=== PATIENT | female | born 1990 | race Caucasian/White ===

== ENCOUNTER 2019-06-02 14:08 | Emergency (ER) | payer SELFPAY ==
[2019-06-02 14:16] VITALS: BP 136/84
[2019-06-02] MEDS ORDERED: DEXAMETHASONE SOD PHOS INJ 10 MG/1 ML VIAL IM ONE (14:38)
[2019-06-02] MEDS ORDERED: KETOROLAC TROMETHAMINE 60 MG/2 ML SDV IM ONE (14:38)
--- NOTE | 2019-06-02 14:43 | ER Document Report ---
HPI - HPI Time Seen by Provider: 06/02/19 14:14 Pain Level: 5 Notes: Patient is a 28-year-old female with a history of morbid obesity hypothyroidism who presents complaining of bilateral anterior thigh numbness with occasional sharp pain rating from her knee to her mid thigh bilaterally that began today. Patient states that she has never experienced this before. Patient states that she does have some decreased sensation to that area on her thighs. 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 Patient states that she has been able to ambulate since then without any difficulties. She is able to eat and drink without difficulty. She is urinating normally and having normal bowel movements. Denies drug allergies. She has not had any back pain. Denies any history of spinal abscess, diabetes, IV drug abuse. Denies any headache, fever, changes in vision/speech/mentation/hearing, URI, sore throat, chest pain, palpitations, syncope, cough, shortness of breath, wheeze, dyspnea, abdominal pain, nausea/vomiting/diarrhea, urinary retention, dysuria, hematuria, loss of control of bowel or bladder, saddle anesthesia, muscle paralysis/weakness, or rash. - ROS Systems Reviewed and Negative: Yes All other systems reviewed and negative - REPRODUCTIVE Reproductive: DENIES: : - MUSCULOSKELETAL Musculoskeletal: REPORTS: Extremity pain - beatriz thighs Past Medical History - Social History Smoking Status: Current Every Day Smoker Frequency of alcohol use: None Drug Abuse: None Family History: Reviewed & Not Pertinent Patient has suicidal ideation: No Patient has homicidal ideation: No Renal/ Medical History: Denies: Hx Peritoneal Dialysis Past Surgical History: Reports: Hx Abdominal Surgery - umbilical hernia repair, 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 Vertical Provider Document - CONSTITUTIONAL Agree With Documented VS: Yes Notes: PHYSICAL EXAMINATION: with female nurseemre. GENERAL: Well-appearing, well-nourished and in no acute distress. LUNGS: Breath sounds clear to auscultation bilaterally and equal. No wheezes rales or rhonchi. HEART: Regular rate and rhythm without murmurs, rubs, gallops. ABDOMEN: Soft, nontender, nondistended abdomen. No guarding, no rebound. Normal bowel sounds present. No CVA tenderness bilaterally. No pulsatile mass. Rectal tone intact. Musculoskeletal: LE's b/l: FROM to passive/active. Strength 5+/5. No bony tenderness of extremities. Back: FROM to passive/active. Strength 5+/5. No vertebral point tenderness, stepoffs, or deformities. No other bony tenderness, erythema, swelling, or ecchymosis. SLR negative b/l. No SI jt tenderness. No foot drop Extremities: No cyanosis, clubbing, or edema b/l. Peripheral pulses 2+. Capillary refill less than 2 seconds. NEUROLOGICAL: Normal speech, normal gait. Reflexes 2+ b/l. + dec sensation to anterior mid thighs b/l to sharp. Neuro intact distal, however. Clonus neg. PSYCH: Normal mood, normal affect. SKIN: Warm, Dry, normal turgor, no rashes or lesions noted. - INFECTION CONTROL TRAVEL OUTSIDE OF THE [place] IN LAST 30 DAYS: No Course - Re-evaluation Re-evalutation: 06/02/19 14:41 Patient is an afebrile, well-hydrated, 28-year-old female who presents to the ED with bilateral thigh pain, unspecified. I reviewed with Dr. morris who does not recommend any work up at this time. Vitals are acceptable. PE is otherwise unremarkable for any focal neurological deficits aside from mild dec sensation to anterior thighs b/l. Patient was given Decadron, Toradol. She has no significant tachycardia, tachypnea, or hypoxia. She is nontoxic-appearing and is tolerating p.o. without difficulties. There are no signs of infection. No other red flag symptoms noted. No other labs or imaging warranted at this time based on H&P. Low suspicion for any meningitis, fracture, expanding/ruptured AAA, cauda equina syndrome, epidural mass lesion/abscess, herniated disc causing severe spinal stenosis, or other systemic infection at this time. Patient is aware that this condition can change from initial presentation and that she needs monitor symptoms closely for any acute changes. Conservative measures otherwise for symptoms. Recheck with your PCM in 3-5 days. Consider consult with neurosurg. Return to the ED with any worsening/concerning symptoms otherwise as reviewed discharge. Patient is in agreement. - Vital Signs Vital signs: Temp Pulse Resp BP Pulse Ox 98.3 F 97 18 136/84 H 96 06/02/19 14:13 06/02/19 14:13 06/02/19 14:13 06/02/19 14:13 06/02/19 14:13 Discharge - Discharge Clinical Impression: Bilateral thigh pain Condition: Stable Disposition: HOME, SELF-CARE Additional Instructions: Rest, Ice Tylenol/ibuprofen as needed Light stretches daily Strength exercises as able Moist heat and massage may help F/u with your PCP in 3-5 days for a recheck Consider consult(s) with Orthopedics/physical therapy for ongoing/worsening symptoms Return to the ED with any worsening symptoms and/or development of fever, headache, chest pain, palpitations, syncope, shortness of breath, trouble breathing, abdominal pain, n/v/d, blood in stool/urine, loss of control of bowel/bladder, urinary retention, muscle weakness/paralysis, saddle anesthesia, numbness/tingling, or other worsening symptoms that are concerning to you. Forms: Elevated Blood Pressure, Smoking Cessation Education, Return to Work Referrals: [facility] [Provider Group] - Follow up as needed
== END 2019-06-02 15:00 | disposition home or self-care (01) ==
LOC: ER 14:08
DX: M79.652 Pain in left thigh (principal); M79.651 Pain in right thigh; R20.0 Anesthesia of skin; F17.200 Nicotine dependence, unspecified, uncomplicated
CPT/HCPCS: 99283; 96372; J1885; J1100

== ENCOUNTER 2020-02-27 11:39 | Inpatient (IN) | payer OTHER ==
[2020-02-27] MEDS ORDERED: IPRATROPIUM/ALBUTEROL 0.5-2.5 MG/3 ML AMPUL NEB ONE (12:19)
--- NOTE | 2020-02-27 12:35 | ER Document Report ---
Entered by MARIA DEL CARMEN SQUIRES SCRIBE 02/27/20 1208 Acting as scribe for:SHASHI BARRERA DO ED General - General Chief Complaint: Shortness Of Breath Stated Complaint: SHORTNESS OF BREATH Time Seen by Provider: 02/27/20 12:04 Information source: Patient Notes: This 29-year-old female presents to the emergency department complaining of cough, wheezing and shortness of breath for the past 2 weeks. Patient used mother's albuterol with mild temporary relief. Patient reports intermittent pro ductive cough. Patient denies fever, recent travel or sick contact. Patient is an every day smoker. TRAVEL OUTSIDE OF THE [place] IN LAST 30 DAYS: No - Related Data Allergies/Adverse Reactions: No Known Allergies Allergy (Verified 06/02/19 14:09) Past Medical History - General Information source: Patient - Social History Smoking Status: Current Every Day Smoker Cigarette use (# per day): Yes Chew tobacco use (# tins/day): No Family History: Reviewed & Not Pertinent Past Surgical History: Reports: Hx Abdominal Surgery - umbilical hernia repair, 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 Review of Systems - Review of Systems Constitutional: See HPI. denies: Fever EENT: No symptoms reported Cardiovascular: No symptoms reported Respiratory: See HPI, Cough, Short of breath, Wheezing Gastrointestinal: No symptoms reported Genitourinary: No symptoms reported Female Genitourinary: No symptoms reported Musculoskeletal: No symptoms reported Skin: No symptoms reported Hematologic/Lymphatic: No symptoms reported Neurological/Psychological: No symptoms reported -: Yes All other systems reviewed and negative Physical Exam - Vital signs Vitals: Resp Pulse Ox 23 H 95 02/27/20 12:04 02/27/20 12:04 - Notes Notes: Physical Exam: General: Alert, appears older than stated age. Chronically ill. HEENT: Normocephalic. Atraumatic. PERRL. Extraocular movements intact. Oropharynx clear. Neck: Supple. Non-tender. Respiratory: No respiratory distress. Diminished in the basis with expiratory wheezes. Cardiovascular: Regular and tachycardic. Abdominal: Morbidly obese. Non-tender. No distension. Normal Bowel Sounds. Back: No gross abnormalities. Extremities: Moves all four extremities. Upper extremities: Normal inspection. Normal ROM. Lower extremities: Trace peripheral edema. Normal ROM. Neurological: Normal cognition. AAOx4. Normal speech. Psychological: Normal affect. Normal Mood. Skin: Warm. Dry. Normal color. Course - Re-evaluation Re-evalutation: 02/27/20 13:26 MDM 29 year old right handed female with biparietal headache. Nausea and vomiting and shakey earlier. No fever and feels better. ? seizure activity. No h/o seizures. - Vital Signs Vital signs: Temp Pulse Resp BP Pulse Ox 98.6 F 136 H 28 H 130/92 H 94 02/27/20 12:25 02/27/20 12:07 02/27/20 14:00 02/27/20 13:01 02/27/20 14:00 - Laboratory Result Diagrams: 02/27/20 12:30 02/27/20 12:30 Laboratory results interpreted by me: 02/27/20 02/27/20 02/27/20 12:30 12:30 12:30 WBC 21.3 H Hgb 11.5 L Hct 34.9 L MCV 76 L MCH 25.2 L RDW 16.5 H Lymphocytes % (Manual) 12 L Abs Neuts (Manual) 16.2 H Abs Monocytes (Manual) 1.9 H Sodium 134.7 L Carbon Dioxide 21 L Est GFR (MDRD) Non-Af 53 L NT-Pro-B Natriuret Pep TSH 11.80 H Urine Protein Urine Blood 02/27/20 02/27/20 12:30 13:50 WBC Hgb Hct MCV MCH RDW Lymphocytes % (Manual) Abs Neuts (Manual) Abs Monocytes (Manual) Sodium Carbon Dioxide Est GFR (MDRD) Non-Af NT-Pro-B Natriuret Pep 993 H TSH Urine Protein 30 H Urine Blood MODERATE H - Diagnostic Test Radiology reviewed: Image reviewed, Reports reviewed - EKG Interpretation by Me EKG shows normal: Sinus rhythm Rate: Tachycardia Rhythm: NSR - Sinus Tachy [address] elevaiton or depression my interpretation. Critical Care Note - Critical Care Note Total time excluding time spent on procedures (mins): 30 Comments: Reviewing labs, speaking with pt and hospitalists. Checking response to treatment and informing pt of results. Discharge - Discharge Clinical Impression: Respiratory failure Qualifiers: Chronicity: acute Respiratory failure complication: hypoxia Qualified Code(s): J96.01 - Acute respiratory failure with hypoxia CAP (community acquired pneumonia) Qualifiers: Laterality: unspecified laterality Qualified Code(s): J18.9 - Pneumonia, unspecified organism Condition: Good Disposition: ADMITTED INPATIENT Admitting Provider: Mai (Hospitalist) Unit Admitted: Telemetry I personally performed the services described in the documentation, reviewed and edited the documentation which was dictated to the scribe in my presence, and it accurately records my words and actions.
[2020-02-27] MEDS ORDERED: METHYLPREDNISOLONE INJ 125 MG/2 ML SDV IV ONE (13:00)
[2020-02-27 13:01] LABS: HEMATOCRIT 34.9 % (36.0-47.0); HEMOGLOBIN 11.5 g/dL (12.0-15.5); MEAN CORPUSCULAR HEMOGLOBIN 25.2 pg (27.0-33.4); MEAN CORPUSCULAR HGB CONC 33.1 g/dL (32.0-36.0); MEAN CORPUSCULAR VOLUME 76 fl (80-97); PLATELET COUNT 194 10^3/uL (150-450); RED BLOOD COUNT 4.59 10^6/uL (3.72-5.28); RED CELL DISTRIBUTION WIDTH 16.5 % (11.5-14.0); WHITE BLOOD COUNT 21.3 10^3/uL (4.0-10.5)
[2020-02-27 13:22] LABS: ABSOLUTE LYMPHOCYTES# (MANUAL) 2.8 10^3/uL (0.5-4.7); ABSOLUTE MONOCYTES # (MANUAL) 1.9 10^3/uL (0.1-1.4); BASOPHILS % (MANUAL) 0 % (0-2); EOSINOPHILS % (MANUAL) 2 % (0-6); LYMPHOCYTES % (MANUAL) 12 % (13-45); MONOCYTES % (MANUAL) 9 % (3-13); SEGMENTED NEUTROPHILS % (MAN) 76 % (42-78); TOTAL CELLS COUNTED 100
[2020-02-27 13:23] LABS: ALBUMIN 3.7 g/dL (3.5-5.0); ALKALINE PHOSPHATASE 93 U/L (38-126); ANION GAP 8 (5-19); ASPARTATE AMINO TRANSFERASE 18 U/L (14-36); BILIRUBIN,TOTAL 0.7 mg/dL (0.2-1.3); BLOOD UREA NITROGEN 17 mg/dL (7-20); CALCIUM 8.9 mg/dL (8.4-10.2); CARBON DIOXIDE 21 mmol/L (22-30); CHLORIDE 106 mmol/L (98-107); GLUCOSE 102 mg/dL (75-110); POTASSIUM 4.7 mmol/L (3.6-5.0); TOTAL PROTEIN 7.9 g/dL (6.3-8.2)
[2020-02-27 13:26] LABS: ANISOCYTOSIS 1+; OVALOCYTES SLIGHT; PLATELET COMMENT ADEQUATE; POIKILOCYTOSIS SLIGHT; POLYCHROMASIA SLIGHT; TOXIC VACUOLATION PRESENT
--- NOTE | 2020-02-27 13:41 | RADIOLOGY REPORT (SQ) ---
EXAM DESCRIPTION: CHEST SINGLE VIEW IMAGES COMPLETED DATE/TIME: 02/27/2020 1:17 pm REASON FOR STUDY: cough COMPARISON: None. NUMBER OF VIEWS: One view. TECHNIQUE: Single frontal radiographic view of the chest acquired. LIMITATIONS: None. FINDINGS: LUNGS AND PLEURA: No opacities, masses or pneumothorax. No pleural effusion. MEDIASTINUM AND HILAR STRUCTURES: No masses or contour abnormality. HEART AND VASCULATURE: Cardiac enlargement. Vascular congestion. BONES: No acute findings. HARDWARE: None in the chest. OTHER: No other significant finding. IMPRESSION: CARDIAC ENLARGEMENT. VASCULAR CONGESTION. TECHNICAL DOCUMENTATION: JOB ID: [id number] 2010 [employer]- All Rights Reserved Reading location - IP/workstation name: [email or web address]
[2020-02-27] MEDS ORDERED: AMPICILLIN SOD/SULBACTAM 3 GM VIAL IV ONE (14:13)
[2020-02-27] MEDS ORDERED: ALBUTEROL SULFATE 0.083% NEB 2.5 MG/3 ML AMPUL NEB ONE (14:13)
[2020-02-27] MEDS ORDERED: AZITHROMYCIN INJ 500 MG VIAL IV ONE (14:14)
[2020-02-27 14:31] LABS: APPEARANCE,URINE CLEAR; BILIRUBIN,URINE NEGATIVE (NEGATIVE); COLOR,URINE YELLOW; GLUCOSE, URINE NEGATIVE (NEGATIVE); KETONES,URINE NEGATIVE (NEGATIVE); LEUKOCYTE ESTERASE,URINE NEGATIVE (NEGATIVE); NITRITE,URINE NEGATIVE (NEGATIVE); PROTEIN,URINE 30 mg/dL (NEGATIVE); URINE SPECIFIC GRAVITY 1.009; UROBILINOGEN,URINE NEGATIVE mg/dL (<2.0)
[2020-02-27] MEDS ORDERED: ONDANSETRON HCL INJ/PF 4 MG/2 ML SDV IV ONE (15:24)
[2020-02-27] MEDS ORDERED: MORPHINE SULFATE 10 MG/ML INJ IV ONE (15:24)
--- NOTE | 2020-02-27 15:42 | RADIOLOGY REPORT (SQ) ---
EXAM DESCRIPTION: CTA CHEST IMAGES COMPLETED DATE/TIME: 02/27/2020 3:14 pm REASON FOR STUDY: dyspnea COMPARISON: None. TECHNIQUE: CT scan of the chest performed using helical scanning technique with dynamic intravenous contrast injection. Images reviewed with lung, soft tissue and bone windows. Reconstructed coronal and sagittal MPR images reviewed. Additional 3 dimensional post-processing performed to develop Maximal Intensity Projection images (ND P). All images stored on PACS. All CT scanners at this facility use dose modulation, iterative reconstruction, and/or weight based d osing when appropriate to reduce radiation dose to as low as reasonably achievable (ALARA). [facility]: Dose Right [facility]: CareDose [facility]: Dose Right [facility]: Teradose 4D [facility]: [employer] CONTRAST TYPE AND DOSE: contrast/concentration: Isovue 350.00 mg/ml; Total Contrast Delivered: 75.0 ml; Total Saline Delivered: 70.0 ml Contrast bolus adequate for pulmonary arteries and aorta. RENAL FUNCTION: GFR > 60. RADIATION DOSE: CT Rad equipment meets quality standard of care and radiation dose reduction techniq ues were employed. CTDIvol: 29.8 - 49.6 mGy. DLP: 1055 mGy-cm. . LIMITATIONS: Motion artifact. FINDINGS: LUNGS AND PLEURA: Diffuse interlobular septal thickening. Patchy alveolar pattern primari ly upper lobes. No evidence of cavitation. No effusions. AORTA AND GREAT VESSELS: No aneurysm. No dissection. HEART: No pericardial effusion. PULMONARY ARTERIES: No emboli visualized in the main pulmonary arteries or the segmental branches. HILAR AND MEDIASTINAL STRUCTURES: Enlarged mediastinal nodes, the largest subcarinal station 2.9 x 3. 5 cm. HARDWARE: None in the chest. UPPER ABDOMEN: No significant findings. Limited exam. THYROID AND OTHER SOFT TISSUES: No masses. No adenopathy. BONES: No acute or significant finding. 3D MIPS: Confirm above findings. OTHER: No other significant finding. IMPRESSION: 1. No evidence of pulmonary embolus. 2. Bilateral upper lobe infiltrates and mediastinal adenopathy. Main differentials are infection or sarcoid. COMMENT: Imaging features are atypical or uncommonly reported for COVID-19 pneumonia. Alternative d iagnoses should be considered. PneAty Quality ID # [id number]: Final reports with documentation of one or more dose reduction techniques (e.g., Au tomated exposure control, adjustment of the mA and/or kV according to patient size, use of iterative reconstruction technique) TECHNICAL DOCUMENTATION: JOB ID: [id number] 2010 [employer]- All Rights Reserved Reading location - IP/workstation name: [email or web address]
[2020-02-27] MEDS ORDERED: IPRATROPIUM/ALBUTEROL 0.5-2.5 MG/3 ML AMPUL NEB PRN (17:47)
[2020-02-27] MEDS ORDERED: ALBUTEROL SULFATE HFA (90 MCG/PUFF) 8 GM MDI IH PRN (17:57)
[2020-02-27] MEDS ORDERED: ALBUTEROL SULFATE HFA (90 MCG/PUFF) 200 PUFF/8.5 GM MDI IH PRN (18:00)
--- NOTE | 2020-02-27 18:15 | PDOC H&P ---
History of Present Illness Admission Date/PCP: 02/27/20 17:11 History of Present Illness: CHEMO CRUZ is a 29 year old female who has smoked since she was 14 or 15 years old and apparently has not worked in the past several months who presents today after having worsening shortness of breath. She states she has had a cough for the past 2 weeks. It is been nonproductive. She has not had any fevers. She is not had any known sick contacts. She says she has not left her house in several weeks. She lives at home with her disabled mother who is also not left her house in several weeks. The other person who lives in the house is the patient's father, who apparently only leaves the house to go get groceries and also does not work. She says they have not had any visitors. They have one neighbor who they have not seen in weeks. Her exposure for communicable diseases is therefore extremely low. She said that today her shortness of breath got worse. She did not want to come to the hospital but her father convinced her to do so. She said that yesterday she used 1 of her mother's nebulizer treatments and said it made her feel little bit better. She was a little hypoxic in the ER, about 85% on room air but was not working too hard to breathe at that time. She responded to nebulizer therapy in the ER. After starting some oxygen her SPO2 came up to the upper 90s on 2 L and she says she was feeling a lot better. CT of the chest was negative for PE, but she did have apical pulmonary edema bilaterally. Past Medical History Medical History: Other - Morbid obesity, current every day smoker Past Surgical History Past Surgical History: Reports: Orthopedic Surgery - right 5th toe amputation Social History Information Source: Patient Lives with: Parents Smoking Status: Current Every Day Smoker Electronic Cigarette use?: No Frequency of Alcohol Use: Rare Hx Recreational Drug Use: No Hx Prescription Drug Abuse: No Family History Family History: Reviewed & Not Pertinent, Arthritis, CAD, COPD, DM, Hypertension, Thyroid Disfunction Parental Family History Reviewed: Yes Children Family History Reviewed: NA Sibling(s) Family History Reviewed.: NA Medication/Allergy Home Medications: No Home Medications 02/27/20 Allergies/Adverse Reactions: No Known Allergies Allergy (Verified 06/02/19 14:09) Review of Systems All systems: reviewed and no additional remarkable complaints except as stated - All systems were reviewed and were negative except as noted in the HPI Physical Exam Vital Signs: Temp Pulse Resp BP Pulse Ox 98.6 F 136 H 28 H 130/92 H 94 02/27/20 12:25 02/27/20 12:07 02/27/20 14:00 02/27/20 13:01 02/27/20 14:00 Intake & Output 02/26/20 02/27/20 02/28/20 06:59 06:59 06:59 Weight 188.241 kg General appearance: PRESENT: no acute distress, cooperative, disheveled, morbidly obese Head exam: PRESENT: atraumatic, normocephalic Eye exam: PRESENT: EOMI, PERRLA. ABSENT: conjunctival injection, nystagmus, scleral icterus Ear exam: PRESENT: normal external ear exam Mouth exam: PRESENT: moist, neck supple Throat exam: ABSENT: post pharyngeal erythema Neck exam: PRESENT: full ROM. ABSENT: carotid bruit, JVD, lymphadenopathy, meningismus, tenderness, thyromegaly Respiratory exam: PRESENT: prolonged expiratory phas, symmetrical, unlabored, wh eezes. ABSENT: accessory muscle use, chest wall tenderness, crackles, retraction, rhonchi, tachypnea Cardiovascular exam: PRESENT: RRR, +S1, +S2 Pulses: PRESENT: normal carotid pulses Vascular exam: PRESENT: normal capillary refill GI/Abdominal exam: PRESENT: normal bowel sounds, soft. ABSENT: distended, guarding, rebound, tenderness Extremities exam: ABSENT: clubbing, pedal edema Musculoskeletal exam: PRESENT: normal inspection. ABSENT: deformity Neurological exam: PRESENT: alert, awake, oriented to person, oriented to place, oriented to situation, CN II-XII grossly intact. ABSENT: motor sensory deficit Psychiatric exam: PRESENT: flat affect Skin exam: PRESENT: dry, warm Results Laboratory Results: 02/27/20 12:30 02/27/20 12:30 02/27/20 02/27/20 02/27/20 12:30 12:30 12:30 WBC 21.3 H RBC 4.59 Hgb 11.5 L Hct 34.9 L MCV 76 L MCH 25.2 L MCHC 33.1 RDW 16.5 H Plt Count 194 Seg Neutrophils % Not Reportable Sodium 134.7 L Potassium 4.7 Chloride 106 Carbon Dioxide 21 L Anion Gap 8 BUN 17 Creatinine 1.20 Est GFR ( Amer) > 60 Glucose 102 Lactic Acid 2.0 Calcium 8.9 Total Bilirubin 0.7 AST 18 Alkaline Phosphatase 93 Total Protein 7.9 Albumin 3.7 TSH Serum HCG, Qual Urine Color Urine Appearance Urine pH Ur Specific [place] Urine Protein Urine Glucose (UA) Urine Ketones Urine Blood Urine Nitrite Ur Leukocyte Esterase Urine WBC (Auto) Urine RBC (Auto) 02/27/20 02/27/20 02/27/20 12:30 12:30 13:50 WBC RBC Hgb Hct MCV MCH MCHC RDW Plt Count Seg Neutrophils % Sodium Potassium Chloride Carbon Dioxide Anion Gap BUN Creatinine Est GFR ( Amer) Glucose Lactic Acid Calcium Total Bilirubin AST Alkaline Phosphatase Total Protein Albumin TSH 11.80 H Serum HCG, Qual NEGATIVE Urine Color YELLOW Urine Appearance CLEAR Urine pH 6.0 Ur Specific [place] 1.009 Urine Protein 30 H Urine Glucose (UA) NEGATIVE Urine Ketones NEGATIVE Urine Blood MODERATE H Urine Nitrite NEGATIVE Ur Leukocyte Esterase NEGATIVE Urine WBC (Auto) 1 Urine RBC (Auto) 3 02/27/20 02/27/20 12:30 12:30 Troponin I < 0.012 NT-Pro-B Natriuret Pep 993 H Impressions: Chest X-Ray 02/27/20 12:18 IMPRESSION: CARDIAC ENLARGEMENT. VASCULAR CONGESTION. Chest/Abdomen CTA 02/27/20 13:46 IMPRESSION: 1. No evidence of pulmonary embolus. 2. Bilateral upper lobe infiltrates and mediastinal adenopathy. Main differentials are infection or sarcoid. Assessment and Plan - Diagnosis (1) Acute respiratory failure with hypoxia Is this a current diagnosis for this admission?: Yes Plan: She responded well to nebulizer treatment and oxygen therapy. Since they have decided to test her for COVID-19, we will try to avoid nebulizer therapy. I will give her albuterol from metered-dose inhaler. She did have some wheezing, and since my index of suspicion is fairly low I am going to give her a couple of doses of prednisone to try to break her bronchospasm, which I anticipate should occur fairly quickly. (2) Atypical pneumonia Is this a current diagnosis for this admission?: Yes Plan: Bilateral apical infiltrates most likely suggestive of an atypical pneumonia. Will start a azithromycin. (3) Suspected COVID-19 virus infection Is this a current diagnosis for this admission?: Yes Plan: She was tested in the ER but her presentation and her history that she provides would give a fairly low index of suspicion. She is not had very much in the way of exposure. If anything, her point of exposure would be her father, who also very rarely ventures out into public. The test was ordered in the ER and so we will rule her out. (4) Hypothyroidism Qualifiers: Hypothyroidism type: other Qualified Code(s): E03.8 - Other specified hypothyroidism Is this a current diagnosis for this admission?: Yes Plan: Suspect primary hypothyroidism. TSH was 11.8. She is not been on any treatment. Based on her estimated lean body weight, I will start her out at 112 mcg of Synthroid a day. We will also check a free T4. - Time Time Spent with patient: 35 or more minutes - Inpatient Certification Based on my medical assessment, after consideration of the patient's comorbidities, presenting symptoms, or acuity I expect that the services needed warrant INPATIENT care.: Yes I certify that my determination is in accordance with my understanding of Medicare's requirements for reasonable and necessary INPATIENT services [42 CFR 412.3e].: Yes Medical Necessity: Significant Comorbidiites Make Outpatient Treatment Too Risky, Need Close Monitoring Due to Risk of Patient Decompensation, Need For Continuous Telemetry Monitoring, Need for Nebulizer Therapy and Monitoring of Response, Risk of Complication if Not Cared For in Hospital
[2020-02-27] MEDS: ACETAMINOPHEN 325 MG TABLET PO PRN (20:48)
[2020-02-27] MEDS: HEPARIN SOD (PORCINE) 5,000 UNIT/ML 1 ML VIAL SUBCUT SCH (22:03)
[2020-02-28] MEDS: HEPARIN SOD (PORCINE) 5,000 UNIT/ML 1 ML VIAL SUBCUT SCH ×2 (05:54→13:33)
[2020-02-28] MEDS ORDERED: LEVOTHYROXINE SODIUM 0.112 MG TABLET PO SCH (06:00)
[2020-02-28] MEDS: ACETAMINOPHEN 325 MG TABLET PO PRN (06:03)
[2020-02-28 06:53] LABS: HEMATOCRIT 33.4 % (36.0-47.0); HEMOGLOBIN 11.1 g/dL (12.0-15.5); MEAN CORPUSCULAR HEMOGLOBIN 24.9 pg (27.0-33.4); MEAN CORPUSCULAR HGB CONC 33.2 g/dL (32.0-36.0); MEAN CORPUSCULAR VOLUME 75 fl (80-97); PLATELET COUNT 183 10^3/uL (150-450); RED BLOOD COUNT 4.46 10^6/uL (3.72-5.28); RED CELL DISTRIBUTION WIDTH 16.5 % (11.5-14.0); WHITE BLOOD COUNT 17.9 10^3/uL (4.0-10.5)
[2020-02-28 07:22] LABS: ANION GAP 7 (5-19); BLOOD UREA NITROGEN 22 mg/dL (7-20); CALCIUM 9.1 mg/dL (8.4-10.2); CARBON DIOXIDE 20 mmol/L (22-30); CHLORIDE 105 mmol/L (98-107); GLUCOSE 151 mg/dL (75-110); POTASSIUM 5.1 mmol/L (3.6-5.0)
[2020-02-28] MEDS ORDERED: PREDNISONE 20 MG TABLET PO SCH (10:00)
[2020-02-28 14:00] VITALS: BP 149/95
--- NOTE | 2020-02-28 17:56 | PDOC DISCHARGE SUMMARY ---
Impression - Admit/DC Date/PCP Admission Date/Primary Care Provider: 02/27/20 17:11 Discharge Date: 02/28/20 - Discharge Diagnosis (1) Acute respiratory failure with hypoxia Is this a current diagnosis for this admission?: Yes (2) Atypical pneumonia Is this a current diagnosis for this admission?: Yes (3) Suspected COVID-19 virus infection Is this a current diagnosis for this admission?: Yes (4) Hypothyroidism Is this a current diagnosis for this admission?: Yes - Additional Information Discharge Diet: Cardiac Discharge Activity: Activity As Tolerated, Balance Activity w/Rest, Other Referrals: [facility] [Provider Group] (NOT SEEING PATIENTS IN THE CLINIC RIGHT NOW. 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 AND THE CLINIC WILL CONTACT HER.) Prescriptions: Azithromycin 500 mg PO DAILY #3 tablet Albuterol Sulfate [Proair HFA Inhalation Aerosol 8.5 gm MDI] 2 puff IH Q4HP PRN #1 hfa.[email or web address] PRN Reason: Levothyroxine Sodium [Synthroid 0.112 mg Tablet] 0.112 mg PO Q6AM #30 tablet Home Medications: Albuterol Sulfate [Proair HFA Inhalation Aerosol 8.5 gm MDI] 2 puff IH Q4HP PRN #1 hfa.aer.ad 02/28/20 Azithromycin 500 mg PO DAILY #3 tablet 02/28/20 Levothyroxine Sodium [Synthroid 0.112 mg Tablet] 0.112 mg PO Q6AM #30 tablet 02/28/20 History of Present Illiness History of Present Illness: CHEMO CRUZ is a 29 year old female who has smoked since she was 14 or 15 years old and apparently has not worked in the past several months who presents today after having worsening shortness of breath. She states she has had a cough for the past 2 weeks. It is been nonproductive. She has not had any fevers. She is not had any known sick contacts. She says she has not left her house in several weeks. She lives at home with her disabled mother who is also not left her house in several weeks. The other person who lives in the house is the patient's father, who apparently only leaves the house to go get groceries and also does not work. She says they have not had any visitors. They have one neighbor who they have not seen in weeks. Her exposure for communicable disea ses is therefore extremely low. She said that today her shortness of breath got worse. She did not want to come to the hospital but her father convinced her to do so. She said that yesterday she used 1 of her mother's nebulizer treatments and said it made her feel little bit better. She was a little hypoxic in the ER, about 85% on room air but was not working too hard to breathe at that time. She responded to nebulizer therapy in the ER. After starting some oxygen her SPO2 came up to the upper 90s on 2 L and she says she was feeling a lot better. CT of the chest was negative for PE, but she did have apical pulmonary edema bilaterally. Hospital Course Hospital Course: Coronavirus testing is still pending, but the index of suspicion is very low. She responded very well to some bronchodilators and a couple doses of prednisone. We also had her on some azithromycin. She likely had an atypical pneumonia. She was not wheezing today. She does not have insurance, but we were able to get the [employer] michi on her phone and this enabled her to get her antibiotic and her albuterol inhaler at a very low chilel. She was also noted to have an elevated TSH with a low normal T4. She said that she has taken Synthroid in the past but it paradoxically made her more tired. She does not have a primary care provider but she said she is going to try to get one within the next month. I have given her a month supply of levothyroxine and have recommended to her that she get a primary care provider within a month so that she can get her TSH repeated to see if the dose is appropriate. She verbalized her understanding. She is going to self quarantine at home but we're going through the appropriate process as delineated by this facility for releasing someone before their coronavirus testing results. Her labs and examination were reassuring and she was discharged in stable condition. Physical Exam Vital Signs: Temp Pulse Resp BP Pulse Ox 97.7 F 85 18 149/95 H 99 02/28/20 13:59 02/28/20 13:59 02/28/20 13:59 02/28/20 13:59 02/28/20 13:59 Intake & Output 02/27/20 02/28/20 02/29/20 06:59 06:59 06:59 Intake Total 1758 200 Balance 1758 200 Weight 188 kg General appearance: PRESENT: no acute distress, cooperative, disheveled, morbidly obese Respiratory exam: PRESENT: clear to auscultation beatriz, symmetrical, unlabored. ABSENT: accessory muscle use, chest wall tenderness, crackles, prolonged expiratory phas, retraction, rhonchi, tachypnea, wheezes Cardiovascular exam: PRESENT: RRR, +S1, +S2 Pulses: PRESENT: normal carotid pulses Vascular exam: PRESENT: normal capillary refill GI/Abdominal exam: PRESENT: normal bowel sounds, soft. ABSENT: distended, guarding, rebound, tenderness Extremities exam: ABSENT: clubbing, pedal edema Musculoskeletal exam: PRESENT: normal inspection. ABSENT: deformity Neurological exam: PRESENT: alert, awake, oriented to person, oriented to place, oriented to situation Psychiatric exam: PRESENT: flat affect Skin exam: PRESENT: dry, warm Results Laboratory Results: WBC 17.9 10^3/uL (4.0-10.5) H 02/28/20 06:18 RBC 4.46 10^6/uL (3.72-5.28) 02/28/20 06:18 Hgb 11.1 g/dL (12.0-15.5) L 02/28/20 06:18 Hct 33.4 % (36.0-47.0) L 02/28/20 06:18 MCV 75 fl (80-97) L 02/28/20 06:18 MCH 24.9 pg (27.0-33.4) L 02/28/20 06:18 MCHC 33.2 g/dL (32.0-36.0) 02/28/20 06:18 RDW 16.5 % (11.5-14.0) H 02/28/20 06:18 Plt Count 183 10^3/uL (150-450) 02/28/20 06:18 Lymph % (Auto) Not Reportable 02/27/20 12:30 Harlan % (Auto) Not Reportable 02/27/20 12:30 Eos % (Auto) Not Reportable 02/27/20 12:30 Baso % (Auto) Not Reportable 02/27/20 12:30 Absolute Neuts (auto) Not Reportable 02/27/20 12:30 Absolute Lymphs (auto) Not Reportable 02/27/20 12:30 Absolute Monos (auto) Not Reportable 02/27/20 12:30 Absolute Eos (auto) Not Reportable 02/27/20 12:30 Absolute Basos (auto) Not Reportable 02/27/20 12:30 Total Counted 100 02/27/20 12:30 Seg Neutrophils % Not Reportable 02/27/20 12:30 Seg Neuts % (Manual) 76 % (42-78) 02/27/20 12:30 Lymphocytes % (Manual) 12 % (13-45) L 02/27/20 12:30 Atypical Lymphs % 1 % (0) 02/27/20 12:30 Monocytes % (Manual) 9 % (3-13) 02/27/20 12:30 Eosinophils % (Manual) 2 % (0-6) 02/27/20 12:30 Basophils % (Manual) 0 % (0-2) 02/27/20 12:30 Abs Neuts (Manual) 16.2 10^3/uL (1.7-8.2) H 02/27/20 12:30 Abs Lymphs (Manual) 2.8 10^3/uL (0.5-4.7) 02/27/20 12:30 Abs Monocytes (Manual) 1.9 10^3/uL (0.1-1.4) H 02/27/20 12:30 Absolute Eos (Manual) 0.4 10^3/uL (0.0-0.6) 02/27/20 12:30 Abs Basophils (Manual) 0.0 10^3/uL (0.0-0.2) 02/27/20 12:30 Toxic Vacuolation PRESENT 02/27/20 12:30 Platelet Comment ADEQUATE 02/27/20 12:30 Polychromasia SLIGHT 02/27/20 12:30 Poikilocytosis SLIGHT 02/27/20 12:30 Anisocytosis 1+ 02/27/20 12:30 Microcytosis SLIGHT 02/27/20 12:30 Ovalocytes SLIGHT 02/27/20 12:30 Sodium 132.4 mmol/L (137-145) L 02/28/20 06:18 Potassium 5.1 mmol/L (3.6-5.0) H 02/28/20 06:18 Chloride 105 mmol/L (98-107) 02/28/20 06:18 Carbon Dioxide 20 mmol/L (22-30) L 02/28/20 06:18 Anion Gap 7 (5-19) 02/28/20 06:18 BUN 22 mg/dL (7-20) H 02/28/20 06:18 Creatinine 1.23 mg/dL (0.52-1.25) 02/28/20 06:18 Est GFR ( Amer) > 60 (>60) 02/28/20 06:18 Est GFR (MDRD) Non-Af 52 (>60) L 02/28/20 06:18 Glucose 151 mg/dL (75-110) H 02/28/20 06:18 Lactic Acid 2.0 mmol/L (0.7-2.1) 02/27/20 12:30 Calcium 9.1 mg/dL (8.4-10.2) 02/28/20 06:18 Total Bilirubin 0.7 mg/dL (0.2-1.3) 02/27/20 12:30 Direct Bilirubin 0.0 mg/dL (0.0-0.4) 02/27/20 12:30 Neonat Total Bilirubin Not Reportable 02/27/20 12:30 Neonat Direct Bilirubin Not Reportable 02/27/20 12:30 Neonat Indirect Bili Not Reportable 02/27/20 12:30 AST 18 U/L (14-36) 02/27/20 12:30 ALT 11 U/L (<35) 02/27/20 12:30 Alkaline Phosphatase 93 U/L (38-126) 02/27/20 12:30 Troponin I < 0.012 ng/mL 02/27/20 12:30 NT-Pro-B Natriuret Pep 993 pg/mL (<125) H 02/27/20 12:30 Total Protein 7.9 g/dL (6.3-8.2) 02/27/20 12:30 Albumin 3.7 g/dL (3.5-5.0) 02/27/20 12:30 TSH 11.80 uIU/mL (0.47-4.68) H 02/27/20 12:30 Free T4 1.07 ng/dL (0.78-2.19) 02/27/20 12:30 Serum HCG, Qual NEGATIVE (NEGATIVE) 02/27/20 12:30 Urine Color YELLOW 02/27/20 13:50 Urine Appearance CLEAR 02/27/20 13:50 Urine pH 6.0 (5.0-9.0) 02/27/20 13:50 Ur Specific [place] 1.009 02/27/20 13:50 Urine Protein 30 mg/dL (NEGATIVE) H 02/27/20 13:50 Urine Glucose (UA) NEGATIVE mg/dL (NEGATIVE) 02/27/20 13:50 Urine Ketones NEGATIVE mg/dL (NEGATIVE) 02/27/20 13:50 Urine Blood MODERATE (NEGATIVE) H 02/27/20 13:50 Urine Nitrite NEGATIVE (NEGATIVE) 02/27/20 13:50 Urine Bilirubin NEGATIVE (NEGATIVE) 02/27/20 13:50 Urine Urobilinogen NEGATIVE mg/dL (<2.0) 02/27/20 13:50 Ur Leukocyte Esterase NEGATIVE (NEGATIVE) 02/27/20 13:50 Urine WBC (Auto) 1 /HPF 02/27/20 13:50 Urine RBC (Auto) 3 /HPF 02/27/20 13:50 Urine Bacteria (Auto) TRACE /HPF 02/27/20 13:50 Squamous Epi Cells Auto 3 /HPF 02/27/20 13:50 Urine Mucus (Auto) RARE /LPF 02/27/20 13:50 Urine Ascorbic Acid NEGATIVE (NEGATIVE) 02/27/20 13:50 02/27/20 02/27/20 12:30 12:30 Troponin I < 0.012 NT-Pro-B Natriuret Pep 993 H Impressions: Chest X-Ray 02/27/20 12:18 IMPRESSION: CARDIAC ENLARGEMENT. VASCULAR CONGESTION. Chest/Abdomen CTA 02/27/20 13:46 IMPRESSION: 1. No evidence of pulmonary embolus. 2. Bilateral upper lobe infiltrates and mediastinal adenopathy. Main differentials are infection or sarcoid. Plan Time Spent: Greater than 30 Minutes Stroke Is this a Stroke Patient?: No Acute Heart Failure - Is this a Heart Failure Patient?: No
[2020-02-28] MEDS ORDERED: AZITHROMYCIN 500 MG in DEXTROSE 5%-WATER 250 ML IV SCH (18:00)
== END 2020-02-28 14:45 | disposition home or self-care (01) | DRG 195 ==
LOC: ER 11:39 → EH 17:11 → 5 18:50
PROVIDERS: ADMIT Family Medicine; ATTEND Family Medicine
DX: J18.9 Pneumonia, unspecified organism (principal); E66.01 Morbid (severe) obesity due to excess calories; E03.8 Other specified hypothyroidism; F17.210 Nicotine dependence, cigarettes, uncomplicated; Z11.59 Encounter for screening for other viral diseases; Z79.899 Other long term (current) drug therapy; Z89.421 Acquired absence of other right toe(s); Z79.890 Hormone replacement therapy
CPT/HCPCS: 36415; 71045; 71275; 80048; 80053; 81001; 83605; 83880; 84439; 84443; 84484; 84703; 85025; 85027; 87040; 87635; 94640; 96365; 96367; 96375; 99285; J0295; J0456; J1644; J2270; J2405; J2930; J3490; J7512; J7620

== ENCOUNTER → 2020-04-01 | Outpatient (CLI) | payer OTHER ==
--- NOTE | 2020-04-01 12:13 | RADIOLOGY REPORT (SQ) ---
EXAM DESCRIPTION: CHEST 2 VIEWS IMAGES COMPLETED DATE/TIME: 04/01/2020 12:05 pm REASON FOR STUDY: J18.9 PNEUMONIA, UNSPECIFIED ORGANISM COMPARISON: 02/27/2020 EXAM PARAMETERS: NUMBER OF VIEWS: two views TECHNIQUE: Digital Frontal and Lateral radiographic views of the chest acquired. RADIATION DOSE: NA LIMITATIONS: none FINDINGS: LUNGS AND PLEURA: Asymmetric right basilar infiltrate either asymmetric edema or pneumonia . Small right pleural effusion. MEDIASTINUM AND HILAR STRUCTURES: No masses or contour abnormalities. HEART AND VASCULAR STRUCTURES: Heart is slightly enlarged but stable in appearance there is central v ascular prominence. BONES: No acute findings. HARDWARE: None in the chest. OTHER: No other significant finding. IMPRESSION: Asymmetric right lower lobe airspace disease either pneumonia or asymmetric edema. TECHNICAL DOCUMENTATION: JOB ID: [id number] 2010 [employer]- All Rights Reserved Reading location - IP/workstation name: [email or web address]
== END ==
LOC: RAD 11:55
PROVIDERS: ATTEND Nurse Practitioner Family
DX: J18.9 Pneumonia, unspecified organism (principal)
CPT/HCPCS: 71046

== ENCOUNTER 2020-06-28 17:59 | Emergency (ER) | payer OTHER ==
--- NOTE | 2020-06-28 19:50 | RADIOLOGY REPORT (SQ) ---
EXAM DESCRIPTION: CHEST SINGLE VIEW IMAGES COMPLETED DATE/TIME: 06/28/2020 7:34 pm REASON FOR STUDY: SOB COMPARISON: 04/01/2020 TECHNIQUE: Single frontal radiographic view of the chest acquired. NUMBER OF VIEWS: One view. LIMITATIONS: None. FINDINGS: LUNGS AND PLEURA: No pneumothorax. No consolidation or pleural effusion. MEDIASTINUM AND HILAR STRUCTURES: Stable. HEART AND VASCULAR STRUCTURES: Stable. BONES: No acute findings. HARDWARE: None in the chest. OTHER: No other significant finding. IMPRESSION: NO ACUTE FINDINGS. TECHNICAL DOCUMENTATION: JOB ID: [id number] 2010 [employer]- All Rights Reserved Reading location - IP/workstation name: [email or web address]
[2020-06-28] MEDS ORDERED: CEFTRIAXONE INJ 1000 MG VIAL IV ONE (19:52)
[2020-06-28] MEDS ORDERED: AZITHROMYCIN INJ 500 MG VIAL IV ONE (19:54)
--- NOTE | 2020-06-28 20:01 | ER Document Report ---
ED General - General Mode of Arrival: Medic Information source: Patient TRAVEL OUTSIDE OF THE [place] IN LAST 30 DAYS: No - HPI Onset: Last week Severity: Moderate Pain Level: 2 Associated symptoms: Shortness of breath Exacerbated by: Movement Relieved by: Denies Similar symptoms previously: No Recently seen / treated by doctor: No <SERGEY ARNETT JR - Last Filed: 06/28/20 19:56> <SARAHI ZAIDI IV - Last Filed: 06/28/20 21:46> - General Chief Complaint: Shortness Of Breath Stated Complaint: SHORTNESS OF BREATH Notes: 29-year-old female arrives by EMS with chief complaint of progressive shortness of breath and dyspnea on exertion x1 week. Patient was just here in the hospital 3 months ago for pneumonia. Patient has morbid obesity. She initially wanted to check out AMA with Bernardo MENDEZ but nursing staffing operations manager Jones advis ed her that she should stay and patient conformed relented. (SERGEY ARNETT JR) - Related Data Allergies/Adverse Reactions: No Known Allergies Allergy (Verified 06/02/19 14:09) Past Medical History - General Information source: Patient, Emergency Med Personnel - Social History Smoking Status: Current Every Day Smoker Cigarette use (# per day): Yes Chew tobacco use (# tins/day): No Smoking Education Provided: Yes Frequency of alcohol use: None Drug Abuse: None Lives with: Family Family History: Reviewed & Not Pertinent, Arthritis, CAD, COPD, DM, Hypertension, Thyroid Disfunction Patient has suicidal ideation: No Patient has homicidal ideation: No Renal/ Medical History: Denies: Hx Peritoneal Dialysis Past Surgical History: Reports: Hx Abdominal Surgery - umbilical hernia repair, 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 <SERGEY ARNETT JR - Last Filed: 06/28/20 19:56> Review of Systems - Review of Systems Constitutional: See HPI, Malaise, Weakness EENT: No symptoms reported Cardiovascular: No symptoms reported Respiratory: See HPI, Short of breath Gastrointestinal: No symptoms reported Genitourinary: No symptoms reported Female Genitourinary: No symptoms reported Musculoskeletal: No symptoms reported Skin: No symptoms reported Hematologic/Lymphatic: No symptoms reported Neurological/Psychological: No symptoms reported <SERGEY ARNETT JR - Last Filed: 06/28/20 19:56> Physical Exam - HEENT Head: Normocephalic Eyes: Normal Pupils: PERRL Pharynx: Normal Neck: Normal - Respiratory Respiratory status: Respiratory distress, Labored Chest status: Nontender Breath sounds: Nonproductive cough Chest palpation: Normal - Cardiovascular Rhythm: Tachycardia - Abdominal Inspection: Morbidly Obese Distension: No distension Bowel sounds: Normal Tenderness: Nontender Organomegaly: No organomegaly - Rectal Hemorrhoids: Other - deferred - Genitourinary [place] exam: Other - erred - Back Back: Normal - Extremities General upper extremity: Normal inspection General lower extremity: Normal inspection - Neurological Neuro grossly intact: Yes Cognition: Normal Orientation: AAOx4 [place] Coma Scale Eye Opening: Spontaneous [place] Coma Scale Verbal: Oriented [place] Coma Scale Motor: Obeys Commands [place] Coma Scale Total: 15 Speech: Normal Motor strength normal: LUE, RUE, LLE, RLE Sensory: Normal - Psychological Associated symptoms: Anxious - Skin Skin Temperature: Warm Skin Moisture: Dry <SERGEY ARNETT JR - Last Filed: 06/28/20 19:56> - Vital signs Vitals: Temp 102.2 F H 06/28/20 17:59 Course - Laboratory Result Diagrams: 06/28/20 18:56 06/28/20 18:56 - EKG Interpretation by [place] EKG shows normal: Sinus rhythm Rate: Tachycardia - Heart rate around [address] elevation no ST depression no T wave elevation no T wave depression <SERGEY ARNETT JR - Last Filed: 06/28/20 19:56> - Laboratory Result Diagrams: 06/28/20 18:56 06/28/20 18:56 <SARAHI ZAIDI IV - Last Filed: 06/28/20 21:46> - Re-evaluation Re-evalutation: 06/28/20 21:42 Patient is standing in doorway, stating she wants to leave. Patient is obviously tachypneic and seems to be having trouble breathing. However patient knows who she is, where she is and is oriented to place and time. This physician discussed with patient that leaving AGAINST MEDICAL ADVICE has inherent risks including but not limited to respiratory failure, respiratory arrest, cardiac arrest, worsening of current condition, delay in treatment, , permanent disability, permanent loss and current quality of life. Patient states she understands risks of leaving AGAINST MEDICAL ADVICE as explained to her and states that she still wants to leave. (SARAHI ZAIDI IV) - Vital Signs Vital signs: Temp Pulse Resp BP Pulse Ox 102.2 F H 27 H 120/91 H 91 L 06/28/20 17:59 06/28/20 20:01 06/28/20 20:00 06/28/20 20:01 - Laboratory Laboratory results interpreted by me: 06/28/20 06/28/20 06/28/20 18:56 18:56 18:56 WBC 25.9 H Hgb 10.7 L Hct 34.4 L MCV 72 L MCH 22.5 L MCHC 31.2 L RDW 19.1 H Plt Count 106 L Seg Neuts % (Manual) 91 H Band Neutrophils % 2 L Lymphocytes % (Manual) 2 L Abs Neuts (Manual) 24.1 H Carbon Dioxide 21 L Creatinine 1.71 H Est GFR ( Amer) 43 L Est GFR (MDRD) Non-Af 36 L Glucose 115 H NT-Pro-B Natriuret Pep 33283 H Critical Care Note <SERGEY ARNETT JR - Last Filed: 06/28/20 19:56> - Critical Care Note Comments: advised case to DR Zaidi (SERGEY ARNETT JR) Discharge <SERGEY ARNETT JR - Last Filed: 06/28/20 19:56> <SARAHI ZAIDI IV - Last Filed: 06/28/20 21:46> - Discharge Clinical Impression: Obesity Qualifiers: Obesity type: unspecified obesity type Obesity classification: unspecified obesity classification Serious obesity comorbidity presence: with serious comorbidity Qualified Code(s): E66.9 - Obesity, unspecified Pneumonia Qualifiers: Pneumonia type: due to unspecified organism Laterality: right Lung location: unspecified part of lung Qualified Code(s): J18.9 - Pneumonia, unspecified organism Disposition: AGAINST MEDICAL ADVICE Additional Instructions: Return to the emergency department at any time by calling 911 if you change your mind and decide to seek further treatment. You stated that you would follow-up with your regular doctor tomorrow. Be certain that she follow-up with your regular care provider as you stated you would do tomorrow 06/29/2020. Return to the Emergency Department without delay if any worse.
[2020-06-28 20:07] LABS: HEMATOCRIT 34.4 % (36.0-47.0); HEMOGLOBIN 10.7 g/dL (12.0-15.5); MEAN CORPUSCULAR HEMOGLOBIN 22.5 pg (27.0-33.4); MEAN CORPUSCULAR HGB CONC 31.2 g/dL (32.0-36.0); MEAN CORPUSCULAR VOLUME 72 fl (80-97); PLATELET COUNT 106 10^3/uL (150-450); RED BLOOD COUNT 4.78 10^6/uL (3.72-5.28); RED CELL DISTRIBUTION WIDTH 19.1 % (11.5-14.0); WHITE BLOOD COUNT 25.9 10^3/uL (4.0-10.5)
--- NOTE | 2020-06-28 20:12 | EKG REPORT ---
SEVERITY:- ABNORMAL ECG - SINUS TACHYCARDIA CONSIDER RIGHT VENTRICULAR HYPERTROPHY : Confirmed by: Mani Posadas MD 28-Jun-2020 20:11:09
[2020-06-28] MEDS ORDERED: CEFTRIAXONE 1 GM/D5W RTU 1 GM/50 ML RTUPB IV ONE (20:14)
[2020-06-28 20:17] LABS: ALBUMIN 3.6 g/dL (3.5-5.0); ALKALINE PHOSPHATASE 83 U/L (38-126); ANION GAP 11 (5-19); ASPARTATE AMINO TRANSFERASE 24 U/L (14-36); BILIRUBIN,DIRECT 0.1 mg/dL (0.0-0.4); BILIRUBIN,TOTAL 0.9 mg/dL (0.2-1.3); BLOOD UREA NITROGEN 18 mg/dL (7-20); CALCIUM 9.3 mg/dL (8.4-10.2); CARBON DIOXIDE 21 mmol/L (22-30); CHLORIDE 107 mmol/L (98-107); GLUCOSE 115 mg/dL (75-110); POTASSIUM 3.9 mmol/L (3.6-5.0); TOTAL PROTEIN 7.9 g/dL (6.3-8.2)
[2020-06-28 20:39] LABS: ABSOLUTE LYMPHOCYTES# (MANUAL) 0.5 10^3/uL (0.5-4.7); BAND NEUTROPHILS % (MANUAL) 2 % (3-5); BASOPHILS % (MANUAL) 0 % (0-2); EOSINOPHILS % (MANUAL) 1 % (0-6); LYMPHOCYTES % (MANUAL) 2 % (13-45); MONOCYTES % (MANUAL) 4 % (3-13); SEGMENTED NEUTROPHILS % (MAN) 91 % (42-78); TOTAL CELLS COUNTED 100
[2020-06-28 20:40] LABS: ANISOCYTOSIS 2+; HYPOCHROMASIA 1+; PLATELET COMMENT DECREASED; POLYCHROMASIA 1+
[2020-06-28 20:48] VITALS: BP 120/91
[2020-06-28] MEDS ORDERED: NORMAL SALINE IV ONE (21:05)
[2020-06-28 21:12] LABS: VENOUS BLOOD BASE EXCESS -4.4 mmol/L; VENOUS BLOOD HCO3 20.2 mmol/L (20-32); VENOUS BLOOD PCO2 35.5 mmHg (35-63); VENOUS BLOOD PH 7.37 (7.30-7.42)
[2020-06-28 21:24] LABS: INTERNATIONAL RATION (INR) 1.15; PROTHROMBIN TIME 14.9 SEC (11.4-15.4)
== END 2020-06-28 21:48 | disposition left against medical advice (07) ==
LOC: ER 17:59
DX: J18.9 Pneumonia, unspecified organism (principal); E66.01 Morbid (severe) obesity due to excess calories; R06.02 Shortness of breath; R05 Cough; R53.1 Weakness; R53.81 Other malaise; R00.0 Tachycardia, unspecified; F17.210 Nicotine dependence, cigarettes, uncomplicated; Z53.29 Procedure and treatment not carried out because of patient's decision for other reasons
CPT/HCPCS: 93005; 99285; 96365; 96366; 36415; 87040; 84703; 85025; 85610; 87077; 80053; 87186; 82803; 87150 ×26; 83880; 71045; 93010; J0696; J0456

== ENCOUNTER 2020-06-28 22:34 | Inpatient (IN) | payer OTHER ==
--- NOTE | 2020-06-28 23:29 | ER Document Report ---
Entered by HARRY TY SCRIBE 06/28/20 [id number] Acting as scribe for:SARAHI GRACIA IV, MD ED Respiratory Problem - General Chief Complaint: Flu Symptoms Stated Complaint: FLU LIKE SYMPTOMS Mode of Arrival: Wheelchair Information source: Patient Notes: This 29 year old female patient with a history of morbid obesity presents to the ED today with complaints of cough, shortness of breath and dyspnea on exertion for the past x2 weeks. Patient was initially brought in by EMS, but left AMA about x30 minutes ago. Patient was still in the lobby waiting for a ride when her shortness of breath got worse, so she was brought back to a room for further evaluation. Patient is a current every day smoker and was admitted here x4 months ago for pneumonia. TRAVEL OUTSIDE OF THE [place] IN LAST 30 DAYS: No - Related Data Allergies/Adverse Reactions: No Known Allergies Allergy (Verified 06/02/19 14:09) Past Medical History - Social History Smoking Status: Current Every Day Smoker Cigarette use (# per day): Yes Frequency of alcohol use: None Drug Abuse: None Lives with: Parents Family History: Reviewed & Not Pertinent, Arthritis, CAD, COPD, DM, Hypertension, Thyroid Disfunction Patient has suicidal ideation: No Patient has homicidal ideation: No Pulmonary Medical History: Reports: Hx Pneumonia Past Surgical History: Reports: 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, Hx Umbilical Hernia Review of Systems - Review of Systems Constitutional: No symptoms reported EENT: No symptoms reported Cardiovascular: See HPI, Dyspnea Respiratory: See HPI, Short of breath Gastrointestinal: No symptoms reported Genitourinary: No symptoms reported Female Genitourinary: No symptoms reported Musculoskeletal: No symptoms reported Skin: No symptoms reported Hematologic/Lymphatic: No symptoms reported Neurological/Psychological: No symptoms reported -: Yes All other systems reviewed and negative Physical Exam - Vital signs Vitals: Temp 102.7 F H 06/29/20 00:01 - General General appearance: Alert - HEENT Head: Normocephalic Eyes: Normal Pupils: PERRL - Respiratory Respiratory status: Respiratory distress - 87% on RA, Tachypnea Chest status: Accessory muscle use Breath sounds: Rhonchi - bilaterally Chest palpation: Normal - Cardiovascular Rhythm: Regular Heart sounds: Normal auscultation Murmur: No Friction rub: No Gallop: None auscultated - Abdominal Inspection: Morbidly Obese Distension: No distension Bowel sounds: Normal Tenderness: Nontender - Abdomen soft Organomegaly: No organomegaly - Back Back: Normal, Nontender - Extremities General upper extremity: Normal inspection General lower extremity: Edema - 2+ pedal edema bilaterally - Neurological Neuro grossly intact: Yes Orientation: AAOx4 [place] Coma Scale Eye Opening: Spontaneous [place] Coma Scale Verbal: Oriented [place] Coma Scale Motor: Obeys Commands [place] Coma Scale Total: 15 - Psychological Associated symptoms: Normal affect, Normal mood - Skin Skin Temperature: Warm Skin Moisture: Dry Skin Color: Normal Course - Vital Signs Vital signs: Temp Pulse Resp BP Pulse Ox 102.7 F H 06/29/20 00:01 - Laboratory Laboratory results interpreted by me: 06/28/20 23:07 Carbonic Acid 0.95 L ABG pCO2 31.4 L ABG pO2 53.7 L ABG HCO3 17.4 L ABG Total CO2 18.4 L ABG O2 Saturation 87.2 L - Diagnostic Test Radiology reviewed: Reports reviewed - EKG Interpretation by Me Additional EKG results interpreted by me: 06/29/20 02:22 EKG obtained on 06/28/2020 at 1838 hrs. was interpreted by this MD. Findings: Sinus tachycardia, rate 124, normal axis, QRS complexes appear narrow, there are no obvious patterns of ST segment elevation or depression present to suggest acute myocardial ischemia or infarction. Impression: Sinus tachycardia with nonspecific ST segments. - Consults Roz Dumont NP, [employer] Out Worker Service Time consulted: 02:00 Reason for consultation: 06/29/20 02:25 Acute hypoxic respiratory failure Procedures - Intubation Orotracheal Time of Intubation: 01:45 - becoming more somnolent, not compliant with bipap Airway evaluation: Large tongue, Obese Mallampati Classification: Class 4 Medications: Etomidate, Succinylcholine Intubation method: Orotracheal Blade type: [place]in[place] Blade size: 4 Equipment used: Glidescope ETT size: 7.5 ETT secured at (cm): 22 Breath Sounds after Intubation: Equal End tidal CO2 confirmed: Yes Post Intubation Xray: Yes Intubation Complications: No complications Critical Care Note - Critical Care Note Total time excluding time spent on procedures (mins): 120 Discharge - Discharge Clinical Impression: Acute respiratory failure with hypoxia Condition: Critical Disposition: ADMITTED INPATIENT Admitting Provider: Denilson (Sail Lay Out Worker) Unit Admitted: ICU I personally performed the services described in the documentation, reviewed and edited the documentation which was dictated to the scribe in my presence, and it accurately records my words and actions.
--- NOTE | 2020-06-28 23:30 | RADIOLOGY REPORT (SQ) ---
CHEST X-RAY 1 VIEW on 06/28/2020 at 11:21 PM CLINICAL INDICATION: Shortness of breath COMPARISON: 06/28/2020 at 7:37 PM FINDINGS: There is slight elevation of the right hemidiaphragm. Mild cardiomegaly is noted. There is mild right basilar opacity consistent with atelectasis and/or pneumonia. The lungs are otherwise clear. Pulmonary vascularity is within normal limits. IMPRESSION: Mild right basilar opacity consistent with atelectasis and/or pneumonia.
[2020-06-29] MEDS ORDERED: ACETAMINOPHEN 325 MG TABLET PO ONE (00:19)
[2020-06-29 00:43] LABS: ARTERIAL BLOOD BASE EXCESS -6.9 mmol/L; ARTERIAL BLOOD FIO2 ROOM AIR; ARTERIAL BLOOD H2CO3 0.95 mmol/L (1.05-1.35); ARTERIAL BLOOD HCO3 17.4 mmol/L (20-24); ARTERIAL BLOOD O2 SATURATION 87.2 % (94-98); ARTERIAL BLOOD PCO2 31.4 mmHg (35-45); ARTERIAL BLOOD PH 7.36 (7.35-7.45); ARTERIAL BLOOD PO2 53.7 mmHg (80-100); ARTERIAL BLOOD TOTAL CO2 18.4 mmol/L (21-25)
[2020-06-29] MEDS ORDERED: NORMAL SALINE IV ONE (01:21)
[2020-06-29] MEDS ORDERED: VANCOMYCIN HCL INJ 1000 MG VIAL IV ONE (01:43)
[2020-06-29] MEDS ORDERED: PIPERACILLIN/TAZOBACTAM 4.5 GM VIAL IV ONE (01:43)
[2020-06-29] MEDS ORDERED: VECURONIUM BROMIDE INJ 10 MG VIAL IV ONE ×2 (01:49→03:38)
[2020-06-29] MEDS ORDERED: LORAZEPAM INJ 2 MG/1 ML VIAL IV ONE ×2 (01:49→03:38)
[2020-06-29] MEDS ORDERED: HYDROMORPHONE HCL INJ/PF 2 MG/ML AMPULE IV ONE (01:50)
--- NOTE | 2020-06-29 02:48 | RADIOLOGY REPORT (SQ) ---
CLINICAL INDICATION: post intubation and og tube placement. TECHNIQUE: A single portable AP view was obtained of the chest at 0218 hours. COMPARISON: June 28, 2020. FINDINGS: The cardiomediastinal silhouette is enlarged but stable. The lungs demonstrate progressive interstitial and airspace disease. No evidence of effusion or pneumothorax. The visualized bones are unremarkable. Endotracheal tube and nasogastric tube are in good position IMPRESSION: Aggressive interstitial and airspace disease bilaterally. Nasogastric/orgastric tube and endotracheal tube are in satisfactory position.
[2020-06-29 03:13] LABS: APPEARANCE,URINE SLIGHTLY-CLOUDY; BILIRUBIN,URINE NEGATIVE (NEGATIVE); COLOR,URINE AMBER; GLUCOSE, URINE NEGATIVE (NEGATIVE); KETONES,URINE NEGATIVE (NEGATIVE); LEUKOCYTE ESTERASE,URINE NEGATIVE (NEGATIVE); NITRITE,URINE NEGATIVE (NEGATIVE); PROTEIN,URINE >=500 mg/dL (NEGATIVE); URINE SPECIFIC GRAVITY 1.028
[2020-06-29 03:50] LABS: HEMOGLOBIN 10.6 g/dL (12.0-15.5)
[2020-06-29] MEDS ORDERED: PROPOFOL 1,000 MG/100 ML INFUS..BTL IV ONE (03:57)
[2020-06-29 04:13] LABS: HEMATOCRIT 34.3 % (36.0-47.0); MEAN CORPUSCULAR HEMOGLOBIN 22.4 pg (27.0-33.4); MEAN CORPUSCULAR HGB CONC 31.1 g/dL (32.0-36.0); MEAN CORPUSCULAR VOLUME 72 fl (80-97); PLATELET COUNT 73 10^3/uL (150-450); RED BLOOD COUNT 4.75 10^6/uL (3.72-5.28); RED CELL DISTRIBUTION WIDTH 19.2 % (11.5-14.0)
[2020-06-29 04:15] LABS: ABSOLUTE LYMPHOCYTES# (MANUAL) 0.8 10^3/uL (0.5-4.7); ABSOLUTE MONOCYTES # (MANUAL) 0.8 10^3/uL (0.1-1.4); BAND NEUTROPHILS % (MANUAL) 5 % (3-5); BASOPHILS % (MANUAL) 0 % (0-2); EOSINOPHILS % (MANUAL) 0 % (0-6); LYMPHOCYTES % (MANUAL) 3 % (13-45); MONOCYTES % (MANUAL) 3 % (3-13); NUCLEATED RED BLOOD CELLS 1 /100 WBC (0); SEGMENTED NEUTROPHILS % (MAN) 89 % (42-78); TOTAL CELLS COUNTED 100
[2020-06-29 04:16] LABS: ANISOCYTOSIS 2+; HYPOCHROMASIA 1+; PLATELET COMMENT DECREASED; POLYCHROMASIA 1+
[2020-06-29] MEDS ORDERED: ALBUTEROL SULFATE 0.083% NEB 2.5 MG/3 ML AMPUL NEB ONE ×2 (04:18→04:22)
[2020-06-29 04:24] LABS: URINE AMPHETAMINES SCREEN NEGATIVE; URINE BARBITURATES SCREEN NEGATIVE; URINE BENZODIAZEPINES SCREEN NEGATIVE; URINE COCAINE SCREEN NEGATIVE; URINE MARIJUANA (THC) SCREEN NEGATIVE; URINE METHADONE SCREEN NEGATIVE; URINE PHENCYCLIDINE SCREEN NEGATIVE
[2020-06-29] MEDS ORDERED: NOREPINEPHRINE BITARTRATE INJ/PF 4 MG/4 ML SDV IV ONE (04:30)
[2020-06-29 04:33] LABS: D-DIMER 5.76 ug/mL (0.00-0.50)
[2020-06-29] MEDS: DEXTROSE 5%-WATER 250 ML with NOREPINEPHRINE BITARTRATE 4 MG IV PRN ×6 (04:38→19:04)
[2020-06-29] MEDS ORDERED: SUCCINYLCHOLINE CHLORIDE INJ 200 MG/10 ML VIAL IV ONE (04:45)
[2020-06-29] MEDS ORDERED: ETOMIDATE INJ/PF 20 MG/10 ML SDV IV ONE ×2 (04:45→10:29)
[2020-06-29] MEDS ORDERED: SODIUM BICARBONATE 8.4% INJ 50 MEQ/50 ML DISP.SYRIN ONE (05:14)
[2020-06-29 05:23] LABS: ALBUMIN 3.3 g/dL (3.5-5.0); ALKALINE PHOSPHATASE 78 U/L (38-126); ANION GAP 11 (5-19); ASPARTATE AMINO TRANSFERASE 30 U/L (14-36); BILIRUBIN,DIRECT 0.3 mg/dL (0.0-0.4); BILIRUBIN,TOTAL 1.2 mg/dL (0.2-1.3); BLOOD UREA NITROGEN 21 mg/dL (7-20); CALCIUM 9.1 mg/dL (8.4-10.2); CARBON DIOXIDE 18 mmol/L (22-30); CHLORIDE 106 mmol/L (98-107); GLUCOSE 97 mg/dL (75-110); POTASSIUM 3.5 mmol/L (3.6-5.0); TOTAL PROTEIN 7.5 g/dL (6.3-8.2)
[2020-06-29 07:19] LABS: ARTERIAL BLOOD BASE EXCESS -11.6 mmol/L; ARTERIAL BLOOD H2CO3 1.87 mmol/L (1.05-1.35); ARTERIAL BLOOD HCO3 18.5 mmol/L (20-24); ARTERIAL BLOOD PCO2 62.1 mmHg (35-45); ARTERIAL BLOOD PO2 149.1 mmHg (80-100); ARTERIAL BLOOD TOTAL CO2 20.4 mmol/L (21-25)
[2020-06-29 07:20] LABS: ARTERIAL BLOOD FIO2 100%; ARTERIAL BLOOD PH 7.09 (7.35-7.45)
[2020-06-29] MEDS ORDERED: PROPOFOL 1,000 MG/100 ML INFUS..BTL IV PRN (07:38)
[2020-06-29] MEDS ORDERED: SODIUM BICARBONATE 8.4% INJ 50 MEQ/50 ML DISP.SYRIN IV ONE ×2 (07:45)
[2020-06-29] MEDS: PROPOFOL 1,000 MG/100 ML INFUS..BTL IV PRN ×3 (10:16→21:58)
--- NOTE | 2020-06-29 15:49 | Progress Note ---
Provider Note Provider Note: Patient seen this AM after Vivi Dumont. She needs intubation, looks more comfortable on vent. She meets ARDS criteria by [place] criteria with PAO2/FiO2 ratio of about 150 indicating moderately severe ARDS. PTT high as well as fibrinogen no bleeding. Not DIC but this is suggestive of COVID and COVID ARDS. Low volume lung protective ventilation begun
[2020-06-29] MEDS: NORMAL SALINE 1000 ML 1,000 ML IV PRN (16:06)
[2020-06-29] MEDS: PIPERACILLIN SODIUM/TAZOBACTAM 4.5 GM in NORMAL SALINE 100 ML IV SCH (16:30)
[2020-06-29] MEDS ORDERED: DEXTROSE 5%-WATER 250 ML with NOREPINEPHRINE BITARTRATE 4 MG IV PRN ×2 (17:35)
[2020-06-29] MEDS ORDERED: GLUCAGON,HUMAN RECOMB 1 MG INJ SUBCUT PRN (17:35)
[2020-06-29] MEDS ORDERED: DEXTROSE 50%-WATER 25 GM/50 ML DISP.SYRIN IV PRN ×2 (17:35)
[2020-06-29] MEDS ORDERED: DEXTROSE 40% GEL 15 GM TUBE PO PRN ×2 (17:35)
[2020-06-29] MEDS ORDERED: ACETAMINOPHEN 325 MG TABLET PO PRN (17:35)
[2020-06-29] MEDS ORDERED: PHARMACY COMMUNICATION ORDER MC NR (17:45)
[2020-06-29] MEDS ORDERED: ACETAMINOPHEN 325 MG TABLET NG PRN (18:00)
[2020-06-29] MEDS ORDERED: ENOXAPARIN SODIUM INJ 40 MG/0.4 ML DISP.SYRIN SUBCUT SCH (18:15)
[2020-06-29] MEDS: FAMOTIDINE INJ/PF 20 MG/2 ML SDV IV SCH ×2 (19:02→21:57)
--- NOTE | 2020-06-29 19:04 | RADIOLOGY REPORT (SQ) ---
EXAM DESCRIPTION: KUB/ABDOMEN (SINGLE VIEW) IMAGES COMPLETED DATE/TIME: 06/29/2020 6:44 pm REASON FOR STUDY: Check Placement of NG Tube COMPARISON: None. NUMBER OF VIEWS: One view. TECHNIQUE: Supine radiographic image of the abdomen acquired. LIMITATIONS: None. FINDINGS: An NG tube is present with the tip of the tube near the pylorus. IMPRESSION: Tube placement as described. TECHNICAL DOCUMENTATION: JOB ID: [id number] [employer]- All Rights Reserved Reading location - IP/workstation name: [email or web address]
[2020-06-29] MEDS: DEXAMETHASONE SOD PHOS INJ 10 MG/1 ML VIAL IV SCH (20:49)
[2020-06-29] MEDS: FENTANYL CITRATE INJ/PF 100 MCG/2 ML AMPUL IV PRN (20:49)
[2020-06-29 20:56] LABS: HEMATOCRIT 37.1 % (36.0-47.0); HEMOGLOBIN 11.3 g/dL (12.0-15.5); MEAN CORPUSCULAR HEMOGLOBIN 22.3 pg (27.0-33.4); MEAN CORPUSCULAR HGB CONC 30.6 g/dL (32.0-36.0); MEAN CORPUSCULAR VOLUME 73 fl (80-97); RED BLOOD COUNT 5.07 10^6/uL (3.72-5.28); RED CELL DISTRIBUTION WIDTH 19.6 % (11.5-14.0); WHITE BLOOD COUNT 22.2 10^3/uL (4.0-10.5)
[2020-06-29 21:27] LABS: PLATELET COUNT 46 10^3/uL (150-450)
[2020-06-29] MEDS ORDERED: NORMAL SALINE 500 ML IV ONE (22:57)
[2020-06-30] MEDS: ALBUMIN HUMAN 12.5 GM/50 ML RTUINJ IV SCH ×2 (00:30→01:35)
[2020-06-30] MEDS: PIPERACILLIN SODIUM/TAZOBACTAM 4.5 GM in NORMAL SALINE 100 ML IV SCH (00:43)
[2020-06-30] MEDS: NORMAL SALINE 1000 ML 1,000 ML IV PRN (02:44)
[2020-06-30] MEDS: PROPOFOL 1,000 MG/100 ML INFUS..BTL IV PRN ×7 (02:44→22:14)
[2020-06-30] MEDS: DEXTROSE 5%-WATER 250 ML with NOREPINEPHRINE BITARTRATE 4 MG IV PRN ×2 (02:44)
[2020-06-30 04:44] LABS: ALBUMIN 3.3 g/dL (3.5-5.0); ALKALINE PHOSPHATASE 78 U/L (38-126); ANION GAP 14 (5-19); ASPARTATE AMINO TRANSFERASE 69 U/L (14-36); BILIRUBIN,DIRECT 0.5 mg/dL (0.0-0.4); BLOOD UREA NITROGEN 33 mg/dL (7-20); CALCIUM 8.1 mg/dL (8.4-10.2); CARBON DIOXIDE 17 mmol/L (22-30); CHLORIDE 108 mmol/L (98-107); GLUCOSE 125 mg/dL (75-110); PHOSPHORUS 7.3 mg/dL (2.5-4.5); POTASSIUM 5.3 mmol/L (3.6-5.0); TOTAL PROTEIN 7.5 g/dL (6.3-8.2)
[2020-06-30 04:58] LABS: FREE T4 (FREE THYROXINE) 0.78 ng/dL (0.78-2.19); HEMATOCRIT 34.2 % (36.0-47.0); HEMOGLOBIN 10.5 g/dL (12.0-15.5); MEAN CORPUSCULAR HEMOGLOBIN 22.2 pg (27.0-33.4); MEAN CORPUSCULAR HGB CONC 30.7 g/dL (32.0-36.0); MEAN CORPUSCULAR VOLUME 72 fl (80-97); RED BLOOD COUNT 4.73 10^6/uL (3.72-5.28); RED CELL DISTRIBUTION WIDTH 19.3 % (11.5-14.0); WHITE BLOOD COUNT 25.1 10^3/uL (4.0-10.5)
[2020-06-30 05:07] LABS: PLATELET COUNT 44 10^3/uL (150-450)
[2020-06-30 05:11] LABS: THYROID STIMULATING HORMONE 26.8 uIU/mL (0.47-4.68)
[2020-06-30] MEDS: LEVOTHYROXINE SODIUM 0.025 MG TABLET NG SCH (05:40)
[2020-06-30] MEDS: LEVOTHYROXINE SODIUM 0.1 MG TABLET NG SCH (05:40)
--- NOTE | 2020-06-30 05:46 | RADIOLOGY REPORT (SQ) ---
EXAM DESCRIPTION: XR CHEST 1 VIEW COMPLETED DATE/TME: 06/30/2020 00:00 CLINICAL HISTORY: congestion COMPARISON: 06/29/2020 FINDINGS: Single frontal view of the chest. Tubes and lines: Endotracheal tube with tip 3 cm above the kinza. NG tube with tip below the diaphragm. Leads overlie the chest. Cardiomediastinal silhouette: Stable Lungs: No pneumothorax. Interval increase in right basilar opacity. Stable left basilar opacity. Right pleural effusion. Bones: Stable. Upper abdomen: Stable. IMPRESSION: 1. Mild interval increase in right basilar opacity and right pleural effusion. Stable left basilar opacity.
[2020-06-30 05:47] LABS: C-REACTIVE PROTEIN 339.1 mg/L (<10.0)
[2020-06-30] MEDS ORDERED: FUROSEMIDE INJ/PF 40 MG/4 ML SDV ONE (05:49)
[2020-06-30] MEDS ORDERED: FUROSEMIDE INJ/PF 100 MG/10 ML SDV IV ONE (05:49)
[2020-06-30] MEDS ORDERED: DEXTROSE 5%-WATER 1000 ML 1,000 ML with SODIUM BICARBONATE 150 MEQ IV PRN ×2 (05:58)
[2020-06-30] MEDS ORDERED: (PENDING PHARMACY ID) (Levothyroxine Sodium [Synthroid] 125 MCG) PO SCH (06:00)
[2020-06-30] MEDS ORDERED: SODIUM BICARBONATE 8.4% INJ 50 MEQ/50 ML DISP.SYRIN ONE (06:02)
[2020-06-30 06:19] LABS: ARTERIAL BLOOD BASE EXCESS -9.5 mmol/L; ARTERIAL BLOOD FIO2 50%; ARTERIAL BLOOD H2CO3 1.26 mmol/L (1.05-1.35); ARTERIAL BLOOD HCO3 17.3 mmol/L (20-24); ARTERIAL BLOOD PCO2 41.7 mmHg (35-45); ARTERIAL BLOOD PH 7.24 (7.35-7.45); ARTERIAL BLOOD PO2 128.8 mmHg (80-100); ARTERIAL BLOOD TOTAL CO2 18.6 mmol/L (21-25)
--- NOTE | 2020-06-30 07:50 | PDOC CRITICAL CARE PROG REPORT ---
General Date:: 06/30/20 ICU Day:: 2 Ventilator Day:: 2 Hospital Day:: 2 Resuscitation Status: Full Code Events in the past 12 to 24 Hours:: Pulmonary function stable, slightly improved. Renal function worse. Review of systems relevant to events:: Pulmonary, renal, CV Reason for ICU Addmission:: Acute Respiratory Failure , ARDS, ARF - Medications: Medications reviewed and adjusted accordingly: Yes Vasopressors:: Levophed Sedation:: Diprivan Physical Exam Vital Signs: Temp Pulse Resp BP Pulse Ox 99.8 F 101 H 14 106/68 98 06/30/20 03:25 06/29/20 20:00 06/30/20 06:33 06/30/20 06:33 06/30/20 06:33 Intake & Output 06/29/20 06/30/20 07/01/20 06:59 06:59 06:59 Intake Total 0 2372 Output Total 244 Balance 0 2128 Weight 179.6 kg 182.1 kg Weight/Height Weight 182.1 kg Height 5 ft 4 in General appearance: PRESENT: no acute distress, morbidly obese Head exam: PRESENT: atraumatic, normocephalic Eye exam: PRESENT: conjunctiva pink, EOMI, PERRLA. ABSENT: scleral icterus Ear exam: PRESENT: normal external ear exam Mouth exam: PRESENT: moist, tongue midline Respiratory exam: PRESENT: clear to auscultation beatriz, decreased breath sounds. ABSENT: rales, rhonchi, wheezes Cardiovascular exam: PRESENT: RRR, tachycardia. ABSENT: diastolic murmur, rubs, systolic murmur GI/Abdominal exam: PRESENT: normal bowel sounds, soft. ABSENT: distended, gua rding, mass, organolmegaly, rebound, tenderness Rectal exam: PRESENT: deferred Gentrourinary exam: PRESENT: indwelling catheter Extremities exam: PRESENT: other - Both feet L>R is dusky in places. Last two toes on L are dusky and this apparently has been since admission, worse with levophed. Neurological exam: PRESENT: other - Sedated. Pupils symmetrical at 3 mm. Skin exam: PRESENT: pallor Tubes/Lines: PRESENT: Endotracheal Tube, Nasogastic Tube Laboratory/Radiographs Laboratory Results: 06/30/20 03:58 06/30/20 03:58 06/29/20 06/29/20 06/30/20 20:29 20:39 03:58 WBC 22.2 H RBC 5.07 Hgb 11.3 L Hct 37.1 MCV 73 L MCH 22.3 L MCHC 30.6 L RDW 19.6 H Plt Count 46 L Carbonic Acid HCO3/H2CO3 Ratio ABG pH ABG pCO2 ABG pO2 ABG HCO3 ABG O2 Saturation ABG Base Excess FiO2 Sodium 139.3 Potassium 5.3 H Chloride 108 H Carbon Dioxide 17 L Anion Gap 14 BUN 33 H Creatinine 3.80 H Est GFR ( Amer) 17 L Glucose 125 H Serum Osmolality Lactic Acid Calcium 8.1 L Phosphorus 7.3 H Magnesium 1.8 Ferritin 153.00 H Total Bilirubin 1.0 AST 69 H Alkaline Phosphatase 78 C-Reactive Protein 339.1 H Total Protein 7.5 Albumin 3.3 L TSH Free T4 06/30/20 06/30/20 06/30/20 03:58 03:58 03:58 WBC 25.1 H RBC 4.73 Hgb 10.5 L Hct 34.2 L MCV 72 L MCH 22.2 L MCHC 30.7 L RDW 19.3 H Plt Count 44 L Carbonic Acid HCO3/H2CO3 Ratio ABG pH ABG pCO2 ABG pO2 ABG HCO3 ABG O2 Saturation ABG Base Excess FiO2 Sodium Potassium Chloride Carbon Dioxide Anion Gap BUN Creatinine Est GFR ( Amer) Glucose Serum Osmolality Lactic Acid 1.5 Calcium Phosphorus Magnesium Ferritin Total Bilirubin AST Alkaline Phosphatase C-Reactive Protein Total Protein Albumin TSH 26.80 H Free T4 0.78 06/30/20 06/30/20 03:58 05:55 WBC RBC Hgb Hct MCV MCH MCHC RDW Plt Count Carbonic Acid 1.26 HCO3/H2CO3 Ratio 13:1 ABG pH 7.24 L ABG pCO2 41.7 ABG pO2 128.8 H ABG HCO3 17.3 L ABG O2 Saturation 98.0 ABG Base Excess -9.5 FiO2 50% Sodium Potassium Chloride Carbon Dioxide Anion Gap BUN Creatinine Est GFR ( Amer) Glucose Serum Osmolality 287 Lactic Acid Calcium Phosphorus Magnesium Ferritin Total Bilirubin AST Alkaline Phosphatase C-Reactive Protein Total Protein Albumin TSH Free T4 06/30/20 06/30/20 03:58 03:58 Creatine Kinase 188 H NT-Pro-B Natriuret Pep 57519 H Impressions: KUB X-Ray 06/29/20 17:42 IMPRESSION: Tube placement as described. Chest X-Ray 06/30/20 00:00 IMPRESSION: 1. Mild interval increase in right basilar opacity and right pleural effusion. Stable left basilar opacity. All labs, radiographs, diagnostic studies and EKGs were personally reviewed: Yes In addition, reports of radiographic and diagnostic studies were read: Yes Assessment and Plan - Diagnosis (1) Suspected COVID-19 virus infection Is this a current diagnosis for this admission?: Yes Plan: Her PLT count is 40. D-Dimer 18. Fibrinogen 540. Her COVID screen is still pending. She has several soft signs of COVID. Decadron started. (2) ARF (acute renal failure) Qualifiers: Acute renal failure type: unspecified Qualified Code(s): N17.9 - Acute kidney failure, unspecified Is this a current diagnosis for this admission?: Yes Plan: This is likely from her sepsis, whether bacterial or COVID. Management may be difficult. She is getting hyperkalemic and will start kayexalate. Her GI tract may not be functioning on levophed. She may need HD and will consult Dr. Soria at this stage. (3) Morbid obesity Is this a current diagnosis for this admission?: Yes Plan: She is about 400 lbs and this is definately making her care difficult. Placing a central line would be ideal but with her habitus and PLT 40, this makes it quite risky. This also will impact her respiratory mechanics. (4) ARDS (adult respiratory distress syndrome) Is this a current diagnosis for this admission?: Yes Plan: PaO2/FiO2 ratio better at 252. Still in ARDS territory and has denser RLL infiltrate today. Plan Summary: Await COVID test. With clinical and CXR findings, this could be pnemococcal sepsis. Keep on antibiotics. Consult renal and start kayexalate. Critical Time Critical Time (minutes): 45 Level of Care: ICU Anticipated discharge: Home Anticipated DC Timeframe: Other -: 1. The care of a critical patient is a dynamic process. This note is a banking representative synopsis but static in nature. The timeframe for treatments given in order is not necessarily the actual time these treatments may have been done. 2. This patient requires critical care secondary to ongoing requirements for therapy not offered or safe outside the critical care environment. Transfer to a lower level of care will result in altered life or limb morbidity and mortality. 3. Multidisciplinary rounds completed. 4. ABCDE bundle addressed.
[2020-06-30] MEDS ORDERED: CEFEPIME 2 GM/D5W RTU 2 GM/50 ML RTUPB IV SCH (10:00)
[2020-06-30] MEDS: DEXAMETHASONE SOD PHOS INJ 10 MG/1 ML VIAL IV SCH (10:09)
[2020-06-30] MEDS: CEFEPIME HCL 2 GM in DEXTROSE 5%-WATER 50 ML IV SCH ×2 (10:09→22:03)
[2020-06-30] MEDS: FAMOTIDINE INJ/PF 20 MG/2 ML SDV IV SCH ×2 (10:09→21:40)
[2020-06-30] MEDS ORDERED: NORMAL SALINE 1000 ML 1,000 ML IV PRN (14:20)
[2020-06-30] MEDS ORDERED: FUROSEMIDE INJ/PF 40 MG/4 ML SDV IV ONE (14:21)
--- NOTE | 2020-06-30 15:03 | XCELERA REPORT ---
[address] [address] Transthoracic Echocardiogram Report Name: CHEMO CRUZ Age: 29 yrs Gender: Female : 1990 Patient Status: Inpatient Patient Location: ICU^602^A Study Date: 06/30/2020 10:26 AM Height: 64 in Weight: 401 lb BSA: 2.6 m2 Procedure: A two-dimensional transthoracic echocardiogram with color flow and Doppler was performed. The study was technically difficult with many images being suboptimal in quality. Reason For Study: Shortness of Breath / Endocarditis History: Shortness of Breath / Endocarditis. Ordering Physician: LUCA KWON Performed By: Linsey Avila Interpretation Summary The left ventricle is normal in size. There is mild concentric left ventricular hypertrophy. LV EF is ? than 60% Left ventricular systolic function is normal. Doppler measurements suggest impaired left ventricular relaxation, which is associated with grade I/IV or mild diastolic dysfunction The left ventricular wall motion is normal. There is no thrombus. No ASD , VSD , o PFO seen. The right atrium is normal. The left atrial size is normal. There is no evidence of mitral valve prolapse. There is a moderate size vegetation or mass on the mitral valve. This is causing kristyn stenosis. There is moderate mitral stenosis There is a trace amount of mitral regurgitation There is no aortic valvular vegetation. There is mild aortic stenosis There is a peak gradient of 16 mm of Hg. There is a trace to mild amount of aortic regurgitation There is no tricuspid stenosis. There is a mild to moderate amount of tricuspid regurgitation There is servere pulmonary hypertension by echo RVSP is at least 85 mm of Hg , with at least a RA mran of 20. There is no pulmonic valvular stenosis. There is a moderate amount of pulmonic regurgitation The aortic root is normal size. The inferior vena cava appeared dilated and did not change with respiration (RAP > 20 mmHg) Small pericardial effusion. There are no echocardiographic or Doppler indications for cardiac tamponade MMode/2D Measurements & Calculations RVDd: 3.2 cm LVIDd: 5.1 cm FS: 35.8 % Ao root diam: 2.4 cm IVSd: 1.2 cm LVIDs: 3.3 cm EDV(Teich): 122.1 ml Ao root area: 4.7 cm2 LVPWd: 1.2 cm ESV(Teich): 42.7 ml LA dimension: 3.8 cm EF(Teich): 65.0 % LVOT diam: 2.0 cm LVOT area: 3.2 cm2 Doppler Measurements & Calculations MV E max enoch: MV V2 max: MV P1/2t max enoch: Ao V2 max: 266.0 cm/sec 301.3 cm/sec 271.5 cm/sec 201.7 cm/sec MV A max enoch: MV max PG: MV P1/2t: 132.2 msec Ao max P.8 cm/sec 36.3 mmHg MVA(P1/2t): 1.7 cm2 16.3 mmHg MV E/A: 0.91 MV V2 mean: MV dec slope: MIGUEL(V,D): 2.9 cm2 217.3 cm/sec MV mean P.4 cm/sec2 20.3 mmHg MV dec time: 0.43 sec MV V2 VTI: 84.9 cm MVA(VTI): 0.99 cm2 LV V1 max PG: SV(LVOT): 84.3 ml PA V2 max: PI end-d enoch: 13.1 mmHg 100.6 cm/sec 255.2 cm/sec LV V1 mean PG: PA max P.0 mmHg 7.5 mmHg LV V1 max: 181.1 cm/sec LV V1 mean: 128.0 cm/sec LV V1 VTI: 26.1 cm TR max enoch: MV P1/2t-pr_phl: 401.8 cm/sec 132.2 msec TR max P.6 mmHg Left Ventricle The left ventricle is normal in size. There is mild concentric left ventricular hypertrophy. LV EF is ? than 60%. Left ventricular systolic function is normal. Doppler measurements suggest impaired left ventricular relaxation, which is associated with grade I/IV or mild diastolic dysfunction. The left ventricular wall motion is normal. There is no thrombus. No ASD , VSD , o PFO seen. Right Ventricle The right ventricle is not well visualized secondary to technical limitations. Atria The right atrium is normal. The left atrial size is normal. Mitral Valve There is no evidence of mitral valve prolapse. There is a moderate size vegetation or mass on the mitral valve. This is causing kristyn stenosis. There is moderate mitral stenosis. There is a trace amount of mitral regurgitation. Aortic Valve There is no aortic valvular vegetation. There is mild aortic stenosis. There is a peak gradient of 16 mm of Hg. There is a trace to mild amount of aortic regurgitation. Tricuspid Valve There is no tricuspid stenosis. There is a mild to moderate amount of tricuspid regurgitation. There is servere pulmonary hypertension by echo. RVSP is at least 85 mm of Hg , with at least a RA mran of 20. Pulmonic Valve There is no pulmonic valvular stenosis. There is a moderate amount of pulmonic regurgitation. Great Vessels The aortic root is normal size. The inferior vena cava appeared dilated and did not change with respiration (RAP > 20 mmHg). Effusions Small pericardial effusion. There are no echocardiographic or Doppler indications for cardiac tamponade. : LUCA KWON, Nidia
[2020-06-30] MEDS: LINEZOLID 600 MG/300 ML RTUPB IV SCH (15:59)
[2020-06-30] MEDS: SODIUM POLYSTYRENE SULFONATE 15 GM/60 ML PO SCH ×2 (16:00→21:38)
[2020-06-30 17:04] LABS: ANION GAP 13 (5-19); BLOOD UREA NITROGEN 42 mg/dL (7-20); CALCIUM 7.9 mg/dL (8.4-10.2); CARBON DIOXIDE 17 mmol/L (22-30); CHLORIDE 107 mmol/L (98-107); GLUCOSE 145 mg/dL (75-110); POTASSIUM 5.4 mmol/L (3.6-5.0)
[2020-06-30] MEDS ORDERED: NORMAL SALINE 250 ML IV PRN ×2 (19:29)
[2020-06-30] MEDS ORDERED: HYDROCORTISONE SOD SUCCINATE INJ/PF 100 MG/2 ML SDV IV ONE (20:00)
--- NOTE | 2020-06-30 20:55 | CDI QUERY ---
CDI Query CDI Review: Documentation in the Medical Record indicates this patient has: Height: 5 ft 4 in Weight: 182.1 kg (400.62 lbs) Calculated BMI: 68.8 kg/m2 The following is also documented in the Medical Record: Per Critical Care Note: Morbid obesity Is this a current diagnosis for this admission?: Yes Plan: She is about 400 lbs and this is definitely making her care difficult. Placing a central line would be ideal but with her habitus and PLT 40, this makes it quite risky. This also will impact her respiratory mechanics. Based on your medical judgement, can you further clarify in the Progress Notes the diagnosis associated with these findings. Including the BMI supports the diagnosis. Morbid Obesity / BMI 68.8 kg/m2 Severe morbid Obesity / BMI 68.8 kg/m2 Other condition (please specify) None of the above / Not applicable Thank you for your consideration. MILI Hernandez RN Clinical Pediatric Audiologist Physician Advisor
--- NOTE | 2020-06-30 21:07 | CDI QUERY ---
CDI Query CDI Review: We are seeking further clarification of documentation to reflect the severity of illness of your patient. Documentation in the medical record indicates that this patient has been admitted with or diagnosed as having ACUTE KIDNEY INJURY. The following is also documented in the medical record: Acute renal failure type: unspecified Qualified Code(s): N17.9 - Acute kidney failure, unspecified Is this a current diagnosis for this admission?: Yes Plan: This is likely from her sepsis, whether bacterial or COVID. Management may be difficult. She is getting hyperkalemic and will start kayexalate. Her GI tract may not be functioning on levophed. She may need HD and will consult Dr. Soria at this stage. Based on your medical judgment, can you further clarify in the progress notes confirmed or suspected underlying cause for this patients condition such as: Acute Tubular Necrosis Acute Cortical Necrosis Acute Glomerulonephritis Pre-Renal Acute Kidney Injury Other condition: (please specify) None of the above /Not applicable Thank you for your consideration. MILI Hernandez RN Clinical Acquisition Associate Physician Advisor
[2020-06-30 23:32] LABS: INTERNATIONAL RATION (INR) 1.21; PROTHROMBIN TIME 15.5 SEC (11.4-15.4)
[2020-06-30 23:33] LABS: PARTIAL THROMBOPLASTIN TIME 40.4 SEC (23.5-35.8)
[2020-07-01 01:00] LABS: ARTERIAL BLOOD BASE EXCESS -12.7 mmol/L; ARTERIAL BLOOD H2CO3 1.51 mmol/L (1.05-1.35); ARTERIAL BLOOD HCO3 16.2 mmol/L (20-24); ARTERIAL BLOOD O2 SATURATION 73.8 % (94-98); ARTERIAL BLOOD PCO2 50.3 mmHg (35-45); ARTERIAL BLOOD PO2 50.9 mmHg (80-100); ARTERIAL BLOOD TOTAL CO2 17.8 mmol/L (21-25)
--- NOTE | 2020-07-01 01:02 | Operative Report ---
Bedside Procedure - History of Present Illness Indication for Procedure: septic shock Provider: LUCA KWON - Central Line Right Internal jugular Time completed: 00:50 Consent obtained: No - medical neccessity Central line pre-insertion: Sterile PPE donned, Chloraprep applied, Sterile drapes applied Central line lumen type: Triple Anesthetic type: 1% Lidocaine Ultrasound guided: Yes Line secured with sutures: Yes Central line post-insertion: Blood return from lumens, Biopatch applied, Sutured, Sterile dressing applied, Position confirmed w/ CXR Number of attempts: 1 Complications: No - 5 ml blood loss
[2020-07-01 01:03] LABS: ARTERIAL BLOOD FIO2 50%; ARTERIAL BLOOD PH 7.13 (7.35-7.45)
[2020-07-01] MEDS ORDERED: SODIUM BICARBONATE 8.4% INJ 50 MEQ/50 ML DISP.SYRIN IV ONE (01:12)
[2020-07-01] MEDS ORDERED: SODIUM BICARBONATE 8.4% INJ 50 MEQ/50 ML DISP.SYRIN ONE (01:35)
[2020-07-01] MEDS: DEXTROSE 5%-WATER 1000 ML 1,000 ML with SODIUM BICARBONATE 150 MEQ IV PRN ×6 (02:19→18:00)
[2020-07-01] MEDS: PROPOFOL 1,000 MG/100 ML INFUS..BTL IV PRN ×5 (02:20→23:10)
--- NOTE | 2020-07-01 02:20 | RADIOLOGY REPORT (SQ) ---
EXAM DESCRIPTION: XR CHEST 1 VIEW COMPLETED DATE/TME: 07/01/2020 00:00 CLINICAL HISTORY: line placement COMPARISON: 06/30/2020 FINDINGS: Single frontal view of the chest. Tubes and lines: Endotracheal tube with tip 2 cm above the kinza. NG tube with tip below the diaphragm. Right IJ central venous catheter with tip in the SVC. Leads overlie the chest. Cardiomediastinal silhouette: Stable Lungs: Bibasilar opacity, greater on the right than the left with bilateral pleural effusions. No pneumothorax. Bones: Stable. Upper abdomen: Stable. IMPRESSION: 1. Right IJ central venous catheter tip in the SVC. Otherwise stable appearance of the chest.
[2020-07-01 03:32] LABS: HEMATOCRIT 29.2 % (36.0-47.0); HEMOGLOBIN 9.1 g/dL (12.0-15.5); MEAN CORPUSCULAR HEMOGLOBIN 22.5 pg (27.0-33.4); MEAN CORPUSCULAR VOLUME 73 fl (80-97); RED BLOOD COUNT 4.02 10^6/uL (3.72-5.28); RED CELL DISTRIBUTION WIDTH 19.3 % (11.5-14.0); WHITE BLOOD COUNT 18.1 10^3/uL (4.0-10.5)
[2020-07-01 03:34] LABS: PLATELET COUNT 71 10^3/uL (150-450)
[2020-07-01 03:49] LABS: ABSOLUTE LYMPHOCYTES# (MANUAL) 1.8 10^3/uL (0.5-4.7); ANISOCYTOSIS 2+; BASOPHILS % (MANUAL) 0 % (0-2); EOSINOPHILS % (MANUAL) 0 % (0-6); HYPOCHROMASIA 1+; LYMPHOCYTES % (MANUAL) 10 % (13-45); MONOCYTES % (MANUAL) 0 % (3-13); SEGMENTED NEUTROPHILS % (MAN) 90 % (42-78); TOTAL CELLS COUNTED 100; TOXIC VACUOLATION PRESENT
[2020-07-01 03:51] LABS: OVALOCYTES SLIGHT; TEAR DROP CELLS 1+
[2020-07-01 03:54] LABS: PLATELET COMMENT DECREASED
[2020-07-01] MEDS: LINEZOLID 600 MG/300 ML RTUPB IV SCH ×2 (05:11→17:00)
[2020-07-01] MEDS: HYDROCORTISONE SOD SUCCINATE INJ/PF 100 MG/2 ML SDV IV SCH ×3 (05:12→21:22)
[2020-07-01] MEDS: LEVOTHYROXINE SODIUM 0.1 MG TABLET NG SCH (05:12)
[2020-07-01] MEDS: LEVOTHYROXINE SODIUM 0.025 MG TABLET NG SCH (05:12)
[2020-07-01 06:38] LABS: ARTERIAL BLOOD BASE EXCESS -6.4 mmol/L; ARTERIAL BLOOD FIO2 50%; ARTERIAL BLOOD H2CO3 1.53 mmol/L (1.05-1.35); ARTERIAL BLOOD O2 SATURATION 98.9 % (94-98); ARTERIAL BLOOD PCO2 50.8 mmHg (35-45); ARTERIAL BLOOD PH 7.23 (7.35-7.45); ARTERIAL BLOOD PO2 176.6 mmHg (80-100); ARTERIAL BLOOD TOTAL CO2 22.5 mmol/L (21-25)
[2020-07-01 06:49] LABS: ANION GAP 10 (5-19); BLOOD UREA NITROGEN 50 mg/dL (7-20); CALCIUM 7.6 mg/dL (8.4-10.2); CARBON DIOXIDE 24 mmol/L (22-30); CHLORIDE 104 mmol/L (98-107); GLUCOSE 204 mg/dL (75-110); POTASSIUM 4.6 mmol/L (3.6-5.0)
--- NOTE | 2020-07-01 08:34 | RADIOLOGY REPORT (SQ) ---
EXAM DESCRIPTION: ARTERIAL LOWER EXTREM BILAT IMAGES COMPLETED DATE/TIME: 06/30/2020 1:19 pm REASON FOR STUDY: evaluate arterial flow COMPARISON: None. TECHNIQUE: Dynamic and static hamlin scale and color images acquired of the lower extremity arteries. Additional selected spectral images recorded. LIMITATIONS: None. FINDINGS: RIGHT LEG: INFLOW ARTERIES: Normal, no obstruction evident. FEMORAL ARTERIES:Multiphasic waveforms. Normal, no velocity elevation to suggest focal stenosis. Norm al color Doppler evaluation. No aneurysm. POPLITEAL ARTERY:Multiphasic waveforms. Normal, no velocity elevation to suggest focal stenosis. Norm al color Doppler evaluation. No aneurysm. PATENT TIBIOPERONEAL TRUNK AND 3 VESSEL RUNOFF: Yes, normal vessels. OTHER: The right dorsalis pedis artery is not visualized, and may be occluded. LEFT LEG: INFLOW ARTERIES: Normal, no obstruction evident. FEMORAL ARTERIES:Multiphasic waveforms. Normal, no velocity elevation to suggest focal stenosis. Norm al color Doppler evaluation. No aneurysm. POPLITEAL ARTERY:Multiphasic waveforms. Normal, no velocity elevation to suggest focal stenosis. Norm al color Doppler evaluation. No aneurysm. PATENT TIBIOPERONEAL TRUNK AND 3 VESSEL RUNOFF: Yes, normal vessels. OTHER: Diminished velocities within the dorsalis pedis ; however, this vessel does remain patent. IMPRESSION: 1. Multiphasic waveforms with three-vessel runoff bilaterally. 2. The right dorsalis pedis is not visualized and may be occluded. Diminished, but patent left dors nils pedis. TECHNICAL DOCUMENTATION: JOB ID: [id number] [employer]- All Rights Reserved Reading location - IP/workstation name: [email or web address]
[2020-07-01 09:00] LABS: PROTHROMBIN TIME 14.4 SEC (11.4-15.4)
[2020-07-01] MEDS: FAMOTIDINE INJ/PF 20 MG/2 ML SDV IV SCH ×2 (09:34→21:22)
[2020-07-01] MEDS: CEFEPIME HCL 2 GM in DEXTROSE 5%-WATER 50 ML IV SCH ×2 (09:34→21:17)
[2020-07-01] MEDS: DEXAMETHASONE SOD PHOS INJ 10 MG/1 ML VIAL IV SCH (09:34)
--- NOTE | 2020-07-01 10:43 | PDOC CONSULTATION ---
Consultation Consult Date: 07/01/20 Provider Consulted: Joel SUE Consult reason:: BRODIE History of Present Illness Admission Date/PCP: 06/29/20 03:15 History of Present Illness: CHEMO CRUZ is a 29 year old female was seen in the ICU today. She is intubated and sedated. Therefore history was obtained by discussion with the certified personal trainer Dr. Santos as well as review of charts. The patient is a morbidly obese lady with apparent history of hypothyroidism and possible asthma was admitted through the ER with a history of progressive shortness of breath, cough of approximately 2 weeks duration. No further qualifying history is obtained. She apparently decompensated respiratory bassett in the ED and was intubated and then transferred to the ICU. Chest x-ray showed right basilar opacity with a pleural effusion. She was admitted on a provisional diagnosis of possible COVID pneumonia as there were other laboratory evaluations that were indicative of such including a highly elevated d-dimer. However her COVID tests has returned back as negative today. She also had an echocardiogram done which shows a large mass/vegetation over her mitral valve that is big enough to produce functional mitral stenosis. Discussions were done with Dr. Collado the reading paint spray tender. The patient was initially anuric over the last 24 hours but after she was begun on IV fluid resuscitation as her blood pressure was rather tenuous and she has made about 500 cc of urine today. The patient has had a right internal jugular central line placed. She is morbidly obese with multiple abdominal folds that makes it difficult to access the femoral region. She is cold and cyanotic with early livedo reticularis. Labs and medications were reviewed. Past Medical History Cardiac Medical History: Reports: Heart Murmur Pulmonary Medical History: Reports: Sleep Apnea Endocrine Medical History: Reports: Hypothyroidism, Obesity Malignancy Medical History: Reports: None Musculoskeltal Medical History: Reports: None Skin Medical History: Reports: None Psychiatric Medical History: Denies: Depression Past Surgical History Past Surgical History: Reports: Orthopedic Surgery - right 5th toe amputation Social History Lives with: Parents Smoking Status: Current Every Day Smoker Frequency of Alcohol Use: Rare Hx Recreational Drug Use: No Hx Prescription Drug Abuse: No - Advance Directive Resuscitation Status: Full Code Family History Parental Family History Reviewed: No - Unable to be obtained as patient is intubated and sedated. Children Family History Reviewed: No Sibling(s) Family History Reviewed.: No Medication/Allergy Home Medications: Albuterol Sulfate [Proair HFA Inhalation Aerosol 8.5 gm MDI] 2 puff IH Q4HP PRN 06/29/20 Levothyroxine Sodium [Synthroid] 125 mcg PO Q6AM 06/29/20 Allergies/Adverse Reactions: No Known Allergies Allergy (Verified 06/29/20 08:43) Review of Systems ROS unobtainable: Due to endotracheal tube Physical Exam Vital Signs: Temp Pulse Resp BP Pulse Ox 98.1 F 67 14 87/59 L 100 07/01/20 06:00 07/01/20 06:00 07/01/20 06:00 07/01/20 06:00 07/01/20 08:03 Intake & Output 06/30/20 07/01/20 07/02/20 06:59 06:59 06:59 Intake Total 2372 1718 1000 Output Total 244 545 Balance 2128 1173 1000 Weight 182.1 kg 175.4 kg General appearance: PRESENT: morbidly obese Eye exam: PRESENT: EOMI, PERRLA. ABSENT: scleral icterus Ear exam: PRESENT: normal external ear exam Neck exam: ABSENT: lymphadenopathy, meningismus, tenderness, thyromegaly, tracheal deviation Respiratory exam: PRESENT: clear to auscultation beatriz, crackles, decreased breath sounds Cardiovascular exam: PRESENT: +S1, +S2 GI/Abdominal exam: PRESENT: normal bowel sounds, soft. ABSENT: organomegaly, tenderness Extremities exam: ABSENT: pedal edema Neurological exam: PRESENT: altered - She is intubated and sedated. Skin exam: PRESENT: cyanosis - Early cyanosis of her peripheral extremities., mottled. ABSENT: warm Results Laboratory Results: 07/01/20 03:10 07/01/20 05:30 06/29/20 06/30/20 07/01/20 20:39 16:15 00:50 WBC RBC Hgb Hct MCV MCH MCHC RDW Plt Count Seg Neutrophils % Carbonic Acid 1.51 H HCO3/H2CO3 Ratio 10:1 ABG pH 7.13 L* ABG pCO2 50.3 H ABG pO2 50.9 L ABG HCO3 16.2 L ABG O2 Saturation 73.8 L ABG Base Excess -12.7 FiO2 50% Sodium 136.7 L Potassium 5.4 H Chloride 107 Carbon Dioxide 17 L Anion Gap 13 BUN 42 H Creatinine 4.32 H Est GFR ( Amer) 15 L Glucose 145 H Calcium 7.9 L Blood Type B POSITIVE Antibody Screen NEGATIVE 07/01/20 07/01/20 07/01/20 03:10 05:30 05:30 WBC 18.1 H RBC 4.02 Hgb 9.1 L Hct 29.2 L MCV 73 L MCH 22.5 L MCHC 31.0 L RDW 19.3 H Plt Count 71 L Seg Neutrophils % Not Reportable Carbonic Acid 1.53 H HCO3/H2CO3 Ratio 13:1 ABG pH 7.23 L ABG pCO2 50.8 H ABG pO2 176.6 H ABG HCO3 21.0 ABG O2 Saturation 98.9 H ABG Base Excess -6.4 FiO2 50% Sodium 138.2 Potassium 4.6 Chloride 104 Carbon Dioxide 24 Anion Gap 10 BUN 50 H Creatinine 4.77 H Est GFR ( Amer) 13 L Glucose 204 H Calcium 7.6 L Blood Type Antibody Screen 06/30/20 05:58 Blood Blood Culture (PCR) - Final Staphylococcus Aureus 06/30/20 06:12 Blood Blood Culture (PCR) - Final Staphylococcus Aureus 06/30/20 06/30/20 03:58 03:58 Creatine Kinase 188 H NT-Pro-B Natriuret Pep [id number] H Impressions: KUB X-Ray 06/29/20 17:42 IMPRESSION: Tube placement as described. Lower Extremity Ultrasound 06/30/20 00:00 IMPRESSION: 1. Multiphasic waveforms with three-vessel runoff bilaterally. 2. The right dorsalis pedis is not visualized and may be occluded. Diminished, but patent left dorsalis pedis. Chest X-Ray 07/01/20 00:00 IMPRESSION: 1. Right IJ central venous catheter tip in the SVC. Otherwise stable appearance of the chest. Assessment & Plan - Diagnosis (1) ARF (acute renal failure) Qualifiers: Acute renal failure type: unspecified Qualified Code(s): N17.9 - Acute kidney failure, unspecified Is this a current diagnosis for this admission?: Yes Plan: Patient is in oliguric BRODIE in the setting of pneumonia with early septic shock/mitral valve mass/vegetation/endocarditis with gram-positive bacteremia. The etiology is ATN from infection/septic shock status with other differentials including possible septic embolization producing renal infarction. It is encouraging to see that the patient is producing more urine after fluid resuscitation from yesterday. Electrolytes are stable and potassium was high has reverted to being normal today. Acidosis that has been corrected. Continue high-dose of antibiotics to a GFR of less than 20 cc/min. No acute indications for renal replacements as of today. I will start the patient on normal saline now that the patient has been taken off the bicarbonate drip. Discussed with Dr. Santos/certified personal trainer. However given her etiology of a large mitral valve lesion along with gram-positive bacteremia she needs to be transferred to a tertiary care center for obvious reasons. 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 Differentials includes vegetation/tumors including myxoma. Patient also has gram-positive bacteremia and has been begun on appropriate antibiotics pending culture sensitivity results. Monitor for septic embolization / metastatic abscess and heart failure. (3) Gram-positive bacteremia Plan: In the face of large mass/vegetation of mitral valve. Currently on antibiotics. (4) Morbid obesity Is this a current diagnosis for this admission?: Yes (5) Hypothyroidism Qualifiers: Hypothyroidism type: other Qualified Code(s): E03.8 - Other specified hypothyroidism Is this a current diagnosis for this admission?: Yes Plan: Current TSH was 26. Ensure adequate replacements. (6) Pneumonia Qualifiers: Pneumonia type: due to unspecified organism Laterality: bilateral Lung location: unspecified part of lung Qualified Code(s): J18.9 - Pneumonia, unspecified organism Plan: On antibiotics. Monitor (7) Respiratory failure Qualifiers: Chronicity: acute Respiratory failure complication: hypoxia Qualified Code(s): J96.01 - Acute respiratory failure with hypoxia Plan: Intubated and sedated. Patient is also got underlying sleep apnea and echoc ardiogram shows severely elevated right heart pressures indicator of severe cor pulmonale. (8) Thrombocytopenia Plan: Along with abnormal coagulation profile and elevated d-dimer likely indicative for early DIC.
[2020-07-01] MEDS: NORMAL SALINE 1000 ML 1,000 ML IV PRN ×2 (12:00→23:11)
--- NOTE | 2020-07-01 12:40 | PDOC CRITICAL CARE PROG REPORT ---
General Date:: 07/01/20 ICU Day:: 2 Ventilator Day:: 2 Hospital Day:: 2 Resuscitation Status: Full Code Events in the past 12 to 24 Hours:: Renal function worse, lungs better. Trying to Tx to [facility]. Review of systems relevant to events:: CV, Respiratory, renal. Reason for ICU Addmission:: Acute Respiratory Failure , ARDS, ARF, intubated - Medications: Medications reviewed and adjusted accordingly: Yes Vasopressors:: None Sedation:: Diprivan. Physical Exam Vital Signs: Temp Pulse Resp BP Pulse Ox 98.2 F 79 23 H 121/76 99 07/01/20 10:00 07/01/20 10:00 07/01/20 10:52 07/01/20 10:52 07/01/20 10:52 Intake & Output 06/30/20 07/01/20 07/02/20 06:59 06:59 06:59 Intake Total 2372 1718 1000 Output Total 244 545 120 Balance 2128 1173 880 Weight 182.1 kg 175.4 kg Weight/Height Weight 175.4 kg Height 5 ft 4 in General appearance: PRESENT: no acute distress, morbidly obese Head exam: PRESENT: atraumatic, normocephalic Eye exam: PRESENT: conjunctiva pink, EOMI, PERRLA. ABSENT: scleral icterus Ear exam: PRESENT: normal external ear exam Mouth exam: PRESENT: moist, tongue midline Respiratory exam: PRESENT: clear to auscultation beatriz, rhonchi. ABSENT: rales, wheezes Cardiovascular exam: PRESENT: RRR. ABSENT: diastolic murmur, rubs, systolic murmur GI/Abdominal exam: PRESENT: normal bowel sounds, soft. ABSENT: distended, guarding, mass, organolmegaly, rebound, tenderness Rectal exam: PRESENT: deferred Gentrourinary exam: PRESENT: indwelling catheter, other - Groin erythema Extremities exam: PRESENT: other - Toes of both fet dusky but not black. Neurological exam: PRESENT: altered, other - Sedated. Skin exam: PRESENT: dry, petechiae Tubes/Lines: PRESENT: Endotracheal Tube, Central Line, Dialysis catheter, Nasogastic Tube Laboratory/Radiographs Laboratory Results: 07/01/20 03:10 07/01/20 05:30 06/29/20 06/30/20 07/01/20 20:39 16:15 00:50 WBC RBC Hgb Hct MCV MCH MCHC RDW Plt Count Seg Neutrophils % Carbonic Acid 1.51 H HCO3/H2CO3 Ratio 10:1 ABG pH 7.13 L* ABG pCO2 50.3 H ABG pO2 50.9 L ABG HCO3 16.2 L ABG O2 Saturation 73.8 L ABG Base Excess -12.7 FiO2 50% Sodium 136.7 L Potassium 5.4 H Chloride 107 Carbon Dioxide 17 L Anion Gap 13 BUN 42 H Creatinine 4.32 H Est GFR ( Amer) 15 L Glucose 145 H Calcium 7.9 L Blood Type B POSITIVE Antibody Screen NEGATIVE 07/01/20 07/01/20 07/01/20 03:10 05:30 05:30 WBC 18.1 H RBC 4.02 Hgb 9.1 L Hct 29.2 L MCV 73 L MCH 22.5 L MCHC 31.0 L RDW 19.3 H Plt Count 71 L Seg Neutrophils % Not Reportable Carbonic Acid 1.53 H HCO3/H2CO3 Ratio 13:1 ABG pH 7.23 L ABG pCO2 50.8 H ABG pO2 176.6 H ABG HCO3 21.0 ABG O2 Saturation 98.9 H ABG Base Excess -6.4 FiO2 50% Sodium 138.2 Potassium 4.6 Chloride 104 Carbon Dioxide 24 Anion Gap 10 BUN 50 H Creatinine 4.77 H Est GFR ( Amer) 13 L Glucose 204 H Calcium 7.6 L Blood Type Antibody Screen 06/29/20 01:58 Villaseñor Catheter Urine Culture - Final NO GROWTH 2 DAYS 06/30/20 05:58 Blood Blood Culture (PCR) - Final Staphylococcus Aureus 06/30/20 06:12 Blood Blood Culture (PCR) - Final Staphylococcus Aureus 06/30/20 06/30/20 03:58 03:58 Creatine Kinase 188 H NT-Pro-B Natriuret Pep [id number] H Impressions: KUB X-Ray 06/29/20 17:42 IMPRESSION: Tube placement as described. Lower Extremity Ultrasound 06/30/20 00:00 IMPRESSION: 1. Multiphasic waveforms with three-vessel runoff bilaterally. 2. The right dorsalis pedis is not visualized and may be occluded. Diminished, but patent left dorsalis pedis. Chest X-Ray 07/01/20 00:00 IMPRESSION: 1. Right IJ central venous catheter tip in the SVC. Otherwise stable appearance of the chest. All labs, radiographs, diagnostic studies and EKGs were personally reviewed: Yes In addition, reports of radiographic and diagnostic studies were read: Yes Assessment and Plan - Diagnosis (1) Suspected COVID-19 virus infection Is this a current diagnosis for this admission?: Yes Plan: Test return negative. COVID ruled out. (2) ARF (acute renal failure) Qualifiers: Acute renal failure type: unspecified Qualified Code(s): N17.9 - Acute kidney failure, unspecified Is this a current diagnosis for this admission?: Yes Plan: Cr 4.7, GFR 11 worse function. On bicarb drip. Not hyperkalemic. (3) Morbid obesity Is this a current diagnosis for this admission?: Yes Plan: Effecting her overall prognosis negatively. (4) ARDS (adult respiratory distress syndrome) Is this a current diagnosis for this admission?: Yes Plan: PaO2/FiO2 gradient 350, out of ARDS. Start to wean vent Plan Summary: Contact made with Norm. Echo sent over to review by cardiac surgeon. Critical Time Critical Time (minutes): 45 Level of Care: ICU Anticipated discharge: Home Anticipated DC Timeframe: Other -: 1. The care of a critical patient is a dynamic process. This note is a represe ntative synopsis but static in nature. The timeframe for treatments given in order is not necessarily the actual time these treatments may have been done. 2. This patient requires critical care secondary to ongoing requirements for therapy not offered or safe outside the critical care environment. Transfer to a lower level of care will result in altered life or limb morbidity and mortality. 3. Multidisciplinary rounds completed. 4. ABCDE bundle addressed.
--- NOTE | 2020-07-01 13:06 | Operative Report ---
Nonrecallable Operative Report DATE OF SURGERY: 07/01/20 PREOPERATIVE DIAGNOSIS: Renal failure need for dialysis. POSTOPERATIVE DIAGNOSIS: Same as above OPERATION: 1. Ultrasound-guided central venous puncture. 2. Right femoral temporary dialysis catheter placement. SURGEON: MONIK DOUGLASS ANESTHESIA: Other - None TISSUE REMOVED OR ALTERED: None COMPLICATIONS: None apparent ESTIMATED BLOOD LOSS: Minimal PROCEDURE: Drain/implants: 30 cm temporary dialysis catheter. Procedure in detail: After informed consent was obtained from the patient's mother, she was left in the supine position. An area in the right groin was prepped and draped in a normal sterile fashion. The ultrasound was utilized to visualize the right femoral vein. The patient had excoriation of the right groin. An area distal to this was chosen to enter the skin. An 18-gauge spinal needle was used under direct ultrasonic guidance to access the right femoral vein. Dark venous, nonpulsatile blood was returned into the syringe. Guidewire was inserted into the vein easily. The wire was confirmed to be within the lumen of the vein using the ultrasound device. Picture documentation was obtained and placed on the chart. Next, the catheter was slid over the wire using a modified Seldinger technique. The catheter was then aspirated and flushed with saline. The catheter returned dark venous, nonpulsatile blood. The catheter was sutured to the skin, and a dressing was placed. At this time the procedure was concluded. All sponge, instrument, and needle counts were correct. Condition: Critical in ICU.
[2020-07-01 15:53] LABS: C DIFFICILE GDH NEGATIVE (NEGATIVE)
[2020-07-01] MEDS ORDERED: NOREPINEPHRINE BITARTRATE INJ/PF 4 MG/4 ML SDV IV ONE (16:26)
[2020-07-01] MEDS ORDERED: DEXTROSE 5%-WATER 250 ML with NOREPINEPHRINE BITARTRATE 4 MG IV PRN ×2 (16:34)
[2020-07-01] MEDS: DEXTROSE 5%-WATER 250 ML with NOREPINEPHRINE BITARTRATE 4 MG IV PRN ×2 (16:38)
[2020-07-01 17:04] LABS: HEMATOCRIT 30.4 % (36.0-47.0); HEMOGLOBIN 9.3 g/dL (12.0-15.5); MEAN CORPUSCULAR HEMOGLOBIN 22.1 pg (27.0-33.4); MEAN CORPUSCULAR HGB CONC 30.5 g/dL (32.0-36.0); MEAN CORPUSCULAR VOLUME 73 fl (80-97); RED CELL DISTRIBUTION WIDTH 19.7 % (11.5-14.0); WHITE BLOOD COUNT 17.9 10^3/uL (4.0-10.5)
[2020-07-01 17:20] LABS: PLATELET COUNT 74 10^3/uL (150-450)
[2020-07-01 17:22] LABS: ABSOLUTE LYMPHOCYTES# (MANUAL) 0.5 10^3/uL (0.5-4.7); ABSOLUTE MONOCYTES # (MANUAL) 1.6 10^3/uL (0.1-1.4); BASOPHILS % (MANUAL) 0 % (0-2); EOSINOPHILS % (MANUAL) 0 % (0-6); LYMPHOCYTES % (MANUAL) 3 % (13-45); MONOCYTES % (MANUAL) 9 % (3-13); SEGMENTED NEUTROPHILS % (MAN) 88 % (42-78); TOTAL CELLS COUNTED 100
[2020-07-01 17:24] LABS: ANISOCYTOSIS 2+; HYPOCHROMASIA 1+; OVALOCYTES 1+
[2020-07-01 17:25] LABS: PLATELET COMMENT DECREASED; TEAR DROP CELLS SLIGHT
--- NOTE | 2020-07-01 20:09 | Progress Note ---
Provider Note Provider Note: [facility] ID Telephone Advice Consultation Chart reviewed. Patient is a 29-year-old woman with morbid obesity who was a dmitted on 06/28 due to pneumonia and acute respiratory failure. She had ARDS and sepsis on admission, requiring intubation and pressors. CXR on 06/28 showed right basilar opacity. A follow up CXR on 06/29 showed bilateral airspace disease concerning for ARDS. On 06/30 she developed a right side pleural effusion. She still has significant leukocytosis (18k), thrombocytopenia, acute renal failure. Blood cultures on 06/30 positive for MSSA. She had a right IJ placed on 07/01 and a right femoral catheter as well. TTE demonstrated a moderate size vegetation in mitral valve. She has been on cefepime and linezolid. Coordination has been on going to transfer patient to [facility] [place]. ID consulted for recommendations. PMH: Morbid obesity Allergies: No Known Allergies Allergy (Verified 06/29/20 08:43) Medications: Albuterol Sulfate [Proair HFA Inhalation Aerosol 8.5 gm MDI] 2 puff IH Q4HP PRN 06/29/20 Levothyroxine Sodium [Synthroid] 125 mcg PO Q6AM 06/29/20 Vital Signs: Temp Pulse Resp BP Pulse Ox 97.6 F 79 23 H 93/79 L 94 07/01/20 19:49 07/01/20 10:00 07/01/20 18:14 07/01/20 18:14 07/01/20 18:14 Intake & Output 06/30/20 07/01/20 07/02/20 06:59 06:59 06:59 Intake Total 2372017 Output Total 244 545 330 Balance 2128 1473 1943 Weight 182.1 kg 175.4 kg 175.4 kg Weight/Height Weight 175.4 kg Height 5 ft 4 in Laboratories: 07/01/20 16:48 07/01/20 05:30 MCV 73 fl (80-97) L 07/01/20 16:48 MCH 22.1 pg (27.0-33.4) L 07/01/20 16:48 MCHC 30.5 g/dL (32.0-36.0) L 07/01/20 16:48 RDW 19.7 % (11.5-14.0) H 07/01/20 16:48 Seg Neutrophils % Not Reportable 07/01/20 16:48 Carbonic Acid 1.53 mmol/L (1.05-1.35) H 07/01/20 05:30 HCO3/H2CO3 Ratio 13:1 07/01/20 05:30 ABG pH 7.23 (7.35-7.45) L 07/01/20 05:30 ABG pCO2 50.8 mmHg (35-45) H 07/01/20 05:30 ABG pO2 176.6 mmHg (80-100) H 07/01/20 05:30 ABG HCO3 21.0 mmol/L (20-24) 07/01/20 05:30 ABG O2 Saturation 98.9 % (94-98) H 07/01/20 05:30 ABG Base Excess -6.4 mmol/L 07/01/20 05:30 FiO2 50% 07/01/20 05:30 Chloride 104 mmol/L (98-107) 07/01/20 05:30 Carbon Dioxide 24 mmol/L (22-30) 07/01/20 05:30 Anion Gap 10 (5-19) 07/01/20 05:30 Est GFR ( Amer) 13 (>60) L 07/01/20 05:30 Glucose 204 mg/dL (75-110) H 07/01/20 05:30 Serum Osmolality 287 mOsm/kg (275-301) 06/30/20 03:58 Lactic Acid 1.5 mmol/L (0.7-2.1) 06/30/20 03:58 Calcium 7.6 mg/dL (8.4-10.2) L 07/01/20 05:30 Phosphorus 7.3 mg/dL (2.5-4.5) H 06/30/20 03:58 Magnesium 1.8 mg/dL (1.6-2.3) 06/30/20 03:58 Ferritin 153.00 ng/mL (6.2-137.0) H 06/29/20 20:29 Total Bilirubin 1.0 mg/dL (0.2-1.3) 06/30/20 03:58 AST 69 U/L (14-36) H 06/30/20 03:58 Alkaline Phosphatase 78 U/L (38-126) 06/30/20 03:58 C-Reactive Protein 339.1 mg/L (<10.0) H 06/30/20 03:58 Total Protein 7.5 g/dL (6.3-8.2) 06/30/20 03:58 Albumin 3.3 g/dL (3.5-5.0) L 06/30/20 03:58 Triglycerides 229 mg/dL (<150) H 06/30/20 06:12 TSH 26.80 uIU/mL (0.47-4.68) H 06/30/20 03:58 Free T4 0.78 ng/dL (0.78-2.19) 06/30/20 03:58 Urine Color DANIELA 06/29/20 01:58 Urine Appearance SLIGHTLY-CLOUDY 06/29/20 01:58 Urine pH 5.0 (5.0-9.0) 06/29/20 01:58 Ur Specific [place] 1.028 06/29/20 01:58 Urine Protein >=500 mg/dL (NEGATIVE) H 06/29/20 01:58 Urine Glucose (UA) NEGATIVE mg/dL (NEGATIVE) 06/29/20 01:58 Urine Ketones NEGATIVE mg/dL (NEGATIVE) 06/29/20 01:58 Urine Blood MODERATE (NEGATIVE) H 06/29/20 01:58 Urine Nitrite NEGATIVE (NEGATIVE) 06/29/20 01:58 Ur Leukocyte Esterase NEGATIVE (NEGATIVE) 06/29/20 01:58 Urine WBC (Auto) 9 /HPF 06/29/20 01:58 Urine RBC (Auto) 10 /HPF 06/29/20 01:58 Blood Type B POSITIVE 06/29/20 20:39 Antibody Screen NEGATIVE 06/29/20 20:39 06/30/20 06:12 Blood Blood Culture (PCR) - Final (MSSA) Staphylococcus Aureus 06/29/20 01:58 Villaseñor Catheter Urine Culture - Final NO GROWTH 2 DAYS 06/30/20 05:58 Blood Blood Culture (PCR) - Final Staphylococcus Aureus 06/30/20 06/30/20 03:58 03:58 Creatine Kinase 188 H NT-Pro-B Natriuret Pep [id number] H Radiology: KUB X-Ray 06/29/20 17:42 IMPRESSION: Tube placement as described. Lower Extremity Ultrasound 06/30/20 00:00 IMPRESSION: 1. Multiphasic waveforms with three-vessel runoff bilaterally. 2. The right dorsalis pedis is not visualized and may be occluded. Diminished, but patent left dorsalis pedis. Chest X-Ray 07/01/20 00:00 IMPRESSION: 1. Right IJ central venous catheter tip in the SVC. Otherwise stable appearance of the chest. 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 Source of infection still unknown, it is possible that it started as pneumonia and then d isseminated to the blood and seeded the mitral valve. If that's the case, she probably has been infected for long time in order to develop a vegetation in MV. Will recommend to repeat blood cultures, respiratory cultures if possible, monitor right pleural effusion due to risk of parapneumonic effusion/empyema formation. Cefazolin 1g every 12 hr for now (can discontinue linezolid and cefepime). May consider adding clindamycin for 72 hr if suspicion of toxic shock syndrome (for toxin inhibition). Consult CT surgery for opinion regarding valve replacement. She will need 6 weeks of antibiotics from negative blood cultures and depending if she is a surgical candidate. Should also assess for any other potential site of metastatic infection as VOM, epidural abscess, discitis, psoas abscess. Isatu Corona MD U ID [phone]
--- NOTE | 2020-07-02 01:50 | RADIOLOGY REPORT (SQ) ---
CLINICAL HISTORY: VENTILATOR COMPARISON: 07/01/2020. TECHNIQUE: XR CHEST 1 VIEW 07/01/2020 12:00 AM CDT FINDINGS: The heart is enlarged. There is moderate bibasilar airspace disease. There may be a right pleural effusion. There is no pneumothorax. There are no acute osseous findings. Endotracheal and nasogastric tubes are unchanged. Right central line is unchanged. IMPRESSION: Slightly worsening aeration of the right lung base.
[2020-07-02] MEDS: DEXTROSE 5%-WATER 1000 ML 1,000 ML with SODIUM BICARBONATE 150 MEQ IV PRN ×4 (02:41→10:57)
[2020-07-02] MEDS: NORMAL SALINE 1000 ML 1,000 ML IV PRN ×3 (04:30→21:46)
[2020-07-02] MEDS: PROPOFOL 1,000 MG/100 ML INFUS..BTL IV PRN ×4 (04:50→20:27)
[2020-07-02 05:06] LABS: ARTERIAL BLOOD BASE EXCESS -1.4 mmol/L; ARTERIAL BLOOD H2CO3 1.83 mmol/L (1.05-1.35); ARTERIAL BLOOD HCO3 26.3 mmol/L (20-24); ARTERIAL BLOOD O2 SATURATION 98.4 % (94-98); ARTERIAL BLOOD PCO2 60.8 mmHg (35-45); ARTERIAL BLOOD PH 7.25 (7.35-7.45); ARTERIAL BLOOD PO2 144.6 mmHg (80-100); ARTERIAL BLOOD TOTAL CO2 28.2 mmol/L (21-25)
[2020-07-02 05:07] LABS: ARTERIAL BLOOD FIO2 40%
[2020-07-02 05:15] LABS: ABSOLUTE LYMPHOCYTES (AUTO) 0.7 10^3/uL (0.5-4.7); ABSOLUTE MONOCYTES (AUTO) 0.8 10^3/uL (0.1-1.4); ABSOLUTE NEUT (AUTO) 9.5 10^3/uL (1.7-8.2); BASOPHILS % (AUTO) 0.1 % (0-2); HEMATOCRIT 28.2 % (36.0-47.0); HEMOGLOBIN 8.7 g/dL (12.0-15.5); LYMPHOCYTES % (AUTO) 6.2 % (13-45); MEAN CORPUSCULAR HEMOGLOBIN 22.4 pg (27.0-33.4); MEAN CORPUSCULAR HGB CONC 30.9 g/dL (32.0-36.0); MEAN CORPUSCULAR VOLUME 72 fl (80-97); MONOCYTES % (AUTO) 7.3 % (3-13); RED CELL DISTRIBUTION WIDTH 18.8 % (11.5-14.0); SEGMENTED NEUTROPHILS % (AUTO) 86.4 % (42-78); TOTAL CELLS COUNTED % (AUTO) 100 %
[2020-07-02 05:22] LABS: ANION GAP 10 (5-19); BLOOD UREA NITROGEN 53 mg/dL (7-20); CALCIUM 7.3 mg/dL (8.4-10.2); CARBON DIOXIDE 27 mmol/L (22-30); CHLORIDE 101 mmol/L (98-107); GLUCOSE 177 mg/dL (75-110); POTASSIUM 3.8 mmol/L (3.6-5.0)
[2020-07-02 05:43] LABS: PLATELET COUNT 61 10^3/uL (150-450)
[2020-07-02] MEDS: LEVOTHYROXINE SODIUM 0.025 MG TABLET NG SCH (05:59)
[2020-07-02] MEDS: LEVOTHYROXINE SODIUM 0.1 MG TABLET NG SCH (05:59)
[2020-07-02] MEDS: HYDROCORTISONE SOD SUCCINATE INJ/PF 100 MG/2 ML SDV IV SCH ×3 (05:59→21:41)
[2020-07-02] MEDS: LINEZOLID 600 MG/300 ML RTUPB IV SCH (06:00)
[2020-07-02] MEDS: DEXAMETHASONE SOD PHOS INJ 10 MG/1 ML VIAL IV SCH (09:49)
[2020-07-02] MEDS: FAMOTIDINE INJ/PF 20 MG/2 ML SDV IV SCH ×2 (09:49→21:41)
[2020-07-02] MEDS: CEFEPIME HCL 2 GM in DEXTROSE 5%-WATER 50 ML IV SCH (09:49)
--- NOTE | 2020-07-02 11:33 | PDOC CRITICAL CARE PROG REPORT ---
General Date:: 07/02/20 ICU Day:: 3 Ventilator Day:: 3 Hospital Day:: 3 Resuscitation Status: Full Code Events in the past 12 to 24 Hours:: To have ANGELIA today, CT surgeon to review. Not sure if she needs surgery. CT of he ad, chest, abd to look for abcess. Review of systems relevant to events:: CV. Reason for ICU Addmission:: Acute Respiratory Failure , ARDS, ARF, intubated - Medications: Medications reviewed and adjusted accordingly: Yes Vasopressors:: None Sedation:: Diprivan Physical Exam Vital Signs: Temp Pulse Resp BP Pulse Ox 96.7 F L 54 L 20 115/84 91 L 07/02/20 10:00 07/02/20 10:00 07/02/20 10:01 07/02/20 10:01 07/02/20 10:01 Intake & Output 07/01/20 07/02/20 07/03/20 06:59 06:59 06:59 Intake Total 2017 59 1950 Output Total 545 580 90 Balance 1473 5333 1860 Weight 175.4 kg 178.2 kg Weight/Height Weight 178.2 kg Height 5 ft 4 in General appearance: PRESENT: no acute distress, morbidly obese Head exam: PRESENT: atraumatic, normocephalic Eye exam: PRESENT: conjunctiva pink, EOMI, PERRLA. ABSENT: scleral icterus Ear exam: PRESENT: normal external ear exam Mouth exam: PRESENT: moist, tongue midline Respiratory exam: PRESENT: clear to auscultation beatriz, decreased breath sounds. ABSENT: rales, rhonchi, wheezes Cardiovascular exam: PRESENT: bradycardia, RRR. ABSENT: diastolic murmur, rubs, systolic murmur GI/Abdominal exam: PRESENT: normal bowel sounds, soft. ABSENT: distended, guarding, mass, organolmegaly, rebound, tenderness Rectal exam: PRESENT: deferred Gentrourinary exam: PRESENT: indwelling catheter Extremities exam: PRESENT: full ROM, other - Acrocyanosis of toes of both feet better.. ABSENT: calf tenderness, clubbing, pedal edema Neurological exam: PRESENT: altered, other - Sedated Skin exam: PRESENT: petechiae, skin tears, warm Tubes/Lines: PRESENT: Endotracheal Tube, Central Line, Dialysis catheter, Nasogastic Tube Laboratory/Radiographs Laboratory Results: 07/02/20 04:50 07/02/20 04:50 07/01/20 07/02/20 07/02/20 16:48 04:50 04:50 WBC 17.9 H RBC 4.20 Hgb 9.3 L Hct 30.4 L MCV 73 L MCH 22.1 L MCHC 30.5 L RDW 19.7 H Plt Count 74 L Seg Neutrophils % Not Reportable Carbonic Acid 1.83 H HCO3/H2CO3 Ratio 14:1 ABG pH 7.25 L ABG pCO2 60.8 H ABG pO2 144.6 H ABG HCO3 26.3 H ABG O2 Saturation 98.4 H ABG Base Excess -1.4 FiO2 40% Sodium 137.8 Potassium 3.8 Chloride 101 Carbon Dioxide 27 Anion Gap 10 BUN 53 H Creatinine 4.78 H Est GFR ( Amer) 13 L Glucose 177 H Calcium 7.3 L 07/02/20 04:50 WBC 11.0 H RBC 3.90 Hgb 8.7 L Hct 28.2 L MCV 72 L MCH 22.4 L MCHC 30.9 L RDW 18.8 H Plt Count 61 L Seg Neutrophils % 86.4 H Carbonic Acid HCO3/H2CO3 Ratio ABG pH ABG pCO2 ABG pO2 ABG HCO3 ABG O2 Saturation ABG Base Excess FiO2 Sodium Potassium Chloride Carbon Dioxide Anion Gap BUN Creatinine Est GFR ( Amer) Glucose Calcium 06/30/20 05:58 Blood Blood Culture (PCR) - Final Staphylococcus Aureus 06/30/20 06:12 Blood Blood Culture (PCR) - Final Staphylococcus Aureus 06/29/20 01:58 Villaseñor Catheter Urine Culture - Final NO GROWTH 2 DAYS 06/30/20 06/30/20 03:58 03:58 Creatine Kinase 188 H NT-Pro-B Natriuret Pep [id number] H Impressions: KUB X-Ray 06/29/20 17:42 IMPRESSION: Tube placement as described. Lower Extremity Ultrasound 06/30/20 00:00 IMPRESSION: 1. Multiphasic waveforms with three-vessel runoff bilaterally. 2. The right dorsalis pedis is not visualized and may be occluded. Diminished, but patent left dorsalis pedis. Chest X-Ray 07/01/20 00:00 IMPRESSION: Slightly worsening aeration of the right lung base. All labs, radiographs, diagnostic studies and EKGs were personally reviewed: Yes In addition, reports of radiographic and diagnostic studies were read: Yes Assessment and Plan - Diagnosis (1) Suspected COVID-19 virus infection Is this a current diagnosis for this admission?: Yes Plan: Negative, ruled out. (2) ARF (acute renal failure) Qualifiers: Acute renal failure type: unspecified Qualified Code(s): N17.9 - Acute kidney failure, unspecified Is this a current diagnosis for this admission?: Yes Plan: Cr 4.7 same. GFR 11. Still on bicarb, not hyperkalemic. NS at 200 on hold due to appearance of R effusion, anasarca. Not on HD yet. (3) Morbid obesity Is this a current diagnosis for this admission?: Yes Plan: Morbid obesity making it somewhat difficult to assess anasacra. (4) ARDS (adult respiratory distress syndrome) Is this a current diagnosis for this admission?: Yes Plan: Out of ARDS by PaO2/FiO2 criteria. Will start to wean after ANGELIA and CT. Plan Summary: To have ANGELIA for [facility] CT surgeon to review. CT of head, chest, abd looking for metastatic abcess sites. Critical Time Critical Time (minutes): 40 Level of Care: ICU Anticipated discharge: Other Anticipated DC Timeframe: Other -: 1. The care of a critical patient is a dynamic process. This note is a congressional representative synopsis but static in nature. The timeframe for treatments given in order is not necessarily the actual time these treatments may have been done. 2. This patient requires critical care secondary to ongoing requirements for therapy not offered or safe outside the critical care environment. Transfer to a lower level of care will result in altered life or limb morbidity and mortality. 3. Multidisciplinary rounds completed. 4. ABCDE bundle addressed.
--- NOTE | 2020-07-02 12:06 | PDOC PROGRESS REPORT ---
Subjective Progress Note for:: 07/02/20 Reason For Visit: Patient seen in the ICU today. She remains intubated and sedated. However she seems to be stabilizing hemodynamically as she has been weaned off the pressors and blood pressures are holding. Urine output is slowly picking up may be. She made about 500+ urine over the last 24 hours. Discussions were done with the mechanical systems engineer as well as the treating nurse. Labs and medications were reviewed. She is currently scheduled to have a ANGELIA as well as a noncontrasted CT scan as talks are continuing for possible transfer to a tertiary care center.Her livedo changes of her skin is somewhat better and she is not cold and cyanotic in her digits as she was yesterday. Physical Exam Vital Signs: Temp Pulse Resp BP Pulse Ox 96.7 F L 54 L 20 115/84 91 L 07/02/20 10:00 07/02/20 10:00 07/02/20 10:01 07/02/20 10:01 07/02/20 10:01 Intake & Output 07/01/20 07/02/20 07/03/20 06:59 06:59 06:59 Intake Total 2017 5913 1950 Output Total 545 580 90 Balance 1473 5333 1860 Weight 175.4 kg 178.2 kg General appearance: PRESENT: no acute distress Exam: Remains intubated and sedated. Respiratory exam: PRESENT: clear to auscultation beatriz. ABSENT: crackles Cardiovascular exam: PRESENT: +S1, +S2 GI/Abdominal exam: PRESENT: normal bowel sounds, soft. ABSENT: organomegaly, tenderness Extremities exam: ABSENT: pedal edema Skin exam: PRESENT: mottled. ABSENT: cyanosis, rash Results Laboratory Results: 07/02/20 04:50 07/02/20 04:50 07/01/20 07/02/20 07/02/20 16:48 04:50 04:50 WBC 17.9 H RBC 4.20 Hgb 9.3 L Hct 30.4 L MCV 73 L MCH 22.1 L MCHC 30.5 L RDW 19.7 H Plt Count 74 L Seg Neutrophils % Not Reportable Carbonic Acid 1.83 H HCO3/H2CO3 Ratio 14:1 ABG pH 7.25 L ABG pCO2 60.8 H ABG pO2 144.6 H ABG HCO3 26.3 H ABG O2 Saturation 98.4 H ABG Base Excess -1.4 FiO2 40% Sodium 137.8 Potassium 3.8 Chloride 101 Carbon Dioxide 27 Anion Gap 10 BUN 53 H Creatinine 4.78 H Est GFR ( Amer) 13 L Glucose 177 H Calcium 7.3 L 07/02/20 04:50 WBC 11.0 H RBC 3.90 Hgb 8.7 L Hct 28.2 L MCV 72 L MCH 22.4 L MCHC 30.9 L RDW 18.8 H Plt Count 61 L Seg Neutrophils % 86.4 H Carbonic Acid HCO3/H2CO3 Ratio ABG pH ABG pCO2 ABG pO2 ABG HCO3 ABG O2 Saturation ABG Base Excess FiO2 Sodium Potassium Chloride Carbon Dioxide Anion Gap BUN Creatinine Est GFR ( Amer) Glucose Calcium 06/30/20 05:58 Blood Blood Culture (PCR) - Final Staphylococcus Aureus 06/30/20 06:12 Blood Blood Culture (PCR) - Final Staphylococcus Aureus 06/29/20 01:58 Villaseñor Catheter Urine Culture - Final NO GROWTH 2 DAYS 06/30/20 06/30/20 03:58 03:58 Creatine Kinase 188 H NT-Pro-B Natriuret Pep [id number] H Impressions: KUB X-Ray 06/29/20 17:42 IMPRESSION: Tube placement as described. Lower Extremity Ultrasound 06/30/20 00:00 IMPRESSION: 1. Multiphasic waveforms with three-vessel runoff bilaterally. 2. The right dorsalis pedis is not visualized and may be occluded. Diminished, but patent left dorsalis pedis. Chest X-Ray 07/01/20 00:00 IMPRESSION: Slightly worsening aeration of the right lung base. Assessment & Plan - Diagnosis (1) ARF (acute renal failure) Qualifiers: Acute renal failure type: unspecified Qualified Code(s): N17.9 - Acute kidney failure, unspecified Is this a current diagnosis for this admission?: Yes Plan: Currently nonoliguric as she has made about 500+ urine since yesterday which is encouraging. Her renal numbers are stable. Acidosis has been corrected. ABG reviewed shows predominantly respiratory acidosis with some compensatory metabolic alkalosis. I will DC her bicarbonate drip. Restart her back on normal saline. Discussed this with mechanical systems engineer. No indications for renal replacements currently. 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 Now scheduled to have a ANGELIA following which possible transfer to tertiary care center. Meanwhile she is on IV antibiotics as she is growing MSSA. (3) Gram-positive bacteremia Plan: MSSA. On appropriate antibiotics. Please dose medications for GFR of less than 25 cc/min. (4) Morbid obesity Is this a current diagnosis for this admission?: Yes Plan: Status quo with pickwickian features and a transthoracic echo showing severe pulmonary hypertension. (5) Hypothyroidism Qualifiers: Hypothyroidism type: other Qualified Code(s): E03.8 - Other specified hypothyroidism Is this a current diagnosis for this admission?: Yes Plan: On replacements. (6) Pneumonia Qualifiers: Pneumonia type: due to unspecified organism Laterality: bilateral Lung location: unspecified part of lung Qualified Code(s): J18.9 - Pneumonia, unspecified organism Plan: With parapneumonic effusion. Currently on antibiotics.Encouraging to see dropping leukocytosis. (7) Respiratory failure Qualifiers: Chronicity: acute Respiratory failure complication: hypoxia Qualified Code(s): J96.01 - Acute respiratory failure with hypoxia Plan: Intubated and sedated. (8) Thrombocytopenia Plan: Mild drop.
--- NOTE | 2020-07-02 14:16 | XCELERA REPORT ---
Study ID: [id number] Transesophageal Echocardiogram Report Name: CHEMO CRUZ Age: 29 yrs Gender: Female : 1990 Patient Status: Inpatient Patient Location: ICU^610^A Study Date: 07/02/2020 12:24 PM Height: 64 in Weight: 386 lb BSA: 2.6 m2 Reason For Study: Assess size of MV vegatation. Ordering Physician: NICOLE ANGUIANO Performed By: Sigrid Khan Interpretation Summary Left ventricular systolic function is normal. Ejection Fraction = >55%. The right ventricle is normal in size and function. Medium to arge vegetation on septal leallet which measures at least 2 cm x 2 cm. there is a smaller vegetation on the posterior leaflet. Visually the vegtations appear to be cuasing functional mitral stenosis( Correlate with surgaface study) There is mild to moderate mitral regurgitation. There is trace tricuspid regurgitation. No hemodynamically significant valvular aortic stenosis. Small pericardial effusion. Procedure A complete two-dimensional transesophageal echocardiogram was performed (2D, spectral and color flow Doppler). Informed consent for Transesophageal Echocardiogram, and use of a contrast agent as needed, was obtained prior to the procedure. The patient was brought to the ICU in a fasting state. IV conscious sedation was administered using per ICU team Propofol gtt. The patient's vital signs, including blood pressure, heart rate, pulse oximetry and cardiac rhythm were monitored thoughout the procedure. The transesophageal probe was passed without difficulty. The usual views were obtained; basal, mid-esophageal, transgastric and aortic views. The patient tolerated the procedure well without evidence of orophangeal or esophageal trauma. Subsequent to all the images being obtained the probe was removed with out trauma. Left Ventricle The left ventricle is normal in size. There is normal left ventricular wall thickness. Left ventricular systolic function is normal. Ejection Fraction = >55%. No regional wall motion abnormalities noted. Right Ventricle The right ventricle is normal in size and function. Atria The interatrial septum is intact with no evidence for an atrial septal defect. The left atrial size is normal. Right atrial size is normal. Mitral Valve Medium to arge vegetation on septal leallet which measures at least 2 cm x 2 cm. there is a smaller vegetation on the posterior leaflet. Visually the vegtations appear to be cuasing functional mitral stenosis( Correlate with surgaface study). There is mild to moderate mitral regurgitation. Tricuspid Valve The tricuspid valve is normal in structure and function. There is no tricuspid valve vegetation. There is trace tricuspid regurgitation. Aortic Valve The aortic valve is trileaflet. The aortic valve opens well. There is no aortic valvular vegetation. No hemodynamically significant valvular aortic stenosis. No aortic regurgitation is present. Pulmonic Valve The pulmonic valve is not well seen, but is grossly normal. There is no vegetation on the pulmonic valve. Trace pulmonic valvular regurgitation. Arteries The aortic root is normal size. Pericardium Small pericardial effusion. : NICOLE ANGUIANO Anil
--- NOTE | 2020-07-02 17:36 | Progress Note ---
Provider Note Provider Note: The patient is too large to fit onto CT scanner. Also to large for [facility]'s scanner. I spoke with Dr. Dominguez of CT surgery and without the ability to CT for a source, MVR is not advised. This would be frought with complications notably worsening ARF. Will treat with 6 weeks of abx after clrear cultures. Progress to vent weaning. CC time 30 minutes
[2020-07-02] MEDS ORDERED: FUROSEMIDE INJ/PF 40 MG/4 ML SDV IV ONE (17:55)
[2020-07-02] MEDS ORDERED: FUROSEMIDE INJ/PF 100 MG/10 ML SDV IV ONE (18:15)
[2020-07-02] MEDS: DIPHENOXYLATE HCL/ATROP SULF 2.5-0.025 MG TABLET PO PRN (18:18)
[2020-07-02] MEDS: FENTANYL CITRATE INJ/PF 100 MCG/2 ML AMPUL IV PRN (19:40)
[2020-07-02 20:17] LABS: ARTERIAL BLOOD BASE EXCESS -2.8 mmol/L; ARTERIAL BLOOD H2CO3 1.81 mmol/L (1.05-1.35); ARTERIAL BLOOD HCO3 25.2 mmol/L (20-24); ARTERIAL BLOOD O2 SATURATION 91.3 % (94-98); ARTERIAL BLOOD PCO2 60.2 mmHg (35-45); ARTERIAL BLOOD PH 7.24 (7.35-7.45); ARTERIAL BLOOD PO2 71.7 mmHg (80-100); ARTERIAL BLOOD TOTAL CO2 27.1 mmol/L (21-25)
[2020-07-02 20:27] LABS: ARTERIAL BLOOD FIO2 35%
[2020-07-02] MEDS ORDERED: CEFAZOLIN SODIUM 2 GM in DEXTROSE 5%-WATER 100 ML IV SCH (20:45)
[2020-07-02] MEDS: CEFAZOLIN SODIUM 2 GM in DEXTROSE 5%-WATER 100 ML IV SCH (21:45)
[2020-07-02] MEDS ORDERED: CEFAZOLIN 1 GM/D5W RTU 1 GM/50 ML RTUPB IV SCH (22:00)
[2020-07-03] MEDS ORDERED: CEFAZOLIN 2 GM/D5W RTU 2 GM/50 ML RTUPB IV SCH
[2020-07-03] MEDS: PROPOFOL 1,000 MG/100 ML INFUS..BTL IV PRN ×5 (00:04→18:20)
[2020-07-03] MEDS: FENTANYL CITRATE INJ/PF 100 MCG/2 ML AMPUL IV PRN ×2 (01:07→14:33)
[2020-07-03] MEDS: NORMAL SALINE 1000 ML 1,000 ML IV PRN ×3 (04:36→19:47)
[2020-07-03 04:42] LABS: ABSOLUTE LYMPHOCYTES (AUTO) 0.7 10^3/uL (0.5-4.7); ABSOLUTE MONOCYTES (AUTO) 1.1 10^3/uL (0.1-1.4); ABSOLUTE NEUT (AUTO) 8.9 10^3/uL (1.7-8.2); BASOPHILS % (AUTO) 0.2 % (0-2); HEMATOCRIT 27.6 % (36.0-47.0); HEMOGLOBIN 8.7 g/dL (12.0-15.5); LYMPHOCYTES % (AUTO) 6.7 % (13-45); MEAN CORPUSCULAR HEMOGLOBIN 22.6 pg (27.0-33.4); MEAN CORPUSCULAR HGB CONC 31.7 g/dL (32.0-36.0); MEAN CORPUSCULAR VOLUME 71 fl (80-97); MONOCYTES % (AUTO) 9.9 % (3-13); RED BLOOD COUNT 3.86 10^6/uL (3.72-5.28); RED CELL DISTRIBUTION WIDTH 18.8 % (11.5-14.0); SEGMENTED NEUTROPHILS % (AUTO) 83.2 % (42-78); TOTAL CELLS COUNTED % (AUTO) 100 %; WHITE BLOOD COUNT 10.7 10^3/uL (4.0-10.5)
[2020-07-03 04:52] LABS: ANION GAP 13 (5-19); BLOOD UREA NITROGEN 57 mg/dL (7-20); CALCIUM 7.5 mg/dL (8.4-10.2); CARBON DIOXIDE 27 mmol/L (22-30); CHLORIDE 98 mmol/L (98-107); GLUCOSE 134 mg/dL (75-110); POTASSIUM 3.5 mmol/L (3.6-5.0); TRIGLYCERIDES 309 mg/dL (<150)
[2020-07-03 04:56] LABS: PLATELET COUNT 66 10^3/uL (150-450)
[2020-07-03] MEDS: HYDROCORTISONE SOD SUCCINATE INJ/PF 100 MG/2 ML SDV IV SCH ×3 (05:10→21:43)
[2020-07-03] MEDS: LEVOTHYROXINE SODIUM 0.025 MG TABLET NG SCH (05:11)
[2020-07-03] MEDS: LEVOTHYROXINE SODIUM 0.1 MG TABLET NG SCH (05:11)
[2020-07-03 06:34] LABS: ARTERIAL BLOOD BASE EXCESS -3.9 mmol/L; ARTERIAL BLOOD FIO2 35%; ARTERIAL BLOOD H2CO3 1.36 mmol/L (1.05-1.35); ARTERIAL BLOOD HCO3 22.2 mmol/L (20-24); ARTERIAL BLOOD O2 SATURATION 98.1 % (94-98); ARTERIAL BLOOD PCO2 45.3 mmHg (35-45); ARTERIAL BLOOD PH 7.31 (7.35-7.45); ARTERIAL BLOOD PO2 122.8 mmHg (80-100); ARTERIAL BLOOD TOTAL CO2 23.6 mmol/L (21-25)
--- NOTE | 2020-07-03 09:14 | PDOC CRITICAL CARE PROG REPORT ---
General Date:: 07/03/20 ICU Day:: 4 Ventilator Day:: 4 Hospital Day:: 4 Resuscitation Status: Full Code Events in the past 12 to 24 Hours:: Pulmonary status improved with regard to O2. Renal a bit worse. Not a CV surgica l candidate. Review of systems relevant to events:: Pulmonary, renal, CV Reason for ICU Addmission:: Acute Respiratory Failure , ARF, intubated, en docarditis MV - Medications: Medications reviewed and adjusted accordingly: Yes Vasopressors:: None Sedation:: Diprivan. Physical Exam Vital Signs: Temp Pulse Resp BP Pulse Ox 96.5 F L 62 19 124/95 H 98 07/03/20 08:00 07/03/20 08:00 07/03/20 08:00 07/03/20 08:00 07/03/20 08:00 Intake & Output 07/02/20 07/03/20 07/04/20 06:59 06:59 06:59 Intake Total 5913 4939 Output Total 580 1130 100 Balance 5333 3809 -100 Weight 178.2 kg 180.2 kg Weight/Height Weight 180.2 kg Height 5 ft 4 in General appearance: PRESENT: no acute distress, morbidly obese Head exam: PRESENT: atraumatic, normocephalic Eye exam: PRESENT: conjunctiva pink, PERRLA. ABSENT: scleral icterus Ear exam: PRESENT: normal external ear exam Mouth exam: PRESENT: moist, tongue midline Respiratory exam: PRESENT: clear to auscultation beatriz, decreased breath sounds. ABSENT: rales, rhonchi, wheezes Cardiovascular exam: PRESENT: RRR. ABSENT: diastolic murmur, rubs, systolic murmur Vascular exam: PRESENT: other - Livido reticularis of lower legs unchanged. Acrocyanosis of toes same. Now present on fingertips. GI/Abdominal exam: PRESENT: normal bowel sounds, soft. ABSENT: distended, guard ing, mass, organolmegaly, rebound, tenderness Rectal exam: PRESENT: deferred Gentrourinary exam: PRESENT: indwelling catheter Extremities exam: PRESENT: full ROM, other - Acrocyanosis and livido reticularis as above.. ABSENT: calf tenderness, clubbing, pedal edema Musculoskeletal exam: PRESENT: normal inspection Neurological exam: PRESENT: other - Sedated Tubes/Lines: PRESENT: Endotracheal Tube, Central Line, Nasogastic Tube Laboratory/Radiographs Laboratory Results: 07/03/20 04:25 07/03/20 04:25 07/02/20 07/03/20 07/03/20 20:00 04:25 04:25 WBC 10.7 H RBC 3.86 Hgb 8.7 L Hct 27.6 L MCV 71 L MCH 22.6 L MCHC 31.7 L RDW 18.8 H Plt Count 66 L Seg Neutrophils % 83.2 H Carbonic Acid 1.81 H HCO3/H2CO3 Ratio 13:1 ABG pH 7.24 L ABG pCO2 60.2 H ABG pO2 71.7 L ABG HCO3 25.2 H ABG O2 Saturation 91.3 L ABG Base Excess -2.8 FiO2 35% Sodium 137.7 Potassium 3.5 L Chloride 98 Carbon Dioxide 27 Anion Gap 13 BUN 57 H Creatinine 5.14 H Est GFR ( Amer) 12 L Glucose 134 H Calcium 7.5 L Magnesium 1.8 Triglycerides 309 H 07/03/20 06:15 WBC RBC Hgb Hct MCV MCH MCHC RDW Plt Count Seg Neutrophils % Carbonic Acid 1.36 H HCO3/H2CO3 Ratio 16:1 ABG pH 7.31 L ABG pCO2 45.3 H ABG pO2 122.8 H ABG HCO3 22.2 ABG O2 Saturation 98.1 H ABG Base Excess -3.9 FiO2 35% Sodium Potassium Chloride Carbon Dioxide Anion Gap BUN Creatinine Est GFR ( Amer) Glucose Calcium Magnesium Triglycerides 06/30/20 05:58 Blood Blood Culture (PCR) - Final Staphylococcus Aureus 06/30/20 06:12 Blood Blood Culture (PCR) - Final Staphylococcus Aureus 06/30/20 06/30/20 03:58 03:58 Creatine Kinase 188 H NT-Pro-B Natriuret Pep [id number] H Impressions: KUB X-Ray 06/29/20 17:42 IMPRESSION: Tube placement as described. Lower Extremity Ultrasound 06/30/20 00:00 IMPRESSION: 1. Multiphasic waveforms with three-vessel runoff bilaterally. 2. The right dorsalis pedis is not visualized and may be occluded. Diminished, but patent left dorsalis pedis. EKG: ANGELIA, 2 vegations on MV. 22cm on anterior leaflet, Smaller one on posterior. 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 Unable to CT for source. Not a CT surgical candidate. Appreciate Dr. Michelle's ID input. intermediate project manager antibiotics for 6 weeks after negative BC. (2) ARF (acute renal failure) Qualifiers: Acute renal failure type: unspecified Qualified Code(s): N17.9 - Acute kidney failure, unspecified Is this a current diagnosis for this admission?: Yes Plan: Worsening Cr and GFR but not hyperkalemic nor acidotic on IVF. (3) Morbid obesity Is this a current diagnosis for this admission?: Yes Plan: Chronic and hampering ability to care for her. Unable to get CT scans to document metastatic abcess site. Not an MVR candidate per Dr. Dominguez of [facility] CT surgery (4) ARDS (adult respiratory distress syndrome) Is this a current diagnosis for this admission?: Yes Plan: She has been out of ARDS for a couple of days. Ready to wean. Critical Time Critical Time (minutes): 40 Level of Care: ICU Anticipated discharge: SNF Anticipated DC Timeframe: Other -: 1. The care of a critical patient is a dynamic process. This note is a r epresentative synopsis but static in nature. The timeframe for treatments given in order is not necessarily the actual time these treatments may have been done. 2. This patient requires critical care secondary to ongoing requirements for therapy not offered or safe outside the critical care environment. Transfer to a lower level of care will result in altered life or limb morbidity and mortali ty. 3. Multidisciplinary rounds completed. 4. ABCDE bundle addressed.
--- NOTE | 2020-07-03 09:16 | RADIOLOGY REPORT (SQ) ---
EXAM DESCRIPTION: CHEST SINGLE VIEW IMAGES COMPLETED DATE/TIME: 07/03/2020 6:20 am REASON FOR STUDY: vent COMPARISON: None. EXAM PARAMETERS: NUMBER OF VIEWS: One view. TECHNIQUE: Single frontal radiographic view of the chest acquired. RADIATION DOSE: NA LIMITATIONS: None. FINDINGS: LUNGS AND PLEURA: Low lung volumes with stable interstitial prominence and patchy bibasila r opacities. Small right-sided pleural effusion, stable. No pneumothorax. MEDIASTINUM AND HILAR STRUCTURES: No masses. Contour normal. HEART AND VASCULAR STRUCTURES: Enlarged, stable. Central vascular congestion. BONES: No acute findings. HARDWARE: Endotracheal tube tip overlies midthoracic trachea. Enteric tube tip below diaphragm but e xcluded by collimation. OTHER: No other significant finding. IMPRESSION: Stable low lung volumes with patchy bibasilar opacities and small right effusion. Stable large cardiac silhouette. Endotracheal tube tip overlies midthoracic trachea. TECHNICAL DOCUMENTATION: JOB ID: [id number] P21- All Rights Reserved Reading location - IP/workstation name: [email or web address]
[2020-07-03] MEDS: CEFAZOLIN SODIUM 2 GM in DEXTROSE 5%-WATER 100 ML IV SCH ×2 (09:20→21:43)
[2020-07-03] MEDS: FAMOTIDINE INJ/PF 20 MG/2 ML SDV IV SCH ×2 (09:21→21:43)
[2020-07-03 12:45] LABS: ARTERIAL BLOOD BASE EXCESS -1.7 mmol/L; ARTERIAL BLOOD FIO2 30%; ARTERIAL BLOOD H2CO3 1.62 mmol/L (1.05-1.35); ARTERIAL BLOOD HCO3 25.2 mmol/L (20-24); ARTERIAL BLOOD PCO2 53.8 mmHg (35-45); ARTERIAL BLOOD PH 7.29 (7.35-7.45); ARTERIAL BLOOD PO2 83.7 mmHg (80-100); ARTERIAL BLOOD TOTAL CO2 26.9 mmol/L (21-25)
--- NOTE | 2020-07-03 14:29 | PDOC PROGRESS REPORT ---
Subjective Progress Note for:: 07/03/20 Reason For Visit: Patient seen today on the ICU. Remains intubated and sedated. She underwent a ANGELIA yesterday and I reviewed the results. Discussions were done with the treating nurse and the transition teacher. Patient has improving urine output. Labs and medications reviewed though however shows some worsening of renal numbers. Electrolytes are stable. Physical Exam Vital Signs: Temp Pulse Resp BP Pulse Ox 97.4 F 64 20 153/104 H 96 07/03/20 12:00 07/03/20 12:00 07/03/20 14:00 07/03/20 13:32 07/03/20 14:00 Intake & Output 07/02/20 07/03/20 07/04/20 06:59 06:59 06:59 Intake Total 5913 5039 1380 Output Total 580 1130 295 Balance 5333 3909 1085 Weight 178.2 kg 180.2 kg Exam: Remains intubated and sedated Respiratory exam: PRESENT: clear to auscultation beatriz. ABSENT: crackles Cardiovascular exam: PRESENT: +S1, +S2 GI/Abdominal exam: PRESENT: normal bowel sounds, soft. ABSENT: organomegaly, tenderness Extremities exam: PRESENT: pedal edema Skin exam: PRESENT: mottled - Improving libido of her lower extremities and it is feeling more warm.. ABSENT: erythema, rash Results Laboratory Results: 07/03/20 04:25 07/03/20 04:25 07/02/20 07/03/20 07/03/20 20:00 04:25 04:25 WBC 10.7 H RBC 3.86 Hgb 8.7 L Hct 27.6 L MCV 71 L MCH 22.6 L MCHC 31.7 L RDW 18.8 H Plt Count 66 L Seg Neutrophils % 83.2 H Carbonic Acid 1.81 H HCO3/H2CO3 Ratio 13:1 ABG pH 7.24 L ABG pCO2 60.2 H ABG pO2 71.7 L ABG HCO3 25.2 H ABG O2 Saturation 91.3 L ABG Base Excess -2.8 FiO2 35% Sodium 137.7 Potassium 3.5 L Chloride 98 Carbon Dioxide 27 Anion Gap 13 BUN 57 H Creatinine 5.14 H Est GFR ( Amer) 12 L Glucose 134 H Calcium 7.5 L Magnesium 1.8 Triglycerides 309 H 07/03/20 07/03/20 06:15 12:34 WBC RBC Hgb Hct MCV MCH MCHC RDW Plt Count Seg Neutrophils % Carbonic Acid 1.36 H 1.62 H HCO3/H2CO3 Ratio 16:1 15:1 ABG pH 7.31 L 7.29 L ABG pCO2 45.3 H 53.8 H ABG pO2 122.8 H 83.7 ABG HCO3 22.2 25.2 H ABG O2 Saturation 98.1 H 95.0 ABG Base Excess -3.9 -1.7 FiO2 35% 30% Sodium Potassium Chloride Carbon Dioxide Anion Gap BUN Creatinine Est GFR ( Amer) Glucose Calcium Magnesium Triglycerides 06/30/20 06:12 Blood Blood Culture (PCR) - Final Staphylococcus Aureus 06/30/20 06:12 Blood Blood Culture - Final Staphylococcus Aureus 06/30/20 05:58 Blood Blood Culture (PCR) - Final Staphylococcus Aureus 06/30/20 05:58 Blood Blood Culture - Final Staphylococcus Aureus 06/30/20 06/30/20 03:58 03:58 Creatine Kinase 188 H NT-Pro-B Natriuret Pep [id number] H Impressions: KUB X-Ray 06/29/20 17:42 IMPRESSION: Tube placement as described. Lower Extremity Ultrasound 06/30/20 00:00 IMPRESSION: 1. Multiphasic waveforms with three-vessel runoff bilaterally. 2. The right dorsalis pedis is not visualized and may be occluded. Diminished, but patent left dorsalis pedis. Chest X-Ray 07/03/20 21:30 IMPRESSION: Stable low lung volumes with patchy bibasilar opacities and small right effusion. Stable large cardiac silhouette. Endotracheal tube tip overlies midthoracic trachea. Assessment & Plan - Diagnosis (1) ARF (acute renal failure) Qualifiers: Acute renal failure type: unspecified Qualified Code(s): N17.9 - Acute kidney failure, unspecified Is this a current diagnosis for this admission?: Yes Plan: Currently nonoliguric as she has made about 1500+ urine since yesterday which is encouraging. Her renal numbers are unstable. Acidosis has been corrected. I will adjust the rate of her normal saline. Start low-dose of Lasix. Discussed this with transition teacher. No indications for renal replacements currently. 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 Meanwhile she is on IV antibiotics as she is growing MSSA. (3) Gram-positive bacteremia Plan: MSSA. On appropriate antibiotics. Please dose medications for GFR of less than 25 cc/min. (4) Morbid obesity Is this a current diagnosis for this admission?: Yes Plan: Status quo with pickwickian features and a transthoracic echo showing severe pulmonary hypertension. (5) Hypothyroidism Qualifiers: Hypothyroidism type: other Qualified Code(s): E03.8 - Other specified hypothyroidism Is this a current diagnosis for this admission?: Yes Plan: On replacements. (6) Pneumonia Qualifiers: Pneumonia type: due to unspecified organism Laterality: bilateral Lung location: unspecified part of lung Qualified Code(s): J18.9 - Pneumonia, unspecified organism Plan: With parapneumonic effusion. Currently on antibiotics.Encouraging to see dropping leukocytosis. (7) Respiratory failure Qualifiers: Chronicity: acute Respiratory failure complication: hypoxia Qualified Code(s): J96.01 - Acute respiratory failure with hypoxia Plan: Intubated and sedated. (8) Thrombocytopenia Plan: stable now.
[2020-07-03] MEDS: FUROSEMIDE INJ/PF 20 MG/2 ML SDV IV SCH (16:16)
[2020-07-03] MEDS: ALBUMIN HUMAN 12.5 GM/50 ML RTUINJ IV SCH ×2 (16:17→21:42)
[2020-07-04] MEDS ORDERED: NORMAL SALINE INJ/PF 0.9% 10 ML SDV IV PRN (00:23)
[2020-07-04] MEDS: PROPOFOL 1,000 MG/100 ML INFUS..BTL IV PRN ×5 (03:26→19:58)
[2020-07-04 05:05] LABS: ARTERIAL BLOOD BASE EXCESS -1.9 mmol/L; ARTERIAL BLOOD H2CO3 1.35 mmol/L (1.05-1.35); ARTERIAL BLOOD HCO3 23.8 mmol/L (20-24); ARTERIAL BLOOD O2 SATURATION 94.6 % (94-98); ARTERIAL BLOOD PCO2 44.9 mmHg (35-45); ARTERIAL BLOOD PH 7.34 (7.35-7.45); ARTERIAL BLOOD PO2 76.8 mmHg (80-100); ARTERIAL BLOOD TOTAL CO2 25.2 mmol/L (21-25)
[2020-07-04 05:06] LABS: ARTERIAL BLOOD FIO2 30%
[2020-07-04 05:09] LABS: HEMATOCRIT 26.4 % (36.0-47.0); HEMOGLOBIN 8.6 g/dL (12.0-15.5); MEAN CORPUSCULAR HEMOGLOBIN 22.8 pg (27.0-33.4); MEAN CORPUSCULAR HGB CONC 32.4 g/dL (32.0-36.0); MEAN CORPUSCULAR VOLUME 70 fl (80-97); PLATELET COUNT 102 10^3/uL (150-450); RED BLOOD COUNT 3.76 10^6/uL (3.72-5.28); RED CELL DISTRIBUTION WIDTH 18.8 % (11.5-14.0); WHITE BLOOD COUNT 13.1 10^3/uL (4.0-10.5)
[2020-07-04 05:25] LABS: ABSOLUTE LYMPHOCYTES# (MANUAL) 1.4 10^3/uL (0.5-4.7); ABSOLUTE MONOCYTES # (MANUAL) 1.6 10^3/uL (0.1-1.4); BAND NEUTROPHILS % (MANUAL) 4 % (3-5); BASOPHILS % (MANUAL) 0 % (0-2); EOSINOPHILS % (MANUAL) 0 % (0-6); LYMPHOCYTES % (MANUAL) 11 % (13-45); MONOCYTES % (MANUAL) 12 % (3-13); NUCLEATED RED BLOOD CELLS 2 /100 WBC (0); SEGMENTED NEUTROPHILS % (MAN) 73 % (42-78); TOTAL CELLS COUNTED 100
[2020-07-04 05:26] LABS: ANISOCYTOSIS 1+; HYPOCHROMASIA 1+; PLATELET COMMENT ADEQUATE; POIKILOCYTOSIS 1+; POLYCHROMASIA 1+; TARGET CELLS 1+
[2020-07-04 05:28] LABS: ALBUMIN 3.1 g/dL (3.5-5.0); ALKALINE PHOSPHATASE 61 U/L (38-126); ANION GAP 15 (5-19); ASPARTATE AMINO TRANSFERASE 21 U/L (14-36); BILIRUBIN,DIRECT 0.5 mg/dL (0.0-0.4); BILIRUBIN,TOTAL 0.7 mg/dL (0.2-1.3); BLOOD UREA NITROGEN 64 mg/dL (7-20); CALCIUM 7.9 mg/dL (8.4-10.2); CARBON DIOXIDE 23 mmol/L (22-30); CHLORIDE 100 mmol/L (98-107); GLUCOSE 109 mg/dL (75-110); PHOSPHORUS 8.3 mg/dL (2.5-4.5); POTASSIUM 3.4 mmol/L (3.6-5.0); TOTAL PROTEIN 6.6 g/dL (6.3-8.2)
[2020-07-04] MEDS: LEVOTHYROXINE SODIUM 0.1 MG TABLET NG SCH (06:00)
[2020-07-04] MEDS: HYDROCORTISONE SOD SUCCINATE INJ/PF 100 MG/2 ML SDV IV SCH ×3 (06:00→15:27)
[2020-07-04] MEDS: LEVOTHYROXINE SODIUM 0.025 MG TABLET NG SCH (06:00)
[2020-07-04] MEDS: ALBUMIN HUMAN 12.5 GM/50 ML RTUINJ IV SCH ×3 (06:01→21:07)
[2020-07-04] MEDS: NORMAL SALINE 1000 ML 1,000 ML IV PRN ×2 (06:41→17:52)
--- NOTE | 2020-07-04 08:45 | RADIOLOGY REPORT (SQ) ---
EXAM DESCRIPTION: CHEST SINGLE VIEW IMAGES COMPLETED DATE/TIME: 07/04/2020 6:27 am REASON FOR STUDY: vent COMPARISON: 07/03/2020 FINDINGS: One-view chest AP portable supine. Endotracheal and nasogastric tubes and right IJ line all remain appropriately positioned. Limiting body habitus and technique. There is cardiomegaly with vascular congestion, as before. Aer ation may be slightly improved. No pneumothorax. TECHNICAL DOCUMENTATION: JOB ID: [id number] Reading location - IP/workstation name: [email or web address]
[2020-07-04] MEDS: CEFAZOLIN SODIUM 2 GM in DEXTROSE 5%-WATER 100 ML IV SCH ×2 (10:55→21:05)
[2020-07-04] MEDS: FUROSEMIDE INJ/PF 20 MG/2 ML SDV IV SCH (10:56)
[2020-07-04] MEDS: FAMOTIDINE INJ/PF 20 MG/2 ML SDV IV SCH ×2 (10:56→21:06)
--- NOTE | 2020-07-04 12:34 | PDOC CRITICAL CARE PROG REPORT ---
General Date:: 07/04/20 ICU Day:: 5 Ventilator Day:: 5 Hospital Day:: 5 Resuscitation Status: Full Code Events in the past 12 to 24 Hours:: Able to wean vent some. Renal function stabilized Review of systems relevant to events:: Pulmonary, CV, renal. Reason for ICU Addmission:: Acute Respiratory Failure , ARF, intubated, endocarditis MV - Medications: Medications reviewed and adjusted accordingly: Yes Vasopressors:: None Sedation:: Diprivan Physical Exam Vital Signs: Temp Pulse Resp BP Pulse Ox 98.7 F 90 22 H 130/93 H 94 07/04/20 08:00 07/04/20 08:00 07/04/20 08:00 07/04/20 08:00 07/04/20 08:00 Intake & Output 07/03/20 07/04/20 07/05/20 06:59 06:59 06:59 Intake Total 5039 3895 190 Output Total 1130 1265 200 Balance 3909 2630 -10 Weight 180.2 kg 188.5 kg Weight/Height Weight 188.5 kg Height 5 ft 4 in General appearance: PRESENT: no acute distress, morbidly obese Head exam: PRESENT: atraumatic, normocephalic Eye exam: PRESENT: conjunctiva pink, EOMI, PERRLA. ABSENT: scleral icterus Ear exam: PRESENT: normal external ear exam Mouth exam: PRESENT: moist, tongue midline Respiratory exam: PRESENT: clear to auscultation beatriz, decreased breath sounds, other - RR unchanged with going down on vent rate.. ABSENT: rales, rhonchi, wheezes Cardiovascular exam: PRESENT: RRR. ABSENT: diastolic murmur, rubs, systolic murmur GI/Abdominal exam: PRESENT: normal bowel sounds, soft. ABSENT: distended, guarding, mass, organolmegaly, rebound, tenderness Rectal exam: PRESENT: deferred Gentrourinary exam: PRESENT: indwelling catheter Extremities exam: PRESENT: other - Acrocyanosis. Musculoskeletal exam: PRESENT: normal inspection Neurological exam: PRESENT: other - Sedated Skin exam: PRESENT: skin tears Tubes/Lines: PRESENT: Endotracheal Tube, Central Line, Nasogastic Tube Laboratory/Radiographs Laboratory Results: 07/04/20 04:30 07/04/20 04:30 07/03/20 07/04/20 07/04/20 12:34 04:30 04:30 WBC 13.1 H RBC 3.76 Hgb 8.6 L Hct 26.4 L MCV 70 L MCH 22.8 L MCHC 32.4 RDW 18.8 H Plt Count 102 L Seg Neutrophils % Not Reportable Carbonic Acid 1.62 H HCO3/H2CO3 Ratio 15:1 ABG pH 7.29 L ABG pCO2 53.8 H ABG pO2 83.7 ABG HCO3 25.2 H ABG O2 Saturation 95.0 ABG Base Excess -1.7 FiO2 30% Sodium 137.5 Potassium 3.4 L Chloride 100 Carbon Dioxide 23 Anion Gap 15 BUN 64 H Creatinine 4.94 H Est GFR ( Amer) 13 L Glucose 109 Serum Osmolality Calcium 7.9 L Phosphorus 8.3 H Magnesium 1.9 Total Bilirubin 0.7 AST 21 Alkaline Phosphatase 61 Total Protein 6.6 Albumin 3.1 L 07/04/20 07/04/20 04:30 04:40 WBC RBC Hgb Hct MCV MCH MCHC RDW Plt Count Seg Neutrophils % Carbonic Acid 1.35 HCO3/H2CO3 Ratio 17:1 ABG pH 7.34 L ABG pCO2 44.9 ABG pO2 76.8 L ABG HCO3 23.8 ABG O2 Saturation 94.6 ABG Base Excess -1.9 FiO2 30% Sodium Potassium Chloride Carbon Dioxide Anion Gap BUN Creatinine Est GFR ( Amer) Glucose Serum Osmolality 299 Calcium Phosphorus Magnesium Total Bilirubin AST Alkaline Phosphatase Total Protein Albumin 06/30/20 06:12 Blood Blood Culture (PCR) - Final Staphylococcus Aureus 06/30/20 06:12 Blood Blood Culture - Final Staphylococcus Aureus 06/30/20 05:58 Blood Blood Culture (PCR) - Final Staphylococcus Aureus 06/30/20 05:58 Blood Blood Culture - Final Staphylococcus Aureus 06/30/20 06/30/20 07/04/20 03:58 03:58 04:30 Creatine Kinase 188 H NT-Pro-B Natriuret Pep 32246 H 77017 H Impressions: KUB X-Ray 06/29/20 17:42 IMPRESSION: Tube placement as described. Lower Extremity Ultrasound 06/30/20 00:00 IMPRESSION: 1. Multiphasic waveforms with three-vessel runoff bilaterally. 2. The right dorsalis pedis is not visualized and may be occluded. Diminished, but patent left dorsalis pedis. All labs, radiographs, diagnostic studies and EKGs were personally reviewed: Yes In addition, reports of radiographic and diagnostic studies were read: Yes Assessment and Plan - Diagnosis (1) Endocarditis determined by echocardiography Is this a current diagnosis for this admission?: Yes Plan: Blood cultures from 07/02 no growth yet. If negative 6 weeks of IV antibiotics. (2) ARF (acute renal failure) Qualifiers: Acute renal failure type: unspecified Qualified Code(s): N17.9 - Acute kidney failure, unspecified Is this a current diagnosis for this admission?: Yes Plan: BUN/Cr and GFR have stabilized. Down slightly. Too soon to know if kidneys are recovering. (3) Morbid obesity Is this a current diagnosis for this admission?: Yes Plan: Anasarca as well complicating picture. Plan Summary: COntinue wean of vent. Hope to get to PSV today. Critical Time Critical Time (minutes): 35 Level of Care: ICU Anticipated discharge: Home with Homehealth Anticipated DC Timeframe: Other -: 1. The care of a critical patient is a dynamic process. This note is a outbound sales representative synopsis but static in nature. The timeframe for treatments given in order is not necessarily the actual time these treatments may have been done. 2. This patient requires critical care secondary to ongoing requirements for therapy not offered or safe outside the critical care environment. Transfer to a lower level of care will result in altered life or limb morbidity and mortality. 3. Multidisciplinary rounds completed. 4. ABCDE bundle addressed.
[2020-07-05] MEDS: PROPOFOL 1,000 MG/100 ML INFUS..BTL IV PRN ×6 (00:22→23:47)
[2020-07-05] MEDS: HYDROCORTISONE SOD SUCCINATE INJ/PF 100 MG/2 ML SDV IV SCH ×2 (01:38→14:09)
[2020-07-05] MEDS: NORMAL SALINE 1000 ML 1,000 ML IV PRN ×2 (04:16→23:48)
[2020-07-05 05:39] LABS: ARTERIAL BLOOD BASE EXCESS -2.4 mmol/L; ARTERIAL BLOOD HCO3 23.2 mmol/L (20-24); ARTERIAL BLOOD O2 SATURATION 95.5 % (94-98); ARTERIAL BLOOD PCO2 43.3 mmHg (35-45); ARTERIAL BLOOD PH 7.35 (7.35-7.45); ARTERIAL BLOOD TOTAL CO2 24.5 mmol/L (21-25)
[2020-07-05 05:40] LABS: HEMATOCRIT 26.9 % (36.0-47.0); HEMOGLOBIN 8.6 g/dL (12.0-15.5); MEAN CORPUSCULAR HEMOGLOBIN 22.5 pg (27.0-33.4); MEAN CORPUSCULAR HGB CONC 31.9 g/dL (32.0-36.0); MEAN CORPUSCULAR VOLUME 70 fl (80-97); PLATELET COUNT 141 10^3/uL (150-450); RED BLOOD COUNT 3.82 10^6/uL (3.72-5.28); WHITE BLOOD COUNT 20.5 10^3/uL (4.0-10.5)
[2020-07-05 05:41] LABS: ARTERIAL BLOOD FIO2 30%
[2020-07-05 05:56] LABS: ANION GAP 11 (5-19); BLOOD UREA NITROGEN 65 mg/dL (7-20); CALCIUM 8.2 mg/dL (8.4-10.2); CARBON DIOXIDE 24 mmol/L (22-30); CHLORIDE 102 mmol/L (98-107); GLUCOSE 108 mg/dL (75-110)
[2020-07-05] MEDS: LEVOTHYROXINE SODIUM 0.025 MG TABLET NG SCH (06:02)
[2020-07-05] MEDS: LEVOTHYROXINE SODIUM 0.1 MG TABLET NG SCH (06:02)
[2020-07-05] MEDS: ALBUMIN HUMAN 12.5 GM/50 ML RTUINJ IV SCH ×2 (06:10→14:08)
[2020-07-05 06:13] LABS: ABSOLUTE LYMPHOCYTES# (MANUAL) 1.6 10^3/uL (0.5-4.7); ABSOLUTE MONOCYTES # (MANUAL) 1.2 10^3/uL (0.1-1.4); BASOPHILS % (MANUAL) 0 % (0-2); EOSINOPHILS % (MANUAL) 1 % (0-6); LYMPHOCYTES % (MANUAL) 8 % (13-45); MONOCYTES % (MANUAL) 6 % (3-13); SEGMENTED NEUTROPHILS % (MAN) 85 % (42-78); TOTAL CELLS COUNTED 100
[2020-07-05 06:14] LABS: ANISOCYTOSIS 2+; HYPOCHROMASIA 2+; PLATELET COMMENT DECREASED
[2020-07-05] MEDS ORDERED: POTASSIUM CHLORIDE 20 MEQ PACKET PO ONE (06:15)
[2020-07-05 06:16] LABS: OVALOCYTES 1+
[2020-07-05 06:17] LABS: BURR CELLS SLIGHT; TARGET CELLS 1+
--- NOTE | 2020-07-05 08:26 | RADIOLOGY REPORT (SQ) ---
EXAM DESCRIPTION: CHEST SINGLE VIEW IMAGES COMPLETED DATE/TIME: 07/05/2020 6:24 am REASON FOR STUDY: vent COMPARISON: 07/04/2020 FINDINGS: One-view chest AP portable semi upright. Endotracheal and nasogastric tubes and right IJ line a look appropriate. Prominence of the central pulmonary vasculature with perihilar edema, likely unchanged. No pneumothorax. TECHNICAL DOCUMENTATION: JOB ID: [id number] Reading location - IP/workstation name: [email or web address]
[2020-07-05] MEDS: FUROSEMIDE INJ/PF 20 MG/2 ML SDV IV SCH (10:28)
[2020-07-05] MEDS: FAMOTIDINE INJ/PF 20 MG/2 ML SDV IV SCH ×2 (10:28→21:23)
[2020-07-05] MEDS: CEFAZOLIN SODIUM 2 GM in DEXTROSE 5%-WATER 100 ML IV SCH ×2 (10:28→21:22)
--- NOTE | 2020-07-05 11:16 | PDOC CRITICAL CARE PROG REPORT ---
General Date:: 07/05/20 ICU Day:: 7 Ventilator Day:: 7 Hospital Day:: 7 Resuscitation Status: Full Code Events in the past 12 to 24 Hours:: On PSV. Weaning but slowly. Review of systems relevant to events:: CV, pulmonary, renal Reason for ICU Addmission:: Acute Respiratory Failure , ARF, intubated, endocarditis MV - Medications: Medications reviewed and adjusted accordingly: Yes Vasopressors:: None Sedation:: Diprivan Physical Exam Vital Signs: Temp Pulse Resp BP Pulse Ox 98.2 F 100 24 H 102/71 96 07/05/20 08:00 07/05/20 08:00 07/05/20 06:31 07/05/20 06:31 07/05/20 08:00 Intake & Output 07/04/20 07/05/20 07/06/20 06:59 06:59 06:59 Intake Total 3895 3331 89 Output Total 1265 2790 620 Balance 2630 541 -531 Weight 188.5 kg 180.2 kg 184.8 kg Weight/Height Weight 184.8 kg Height 5 ft 4 in General appearance: PRESENT: no acute distress, morbidly obese Head exam: PRESENT: atraumatic, normocephalic Eye exam: PRESENT: conjunctiva pink, EOMI, PERRLA. ABSENT: scleral icterus Ear exam: PRESENT: normal external ear exam Mouth exam: PRESENT: moist, tongue midline Respiratory exam: PRESENT: accessory muscle use, clear to auscultation beatriz, decreased breath sounds, symmetrical, unlabored, other - Accessory muscle use likely from body habitus. Cardiovascular exam: PRESENT: RRR. ABSENT: diastolic murmur, rubs, systolic murmur GI/Abdominal exam: PRESENT: normal bowel sounds, soft. ABSENT: distended, guarding, mass, organolmegaly, rebound, tenderness Rectal exam: PRESENT: deferred Gentrourinary exam: PRESENT: indwelling catheter Extremities exam: PRESENT: pedal edema, +2 edema Neurological exam: PRESENT: altered, CN II-XII grossly intact, other - Sedated. Skin exam: PRESENT: dry, intact, warm. ABSENT: cyanosis, rash Tubes/Lines: PRESENT: Endotracheal Tube Laboratory/Radiographs Laboratory Results: 07/05/20 05:09 07/05/20 05:09 07/05/20 07/05/20 07/05/20 05:09 05:09 05:09 WBC 20.5 H RBC 3.82 Hgb 8.6 L Hct 26.9 L MCV 70 L MCH 22.5 L MCHC 31.9 L RDW 19.0 H Plt Count 141 L Seg Neutrophils % Not Reportable Carbonic Acid 1.30 HCO3/H2CO3 Ratio 17:1 ABG pH 7.35 ABG pCO2 43.3 ABG pO2 82.0 ABG HCO3 23.2 ABG O2 Saturation 95.5 ABG Base Excess -2.4 FiO2 30% Sodium 136.8 L Potassium 3.0 L* Chloride 102 Carbon Dioxide 24 Anion Gap 11 BUN 65 H Creatinine 4.97 H Est GFR ( Amer) 13 L Glucose 108 Calcium 8.2 L 06/30/20 06/30/20 07/04/20 03:58 03:58 04:30 Creatine Kinase 188 H NT-Pro-B Natriuret Pep 17312 H 47437 H Impressions: KUB X-Ray 06/29/20 17:42 IMPRESSION: Tube placement as described. Lower Extremity Ultrasound 06/30/20 00:00 IMPRESSION: 1. Multiphasic waveforms with three-vessel runoff bilaterally. 2. The right dorsalis pedis is not visualized and may be occluded. Diminished, but patent left dorsalis pedis. All labs, radiographs, diagnostic studies and EKGs were personally reviewed: Yes In addition, reports of radiographic and diagnostic studies were read: Yes Assessment and Plan - Diagnosis (1) Endocarditis determined by echocardiography Is this a current diagnosis for this admission?: Yes Plan: Blood cultures show no growth in 48 hours. Needs six weeks IV antibiotics. (2) ARF (acute renal failure) Qualifiers: Acute renal failure type: unspecified Qualified Code(s): N17.9 - Acute kidney failure, unspecified Is this a current diagnosis for this admission?: Yes Plan: No change. GFR 10 Cr 4.4. Hypokalemia, not aciditic off bicarb drip. (3) Morbid obesity Is this a current diagnosis for this admission?: Yes Plan: No change Plan Summary: She is on PSV at 25. Will decrease4 this as tolerated and extubate hopefully this week. Critical Time Critical Time (minutes): 35 Level of Care: ICU Anticipated discharge: Home with Homehealth Anticipated DC Timeframe: Other -: 1. The care of a critical patient is a dynamic process. This note is a hospital insurance representative synopsis but static in nature. The timeframe for treatments given in order is not necessarily the actual time these treatments may have been done. 2. This patient requires critical care secondary to ongoing requirements for therapy not offered or safe outside the critical care environment. Transfer to a lower level of care will result in altered life or limb morbidity and mortality. 3. Multidisciplinary rounds completed. 4. ABCDE bundle addressed.
[2020-07-05] MEDS: POTASSIUM CHLORIDE 10 MEQ TABLET.ER PO ONE ×2 (14:23→18:06)
[2020-07-05] MEDS ORDERED: POTASSIUM CHLORIDE 20 MEQ PACKET NG ONE ×2 (15:00→18:00)
[2020-07-05] MEDS ORDERED: POTASSIUM CHLORIDE 10 MEQ TABLET.ER PO ONE (15:00)
[2020-07-05 20:07] LABS: ANION GAP 15 (5-19); BLOOD UREA NITROGEN 67 mg/dL (7-20); CALCIUM 8.4 mg/dL (8.4-10.2); CARBON DIOXIDE 22 mmol/L (22-30); CHLORIDE 103 mmol/L (98-107); GLUCOSE 111 mg/dL (75-110); POTASSIUM 3.5 mmol/L (3.6-5.0)
[2020-07-05] MEDS: DIPHENOXYLATE HCL/ATROP SULF 2.5-0.025 MG TABLET PO PRN (21:23)
[2020-07-06] MEDS: HYDROCORTISONE SOD SUCCINATE INJ/PF 100 MG/2 ML SDV IV SCH ×2 (01:56→13:52)
[2020-07-06] MEDS: PROPOFOL 1,000 MG/100 ML INFUS..BTL IV PRN ×5 (03:18→18:12)
[2020-07-06 06:05] LABS: HEMATOCRIT 25.9 % (36.0-47.0); HEMOGLOBIN 8.2 g/dL (12.0-15.5); MEAN CORPUSCULAR HEMOGLOBIN 22.5 pg (27.0-33.4); MEAN CORPUSCULAR HGB CONC 31.6 g/dL (32.0-36.0); MEAN CORPUSCULAR VOLUME 71 fl (80-97); PLATELET COUNT 150 10^3/uL (150-450); RED BLOOD COUNT 3.63 10^6/uL (3.72-5.28); WHITE BLOOD COUNT 22.3 10^3/uL (4.0-10.5)
[2020-07-06 06:10] LABS: ARTERIAL BLOOD BASE EXCESS -8.4 mmol/L; ARTERIAL BLOOD H2CO3 1.19 mmol/L (1.05-1.35); ARTERIAL BLOOD HCO3 17.9 mmol/L (20-24); ARTERIAL BLOOD PCO2 39.6 mmHg (35-45); ARTERIAL BLOOD PH 7.27 (7.35-7.45); ARTERIAL BLOOD PO2 78.4 mmHg (80-100); ARTERIAL BLOOD TOTAL CO2 19.1 mmol/L (21-25)
[2020-07-06 06:14] LABS: ARTERIAL BLOOD FIO2 30%
[2020-07-06 06:28] LABS: ANION GAP 13 (5-19); BLOOD UREA NITROGEN 66 mg/dL (7-20); CALCIUM 8.5 mg/dL (8.4-10.2); CARBON DIOXIDE 23 mmol/L (22-30); CHLORIDE 105 mmol/L (98-107); GLUCOSE 96 mg/dL (75-110); PHOSPHORUS 7.7 mg/dL (2.5-4.5); POTASSIUM 3.3 mmol/L (3.6-5.0); TRIGLYCERIDES 152 mg/dL (<150)
[2020-07-06 06:35] LABS: ABSOLUTE LYMPHOCYTES# (MANUAL) 1.6 10^3/uL (0.5-4.7); ABSOLUTE MONOCYTES # (MANUAL) 1.8 10^3/uL (0.1-1.4); BAND NEUTROPHILS % (MANUAL) 1 % (3-5); BASOPHILS % (MANUAL) 0 % (0-2); EOSINOPHILS % (MANUAL) 4 % (0-6); HYPOCHROMASIA 1+; LYMPHOCYTES % (MANUAL) 7 % (13-45); MONOCYTES % (MANUAL) 8 % (3-13); POLYCHROMASIA 1+; SEGMENTED NEUTROPHILS % (MAN) 80 % (42-78); TOTAL CELLS COUNTED 100
[2020-07-06 06:36] LABS: ANISOCYTOSIS 1+; PLATELET COMMENT ADEQUATE
[2020-07-06] MEDS: LEVOTHYROXINE SODIUM 0.1 MG TABLET NG SCH (06:52)
[2020-07-06] MEDS: LEVOTHYROXINE SODIUM 0.025 MG TABLET NG SCH (06:52)
--- NOTE | 2020-07-06 08:29 | RADIOLOGY REPORT (SQ) ---
EXAM DESCRIPTION: CHEST SINGLE VIEW IMAGES COMPLETED DATE/TIME: 07/06/2020 6:36 am REASON FOR STUDY: vent COMPARISON: 07/05/2020 EXAM PARAMETERS: NUMBER OF VIEWS: One view. TECHNIQUE: Single frontal radiographic view of the chest acquired. RADIATION DOSE: NA LIMITATIONS: None. FINDINGS: LUNGS AND PLEURA: Stable perihilar and bibasilar opacities. No large effusion. No pneumo thorax. MEDIASTINUM AND HILAR STRUCTURES: No masses. Contour normal. HEART AND VASCULAR STRUCTURES: Enlarged, stable. Central vascular congestion. BONES: No acute findings. HARDWARE: Endotracheal tube tip overlies midthoracic trachea. Enteric tube tip below diaphragm but e xcluded by collimation. Right IJ central venous catheter tip at cavoatrial junction. OTHER: No other significant finding. IMPRESSION: Stable enlarged cardiac silhouette and pulmonary edema. No large effusion. TECHNICAL DOCUMENTATION: JOB ID: [id number] 2010 [employer]- All Rights Reserved Reading location - IP/workstation name: [email or web address]
[2020-07-06] MEDS: NORMAL SALINE 1000 ML 1,000 ML IV PRN (09:40)
[2020-07-06] MEDS: CEFAZOLIN SODIUM 2 GM in DEXTROSE 5%-WATER 100 ML IV SCH (10:20)
[2020-07-06] MEDS: FAMOTIDINE INJ/PF 20 MG/2 ML SDV IV SCH ×2 (10:20→21:28)
[2020-07-06] MEDS: FUROSEMIDE INJ/PF 20 MG/2 ML SDV IV SCH (10:21)
[2020-07-06] MEDS: POTASSIUM CHLORIDE 20 MEQ PACKET PO SCH (10:21)
--- NOTE | 2020-07-06 13:41 | PDOC PROGRESS REPORT ---
Subjective Progress Note for:: 07/06/20 Reason For Visit: Patient seen in the ICU today. Remains intubated. Labs and medications were reviewed. Patient status discussed with treating ICU nurse. Patient continues to make good urine output. Renal function seems to be stabilizing. Physical Exam Vital Signs: Temp Pulse Resp BP Pulse Ox 98.3 F 71 21 H 108/83 95 07/06/20 10:00 07/06/20 08:00 07/06/20 10:01 07/06/20 10:00 07/06/20 11:20 Intake & Output 07/05/20 07/06/20 07/07/20 06:59 06:59 06:59 Intake Total 3331 1889 1172 Output Total 2790 3145 575 Balance 541 -1256 597 Weight 180.2 kg 189.6 kg General appearance: PRESENT: no acute distress Respiratory exam: PRESENT: clear to auscultation beatriz, decreased breath sounds. ABSENT: crackles Cardiovascular exam: PRESENT: +S1, +S2 GI/Abdominal exam: PRESENT: normal bowel sounds, soft. ABSENT: organomegaly, tenderness Extremities exam: PRESENT: pedal edema Neurological exam: PRESENT: altered Skin exam: PRESENT: mottled - Improving livedo.. ABSENT: erythema, rash Results Laboratory Results: 07/06/20 05:20 07/06/20 05:11 07/05/20 07/06/20 07/06/20 19:29 05:11 05:20 WBC 22.3 H RBC 3.63 L Hgb 8.2 L Hct 25.9 L MCV 71 L MCH 22.5 L MCHC 31.6 L RDW 19.0 H Plt Count 150 Seg Neutrophils % Not Reportable Carbonic Acid HCO3/H2CO3 Ratio ABG pH ABG pCO2 ABG pO2 ABG HCO3 ABG O2 Saturation ABG Base Excess FiO2 Sodium 139.6 140.8 Potassium 3.5 L 3.3 L Chloride 103 105 Carbon Dioxide 22 23 Anion Gap 15 13 BUN 67 H 66 H Creatinine 4.84 H 4.87 H Est GFR ( Amer) 13 L 13 L Glucose 111 H 96 Calcium 8.4 8.5 Phosphorus 7.7 H Magnesium 2.0 2.1 Triglycerides 152 H 07/06/20 05:33 WBC RBC Hgb Hct MCV MCH MCHC RDW Plt Count Seg Neutrophils % Carbonic Acid 1.19 HCO3/H2CO3 Ratio 15:1 ABG pH 7.27 L ABG pCO2 39.6 ABG pO2 78.4 L ABG HCO3 17.9 L ABG O2 Saturation 94.0 ABG Base Excess -8.4 FiO2 30% Sodium Potassium Chloride Carbon Dioxide Anion Gap BUN Creatinine Est GFR ( Amer) Glucose Calcium Phosphorus Magnesium Triglycerides 06/30/20 06/30/20 07/04/20 03:58 03:58 04:30 Creatine Kinase 188 H NT-Pro-B Natriuret Pep 98216 H [id number] H Impressions: KUB X-Ray 06/29/20 17:42 IMPRESSION: Tube placement as described. Lower Extremity Ultrasound 06/30/20 00:00 IMPRESSION: 1. Multiphasic waveforms with three-vessel runoff bilaterally. 2. The right dorsalis pedis is not visualized and may be occluded. Diminished, but patent left dorsalis pedis. Chest X-Ray 07/06/20 05:00 IMPRESSION: Stable enlarged cardiac silhouette and pulmonary edema. No large effusion. Assessment & Plan - Diagnosis (1) ARF (acute renal failure) Qualifiers: Acute renal failure type: unspecified Qualified Code(s): N17.9 - Acute kidney failure, unspecified Is this a current diagnosis for this admission?: Yes Plan: Currently nonoliguric as she has made about 3 l urine since yesterday which is encouraging. Her renal numbers are stable. Acidosis has been corrected. I will adjust the rate of her normal saline and cut it back. Continue on low-dose of Lasix. No indications for renal replacements currently. 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 Meanwhile she is on IV antibiotics as she is growing MSSA. (3) Gram-positive bacteremia Plan: MSSA. On appropriate antibiotics. Please dose medications for GFR of less than 25 cc/min. (4) Morbid obesity Is this a current diagnosis for this admission?: Yes Plan: Status quo with pickwickian features and a transthoracic echo showing severe pulmonary hypertension. (5) Hypothyroidism Qualifiers: Hypothyroidism type: other Qualified Code(s): E03.8 - Other specified hypothyroidism Is this a current diagnosis for this admission?: Yes Plan: On replacements. (6) Pneumonia Qualifiers: Pneumonia type: due to unspecified organism Laterality: bilateral Lung location: unspecified part of lung Qualified Code(s): J18.9 - Pneumonia, unspecified organism Plan: With parapneumonic effusion. Currently on antibiotics. (7) Respiratory failure Qualifiers: Chronicity: acute Respiratory failure complication: hypoxia Qualified Code(s): J96.01 - Acute respiratory failure with hypoxia Plan: Intubated and sedated. (8) Thrombocytopenia Plan: stable now.
--- NOTE | 2020-07-06 16:52 | PDOC CRITICAL CARE PROG REPORT ---
General ICU Day:: 6 Ventilator Day:: 6 Hospital Day:: 6 Resuscitation Status: Full Code Events in the past 12 to 24 Hours:: This patient presented in acute respiratory failure.hasbeen onSBT for at least 24 hours. The patient is sedated with propofol Is not running a fever. Nevertheless, her WBC uis up the past few days. Not having diarrhea. CXR shows a small to moderate right effusion Her tidal volmes are running about 400cc onPS of 20. Her creatinine has stabilzed in the high 4 range. However, her urine output has steadilty increased in the past 3 days. Her potassium has acutally been on the low side and her bicarb is close to normal. Reason for ICU Addmission:: Acute Respiratory Failure , ARF, intubated, end ocarditis MV Physical Exam Vital Signs: Temp Pulse Resp BP Pulse Ox 98.3 F 71 22 H 120/91 H 96 07/06/20 10:00 07/06/20 08:00 07/06/20 14:30 07/06/20 14:30 07/06/20 15:42 Intake & Output 07/05/20 07/06/20 07/07/20 06:59 06:59 06:59 Intake Total 3331 1889 1251 Output Total 2790 3145 1105 Balance 541 -1256 146 Weight 180.2 kg 189.6 kg 189 kg Weight/Height Weight 189 kg Height 5 ft 4 in General appearance: PRESENT: no acute distress, morbidly obese Head exam: PRESENT: atraumatic, normocephalic Eye exam: PRESENT: conjunctiva pink Ear exam: PRESENT: TM's normal bilaterally. ABSENT: bleeding Respiratory exam: PRESENT: clear to auscultation beatriz Pulses: PRESENT: normal carotid pulses, +1 pedal pulses bilateral Neurological exam: PRESENT: altered - Patient sedated fairly heavily on theventilator with propofol.. ABSENT: motor sensory deficit Laboratory/Radiographs Laboratory Results: 07/06/20 05:20 07/06/20 05:11 07/05/20 07/06/20 07/06/20 19:29 05:11 05:20 WBC 22.3 H RBC 3.63 L Hgb 8.2 L Hct 25.9 L MCV 71 L MCH 22.5 L MCHC 31.6 L RDW 19.0 H Plt Count 150 Seg Neutrophils % Not Reportable Carbonic Acid HCO3/H2CO3 Ratio ABG pH ABG pCO2 ABG pO2 ABG HCO3 ABG O2 Saturation ABG Base Excess FiO2 Sodium 139.6 140.8 Potassium 3.5 L 3.3 L Chloride 103 105 Carbon Dioxide 22 23 Anion Gap 15 13 BUN 67 H 66 H Creatinine 4.84 H 4.87 H Est GFR ( Amer) 13 L 13 L Glucose 111 H 96 Calcium 8.4 8.5 Phosphorus 7.7 H Magnesium 2.0 2.1 Triglycerides 152 H 07/06/20 05:33 WBC RBC Hgb Hct MCV MCH MCHC RDW Plt Count Seg Neutrophils % Carbonic Acid 1.19 HCO3/H2CO3 Ratio 15:1 ABG pH 7.27 L ABG pCO2 39.6 ABG pO2 78.4 L ABG HCO3 17.9 L ABG O2 Saturation 94.0 ABG Base Excess -8.4 FiO2 30% Sodium Potassium Chloride Carbon Dioxide Anion Gap BUN Creatinine Est GFR ( Amer) Glucose Calcium Phosphorus Magnesium Triglycerides 06/30/20 06/30/20 07/04/20 03:58 03:58 04:30 Creatine Kinase 188 H NT-Pro-B Natriuret Pep 79177 H 95265 H Impressions: KUB X-Ray 06/29/20 17:42 IMPRESSION: Tube placement as described. Lower Extremity Ultrasound 06/30/20 00:00 IMPRESSION: 1. Multiphasic waveforms with three-vessel runoff bilaterally. 2. The right dorsalis pedis is not visualized and may be occluded. Diminished, but patent left dorsalis pedis. Chest X-Ray 07/06/20 05:00 IMPRESSION: Stable enlarged cardiac silhouette and pulmonary edema. No large effusion. Assessment and Plan - Diagnosis (1) ARF (acute renal failure) Qualifiers: Acute renal failure type: unspecified Qualified Code(s): N17.9 - Acute kidney failure, unspecified Is this a current diagnosis for this admission?: Yes Plan: the patient is still making good urine despite the bump inher creatinine. Her kidneys may be getting a little better in the next few days. Her output has been better. She does have a dialysis catheter inplace presently She is quite a bit volume overloaded oin thepast 4 days. She is ahead about 12 liters in the past 4 days. 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 Needs six weeks IV antibiotics. Patient had a conformed MV mpderate size vegetationon ANGELIA. Will need 6 weeks of abx. The prganism ois MSSA. The patient is on Ancef. I have asked ID to review her latest findings. (3) Atypical pneumonia Is this a current diagnosis for this admission?: Yes Plan: May have a Staph or atypical pneumonia. Her FI02 is fairly lkow and unchanged thepast few days ( 30%). ] (4) Respiratory failure Qualifiers: Chronicity: acute Respiratory failure complication: hypoxia Qualified Code(s): J96.01 - Acute respiratory failure with hypoxia Is this a current diagnosis for this admission?: Yes Plan: The patient remains on the ventialtor in acute resp. failure. I am sure she has Obesity-hypoventilation and likely severe ALBA. She may be difficult to wean from the ventialto given her body habitus. Will try her tomoprrow on a lower level of support with hwer more awake. Her ABG today showed a bt a of a residual metabolic acidosis with a pAC02 of 40. 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 Her outlook remians guarded. As noted ot may be difficult weaning her from the ventialrtor preimarily becuse of her size and associated issues. Critical Time Critical Time (minutes): 35 Level of Care: ICU -: 1. The care of a critical patient is a dynamic process. This note is a advertising sales representative synopsis but static in nature. The timeframe for treatments given in order is not necessarily the actual time these treatments may have been done. 2. This patient requires critical care secondary to ongoing requirements for therapy not offered or safe outside the critical care environment. Transfer to a lower level of care will result in altered life or limb morbidity and mortality. 3. Multidisciplinary rounds completed. 4. ABCDE bundle addressed.
--- NOTE | 2020-07-06 18:16 | Progress Note ---
Provider Note Provider Note: [facility] ID Telephone Advice Consultation - Follow Up Chart reviewed. Patient is a 29-year-old woman with morbid obesity who was admitted on 06/28 due to pneumonia and acute respiratory failure. She had ARDS and septic shock on admission, requiring intubation and pressors. CXR on 06/28 showed right basilar opacity. A follow up CXR on 06/29 showed bilateral airspace disease concerning for ARDS. On 06/30 she developed a right sided pleural effusion. Blood cultures on 06/30 positive for MSSA. TTE and ANGELIA positive for large MV vegetation causing functional stenosis, smaller vegetation noted. She was placed on cefazolin and leukocytosis resolved. She is now presenting leukocytosis again. CXR with stable pleural effusion. Minimal FiO2. New blood cultures in process, negative to date. No diarrhea reported. She had a right IJ placed on 07/01 and a right femoral catheter as well. Allergies: No Known Allergies Allergy (Verified 06/29/20 08:43) Medications: Albuterol Sulfate [Proair HFA Inhalation Aerosol 8.5 gm MDI] 2 puff IH Q4HP PRN 06/29/20 Levothyroxine Sodium [Synthroid] 125 mcg PO Q6AM 06/29/20 Vital Signs: Temp Pulse Resp BP Pulse Ox 97.6 F 71 21 H 125/72 94 07/06/20 16:00 07/06/20 08:00 07/06/20 18:01 07/06/20 18:01 07/06/20 18:01 Intake & Output 07/05/20 07/06/20 07/07/20 06:59 06:59 06:59 Intake Total 3331 1889 1331 Output Total 2790 3145 1405 Balance 541 -1256 -74 Weight 180.2 kg 189.6 kg 189 kg Weight/Height Weight 189 kg Height 5 ft 4 in Laboratories: 07/06/20 05:20 07/06/20 05:11 MCV 71 fl (80-97) L 07/06/20 05:20 MCH 22.5 pg (27.0-33.4) L 07/06/20 05:20 MCHC 31.6 g/dL (32.0-36.0) L 07/06/20 05:20 RDW 19.0 % (11.5-14.0) H 07/06/20 05:20 Seg Neutrophils % Not Reportable 07/06/20 05:20 Carbonic Acid 1.19 mmol/L (1.05-1.35) 07/06/20 05:33 HCO3/H2CO3 Ratio 15:1 07/06/20 05:33 ABG pH 7.27 (7.35-7.45) L 07/06/20 05:33 ABG pCO2 39.6 mmHg (35-45) 07/06/20 05:33 ABG pO2 78.4 mmHg (80-100) L 07/06/20 05:33 ABG HCO3 17.9 mmol/L (20-24) L 07/06/20 05:33 ABG O2 Saturation 94.0 % (94-98) 07/06/20 05:33 ABG Base Excess -8.4 mmol/L 07/06/20 05:33 FiO2 30% 07/06/20 05:33 Chloride 105 mmol/L (98-107) 07/06/20 05:11 Carbon Dioxide 23 mmol/L (22-30) 07/06/20 05:11 Anion Gap 13 (5-19) 07/06/20 05:11 Est GFR ( Amer) 13 (>60) L 07/06/20 05:11 Glucose 96 mg/dL (75-110) 07/06/20 05:11 Serum Osmolality 299 mOsm/kg (275-301) 07/04/20 04:30 Lactic Acid 1.5 mmol/L (0.7-2.1) 06/30/20 03:58 Calcium 8.5 mg/dL (8.4-10.2) 07/06/20 05:11 Phosphorus 7.7 mg/dL (2.5-4.5) H 07/06/20 05:11 Magnesium 2.1 mg/dL (1.6-2.3) 07/06/20 05:11 Ferritin 153.00 ng/mL (6.2-137.0) H 06/29/20 20:29 Total Bilirubin 0.7 mg/dL (0.2-1.3) 07/04/20 04:30 AST 21 U/L (14-36) 07/04/20 04:30 Alkaline Phosphatase 61 U/L (38-126) 07/04/20 04:30 C-Reactive Protein 339.1 mg/L (<10.0) H 06/30/20 03:58 Total Protein 6.6 g/dL (6.3-8.2) 07/04/20 04:30 Albumin 3.1 g/dL (3.5-5.0) L 07/04/20 04:30 Triglycerides 152 mg/dL (<150) H 07/06/20 05:11 TSH 26.80 uIU/mL (0.47-4.68) H 06/30/20 03:58 Free T4 0.78 ng/dL (0.78-2.19) 06/30/20 03:58 Urine Color DANIELA 06/29/20 01:58 Urine Appearance SLIGHTLY-CLOUDY 06/29/20 01:58 Urine pH 5.0 (5.0-9.0) 06/29/20 01:58 Ur Specific [place] 1.028 06/29/20 01:58 Urine Protein >=500 mg/dL (NEGATIVE) H 06/29/20 01:58 Urine Glucose (UA) NEGATIVE mg/dL (NEGATIVE) 06/29/20 01:58 Urine Ketones NEGATIVE mg/dL (NEGATIVE) 06/29/20 01:58 Urine Blood MODERATE (NEGATIVE) H 06/29/20 01:58 Urine Nitrite NEGATIVE (NEGATIVE) 06/29/20 01:58 Ur Leukocyte Esterase NEGATIVE (NEGATIVE) 06/29/20 01:58 Urine WBC (Auto) 9 /HPF 06/29/20 01:58 Urine RBC (Auto) 10 /HPF 06/29/20 01:58 Blood Type B POSITIVE 06/29/20 20:39 Antibody Screen NEGATIVE 06/29/20 20:39 06/30/20 06/30/20 07/04/20 03:58 03:58 04:30 Creatine Kinase 188 H NT-Pro-B Natriuret Pep 17195 H 71146 H Microbiology: Blood cultures: 06/30 MSSA 2/2 07/02 NGTD Radiology: KUB X-Ray 06/29/20 17:42 IMPRESSION: Tube placement as described. Lower Extremity Ultrasound 06/30/20 00:00 IMPRESSION: 1. Multiphasic waveforms with three-vessel runoff bilaterally. 2. The right dorsalis pedis is not visualized and may be occluded. Diminished, but patent left dorsalis pedis. Chest X-Ray 07/06/20 05:00 IMPRESSION: Stable enlarged cardiac silhouette and pulmonary edema. No large effusion. 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 Source of infection still unknown as she in minimal vent parameters. She does have a pleural effusion that needs to be monitored for empyema. Can do respiratory cultures as well. New blood cultures in process, it seems that she cleared the bacteremia. Possible causes of persistent leukocytosis could be an occult abscess (perivalvular, epidural, paraspinal, psoas, etc), septic arthritis. Continue cefazolin. Monitor for diarrhea as she would be at risk of CDI. Isatu Corona MD U ID [phone]
[2020-07-07] MEDS: PROPOFOL 1,000 MG/100 ML INFUS..BTL IV PRN ×5 (00:24→23:28)
[2020-07-07] MEDS: CEFAZOLIN SODIUM 2 GM in DEXTROSE 5%-WATER 100 ML IV SCH ×3 (01:42→22:41)
[2020-07-07] MEDS: HYDROCORTISONE SOD SUCCINATE INJ/PF 100 MG/2 ML SDV IV SCH ×2 (01:43→13:57)
[2020-07-07] MEDS: NORMAL SALINE 1000 ML 1,000 ML IV PRN (03:35)
[2020-07-07] MEDS: LEVOTHYROXINE SODIUM 0.1 MG TABLET NG SCH (05:29)
[2020-07-07] MEDS: LEVOTHYROXINE SODIUM 0.025 MG TABLET NG SCH (05:29)
[2020-07-07 07:23] LABS: HEMATOCRIT 27.1 % (36.0-47.0); HEMOGLOBIN 8.6 g/dL (12.0-15.5); MEAN CORPUSCULAR HEMOGLOBIN 22.7 pg (27.0-33.4); MEAN CORPUSCULAR HGB CONC 31.8 g/dL (32.0-36.0); MEAN CORPUSCULAR VOLUME 72 fl (80-97); PLATELET COUNT 176 10^3/uL (150-450); RED BLOOD COUNT 3.79 10^6/uL (3.72-5.28); RED CELL DISTRIBUTION WIDTH 19.6 % (11.5-14.0)
[2020-07-07 07:28] LABS: ANION GAP 12 (5-19); BLOOD UREA NITROGEN 72 mg/dL (7-20); CALCIUM 8.6 mg/dL (8.4-10.2); CARBON DIOXIDE 23 mmol/L (22-30); CHLORIDE 108 mmol/L (98-107); GLUCOSE 109 mg/dL (75-110); POTASSIUM 3.7 mmol/L (3.6-5.0)
--- NOTE | 2020-07-07 08:34 | RADIOLOGY REPORT (SQ) ---
EXAM DESCRIPTION: CHEST SINGLE VIEW IMAGES COMPLETED DATE/TIME: 07/07/2020 6:21 am REASON FOR STUDY: vent COMPARISON: 07/06/2020. NUMBER OF VIEWS: One view. TECHNIQUE: Single frontal radiographic view of the chest acquired. LIMITATIONS: None. FINDINGS: LUNGS AND PLEURA: No opacities, masses or pneumothorax. No pleural effusion. MEDIASTINUM AND HILAR STRUCTURES: No masses or contour abnormality. HEART AND VASCULATURE: Cardiac enlargement. Vascular congestion. BONES: No acute findings. HARDWARE: Stable endotracheal tube, nasogastric tube, and central line. OTHER: No other significant finding. IMPRESSION: NO SIGNIFICANT CHANGE IN APPEARANCE OF THE CHEST. TECHNICAL DOCUMENTATION: JOB ID: [id number] 2010 [employer]- All Rights Reserved Reading location - IP/workstation name: [email or web address]
[2020-07-07 08:44] LABS: ABSOLUTE LYMPHOCYTES# (MANUAL) 0.6 10^3/uL (0.5-4.7); ABSOLUTE MONOCYTES # (MANUAL) 2.5 10^3/uL (0.1-1.4); BASOPHILS % (MANUAL) 0 % (0-2); EOSINOPHILS % (MANUAL) 1 % (0-6); LYMPHOCYTES % (MANUAL) 3 % (13-45); MONOCYTES % (MANUAL) 13 % (3-13); SEGMENTED NEUTROPHILS % (MAN) 83 % (42-78); TOTAL CELLS COUNTED 100
[2020-07-07 08:47] LABS: ANISOCYTOSIS 2+; BURR CELLS SLIGHT; OVALOCYTES 1+
[2020-07-07 08:48] LABS: PLATELET COMMENT ADEQUATE; POIKILOCYTOSIS 1+; POLYCHROMASIA SLIGHT
--- NOTE | 2020-07-07 09:28 | PDOC PROGRESS REPORT ---
Subjective Progress Note for:: 07/07/20 Subjective:: The patient was seen laying in her bed. She is currently intubated. Unfortunately she was not able to follow commands. She did open her eyes however. Not weaning off the vent easily. She produced over 2500mL of urine yesterday. Reason For Visit: ARDS, POSSIBLE COVID 19 Physical Exam Vital Signs: Temp Pulse Resp BP Pulse Ox 98.6 F 73 21 H 120/91 H 97 07/07/20 08:00 07/07/20 07:42 07/07/20 07:30 07/07/20 07:30 07/07/20 08:42 Intake & Output 07/06/20 07/07/20 07/08/20 06:59 06:59 06:59 Intake Total 1889 3169 Output Total 3145 2490 175 Balance -1256 679 -175 Weight 189.6 kg 187.1 kg General appearance: PRESENT: no acute distress, morbidly obese, other - - currently intubated Eye exam: PRESENT: other - eyes were opening but not tracking. Mouth exam: PRESENT: moist, neck supple Neck exam: PRESENT: other - unable to determin JVD due to body habitus. Respiratory exam: PRESENT: crackles - -course. ABSENT: clear to auscultation beatriz, rales, rhonchi, wheezes Cardiovascular exam: PRESENT: +S1, +S2 GI/Abdominal exam: PRESENT: normal bowel sounds, soft. ABSENT: organomegaly, tenderness Extremities exam: PRESENT: pedal edema, tenderness - -patient retracted right leg when pushed on to check edema, +1 edema Musculoskeletal exam: PRESENT: deformity - missing the left pinky toe, tenderness. ABSENT: normal inspection Neurological exam: PRESENT: other - -intubated, she does open her eyes, does not follow commands. ABSENT: alert, awake, oriented to person, oriented to place, oriented to time, oriented to situation Psychiatric exam: PRESENT: appropriate affect, normal mood Skin exam: PRESENT: cyanosis - on her toes with some looking black, dry, warm Results Laboratory Results: 07/07/20 05:45 07/07/20 05:45 07/07/20 07/07/20 05:45 05:45 WBC 19.0 H RBC 3.79 Hgb 8.6 L Hct 27.1 L MCV 72 L MCH 22.7 L MCHC 31.8 L RDW 19.6 H Plt Count 176 Seg Neutrophils % Not Reportable Sodium 142.5 Potassium 3.7 Chloride 108 H Carbon Dioxide 23 Anion Gap 12 BUN 72 H Creatinine 4.29 H Est GFR ( Amer) 15 L Glucose 109 Calcium 8.6 06/30/20 06/30/20 07/04/20 03:58 03:58 04:30 Creatine Kinase 188 H NT-Pro-B Natriuret Pep 81496 H 31386 H Impressions: KUB X-Ray 06/29/20 17:42 IMPRESSION: Tube placement as described. Lower Extremity Ultrasound 06/30/20 00:00 IMPRESSION: 1. Multiphasic waveforms with three-vessel runoff bilaterally. 2. The right dorsalis pedis is not visualized and may be occluded. Diminished, but patent left dorsalis pedis. Chest X-Ray 07/07/20 21:30 IMPRESSION: NO SIGNIFICANT CHANGE IN APPEARANCE OF THE CHEST. Assessment & Plan - Diagnosis (1) ARF (acute renal failure) Qualifiers: Acute renal failure type: unspecified Qualified Code(s): N17.9 - Acute kidney failure, unspecified Is this a current diagnosis for this admission?: Yes Plan: nonoliguric, creatinines looks to be improving with the addition of low dose furosemide. Urine output was 2500mL. She does still have edema on her legs. Will look to continue with the furosemide for now. No indication for PIPING DESIGNER as of right now. 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 (5) Atypical pneumonia Is this a current diagnosis for this admission?: Yes Plan: currently on antibiotics (6) Respiratory failure Qualifiers: Chronicity: acute Respiratory failure complication: hypoxia Qualified Code(s): J96.01 - Acute respiratory failure with hypoxia Is this a current diagnosis for this admission?: Yes Plan: currently intubated and sedated, weaning per automatic profile shaper operator (7) Hypothyroidism Qualifiers: Hypothyroidism type: other Qualified Code(s): E03.8 - Other specified hypothyroidism Is this a current diagnosis for this admission?: Yes (8) Thrombocytopenia Plan: resolved (9) Morbid obesity Is this a current diagnosis for this admission?: Yes
[2020-07-07] MEDS: FAMOTIDINE INJ/PF 20 MG/2 ML SDV IV SCH ×2 (09:40→22:42)
[2020-07-07] MEDS: FUROSEMIDE INJ/PF 20 MG/2 ML SDV IV SCH (09:41)
[2020-07-07] MEDS: POTASSIUM CHLORIDE 20 MEQ PACKET PO SCH (09:41)
--- NOTE | 2020-07-07 15:41 | PDOC CRITICAL CARE PROG REPORT ---
General ICU Day:: 9 Ventilator Day:: 9 Resuscitation Status: Full Code Events in the past 12 to 24 Hours:: This patient presented in acute respiratory failure.hasbeen onSBT for at least 24 hours. The patient is sedated with propofol Is not running a fever. Nevertheless, her WBC uis up the past few days. Not having diarrhea. CXR shows a small to moderate right effusion Her tidal volumes are running about 400cc on PS of 20. Her creatinine has stabilized in the high 4 range. However, her urine output has steadilty increased in the past 3 days. Her potassium has actually been on the low side and her bicarb is close to normal. 07/07 The patient remains on mechanical ventialtion. Her nurse performed a sedation vacation earlier today but the patient desaturated and got hypoxemic within a few minutes. It is my impression at this ppoint that we should try to get her a PEG and trach at this point. her WBC is down a tad today.the cuse of the elevation may be attributable to hydrocortisone. I have a call into Dr Yang to discuss the case. i will reach out to her family as well. Reason for ICU Addmission:: Acute Respiratory Failure , ARF, intubated, endocarditis MV Physical Exam Vital Signs: Temp Pulse Resp BP Pulse Ox 98.6 F 89 23 H 166/94 H 100 07/07/20 14:00 07/07/20 14:00 07/07/20 14:01 07/07/20 14:00 07/07/20 14:01 Intake & Output 07/06/20 07/07/20 07/08/20 06:59 06:59 06:59 Intake Total 1889 3169 310 Output Total 3145 2490 1170 Balance -1256 679 -860 Weight 189.6 kg 187.1 kg Weight/Height Weight 187.1 kg Height 5 ft 4 in General appearance: PRESENT: no acute distress - As noted on SBT thepatient looked very uncomfortable and tachypneic., morbidly obese Head exam: PRESENT: atraumatic Eye exam: PRESENT: conjunctiva pink Mouth exam: PRESENT: moist Neck exam: ABSENT: JVD, lymphadenopathy, tenderness Respiratory exam: PRESENT: decreased breath sounds. ABSENT: accessory muscle use Vascular exam: PRESENT: normal capillary refill - The patient has necrotic areas o all her toes with mottling. The 4th toe of thright foot is quite dark and tender to touch. GI/Abdominal exam: PRESENT: soft Rectal exam: PRESENT: deferred Gentrourinary exam: ABSENT: ecchymosis, erythema Extremities exam: PRESENT: pedal edema. ABSENT: calf tenderness Skin exam: PRESENT: mottled. ABSENT: abrasion Tubes/Lines: PRESENT: Endotracheal Tube, Central Line, Dialysis catheter Laboratory/Radiographs Laboratory Results: 07/07/20 05:45 07/07/20 05:45 07/07/20 07/07/20 05:45 05:45 WBC 19.0 H RBC 3.79 Hgb 8.6 L Hct 27.1 L MCV 72 L MCH 22.7 L MCHC 31.8 L RDW 19.6 H Plt Count 176 Seg Neutrophils % Not Reportable Sodium 142.5 Potassium 3.7 Chloride 108 H Carbon Dioxide 23 Anion Gap 12 BUN 72 H Creatinine 4.29 H Est GFR ( Amer) 15 L Glucose 109 Calcium 8.6 06/30/20 06/30/20 07/04/20 03:58 03:58 04:30 Creatine Kinase 188 H NT-Pro-B Natriuret Pep 40891 H 37167 H Impressions: KUB X-Ray 06/29/20 17:42 IMPRESSION: Tube placement as described. Lower Extremity Ultrasound 06/30/20 00:00 IMPRESSION: 1. Multiphasic waveforms with three-vessel runoff bilaterally. 2. The right dorsalis pedis is not visualized and may be occluded. Diminished, but patent left dorsalis pedis. Chest X-Ray 07/07/20 21:30 IMPRESSION: NO SIGNIFICANT CHANGE IN APPEARANCE OF THE CHEST. Assessment and Plan - Diagnosis (1) ARF (acute renal failure) Qualifiers: Acute renal failure type: unspecified Qualified Code(s): N17.9 - Acute kid jesse failure, unspecified Is this a current diagnosis for this admission?: Yes Plan: the patient is still making good urine despite the bump inher creatinine. Her kidneys may be getting a little better in the next few days. Her output has been better. She does have a dialysis catheter inplace presently She is quite a bit volume overloaded oin thepast 4 days. She is ahead about 12 liters in the past 4 days. 07/07 the patient has been diuresing well and creatinine ahs come down a bit It was 4.87 yesterday and 4.29 today. The patient as diuresed well over the past two days. Discussed with the renal service. Potassiuma d bicarb fairly normal. 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 Needs six weeks IV antibiotics. Patient had a conformed MV moderate size vegetation on ANGELIA. Will need 6 weeks of abx. The organism is MSSA. The patient is on Ancef. I have asked ID to review her latest findings. 07/07 Discussed the latest findings with ID and asked them to review her care.Last two blood cultures negative Will repeat culture. will rpeat ECH in the next few days to assess the efficazcy of treatment. (3) Atypical pneumonia Is this a current diagnosis for this admission?: Yes Plan: May have a Staph or atypical pneumonia. Her FI02 is fairly lkow and unchanged thepast few days ( 30%). ]07/07 don't see clear evidence of pneummonitis presently. (4) Respiratory failure Qualifiers: Chronicity: acute Respiratory failure complication: hypoxia Qualified Code(s): J96.01 - Acute respiratory failure with hypoxia Is this a current diagnosis for this admission?: Yes Plan: The patient remains on the ventialtor in acute resp. failure. I am sure she has Obesity-hypoventilation and likely severe ALBA. She may be difficult to wean from the ventialto given her body habitus. Will try her tomoprrow on a lower level of support with hwer more awake. Her ABG today showed a bt a of a residual metabolic acidosis with a pAC02 of 40. 07/07 as noted the patient has been on the ventialtor more than 1 week without immediate prospect of getting off. I think it would be best to preceeed at this point with trach and PEG. Will discuss with her family. Critical Time Critical Time (minutes): 35 Level of Care: ICU -: 1. The care of a critical patient is a dynamic process. This note is a counter sales representative synopsis but static in nature. The timeframe for treatments given in order is not necessarily the actual time these treatments may have been done. 2. This patient requires critical care secondary to ongoing requirements for therapy not offered or safe outside the critical care environment. Transfer to a lower level of care will result in altered life or limb morbidity and mortality. 3. Multidisciplinary rounds completed. 4. ABCDE bundle addressed.
[2020-07-08] MEDS: NORMAL SALINE 1000 ML 1,000 ML IV PRN ×2 (00:52→22:00)
[2020-07-08] MEDS: HYDROCORTISONE SOD SUCCINATE INJ/PF 100 MG/2 ML SDV IV SCH ×2 (01:09→14:52)
[2020-07-08] MEDS: PROPOFOL 1,000 MG/100 ML INFUS..BTL IV PRN ×3 (04:47→20:17)
[2020-07-08] MEDS: LEVOTHYROXINE SODIUM 0.025 MG TABLET NG SCH (05:34)
[2020-07-08] MEDS: LEVOTHYROXINE SODIUM 0.1 MG TABLET NG SCH (05:35)
[2020-07-08 06:02] LABS: HEMATOCRIT 26.5 % (36.0-47.0); HEMOGLOBIN 8.3 g/dL (12.0-15.5); MEAN CORPUSCULAR HEMOGLOBIN 22.3 pg (27.0-33.4); MEAN CORPUSCULAR HGB CONC 31.3 g/dL (32.0-36.0); MEAN CORPUSCULAR VOLUME 71 fl (80-97); PLATELET COUNT 183 10^3/uL (150-450); RED BLOOD COUNT 3.71 10^6/uL (3.72-5.28); RED CELL DISTRIBUTION WIDTH 19.5 % (11.5-14.0); WHITE BLOOD COUNT 15.9 10^3/uL (4.0-10.5)
[2020-07-08 06:04] LABS: ANION GAP 10 (5-19); BLOOD UREA NITROGEN 68 mg/dL (7-20); CALCIUM 8.7 mg/dL (8.4-10.2); CARBON DIOXIDE 25 mmol/L (22-30); CHLORIDE 110 mmol/L (98-107); GLUCOSE 110 mg/dL (75-110); POTASSIUM 3.9 mmol/L (3.6-5.0)
[2020-07-08 06:58] LABS: ABSOLUTE LYMPHOCYTES# (MANUAL) 1.3 10^3/uL (0.5-4.7); ABSOLUTE MONOCYTES # (MANUAL) 0.6 10^3/uL (0.1-1.4); BAND NEUTROPHILS % (MANUAL) 1 % (3-5); BASOPHILS % (MANUAL) 1 % (0-2); EOSINOPHILS % (MANUAL) 3 % (0-6); LYMPHOCYTES % (MANUAL) 8 % (13-45); MONOCYTES % (MANUAL) 4 % (3-13); PLATELET COMMENT ADEQUATE; SEGMENTED NEUTROPHILS % (MAN) 82 % (42-78); TOTAL CELLS COUNTED 100
[2020-07-08 07:02] LABS: OVALOCYTES SLIGHT; TOXIC GRANULATION SLIGHT
[2020-07-08 07:03] LABS: MYELOCYTES % (MANUAL) 1 % (0)
[2020-07-08] MEDS ORDERED: METOLAZONE 2.5 MG TABLET PO ONE (08:21)
--- NOTE | 2020-07-08 08:22 | RADIOLOGY REPORT (SQ) ---
EXAM DESCRIPTION: CHEST SINGLE VIEW IMAGES COMPLETED DATE/TIME: 07/08/2020 5:53 am REASON FOR STUDY: vent COMPARISON: 07/07/2020 NUMBER OF VIEWS: One view. TECHNIQUE: Single frontal radiographic image of the chest acquired. LIMITATIONS: None. FINDINGS: LUNGS AND PLEURA: Stable appearance. MEDIASTINUM AND HILAR STRUCTURES: Stable heart size and mediastinal structures. HEART AND VASCULAR STRUCTURES: Stable appearance. SUPPORT DEVICES: Appropriate location without change. BONES: No acute findings. OTHER: No other significant finding. IMPRESSION: STABLE APPEARANCE OF THE CHEST. SUPPORT DEVICES UNCHANGED. TECHNICAL DOCUMENTATION: JOB ID: [id number] 2010 [employer]- All Rights Reserved Reading location - IP/workstation name: [email or web address]
[2020-07-08] MEDS: FAMOTIDINE INJ/PF 20 MG/2 ML SDV IV SCH ×2 (09:21→21:41)
[2020-07-08] MEDS: POTASSIUM CHLORIDE 20 MEQ PACKET PO SCH (09:21)
[2020-07-08] MEDS ORDERED: NORMAL SALINE 250 ML with FUROSEMIDE 250 MG IV PRN ×2 (09:30)
[2020-07-08] MEDS: CEFAZOLIN SODIUM 2 GM in DEXTROSE 5%-WATER 100 ML IV SCH ×2 (11:04→21:42)
[2020-07-08 11:34] LABS: PATH REVIEW PATHOLOGIST REVIEWED
--- NOTE | 2020-07-08 13:23 | PDOC PROGRESS REPORT ---
Subjective Progress Note for:: 07/08/20 Subjective:: Patient was seen today still intubated. Her eyes were open more today. She is still not following commands. Edema is not resolving. She did produce over 2,900mL of urine. Reason For Visit: ARDS, POSSIBLE COVID 19 Physical Exam Vital Signs: Temp Pulse Resp BP Pulse Ox 98.6 F 80 22 H 98/81 L 98 07/08/20 08:00 07/08/20 11:50 07/08/20 11:50 07/08/20 11:50 07/08/20 12:03 Intake & Output 07/07/20 07/08/20 07/09/20 06:59 06:59 06:59 Intake Total 3169 2411 100 Output Total 2490 2910 550 Balance 679 -499 -450 Weight 187.1 kg 190 kg General appearance: PRESENT: no acute distress, morbidly obese, other - intub ated Mouth exam: PRESENT: moist. ABSENT: dry mucosa Neck exam: PRESENT: other - unable to determine JVD due to body habitus. Cardiovascular exam: PRESENT: +S1, +S2 GI/Abdominal exam: PRESENT: normal bowel sounds, soft. ABSENT: organomegaly, tenderness Extremities exam: PRESENT: pedal edema, +2 edema Musculoskeletal exam: PRESENT: deformity - missing the left pinky toe. ABSENT: normal inspection Neurological exam: PRESENT: other - intubated, did not follow commands, she was opening her eyes.. ABSENT: alert, altered, awake, oriented to person, oriented to place, oriented to time, oriented to situation Psychiatric exam: PRESENT: appropriate affect, normal mood Skin exam: PRESENT: cyanosis, dry, warm Results Laboratory Results: 07/08/20 05:30 07/08/20 05:30 07/08/20 07/08/20 05:30 05:30 WBC 15.9 H RBC 3.71 L Hgb 8.3 L Hct 26.5 L MCV 71 L MCH 22.3 L MCHC 31.3 L RDW 19.5 H Plt Count 183 Seg Neutrophils % Not Reportable Sodium 144.9 Potassium 3.9 Chloride 110 H Carbon Dioxide 25 Anion Gap 10 BUN 68 H Creatinine 4.04 H Est GFR ( Amer) 16 L Glucose 110 Calcium 8.7 07/02/20 17:52 Blood Blood Culture - Final NO GROWTH IN 5 DAYS 07/02/20 18:00 Blood Blood Culture - Final NO GROWTH IN 5 DAYS 06/30/20 06/30/20 07/04/20 03:58 03:58 04:30 Creatine Kinase 188 H NT-Pro-B Natriuret Pep 01292 H 88569 H Impressions: KUB X-Ray 06/29/20 17:42 IMPRESSION: Tube placement as described. Lower Extremity Ultrasound 06/30/20 00:00 IMPRESSION: 1. Multiphasic waveforms with three-vessel runoff bilaterally. 2. The right dorsalis pedis is not visualized and may be occluded. Diminished, but patent left dorsalis pedis. Chest X-Ray 07/08/20 21:30 IMPRESSION: STABLE APPEARANCE OF THE CHEST. SUPPORT DEVICES UNCHANGED. Assessment & Plan - Diagnosis (1) ARF (acute renal failure) Qualifiers: Acute renal failure type: unspecified Qualified Code(s): N17.9 - Acute kidney failure, unspecified Is this a current diagnosis for this admission?: Yes Plan: nonoliguric, creatinines looks to be improving, will reassess with changing to a furosemide drip. Will also look to add albumin to help with the fluid shift. Urine output was 2900mL. She does still have edema. No indication for GAMING DEALER as of right now. 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 (5) Atypical pneumonia Is this a current diagnosis for this admission?: Yes Plan: currently on antibiotics (6) Respiratory failure Qualifiers: Chronicity: acute Respiratory failure complication: hypoxia Qualified Code(s): J96.01 - Acute respiratory failure with hypoxia Is this a current diagnosis for this admission?: Yes Plan: currently intubated and sedated, weaning per manager employee benefits (7) Hypothyroidism Qualifiers: Hypothyroidism type: other Qualified Code(s): E03.8 - Other specified hypothyroidism Is this a current diagnosis for this admission?: Yes (8) Thrombocytopenia Plan: resolved (9) Morbid obesity Is this a current diagnosis for this admission?: Yes
[2020-07-08] MEDS ORDERED: ALBUMIN HUMAN 12.5 GM/50 ML RTUINJ IV SCH (13:30)
--- NOTE | 2020-07-08 14:04 | PDOC CRITICAL CARE PROG REPORT ---
General Date:: 07/08/20 ICU Day:: 10 Ventilator Day:: 10 Hospital Day:: 10 Resuscitation Status: Full Code Events in the past 12 to 24 Hours:: This patient presented in acute respiratory failure.hasbeen onSBT for at least 24 hours. The patient is sedated with propofol Is not running a fever. Nevertheless, her WBC uis up the past few days. Not having diarrhea. CXR shows a small to moderate right effusion Her tidal volumes are running about 400cc on PS of 20. Her creatinine has stabilized in the high 4 range. However, her urine output has steadilty increased in the past 3 days. Her potassium has actually been on the low side and her bicarb is close to normal. 07/07 The patient remains on mechanical ventilation. Her nurse performed a sedation vacation earlier today but the patient desaturated and got hypoxemic within a few minutes. It is my impression at this ppoint that we should try to get her a PEG and trach at this point. her WBC is down a tad today.the cuse of the elevation may be attributable to hydrocortisone. I have a call into Dr Yang to discuss the case. i will reach out to her family as well. 07/08 The patient remains on mechanical ventialtion.She did very poorly yesterday when she was taken off sedation. Prospects for weaning at this time appear dismal. I have asked the ENT service tosee her in regards to a tracheostomy. I will speak to her parents this afternoon in regards to this. I have placed thepatient on a lasix drip to stimulate diuresis. I agve her a dose of Zaroxolyn as well today. Her creatine was alittle lower at 4 this AM. The patient has gained about 10kg of qwater weight since coming to the ICU. Case discussed with of nephrology. Reason for ICU Addmission:: Acute Respiratory Failure , ARF, intubated, endocarditis MV Physical Exam Vital Signs: Temp Pulse Resp BP Pulse Ox 98.6 F 80 22 H 98/81 L 98 07/08/20 08:00 07/08/20 11:50 07/08/20 11:50 07/08/20 11:50 07/08/20 12:03 Intake & Output 07/07/20 07/08/20 07/09/20 06:59 06:59 06:59 Intake Total 3169 2411 100 Output Total 2490 2910 550 Balance 369 -935 -450 Weight 187.1 kg 190 kg Weight/Height Weight 190 kg Height 5 ft 4 in General appearance: PRESENT: no acute distress, morbidly obese Head exam: PRESENT: atraumatic, normocephalic Eye exam: PRESENT: conjunctiva pink Ear exam: PRESENT: normal external ear exam Neck exam: ABSENT: JVD, lymphadenopathy, thyromegaly Respiratory exam: PRESENT: decreased breath sounds. ABSENT: accessory muscle use Cardiovascular exam: PRESENT: RRR Pulses: PRESENT: normal dorsalis pedis pul Vascular exam: PRESENT: other - Mottling opf all jher toes.The patient is missing the small toe on her left foot. There is some additional motling in the heels. GI/Abdominal exam: PRESENT: normal bowel sounds, soft Rectal exam: PRESENT: deferred Extremities exam: ABSENT: calf tenderness, clubbing Neurological exam: PRESENT: other - Patient sedated on the ventialtor. Laboratory/Radiographs Laboratory Results: 07/08/20 05:30 07/08/20 05:30 07/08/20 07/08/20 05:30 05:30 WBC 15.9 H RBC 3.71 L Hgb 8.3 L Hct 26.5 L MCV 71 L MCH 22.3 L MCHC 31.3 L RDW 19.5 H Plt Count 183 Seg Neutrophils % Not Reportable Sodium 144.9 Potassium 3.9 Chloride 110 H Carbon Dioxide 25 Anion Gap 10 BUN 68 H Creatinine 4.04 H Est GFR ( Amer) 16 L Glucose 110 Calcium 8.7 07/02/20 17:52 Blood Blood Culture - Final NO GROWTH IN 5 DAYS 07/02/20 18:00 Blood Blood Culture - Final NO GROWTH IN 5 DAYS 06/30/20 06/30/20 07/04/20 03:58 03:58 04:30 Creatine Kinase 188 H NT-Pro-B Natriuret Pep 96603 H 52516 H Impressions: KUB X-Ray 06/29/20 17:42 IMPRESSION: Tube placement as described. Lower Extremity Ultrasound 06/30/20 00:00 IMPRESSION: 1. Multiphasic waveforms with three-vessel runoff bilaterally. 2. The right dorsalis pedis is not visualized and may be occluded. Diminished, but patent left dorsalis pedis. Chest X-Ray 07/08/20 21:30 IMPRESSION: STABLE APPEARANCE OF THE CHEST. SUPPORT DEVICES UNCHANGED. Assessment and Plan - Diagnosis (1) ARF (acute renal failure) Qualifiers: Acute renal failure type: unspecified Qualified Code(s): N17.9 - Acute kidney failure, unspecified Is this a current diagnosis for this admission?: Yes Plan: the patient is still making good urine despite the bump inher creatinine. Her kidneys may be getting a little better in the next few days. Her output has been better. She does have a dialysis catheter inplace presently She is quite a bit volume overloaded oin thepast 4 days. She is ahead about 12 liters in the past 4 days. 07/07 the patient has been diuresing well and creatinine ahs come down a bit It was 4.87 yesterday and 4.29 today. The patient as diuresed well over the past two days. Discussed with the renal service. Potassium and bicarb fairly normal. 07/08 As noted the patient has been given dose ofZaroxiolyn and placed on a lasix drip. If this is unsuccesfful she may rerquire dialysis. Has diuresed close 5.5 liters in the past 2 days. Creatinine as noted is a little lower than it's peak. 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 Needs six weeks IV antibiotics. Patient had a conformed MV moderate size vegetation on ANGELIA. Will need 6 weeks of abx. The organism is MSSA. The patient is on Ancef. I have asked ID to review her latest findings. 07/07 Discussed the latest findings with ID and asked them to review her care.Last two blood cultures negative Will repeat culture. will repeat ECHO in the next few days to assess the efficacy of treatment. Her last 4 blood cultures are negative. (3) Atypical pneumonia Is this a current diagnosis for this admission?: No Plan: May have a Staph or atypical pneumonia. Her FI02 is fairly lkow and unchanged thepast few days ( 30%). ]07/07 don't see clear evidence of pneummonitis presently. (4) Respiratory failure Qualifiers: Chronicity: acute Respiratory failure complication: hypoxia Qualified Code(s): J96.01 - Acute respiratory failure with hypoxia Is this a current diagnosis for this admission?: Yes Plan: The patient remains on the ventialtor in acute resp. failure. I am sure she has Obesity-hypoventilation and likely severe ALBA. She may be difficult to wean from the ventilator given her body habitus. Will try her tomorrow on a lower level of support with hwer more awake. Her ABG today showed a bt a of a residual metabolic acidosis with a pAC02 of 40. 07/07 as noted the patient has been on the ventilator more than 1 week without immediate prospect of getting off. I think it would be best to preceeed at this point with trach and PEG. Will discuss with her family. 07/08 The patient is on mechanical ventilation and has been since being admitted 10 days ago.There is no immediate prospect for weaning.We are trying to arrange a trach for the patient. 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 Her outlook remains guarded. As noted ot may be difficult weaning her from the ventialrtor preimarily becuse of her size and associated issues. Critical Time Critical Time (minutes): 35 Level of Care: ICU -: 1. The care of a critical patient is a dynamic process. This note is a automotive sales representative synopsis but static in nature. The timeframe for treatments given in order is not necessarily the actual time these treatments may have been done. 2. This patient requires critical care secondary to ongoing requirements for therapy not offered or safe outside the critical care environment. Transfer to a lower level of care will result in altered life or limb morbidity and mortality. 3. Multidisciplinary rounds completed. 4. ABCDE bundle addressed.
[2020-07-08 14:48] LABS: ARTERIAL BLOOD BASE EXCESS -3.6 mmol/L; ARTERIAL BLOOD H2CO3 1.38 mmol/L (1.05-1.35); ARTERIAL BLOOD HCO3 22.5 mmol/L (20-24); ARTERIAL BLOOD O2 SATURATION 97.4 % (94-98); ARTERIAL BLOOD PCO2 45.8 mmHg (35-45); ARTERIAL BLOOD PH 7.31 (7.35-7.45); ARTERIAL BLOOD PO2 105.4 mmHg (80-100); ARTERIAL BLOOD TOTAL CO2 23.9 mmol/L (21-25)
[2020-07-08 14:51] LABS: ARTERIAL BLOOD FIO2 40%
[2020-07-08] MEDS: HEPARIN SOD (PORCINE) 5,000 UNIT/ML 1 ML VIAL SUBCUT SCH ×2 (14:51→21:42)
[2020-07-08] MEDS: ALBUMIN HUMAN 12.5 GM/50 ML RTUINJ IV SCH ×2 (14:53→21:41)
--- NOTE | 2020-07-08 16:25 | PDOC CONSULTATION ---
Consultation Consult Date: 07/08/20 Provider Consulted: DI SILVERMAN Consult reason:: Evaluation for Tracheostomy History of Present Illness Admission Date/PCP: 06/29/20 03:15 History of Present Illness: The otolaryngology head neck surgery service is asked to evaluate this young female for possible tracheostomy placement. Patient is currently intubated secondary to acute respiratory failure. She has been intubated for approximately 9 days. Evaluation for possible tracheostomy. 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 Social History Lives with: Parents Smoking Status: Current Every Day Smoker Frequency of Alcohol Use: Rare Hx Recreational Drug Use: No Hx Prescription Drug Abuse: No - Advance Directive Resuscitation Status: Full Code Family History Family History: Reviewed & Not Pertinent, Arthritis, CAD, COPD, DM, Hypertension, Thyroid Disfunction Parental Family History Reviewed: No Children Family History Reviewed: No Sibling(s) Family History Reviewed.: No - patient intubated Medication/Allergy Home Medications: Albuterol Sulfate [Proair HFA Inhalation Aerosol 8.5 gm MDI] 2 puff IH Q4HP PRN 06/29/20 Levothyroxine Sodium [Synthroid] 125 mcg PO Q6AM 06/29/20 Allergies/Adverse Reactions: No Known Allergies Allergy (Verified 06/29/20 08:43) Physical Exam Vital Signs: Temp Pulse Resp BP Pulse Ox 98.6 F 88 22 H 155/94 H 91 L 07/08/20 10:00 07/08/20 14:00 07/08/20 14:01 07/08/20 14:01 07/08/20 14:01 Intake & Output 07/07/20 07/08/20 07/09/20 06:59 06:59 06:59 Intake Total 5759 0961 530 Output Total 5174 5080 1000 Balance 264 -632 -449 Weight 187.1 kg 190 kg Exam: General: Obese and intubated. Neck: Short, thick neck. The thyroid and cricoid cartilages are palpated. Oral cavity/oropharynx: Endotracheal tube in place. Results Laboratory Results: 07/08/20 05:30 07/08/20 05:30 07/08/20 07/08/20 07/08/20 05:30 05:30 14:20 WBC 15.9 H RBC 3.71 L Hgb 8.3 L Hct 26.5 L MCV 71 L MCH 22.3 L MCHC 31.3 L RDW 19.5 H Plt Count 183 Seg Neutrophils % Not Reportable Carbonic Acid 1.38 H HCO3/H2CO3 Ratio 16:1 ABG pH 7.31 L ABG pCO2 45.8 H ABG pO2 105.4 H ABG HCO3 22.5 ABG O2 Saturation 97.4 ABG Base Excess -3.6 FiO2 40% Sodium 144.9 Potassium 3.9 Chloride 110 H Carbon Dioxide 25 Anion Gap 10 BUN 68 H Creatinine 4.04 H Est GFR ( Amer) 16 L Glucose 110 Calcium 8.7 07/02/20 17:52 Blood Blood Culture - Final NO GROWTH IN 5 DAYS 07/02/20 18:00 Blood Blood Culture - Final NO GROWTH IN 5 DAYS 06/30/20 06/30/20 07/04/20 03:58 03:58 04:30 Creatine Kinase 188 H NT-Pro-B Natriuret Pep 06612 H 82023 H Impressions: KUB X-Ray 06/29/20 17:42 IMPRESSION: Tube placement as described. Lower Extremity Ultrasound 06/30/20 00:00 IMPRESSION: 1. Multiphasic waveforms with three-vessel runoff bilaterally. 2. The right dorsalis pedis is not visualized and may be occluded. Diminished, but patent left dorsalis pedis. Chest X-Ray 07/08/20 21:30 IMPRESSION: STABLE APPEARANCE OF THE CHEST. SUPPORT DEVICES UNCHANGED. Assessment & Plan - Diagnosis (1) Acute respiratory failure Qualifiers: Respiratory failure complication: hypoxia Qualified Code(s): J96.01 - Acute respiratory failure with hypoxia Is this a current diagnosis for this admission?: Yes Plan: 1. Diagnosis and treatment plan were discussed with the ICU attending. 2. Secondary to the patient's extended intubation, recommend tracheostomy. 3. The ICU attending is going to be discussing the idea of tracheostomy with the parents of the patient. If the parents are agreeable to a tracheostomy then I will discuss the tracheostomy with the parents the patient including all risks and benefits involved. 4. Plan for tracheostomy either later this week or early next week. Thank you for allowing us to participate in the care of this patient.
[2020-07-08] MEDS: PHARMACY COMMUNICATION ORDER MC SCH (18:09)
--- NOTE | 2020-07-08 18:50 | PDOC CONSULTATION ---
Consultation Consult Date: 07/08/20 Provider Consulted: SURGICAL SURGICALIST MD Consult reason:: Inanition, need for PEG tube History of Present Illness Admission Date/PCP: 06/29/20 03:15 History of Present Illness: CHEMO CRUZ is a 29 year old super obese female admitted with pneumonia and ARDS. The patient has been requiring ventilatory support for greater than 9 days now. The medical team is making no progress towards extubation. Surgery has been consulted to place a PEG tube, as ENT is placing a tracheostomy later this week. The patient is currently intubated, and cannot respond to questioning. She does awaken to stimuli. No significant/useful review of systems is obtainable at this time. All history is obtained from the medical record. 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 Social History Lives with: Parents Smoking Status: Current Every Day Smoker Frequency of Alcohol Use: Rare Hx Recreational Drug Use: No Hx Prescription Drug Abuse: No - Advance Directive Resuscitation Status: Full Code Family History Family History: Reviewed & Not Pertinent, Arthritis, CAD, COPD, DM, Hypertension, Thyroid Disfunction Parental Family History Reviewed: Yes Children Family History Reviewed: Yes Sibling(s) Family History Reviewed.: Yes Medication/Allergy Home Medications: Albuterol Sulfate [Proair HFA Inhalation Aerosol 8.5 gm MDI] 2 puff IH Q4HP PRN 06/29/20 Levothyroxine Sodium [Synthroid] 125 mcg PO Q6AM 06/29/20 Allergies/Adverse Reactions: No Known Allergies Allergy (Verified 06/29/20 08:43) Review of Systems ROS unobtainable: Due to endotracheal tube Physical Exam Vital Signs: Temp Pulse Resp BP Pulse Ox 98.7 F 75 19 147/81 H 100 07/08/20 16:22 07/08/20 18:00 07/08/20 18:01 07/08/20 18:00 07/08/20 18:01 Intake & Output 07/07/20 07/08/20 07/09/20 06:59 06:59 06:59 Intake Total 2583 7550 670 Output Total 7632 5460 8892 Balance 445 -634 -2315 Weight 187.1 kg 190 kg General appearance: PRESENT: other - Super obese Head exam: PRESENT: atraumatic, normocephalic Eye exam: ABSENT: scleral icterus Mouth exam: ABSENT: neck supple Neck exam: ABSENT: tracheal deviation, tracheostomy Respiratory exam: PRESENT: crackles, other - Coarse breath sounds bilaterally Cardiovascular exam: ABSENT: tachycardia Vascular exam: PRESENT: normal capillary refill GI/Abdominal exam: PRESENT: soft. ABSENT: distended, rigid Rectal exam: PRESENT: deferred Gentrourinary exam: PRESENT: indwelling catheter Extremities exam: PRESENT: +2 edema Musculoskeletal exam: ABSENT: deformity Neurological exam: ABSENT: alert Psychiatric exam: ABSENT: agitated Skin exam: ABSENT: jaundice Results Laboratory Results: 07/08/20 05:30 07/08/20 05:30 07/08/20 07/08/20 07/08/20 05:30 05:30 14:20 WBC 15.9 H RBC 3.71 L Hgb 8.3 L Hct 26.5 L MCV 71 L MCH 22.3 L MCHC 31.3 L RDW 19.5 H Plt Count 183 Seg Neutrophils % Not Reportable Carbonic Acid 1.38 H HCO3/H2CO3 Ratio 16:1 ABG pH 7.31 L ABG pCO2 45.8 H ABG pO2 105.4 H ABG HCO3 22.5 ABG O2 Saturation 97.4 ABG Base Excess -3.6 FiO2 40% Sodium 144.9 Potassium 3.9 Chloride 110 H Carbon Dioxide 25 Anion Gap 10 BUN 68 H Creatinine 4.04 H Est GFR ( Amer) 16 L Glucose 110 Calcium 8.7 07/02/20 17:52 Blood Blood Culture - Final NO GROWTH IN 5 DAYS 07/02/20 18:00 Blood Blood Culture - Final NO GROWTH IN 5 DAYS 06/30/20 06/30/20 07/04/20 03:58 03:58 04:30 Creatine Kinase 188 H NT-Pro-B Natriuret Pep 71327 H 99053 H Impressions: KUB X-Ray 06/29/20 17:42 IMPRESSION: Tube placement as described. Lower Extremity Ultrasound 06/30/20 00:00 IMPRESSION: 1. Multiphasic waveforms with three-vessel runoff bilaterally. 2. The right dorsalis pedis is not visualized and may be occluded. Diminished, but patent left dorsalis pedis. Chest X-Ray 07/08/20 21:30 IMPRESSION: STABLE APPEARANCE OF THE CHEST. SUPPORT DEVICES UNCHANGED. Assessment & Plan - Diagnosis (1) Inanition Is this a current diagnosis for this admission?: Yes (2) Acute respiratory failure Qualifiers: Respiratory failure complication: hypoxia Qualified Code(s): J96.01 - Acute respiratory failure with hypoxia Is this a current diagnosis for this admission?: Yes - Plan Summary Plan Summary: 29-year-old super obese female with pneumonia and ARDS. She is set up for a tracheostomy by ENT later this week. Surgery has been asked to evaluate the patient for gastrostomy. Due to her super obesity, PEG may not be feasible (as the instrumentation may not be long enough). PEG versus open G-tube will need to be discussed with the patient's family. If they are agreeable, surgery will be available to perform the procedure at the same time as tracheostomy. Surgery will continue to follow this patient with you.
[2020-07-09] MEDS: HYDROCORTISONE SOD SUCCINATE INJ/PF 100 MG/2 ML SDV IV SCH ×2 (01:04→15:48)
[2020-07-09] MEDS: PROPOFOL 1,000 MG/100 ML INFUS..BTL IV PRN ×4 (02:13→21:45)
[2020-07-09 05:15] LABS: ANION GAP 11 (5-19); BLOOD UREA NITROGEN 74 mg/dL (7-20); CALCIUM 8.9 mg/dL (8.4-10.2); CARBON DIOXIDE 25 mmol/L (22-30); CHLORIDE 110 mmol/L (98-107); GLUCOSE 104 mg/dL (75-110); HEMATOCRIT 25.7 % (36.0-47.0); HEMOGLOBIN 8.1 g/dL (12.0-15.5); MEAN CORPUSCULAR HEMOGLOBIN 22.7 pg (27.0-33.4); MEAN CORPUSCULAR HGB CONC 31.6 g/dL (32.0-36.0); MEAN CORPUSCULAR VOLUME 72 fl (80-97); PLATELET COUNT 192 10^3/uL (150-450); POTASSIUM 3.9 mmol/L (3.6-5.0); RED BLOOD COUNT 3.59 10^6/uL (3.72-5.28); RED CELL DISTRIBUTION WIDTH 20.2 % (11.5-14.0); WHITE BLOOD COUNT 15.8 10^3/uL (4.0-10.5)
[2020-07-09 05:56] LABS: ABSOLUTE LYMPHOCYTES# (MANUAL) 0.6 10^3/uL (0.5-4.7); ABSOLUTE MONOCYTES # (MANUAL) 1.1 10^3/uL (0.1-1.4); BAND NEUTROPHILS % (MANUAL) 1 % (3-5); BASOPHILS % (MANUAL) 1 % (0-2); EOSINOPHILS % (MANUAL) 2 % (0-6); LYMPHOCYTES % (MANUAL) 4 % (13-45); MONOCYTES % (MANUAL) 7 % (3-13); SEGMENTED NEUTROPHILS % (MAN) 85 % (42-78); TOTAL CELLS COUNTED 100
[2020-07-09 05:58] LABS: ANISOCYTOSIS 2+; HYPOCHROMASIA 1+; OVALOCYTES SLIGHT; PLATELET COMMENT ADEQUATE; POIKILOCYTOSIS SLIGHT; POLYCHROMASIA SLIGHT; TOXIC GRANULATION SLIGHT
[2020-07-09] MEDS: ALBUMIN HUMAN 12.5 GM/50 ML RTUINJ IV SCH ×3 (08:11→21:26)
[2020-07-09] MEDS: LEVOTHYROXINE SODIUM 0.1 MG TABLET NG SCH (08:12)
[2020-07-09] MEDS: LEVOTHYROXINE SODIUM 0.025 MG TABLET NG SCH (08:12)
[2020-07-09] MEDS: HEPARIN SOD (PORCINE) 5,000 UNIT/ML 1 ML VIAL SUBCUT SCH ×3 (08:12→21:25)
--- NOTE | 2020-07-09 08:19 | PDOC PROGRESS REPORT ---
Subjective Progress Note for:: 07/09/20 Subjective:: Patient intubated sedated Reason For Visit: ARDS, POSSIBLE COVID 19 Physical Exam Vital Signs: Temp Pulse Resp BP Pulse Ox 98.4 F 92 26 H 164/92 H 96 07/09/20 03:49 07/08/20 19:51 07/09/20 07:01 07/09/20 07:01 07/09/20 07:29 Intake & Output 07/08/20 07/09/20 07/10/20 06:59 06:59 06:59 Intake Total 2411 2334 Output Total 2919 9496 Balance -396 -8898 Weight 190 kg 178.5 kg General appearance: PRESENT: morbidly obese GI/Abdominal exam: PRESENT: other - Very large abdominal pannus Results Laboratory Results: 07/09/20 04:30 07/09/20 04:30 07/08/20 07/09/20 07/09/20 14:20 04:30 04:30 WBC 15.8 H RBC 3.59 L Hgb 8.1 L Hct 25.7 L MCV 72 L MCH 22.7 L MCHC 31.6 L RDW 20.2 H Plt Count 192 Seg Neutrophils % Not Reportable Carbonic Acid 1.38 H HCO3/H2CO3 Ratio 16:1 ABG pH 7.31 L ABG pCO2 45.8 H ABG pO2 105.4 H ABG HCO3 22.5 ABG O2 Saturation 97.4 ABG Base Excess -3.6 FiO2 40% Sodium 145.8 H Potassium 3.9 Chloride 110 H Carbon Dioxide 25 Anion Gap 11 BUN 74 H Creatinine 3.97 H Est GFR ( Amer) 16 L Glucose 104 Calcium 8.9 Triglycerides 07/09/20 04:30 WBC RBC Hgb Hct MCV MCH MCHC RDW Plt Count Seg Neutrophils % Carbonic Acid HCO3/H2CO3 Ratio ABG pH ABG pCO2 ABG pO2 ABG HCO3 ABG O2 Saturation ABG Base Excess FiO2 Sodium Potassium Chloride Carbon Dioxide Anion Gap BUN Creatinine Est GFR ( Amer) Glucose Calcium Triglycerides 125 06/30/20 06/30/20 07/04/20 03:58 03:58 04:30 Creatine Kinase 188 H NT-Pro-B Natriuret Pep 91923 H 75499 H Impressions: KUB X-Ray 06/29/20 17:42 IMPRESSION: Tube placement as described. Lower Extremity Ultrasound 06/30/20 00:00 IMPRESSION: 1. Multiphasic waveforms with three-vessel runoff bilaterally. 2. The right dorsalis pedis is not visualized and may be occluded. Diminished, but patent left dorsalis pedis. Chest X-Ray 07/08/20 21:30 IMPRESSION: STABLE APPEARANCE OF THE CHEST. SUPPORT DEVICES UNCHANGED. 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 Is this a current diagnosis for this admission?: Yes - Time Anticipated Discharge Disposition: [facility] Anticipated Discharge Timeframe: When decided about the primary care service - Plan Summary Plan Summary: Assessment: Super-super obese patient Acute respiratory failure in need of tracheostomy because of prolonged mechanical ventilation support General surgery requested to place PEG in this patient versus open surgical gastrostomy tube The patient presents with tremendous challenge in terms of technical difficulty, and possible complications due to the patient's size and comorbidities Plan: After examining the patient, reviewing the chart, and discussion with the licensed insurance sales agent, I am recommending placement of a Dobbhoff catheter either at bedside or in radiology under fluoroscopy If placement of the above catheter is unsuccessful, I am recommending to consult the GI service to evaluate the patient for PEG placement as they have more expertise and better instrumentation to deal with these challenging patients I do not think the patient is candidate for open surgical gastrostomy tube placement due to her tremendous body size and the multiple severe postoperative complication this patient may suffer including gastrostomy wound infection, g astrostomy tube displacement with spillage of the gastrointestinal content into the peritoneal cavity, intraabdominal abscess formation, pulmonary embolism, and . I will sign off. Please call me with questions
[2020-07-09] MEDS: CEFAZOLIN SODIUM 2 GM in DEXTROSE 5%-WATER 100 ML IV SCH ×2 (09:57→21:26)
[2020-07-09] MEDS: FAMOTIDINE INJ/PF 20 MG/2 ML SDV IV SCH ×2 (09:57→21:26)
[2020-07-09] MEDS: POTASSIUM CHLORIDE 20 MEQ PACKET NG SCH (10:00)
[2020-07-09 12:09] LABS: ARTERIAL BLOOD BASE EXCESS -2.8 mmol/L; ARTERIAL BLOOD H2CO3 1.45 mmol/L (1.05-1.35); ARTERIAL BLOOD HCO3 23.6 mmol/L (20-24); ARTERIAL BLOOD O2 SATURATION 97.3 % (94-98); ARTERIAL BLOOD PCO2 48.3 mmHg (35-45); ARTERIAL BLOOD PH 7.31 (7.35-7.45); ARTERIAL BLOOD PO2 104.5 mmHg (80-100)
--- NOTE | 2020-07-09 12:11 | PDOC CRITICAL CARE PROG REPORT ---
General Date:: 07/09/20 ICU Day:: 11 Ventilator Day:: 11 Hospital Day:: 11 Resuscitation Status: Full Code Events in the past 12 to 24 Hours:: This patient presented in acute respiratory failure.hasbeen onSBT for at least 24 hours. The patient is sedated with propofol Is not running a fever. Nevertheless, her WBC uis up the past few days. Not having diarrhea. CXR shows a small to moderate right effusion Her tidal volumes are running about 400cc on PS of 20. Her creatinine has stabilized in the high 4 range. However, her urine output has steadilty increased in the past 3 days. Her potassium has actually been on the low side and her bicarb is close to normal. 07/07 The patient remains on mechanical ventilation. Her nurse performed a sedation vacation earlier today but the patient desaturated and got hypoxemic within a few minutes. It is my impression at this ppoint that we should try to get her a PEG and trach at this point. her WBC is down a tad today.the cuse of the elevation may be attributable to hydrocortisone. I have a call into Dr Yang to discuss the case. i will reach out to her family as well. 07/08 The patient remains on mechanical ventilation.She did very poorly yesterday when she was taken off sedation. Prospects for weaning at this time appear dismal. I have asked the ENT service to see her in regards to a tracheostomy. I will speak to her parents this afternoon in regards to this. I have placed the patient on a lasix drip to stimulate diuresis. I agve her a dose of Zaroxolyn as well today. Her creatinine was a little lower at 4 this AM. The patient has gained about 10kg of water weight since coming to the ICU. Case discussed with of nephrology. 07/09 The patient remains sedated on the ventilator. i discussed the trach with ENT and her mother. It is to be scheduled for tomorrow. Little change in overall status. Surgery is reluctant to attempt a PEG for suspected introperative logistical issues related to her size or post-op issues. Will place a Dobroff tube for now The patient did hae a net diuresis of 3 liters in the past 24 hours and her weight went down. Creatinine is hovering about 4. It is unclear how long orior to admission thepatient had kidney dysfn. as of 06/29 her creatinine was 2.26. claerly not normal Reason for ICU Addmission:: Acute Respiratory Failure , ARF, intubated, endocarditis MV Physical Exam Vital Signs: Temp Pulse Resp BP Pulse Ox 98.4 F 86 22 H 157/88 H 96 07/09/20 03:49 07/09/20 08:00 07/09/20 10:01 07/09/20 10:01 07/09/20 10:01 Intake & Output 07/08/20 07/09/20 07/10/20 06:59 06:59 06:59 Intake Total 2411 2434 210 Output Total 2910 5515 400 Balance -499 -3081 -190 Weight 190 kg 178.5 kg 178.5 kg Weight/Height Weight 178.5 kg Height 5 ft 4 in General appearance: PRESENT: mild distress, morbidly obese Head exam: PRESENT: atraumatic, normocephalic Eye exam: PRESENT: conjunctiva pink Ear exam: PRESENT: normal external ear exam Mouth exam: PRESENT: moist, neck supple Neck exam: PRESENT: full ROM. ABSENT: lymphadenopathy, meningismus, tenderness Respiratory exam: PRESENT: decreased breath sounds, symmetrical. ABSENT: chest wall tenderness Pulses: PRESENT: normal carotid pulses, normal radial pulses GI/Abdominal exam: PRESENT: soft, other - Huge abdomen. large panniculus Rectal exam: PRESENT: deferred Extremities exam: ABSENT: calf tenderness, clubbing, joint swelling Neurological exam: PRESENT: other - heavilt sedated to RASS -2 on ventilator Laboratory/Radiographs Laboratory Results: 07/09/20 04:30 07/09/20 04:30 07/08/20 07/09/20 07/09/20 14:20 04:30 04:30 WBC 15.8 H RBC 3.59 L Hgb 8.1 L Hct 25.7 L MCV 72 L MCH 22.7 L MCHC 31.6 L RDW 20.2 H Plt Count 192 Seg Neutrophils % Not Reportable Carbonic Acid 1.38 H HCO3/H2CO3 Ratio 16:1 ABG pH 7.31 L ABG pCO2 45.8 H ABG pO2 105.4 H ABG HCO3 22.5 ABG O2 Saturation 97.4 ABG Base Excess -3.6 FiO2 40% Sodium 145.8 H Potassium 3.9 Chloride 110 H Carbon Dioxide 25 Anion Gap 11 BUN 74 H Creatinine 3.97 H Est GFR ( Amer) 16 L Glucose 104 Calcium 8.9 Triglycerides 07/09/20 04:30 WBC RBC Hgb Hct MCV MCH MCHC RDW Plt Count Seg Neutrophils % Carbonic Acid HCO3/H2CO3 Ratio ABG pH ABG pCO2 ABG pO2 ABG HCO3 ABG O2 Saturation ABG Base Excess FiO2 Sodium Potassium Chloride Carbon Dioxide Anion Gap BUN Creatinine Est GFR ( Amer) Glucose Calcium Triglycerides 125 06/30/20 06/30/20 07/04/20 03:58 03:58 04:30 Creatine Kinase 188 H NT-Pro-B Natriuret Pep 98888 H 28346 H Impressions: KUB X-Ray 06/29/20 17:42 IMPRESSION: Tube placement as described. Lower Extremity Ultrasound 06/30/20 00:00 IMPRESSION: 1. Multiphasic waveforms with three-vessel runoff bilaterally. 2. The right dorsalis pedis is not visualized and may be occluded. Diminished, but patent left dorsalis pedis. Chest X-Ray 07/08/20 21:30 IMPRESSION: STABLE APPEARANCE OF THE CHEST. SUPPORT DEVICES UNCHANGED. Assessment and Plan - Diagnosis (1) ARF (acute renal failure) Qualifiers: Acute renal failure type: unspecified Qualified Code(s): N17.9 - Acute kidney failure, unspecified Is this a current diagnosis for this admission?: Yes Plan: the patient is still making good urine despite the bump inher creatinine. Her kidneys may be getting a little better in the next few days. Her output has been better. She does have a dialysis catheter inplace presently She is quite a bit volume overloaded oin thepast 4 days. She is ahead about 12 liters in the past 4 days. 07/07 the patient has been diuresing well and creatinine ahs come down a bit It was 4.87 yesterday and 4.29 today. The patient as diuresed well over the past two days. Discussed with the renal service. Potassium and bicarb fairly normal. 07/08 As noted the patient has been given dose ofZaroxiolyn and placed on a lasix drip. If this is unsuccesfful she may rerquire dialysis. Has diuresed close 5.5 liters in the past 2 days. Creatinine as noted is a little lower than it's peak. 07/09 Diuresed bnicely inthe last 24 hours. it appears that she will not likely need dialysis in the immediate future unless her kidney fn. changes. 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 Needs six weeks IV antibiotics. Patient had a conformed MV moderate size vegetation on ANGELIA. Will need 6 weeks of abx. The organism is MSSA. The patient is on Ancef. I have asked ID to review her latest findings. 07/07 Discussed the latest findings with ID and asked them to review her care.Last two blood cultures negative Will repeat culture. will repeat ECHO in the next few days to assess the efficacy of treatment. Her last 4 blood cultures are negative. (3) Atypical pneumonia Is this a current diagnosis for this admission?: No (4) Respiratory failure Qualifiers: Chronicity: acute Respiratory failure complication: hypoxia Qualified Code(s): J96.01 - Acute respiratory failure with hypoxia Is this a current diagnosis for this admission?: Yes Plan: The patient remains on the ventialtor in acute resp. failure. I am sure she has Obesity-hypoventilation and likely severe ALBA. She may be difficult to wean from the ventilator given her body habitus. Will try her tomorrow on a lower level of support with hwer more awake. Her ABG today showed a bt a of a residual metabolic acidosis with a pAC02 of 40. 07/07 as noted the patient has been on the ventilator more than 1 week without immediate prospect of getting off. I think it would be best to preceeed at this point with trach and PEG. Will discuss with her family. 07/08 The patient is on mechanical ventilation and has been since being admitted 10 days ago.There is no immediate prospect for weaning.We are trying to arrange a trach for the patient. 07/09 [place] scheduled tfor tomorrow Critical Time Critical Time (minutes): 35 Level of Care: ICU -: 1. The care of a critical patient is a dynamic process. This note is a account manager sales representative synopsis but static in nature. The timeframe for treatments given in order is not necessarily the actual time these treatments may have been done. 2. This patient requires critical care secondary to ongoing requirements for therapy not offered or safe outside the critical care environment. Transfer to a lower level of care will result in altered life or limb morbidity and mortality. 3. Multidisciplinary rounds completed. 4. ABCDE bundle addressed.
[2020-07-09 12:13] LABS: ARTERIAL BLOOD FIO2 35%
--- NOTE | 2020-07-09 13:28 | PDOC PROGRESS REPORT ---
Subjective Progress Note for:: 07/09/20 Reason For Visit: ARDS, POSSIBLE COVID 19 Physical Exam Vital Signs: Temp Pulse Resp BP Pulse Ox 98.4 F 86 22 H 157/88 H 95 07/09/20 03:49 07/09/20 08:00 07/09/20 10:01 07/09/20 10:01 07/09/20 12:00 Intake & Output 07/08/20 07/09/20 07/10/20 06:59 06:59 06:59 Intake Total 2411 2434 210 Output Total 2910 5515 400 Balance -499 -3081 -190 Weight 190 kg 178.5 kg 178.5 kg Exam: General: Patient is currently sedated and intubated Neck: Short, obese neck. Able to palpate cricoid/thyroid cartilage. Results Laboratory Results: 07/09/20 04:30 07/09/20 04:30 07/08/20 07/09/20 07/09/20 14:20 04:30 04:30 WBC 15.8 H RBC 3.59 L Hgb 8.1 L Hct 25.7 L MCV 72 L MCH 22.7 L MCHC 31.6 L RDW 20.2 H Plt Count 192 Seg Neutrophils % Not Reportable Carbonic Acid 1.38 H HCO3/H2CO3 Ratio 16:1 ABG pH 7.31 L ABG pCO2 45.8 H ABG pO2 105.4 H ABG HCO3 22.5 ABG O2 Saturation 97.4 ABG Base Excess -3.6 FiO2 40% Sodium 145.8 H Potassium 3.9 Chloride 110 H Carbon Dioxide 25 Anion Gap 11 BUN 74 H Creatinine 3.97 H Est GFR ( Amer) 16 L Glucose 104 Calcium 8.9 Magnesium Triglycerides 07/09/20 07/09/20 07/09/20 04:30 04:30 11:46 WBC RBC Hgb Hct MCV MCH MCHC RDW Plt Count Seg Neutrophils % Carbonic Acid 1.45 H HCO3/H2CO3 Ratio 16:1 ABG pH 7.31 L ABG pCO2 48.3 H ABG pO2 104.5 H ABG HCO3 23.6 ABG O2 Saturation 97.3 ABG Base Excess -2.8 FiO2 35% Sodium Potassium Chloride Carbon Dioxide Anion Gap BUN Creatinine Est GFR ( Amer) Glucose Calcium Magnesium 2.1 Triglycerides 125 06/30/20 06/30/2007/04/20 03:58 03:58 04:30 Creatine Kinase 188 H NT-Pro-B Natriuret Pep 98373 H 55822 H Impressions: KUB X-Ray 06/29/20 17:42 IMPRESSION: Tube placement as described. Lower Extremity Ultrasound 06/30/20 00:00 IMPRESSION: 1. Multiphasic waveforms with three-vessel runoff bilaterally. 2. The right dorsalis pedis is not visualized and may be occluded. Diminished, but patent left dorsalis pedis. Chest X-Ray 07/08/20 21:30 IMPRESSION: STABLE APPEARANCE OF THE CHEST. SUPPORT DEVICES UNCHANGED. Assessment & Plan - Diagnosis (1) Acute respiratory failure Qualifiers: Respiratory failure complication: hypoxia Qualified Code(s): J96.01 - Acute respiratory failure with hypoxia Is this a current diagnosis for this admission?: Yes Plan: 1. The patient's mother was contacted today her name is Ilan Moran and the risks/benefits of the tracheostomy were explained to the patient's mother. The risks include but not limited to the following: Bleeding, infection, scarring, suprastomal granuloma, pneumothorax, stomal stenosis, , loss of airway and need for another procedure. The mother voiced understanding of these risks and all questions have been answered. The mother wished to proceed with the tracheostomy. The tracheostomy is scheduled for 10 July at 1330. 2. Had extensive discussion about the procedure and follow-on care with the mother of the patient. - Time Time Spent with patient: Less than 15 minutes Level of Care: ICU Medications reviewed and adjusted accordingly: No
--- NOTE | 2020-07-09 14:50 | RADIOLOGY REPORT (SQ) ---
EXAM DESCRIPTION: KUB/ABDOMEN (SINGLE VIEW) IMAGES COMPLETED DATE/TIME: 07/09/2020 2:24 pm REASON FOR STUDY: DOBHOFF PLACEMENT COMPARISON: None. NUMBER OF VIEWS: One view. TECHNIQUE: Supine radiographic image of the abdomen acquired. LIMITATIONS: None. FINDINGS: BOWEL GAS PATTERN: Normal bowel gas pattern. No dilated loops. CALCIFICATIONS: No suspicious calcifications. SOFT TISSUES: No gross mass or suggestion of organomegaly. HARDWARE: Dobbhof tube appears to doubled back upon itself in the gastric antrum PE BONES: No acute fracture. No worrisome bone lesions. OTHER: No other significant finding. IMPRESSION: Dobbhof tube as described. TECHNICAL DOCUMENTATION: JOB ID: [id number] 2010 [employer]- All Rights Reserved Reading location - IP/workstation name: [email or web address]
[2020-07-09] MEDS: LABETALOL HCL INJ 20 MG/4 ML DISP.SYRIN IV PRN (15:43)
[2020-07-09] MEDS: NORMAL SALINE 250 ML with FUROSEMIDE 250 MG IV PRN ×2 (15:47)
--- NOTE | 2020-07-09 16:00 | PDOC PROGRESS REPORT ---
Subjective Progress Note for:: 07/09/20 Subjective:: Patient is still intubated. At this time it looks like a tracheotomy is in order for tomorrow. Still not following commands. Urine output increased to over 5500mL with furosemide drip and albumin. Reason For Visit: ARDS, POSSIBLE COVID 19 Physical Exam Vital Signs: Temp Pulse Resp BP Pulse Ox 97.3 F 99 31 H 146/78 H 97 07/09/20 12:00 07/09/20 14:00 07/09/20 14:01 07/09/20 14:01 07/09/20 14:01 Intake & Output 07/08/20 07/09/20 07/10/20 06:59 06:59 06:59 Intake Total 2411 2434 210 Output Total 2910 5515 1250 Balance -499 -6039 -104 Weight 190 kg 178.5 kg 178.5 kg General appearance: PRESENT: no acute distress, other - -intubated Mouth exam: PRESENT: moist, neck supple Neck exam: PRESENT: other - -unable to determine due to body habitus Respiratory exam: PRESENT: clear to auscultation beatriz, crackles, rales. ABSENT: rhonchi, wheezes Cardiovascular exam: PRESENT: +S1, +S2 GI/Abdominal exam: PRESENT: normal bowel sounds, soft. ABSENT: organomegaly, tenderness Extremities exam: PRESENT: +1 edema. ABSENT: +2 edema Neurological exam: PRESENT: other - -intubated and sedated. ABSENT: alert, altered, awake, oriented to person, oriented to place, oriented to time, oriented to situation Skin exam: PRESENT: dry, warm Results Laboratory Results: 07/09/20 04:30 07/09/20 04:30 07/09/20 07/09/20 07/09/20 04:30 04:30 04:30 WBC 15.8 H RBC 3.59 L Hgb 8.1 L Hct 25.7 L MCV 72 L MCH 22.7 L MCHC 31.6 L RDW 20.2 H Plt Count 192 Seg Neutrophils % Not Reportable Carbonic Acid HCO3/H2CO3 Ratio ABG pH ABG pCO2 ABG pO2 ABG HCO3 ABG O2 Saturation ABG Base Excess FiO2 Sodium 145.8 H Potassium 3.9 Chloride 110 H Carbon Dioxide 25 Anion Gap 11 BUN 74 H Creatinine 3.97 H Est GFR ( Amer) 16 L Glucose 104 Calcium 8.9 Magnesium Triglycerides 125 07/09/20 07/09/20 04:30 11:46 WBC RBC Hgb Hct MCV MCH MCHC RDW Plt Count Seg Neutrophils % Carbonic Acid 1.45 H HCO3/H2CO3 Ratio 16:1 ABG pH 7.31 L ABG pCO2 48.3 H ABG pO2 104.5 H ABG HCO3 23.6 ABG O2 Saturation 97.3 ABG Base Excess -2.8 FiO2 35% Sodium Potassium Chloride Carbon Dioxide Anion Gap BUN Creatinine Est GFR ( Amer) Glucose Calcium Magnesium 2.1 Triglycerides 06/30/20 06/30/20 07/04/20 03:58 03:58 04:30 Creatine Kinase 188 H NT-Pro-B Natriuret Pep 11424 H 55462 H Impressions: Lower Extremity Ultrasound 06/30/20 00:00 IMPRESSION: 1. Multiphasic waveforms with three-vessel runoff bilaterally. 2. The right dorsalis pedis is not visualized and may be occluded. Diminished, but patent left dorsalis pedis. Chest X-Ray 07/08/20 21:30 IMPRESSION: STABLE APPEARANCE OF THE CHEST. SUPPORT DEVICES UNCHANGED. KUB X-Ray 07/09/20 00:00 IMPRESSION: Dobbhof tube as described. Assessment & Plan - Diagnosis (1) ARF (acute renal failure) Qualifiers: Acute renal failure type: unspecified Qualified Code(s): N17.9 - Acute kidney failure, unspecified Is this a current diagnosis for this admission?: Yes Plan: nonoliguric, creatinines looks to be stable. She produce a significant amount of urine with the furosemide drip and the albumin. She produced almost too much urine. Luckly the creatinine did not change. Will decrease the drip to 5mg an hour, continue with the albumin. She does still have edema. No indication for [facility] [employer] as of right now. Reassess creatinine tomorrow. 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 (5) Atypical pneumonia Is this a current diagnosis for this admission?: No Plan: currently on antibiotics (6) Respiratory failure Qualifiers: Chronicity: acute Respiratory failure complication: hypoxia Qualified Code(s): J96.01 - Acute respiratory failure with hypoxia Is this a current diagnosis for this admission?: Yes Plan: currently intubated and sedated, likely getting a trach tube placement tomorrow. (7) Hypothyroidism Qualifiers: Hypothyroidism type: other Qualified Code(s): E03.8 - Other specified hypothyroidism Is this a current diagnosis for this admission?: Yes (8) Thrombocytopenia Plan: resolved (9) Morbid obesity Is this a current diagnosis for this admission?: Yes - Notes Notes: Case was discussed with Dr. Soria.
[2020-07-09] MEDS: PHARMACY COMMUNICATION ORDER MC SCH (18:43)
[2020-07-10] MEDS: LABETALOL HCL INJ 20 MG/4 ML DISP.SYRIN IV PRN (01:12)
[2020-07-10] MEDS: HYDROCORTISONE SOD SUCCINATE INJ/PF 100 MG/2 ML SDV IV SCH ×2 (01:13→13:34)
[2020-07-10] MEDS: PROPOFOL 1,000 MG/100 ML INFUS..BTL IV PRN ×5 (01:27→23:11)
[2020-07-10 04:16] LABS: HEMATOCRIT 23.7 % (36.0-47.0); MEAN CORPUSCULAR HEMOGLOBIN 22.6 pg (27.0-33.4); MEAN CORPUSCULAR HGB CONC 31.6 g/dL (32.0-36.0); MEAN CORPUSCULAR VOLUME 72 fl (80-97); PLATELET COUNT 163 10^3/uL (150-450); RED BLOOD COUNT 3.31 10^6/uL (3.72-5.28); WHITE BLOOD COUNT 16.7 10^3/uL (4.0-10.5)
[2020-07-10 04:30] LABS: ARTERIAL BLOOD BASE EXCESS 0 mmol/L; ARTERIAL BLOOD FIO2 35%; ARTERIAL BLOOD H2CO3 1.41 mmol/L (1.05-1.35); ARTERIAL BLOOD HCO3 25.7 mmol/L (20-24); ARTERIAL BLOOD O2 SATURATION 97.1 % (94-98); ARTERIAL BLOOD PCO2 46.9 mmHg (35-45); ARTERIAL BLOOD PH 7.36 (7.35-7.45); ARTERIAL BLOOD PO2 97.1 mmHg (80-100); ARTERIAL BLOOD TOTAL CO2 27.1 mmol/L (21-25)
[2020-07-10 04:35] LABS: ANION GAP 13 (5-19); BLOOD UREA NITROGEN 79 mg/dL (7-20); CALCIUM 8.9 mg/dL (8.4-10.2); CARBON DIOXIDE 26 mmol/L (22-30); CHLORIDE 107 mmol/L (98-107); GLUCOSE 97 mg/dL (75-110); HEMOGLOBIN 7.5 g/dL (12.0-15.5); POTASSIUM 3.9 mmol/L (3.6-5.0)
[2020-07-10 04:38] LABS: ABSOLUTE MONOCYTES # (MANUAL) 0.5 10^3/uL (0.1-1.4); BAND NEUTROPHILS % (MANUAL) 1 % (3-5); BASOPHILS % (MANUAL) 0 % (0-2); EOSINOPHILS % (MANUAL) 0 % (0-6); LYMPHOCYTES % (MANUAL) 12 % (13-45); MONOCYTES % (MANUAL) 3 % (3-13); POLYCHROMASIA 2+; SEGMENTED NEUTROPHILS % (MAN) 84 % (42-78); TOTAL CELLS COUNTED 100
[2020-07-10 04:39] LABS: ANISOCYTOSIS 2+; PLATELET COMMENT ADEQUATE
[2020-07-10] MEDS: HEPARIN SOD (PORCINE) 5,000 UNIT/ML 1 ML VIAL SUBCUT SCH ×3 (05:16→21:51)
[2020-07-10] MEDS: LEVOTHYROXINE SODIUM 0.025 MG TABLET NG SCH (05:16)
[2020-07-10] MEDS: LEVOTHYROXINE SODIUM 0.1 MG TABLET NG SCH (05:16)
[2020-07-10] MEDS ORDERED: DIPHENOXYLATE HCL/ATROP SULF 2.5-0.025 MG TABLET NG PRN (09:00)
[2020-07-10] MEDS: FAMOTIDINE INJ/PF 20 MG/2 ML SDV IV SCH ×2 (09:48→21:51)
[2020-07-10] MEDS: POTASSIUM CHLORIDE 20 MEQ PACKET NG SCH (09:48)
[2020-07-10] MEDS: CEFAZOLIN SODIUM 2 GM in DEXTROSE 5%-WATER 100 ML IV SCH ×2 (09:49→21:57)
[2020-07-10] MEDS ORDERED: ROCURONIUM BROMIDE INJ 50 MG/5 ML VIAL IV ONE (10:14)
--- NOTE | 2020-07-10 10:24 | PDOC PROGRESS REPORT ---
Subjective Progress Note for:: 07/10/20 Reason For Visit: Patient seen today in the ICU. She remains intubated and sedated. She is scheduled to have a tracheostomy given her current respiratory parameters as she has been on it for 10 days. Labs and medications were reviewed. She is making good renal response to current Lasix infusion down at 5 mg/h. Renal numbers stable. Physical Exam Vital Signs: Temp Pulse Resp BP Pulse Ox 98.3 F 70 21 H 138/73 H 98 07/10/20 08:00 07/10/20 08:00 07/10/20 08:01 07/10/20 08:01 07/10/20 08:53 Intake & Output 07/09/20 07/10/20 07/11/20 06:59 06:59 06:59 Intake Total 2434 1535 Output Total 5515 5740 600 Balance -3081 -4205 -600 Weight 178.5 kg 175.2 kg Exam: Remains intubated and sedated. Respiratory exam: PRESENT: clear to auscultation beatriz, decreased breath sounds. ABSENT: crackles Cardiovascular exam: PRESENT: +S1, +S2 GI/Abdominal exam: PRESENT: normal bowel sounds, soft. ABSENT: organomegaly, tenderness Extremities exam: PRESENT: +2 edema Skin exam: PRESENT: mottled - Through livedo.. ABSENT: erythema, rash Results Laboratory Results: 07/10/20 04:05 07/10/20 04:05 07/09/20 07/09/20 07/09/20 04:30 11:46 19:04 WBC RBC Hgb Hct MCV MCH MCHC RDW Plt Count Seg Neutrophils % Carbonic Acid 1.45 H HCO3/H2CO3 Ratio 16:1 ABG pH 7.31 L ABG pCO2 48.3 H ABG pO2 104.5 H ABG HCO3 23.6 ABG O2 Saturation 97.3 ABG Base Excess -2.8 FiO2 35% Sodium Potassium Chloride Carbon Dioxide Anion Gap BUN Creatinine Est GFR ( Amer) Glucose Calcium Magnesium 2.1 Blood Type B POSITIVE Antibody Screen NEGATIVE 07/10/20 07/10/20 07/10/20 04:05 04:05 04:18 WBC 16.7 H RBC 3.31 L Hgb 7.5 L Hct 23.7 L MCV 72 L MCH 22.6 L MCHC 31.6 L RDW 20.0 H Plt Count 163 Seg Neutrophils % Not Reportable Carbonic Acid 1.41 H HCO3/H2CO3 Ratio 18:1 ABG pH 7.36 ABG pCO2 46.9 H ABG pO2 97.1 ABG HCO3 25.7 H ABG O2 Saturation 97.1 ABG Base Excess 0 FiO2 35% Sodium 145.8 H Potassium 3.9 Chloride 107 Carbon Dioxide 26 Anion Gap 13 BUN 79 H Creatinine 3.73 H Est GFR ( Amer) 17 L Glucose 97 Calcium 8.9 Magnesium Blood Type Antibody Screen 06/30/20 06/30/20 07/04/20 03:58 03:58 04:30 Creatine Kinase 188 H NT-Pro-B Natriuret Pep 90225 H 82680 H Impressions: Lower Extremity Ultrasound 06/30/20 00:00 IMPRESSION: 1. Multiphasic waveforms with three-vessel runoff bilaterally. 2. The right dorsalis pedis is not visualized and may be occluded. Diminished, but patent left dorsalis pedis. Chest X-Ray 07/08/20 21:30 IMPRESSION: STABLE APPEARANCE OF THE CHEST. SUPPORT DEVICES UNCHANGED. KUB X-Ray 07/09/20 00:00 IMPRESSION: Dobbhof tube as described. Assessment & Plan - Diagnosis (1) ARF (acute renal failure) Qualifiers: Acute renal failure type: unspecified Qualified Code(s): N17.9 - Acute kidney failure, unspecified Is this a current diagnosis for this admission?: Yes Plan: Currently nonoliguric as she has made over 5 L over the last couple of days. Her renal numbers are stable. Acidosis has been corrected. She still has plenty of fluid to be diuresed. I would recommend that Lasix infusion is dropped down to 4 mg/h as she is possibly going to overshoot her required diuresis resulting in acute kidney kidney insult. No indications for renal replacements currently. 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 Meanwhile she is on IV antibiotics as she is growing MSSA. (3) Gram-positive bacteremia Plan: MSSA. On appropriate antibiotics. Please dose medications for GFR of less than 25 cc/min. (4) Morbid obesity Is this a current diagnosis for this admission?: Yes Plan: Status quo with pickwickian features and a transthoracic echo showing severe pulmonary hypertension. (5) Hypothyroidism Qualifiers: Hypothyroidism type: other Qualified Code(s): E03.8 - Other specified hypothyroidism Is this a current diagnosis for this admission?: Yes Plan: On replacements. (6) Pneumonia Qualifiers: Pneumonia type: due to unspecified organism Laterality: bilateral Lung location: unspecified part of lung Qualified Code(s): J18.9 - Pneumonia, unspecified organism Plan: With parapneumonic effusion. Currently on antibiotics.Latest chest x-ray shows good resolution which is encouraging. (7) Respiratory failure Qualifiers: Chronicity: acute Respiratory failure complication: hypoxia Qualified Code(s): J96.01 - Acute respiratory failure with hypoxia Is this a current diagnosis for this admission?: Yes Plan: Intubated and sedated. (8) Thrombocytopenia Plan: stable now.
[2020-07-10] MEDS ORDERED: PHARMACY COMMUNICATION ORDER MC PRN (10:34)
[2020-07-10] MEDS ORDERED: LIDOCAINE 2%/EPINEPHRINE INJ 1.7 ML CARTRIDGE ONE ×2 (13:31→16:18)
[2020-07-10] MEDS: NORMAL SALINE 1000 ML 1,000 ML IV PRN (13:37)
[2020-07-10] MEDS ORDERED: PROPOFOL INJ 200 MG/20 ML VIAL IV ONE (14:04)
[2020-07-10] MEDS ORDERED: FENTANYL CITRATE INJ/PF 100 MCG/2 ML AMPUL ONE (14:04)
[2020-07-10] MEDS ORDERED: MIDAZOLAM 2 MG/2 ML INJ ONE (14:04)
--- NOTE | 2020-07-10 14:07 | PDOC CRITICAL CARE PROG REPORT ---
General ICU Day:: 12 Ventilator Day:: 12 Hospital Day:: 12 Resuscitation Status: Full Code Events in the past 12 to 24 Hours:: This patient presented in acute respiratory failure.Has been onSBT for at least 24 hours. The patient is sedated with propofol Is not running a fever. Nevertheless, her WBC uis up the past few days. Not having diarrhea. CXR shows a small to moderate right effusion Her tidal volumes are running about 400cc on PS of 20. Her creatinine has stabilized in the high 4 range. However, her urine output has steadilty increased in the past 3 days. Her potassium has actually been on the low side and her bicarb is close to n ormal. 07/07 The patient remains on mechanical ventilation. Her nurse performed a sedation vacation earlier today but the patient desaturated and got hypoxemic within a few minutes. It is my impression at this ppoint that we should try to get her a PEG and trach at this point. her WBC is down a tad today.the cuse of the elevation may be attributable to hydrocortisone. I have a call into Dr Yang to discuss the case. i will reach out to her family as well. 07/08 The patient remains on mechanical ventilation.She did very poorly yesterday when she was taken off sedation. Prospects for weaning at this time appear dismal. I have asked the ENT service to see her in regards to a tracheostomy. I will speak to her parents this afternoon in regards to this. I have placed the patient on a lasix drip to stimulate diuresis. I gave her a dose of Zaroxolyn as well today. Her creatinine was a little lower at 4 this AM. The patient has gained about 10kg of water weight since coming to the ICU. Case discussed with of nephrology. 07/09 The patient remains sedated on the ventilator. i discussed the trach with ENT and her mother. It is to be scheduled for tomorrow. Little change in overall status. Surgery is reluctant to attempt a PEG for suspected intraoperative logistical issues related to her size or post-op issues. Will place a Dobroff tube for now The patient did have a net diuresis of 3 liters in the past 24 hours and her weight went down. Creatinine is hovering about 4. It is unclear how long prior to admission the patient had kidney dysfn. as of 06/29 her creatinine was 2.26. clearly not normal. 07/10 The patient remains on mechanical ventilation. She is to go for tracheostomy today. She continues to diurese nicely on the lasix drip now at 5 mg/hour. Her weight is down quite nicely. Her last 4 blood cultures have been negative. Reason for ICU Addmission:: Acute Respiratory Failure , ARF, intubated, endocarditis MV Physical Exam Vital Signs: Temp Pulse Resp BP Pulse Ox 97.8 F 86 24 H 155/84 H 97 07/10/20 12:00 07/10/20 12:00 07/10/20 12:00 07/10/20 12:00 07/10/20 12:40 Intake & Output 07/09/20 07/10/20 07/11/20 06:59 06:59 06:59 Intake Total 2434 2535 100 Output Total 5515 5740 1750 Balance -6794 -3205 -0090 Weight 178.5 kg 175.2 kg Weight/Height Weight 175.2 kg Height 5 ft 4 in General appearance: PRESENT: morbidly obese Head exam: PRESENT: atraumatic, normocephalic Eye exam: PRESENT: conjunctiva pink, PERRLA Ear exam: PRESENT: normal external ear exam Mouth exam: PRESENT: neck supple Neck exam: ABSENT: JVD, thyromegaly Respiratory exam: PRESENT: decreased breath sounds, unlabored Cardiovascular exam: PRESENT: +S1, +S2 Pulses: PRESENT: normal radial pulses GI/Abdominal exam: PRESENT: normal bowel sounds, soft. ABSENT: tenderness Rectal exam: ABSENT: deferred Gentrourinary exam: ABSENT: ecchymosis Extremities exam: ABSENT: calf tenderness, clubbing Neurological exam: PRESENT: other - the patient remains heavily sedated on the ventilator Laboratory/Radiographs Laboratory Results: 07/10/20 04:05 07/10/20 04:05 07/09/20 07/10/20 07/10/20 19:04 04:05 04:05 WBC 16.7 H RBC 3.31 L Hgb 7.5 L Hct 23.7 L MCV 72 L MCH 22.6 L MCHC 31.6 L RDW 20.0 H Plt Count 163 Seg Neutrophils % Not Reportable Carbonic Acid HCO3/H2CO3 Ratio ABG pH ABG pCO2 ABG pO2 ABG HCO3 ABG O2 Saturation ABG Base Excess FiO2 Sodium 145.8 H Potassium 3.9 Chloride 107 Carbon Dioxide 26 Anion Gap 13 BUN 79 H Creatinine 3.73 H Est GFR ( Amer) 17 L Glucose 97 Calcium 8.9 Blood Type B POSITIVE Antibody Screen NEGATIVE 07/10/20 04:18 WBC RBC Hgb Hct MCV MCH MCHC RDW Plt Count Seg Neutrophils % Carbonic Acid 1.41 H HCO3/H2CO3 Ratio 18:1 ABG pH 7.36 ABG pCO2 46.9 H ABG pO2 97.1 ABG HCO3 25.7 H ABG O2 Saturation 97.1 ABG Base Excess 0 FiO2 35% Sodium Potassium Chloride Carbon Dioxide Anion Gap BUN Creatinine Est GFR ( Amer) Glucose Calcium Blood Type Antibody Screen 06/30/20 06/30/20 07/04/20 03:58 03:58 04:30 Creatine Kinase 188 H NT-Pro-B Natriuret Pep 12658 H 73532 H Impressions: Lower Extremity Ultrasound 06/30/20 00:00 IMPRESSION: 1. Multiphasic waveforms with three-vessel runoff bilaterally. 2. The right dorsalis pedis is not visualized and may be occluded. Diminished, but patent left dorsalis pedis. Chest X-Ray 07/08/20 21:30 IMPRESSION: STABLE APPEARANCE OF THE CHEST. SUPPORT DEVICES UNCHANGED. KUB X-Ray 07/09/20 00:00 IMPRESSION: Dobbhof tube as described. Assessment and Plan - Diagnosis (1) ARF (acute renal failure) Qualifiers: Acute renal failure type: unspecified Qualified Code(s): N17.9 - Acute kidney failure, unspecified Is this a current diagnosis for this admission?: Yes Plan: the patient is still making good urine despite the bump inher creatinine. Her kidneys may be getting a little better in the next few days. Her output has been better. She does have a dialysis catheter inplace presently She is quite a bit volume overloaded oin thepast 4 days. She is ahead about 12 liters in the past 4 days. 07/07 the patient has been diuresing well and creatinine ahs come down a bit It was 4.87 yesterday and 4.29 today. The patient as diuresed well over the past two days. Discussed with the renal service. Potassium and bicarb fairly normal. 07/08 As noted the patient has been given dose of a Zaroxolyn and placed on a lasix drip. If this is unsuccesful she may rerquire dialysis. Has diuresed close 5.5 liters in the past 2 days. Creatinine as noted is a little lower than it's peak. 07/09 Diuresed nicely in the last 24 hours. it appears that she will not likely need dialysis in the immediate future unless her kidney fn. changes. The patient remains on the lasix drip at 10 mg/h 07/10 Patient continues to diurese. Her creatinine is trending down gradually. She remians on a lasix dripat 5 mg/hr. has lost a bunchof weight. 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 Needs six weeks IV antibiotics. Patient had a conformed MV moderate size vegetation on ANGELIA. Will need 6 weeks of abx. The organism is MSSA. The patient is on Ancef. I have asked ID to review her latest findings. 07/07 Discussed the latest findings with ID and asked them to review her care.Last two blood cultures negative Will repeat culture. will repeat ECHO in the next few days to assess the efficacy of treatment. Her last 4 blood cultures are negative. (3) Atypical pneumonia Is this a current diagnosis for this admission?: No (4) Respiratory failure Qualifiers: Chronicity: acute Respiratory failure complication: hypoxia Qualified Cod e(s): J96.01 - Acute respiratory failure with hypoxia Is this a current diagnosis for this admission?: Yes Plan: The patient remains on the ventialtor in acute resp. failure. I am sure she has Obesity-hypoventilation and likely severe ALBA. She may be difficult to wean from the ventilator given her body habitus. Will try her tomorrow on a lower level of support with hwer more awake. Her ABG today showed a bt a of a residual metabolic acidosis with a pAC02 of 40. 07/07 as noted the patient has been on the ventilator more than 1 week without immediate prospect of getting off. I think it would be best to preceeed at this point with trach and PEG. Will discuss with her family. 07/08 The patient is on mechanical ventilation and has been since being admitted 10 days ago.There is no immediate prospect for weaning.We are trying to arrange a trach for the patient. 07/09 Trach is scheduled for tomorrow Critical Time Critical Time (minutes): 35 Level of Care: ICU -: 1. The care of a critical patient is a dynamic process. This note is a inbound sales representative synopsis but static in nature. The timeframe for treatments given in order is not necessarily the actual time these treatments may have been done. 2. This patient requires critical care secondary to ongoing requirements for therapy not offered or safe outside the critical care environment. Transfer to a lower level of care will result in altered life or limb morbidity and mort ality. 3. Multidisciplinary rounds completed. 4. ABCDE bundle addressed.
--- NOTE | 2020-07-10 16:44 | Operative Report ---
Operative Report-[facility] Operative Report: Date: 10 July 2020 History: 29-year-old female who is intubated in the ICU secondary to acute re spiratory failure. Otolaryngology was consulted for tracheostomy placement. Informed consent was obtained from the parents of the patient. Pre-operative diagnosis: 1. Acute respiratory failure 2. Failure to extubate Post operative diagnosis: Same as above 3. Large multinodular goiter Procedure: Tracheostomy Surgeon: Addison Corrales MD, [facility], [facility] Anesthesia: General by endotracheal intubation Procedure: After receiving informed consent from the parents the patient, the patient was transported from the intensive care unit to the operating room and placed supine on the operating room table. The patient was already intubated. A shoulder roll was placed and the neck extended. The cricoid cartilage was difficult to palpate secondary to a goiterous isthmus. An incision was made approximately 2 fingerbreadths above the sternal notch. This was then infiltrated with 2% lidocaine with 100,000 epinephrine. Patient was then prepped draped in a sterile fashion. 15 blade used to make an incision into the subcutaneous tissue. Strap muscles were identified and they were . Dissection proceeded to the trachea where a large nodular isthmus was encountered. This mass extended from the thyroid cartilage inferiorly towards the sternal notch. The isthmus was transected using bipolar cautery, Bovie electrocautery and a LigaSure point where 5 tracheal rings were visualized. Prior to entering the trachea hemostasis of the thyroid was obtained. A hook was placed underneath the cricoid cartilage. Anesthesia was notified about the tracheal cut and then 15 blade was used to make an incision through the intratracheal space above and below the third tracheal ring. Manzo scissors were used to then remove the third tracheal ring. The endotracheal tube was then wit hdrawn to a point just superior to the second tracheal ring. Mucus was suctioned from the trachea tracheal hand woven carpet and rug mender was placed and then a 6 cuffed Shiley tracheostomy tube was then placed into the trachea. The balloon was insufflated and the inner cannula placed. The anesthesia circuit was then connected to the inner cannula and confirmed proper placement of the trachea with return of end-tidal CO2 and good oxygenation. The tracheostomy was then secured to the skin with four 2-0 silk sutures 2 on either side. A trach tie was then secured around the neck. The patient tolerated the procedure well. The patient was then given back to anesthesia. The patient was then transported to the intensive care unit in stable condition. Estimated blood loss: 10 mL Fluids: 450 mL The patient was then transported to the intensive care unit in stable condition.
[2020-07-10] MEDS: NORMAL SALINE 250 ML with FUROSEMIDE 250 MG IV PRN ×2 (17:20)
[2020-07-10] MEDS: PHARMACY COMMUNICATION ORDER MC SCH (18:01)
[2020-07-11] MEDS: HYDROCORTISONE SOD SUCCINATE INJ/PF 100 MG/2 ML SDV IV SCH ×2 (02:39→13:35)
[2020-07-11] MEDS: HEPARIN SOD (PORCINE) 5,000 UNIT/ML 1 ML VIAL SUBCUT SCH ×3 (05:44→21:14)
[2020-07-11] MEDS: LEVOTHYROXINE SODIUM 0.025 MG TABLET NG SCH (05:44)
[2020-07-11] MEDS: LEVOTHYROXINE SODIUM 0.1 MG TABLET NG SCH (05:44)
[2020-07-11] MEDS: PROPOFOL 1,000 MG/100 ML INFUS..BTL IV PRN ×2 (05:45→11:35)
[2020-07-11] MEDS: NORMAL SALINE 1000 ML 1,000 ML IV PRN (05:46)
[2020-07-11] MEDS: FAMOTIDINE INJ/PF 20 MG/2 ML SDV IV SCH ×2 (09:07→21:14)
[2020-07-11 09:31] LABS: HEMATOCRIT 24.8 % (36.0-47.0); MEAN CORPUSCULAR HEMOGLOBIN 22.5 pg (27.0-33.4); MEAN CORPUSCULAR HGB CONC 31.3 g/dL (32.0-36.0); MEAN CORPUSCULAR VOLUME 72 fl (80-97); PLATELET COUNT 154 10^3/uL (150-450); RED BLOOD COUNT 3.45 10^6/uL (3.72-5.28); RED CELL DISTRIBUTION WIDTH 20.5 % (11.5-14.0); WHITE BLOOD COUNT 21.2 10^3/uL (4.0-10.5)
[2020-07-11 09:45] LABS: ANION GAP 13 (5-19); BLOOD UREA NITROGEN 80 mg/dL (7-20); CALCIUM 8.7 mg/dL (8.4-10.2); CARBON DIOXIDE 25 mmol/L (22-30); CHLORIDE 107 mmol/L (98-107); GLUCOSE 112 mg/dL (75-110); POTASSIUM 3.8 mmol/L (3.6-5.0)
[2020-07-11 10:20] LABS: ABSOLUTE LYMPHOCYTES# (MANUAL) 0.4 10^3/uL (0.5-4.7); ABSOLUTE MONOCYTES # (MANUAL) 1.1 10^3/uL (0.1-1.4); BAND NEUTROPHILS % (MANUAL) 1 % (3-5); BASOPHILS % (MANUAL) 0 % (0-2); EOSINOPHILS % (MANUAL) 1 % (0-6); LYMPHOCYTES % (MANUAL) 2 % (13-45); MONOCYTES % (MANUAL) 5 % (3-13); SEGMENTED NEUTROPHILS % (MAN) 91 % (42-78); TOTAL CELLS COUNTED 100
[2020-07-11 10:22] LABS: ANISOCYTOSIS 2+; HYPOCHROMASIA 1+; OVALOCYTES 1+; PLATELET CLUMPS PRESENT; PLATELET COMMENT ADEQUATE
[2020-07-11 10:24] LABS: HEMOGLOBIN 7.8 g/dL (12.0-15.5)
[2020-07-11] MEDS: CEFAZOLIN SODIUM 2 GM in DEXTROSE 5%-WATER 100 ML IV SCH ×2 (10:48→21:14)
[2020-07-11] MEDS: POTASSIUM CHLORIDE 20 MEQ PACKET NG SCH (10:49)
--- NOTE | 2020-07-11 11:01 | RADIOLOGY REPORT (SQ) ---
EXAM DESCRIPTION: VENOUS UNILATERAL UPPER IMAGES COMPLETED DATE/TIME: 07/11/2020 10:39 am REASON FOR STUDY: right arm swelling and redness COMPARISON: None. TECHNIQUE: Dynamic and static hamlin scale and color images acquired of the right arm venous system. S elected spectral images acquired with additional compression and augmentation maneuvers. Images stor ed on PACS. LIMITATIONS: Morbidly obese, right jugular central line limited visualization of the right jugular v ein. FINDINGS: RIGHT INTERNAL JUGULAR VEIN: Could not visualized due to bandaging over the right internal jugular central line SUBCLAVIAN VEIN: Normal compression, augmentation. No visualized echogenic material on hamlin scale. No defects on color images. AXILLARY VEIN: Normal compression, augmentation. No visualized echogenic material on hamlin scale. No d efects on color images. BRACHIAL VEIN: Normal compression, augmentation. No visualized echogenic material on hamlin scale. No d efects on color images. BASILIC VEIN: Normal compression, augmentation. No visualized echogenic material on hamlin scale. No de fects on color images. CEPHALIC VEIN: Acute hypoechoic clot occludes the cephalic vein in the antecubital fossa OTHER: No other significant finding. IMPRESSION: Acute hypoechoic clot occludes the cephalic vein in the antecubital fossa TECHNICAL DOCUMENTATION: JOB ID: [id number] 2010 [employer]- All Rights Reserved Reading location - IP/workstation name: [email or web address]
--- NOTE | 2020-07-11 13:57 | PDOC CRITICAL CARE PROG REPORT ---
General Date:: 07/11/20 ICU Day:: 13 Ventilator Day:: 13 Hospital Day:: 13 Resuscitation Status: Full Code Events in the past 12 to 24 Hours:: This patient presented in acute respiratory failure.Has been onSBT for at least 24 hours. The patient is sedated with propofol Is not running a fever. Nevertheless, her WBC uis up the past few days. Not having diarrhea. CXR shows a small to moderate right effusion Her tidal volumes are running about 400cc on PS of 20. Her creatinine has stabilized in the high 4 range. However, her urine output has steadilty increased in the past 3 days. Her potassium has actually been on the low side and her bicarb is close to normal. 07/07 The patient remains on mechanical ventilation. Her nurse performed a sedation vacation earlier today but the patient desaturated and got hypoxemic within a few minutes. It is my impression at this ppoint that we should try to get her a PEG and trach at this point. her WBC is down a tad today.the cuse of the elevation may be attributable to hydrocortisone. I have a call into Dr Yang to discuss the case. i will reach out to her family as well. 07/08 The patient remains on mechanical ventilation.She did very poorly yesterday when she was taken off sedation. Prospects for weaning at this time appear dismal. I have asked the ENT service to see her in regards to a tracheostomy. I will speak to her parents this afternoon in regards to this. I have placed the patient on a lasix drip to stimulate diuresis. I gave her a dose of Zaroxolyn as well today. Her creatinine was a little lower at 4 this AM. The patient has gained about 10kg of water weight since coming to the ICU. Case discussed with of nephrology. 07/09 The patient remains sedated on the ventilator. i discussed the trach with ENT and her mother. It is to be scheduled for tomorrow. Little change in overall status. Surgery is reluctant to attempt a PEG for suspected intraoperative logistical issues related to her size or post-op issues. Will place a Dobroff tube for now The patient did have a net diuresis of 3 liters in the past 24 hours and her weight went down. Creatinine is hovering about 4. It is unclear how long prior to admission the patient had kidney dysfn. as of 06/29 her creatinine was 2.26. clearly not normal. 07/10 The patient remains on mechanical ventilation. She is to go for tracheostomy today. She continues to diurese nicely on the lasix drip now at 5 mg/hour. Her weight is down quite nicely. Her last 4 blood cultures have been negative. Reason for ICU Addmission:: Acute Respiratory Failure , ARF, intubated, en docarditis MV - Medications: Medications reviewed and adjusted accordingly: Yes Physical Exam Vital Signs: Temp Pulse Resp BP Pulse Ox 98.9 F 94 14 119/95 H 100 07/11/20 10:00 07/11/20 12:00 07/11/20 12:00 07/11/20 12:00 07/11/20 12:00 Intake & Output 07/10/20 07/11/20 07/12/20 06:59 06:59 06:59 Intake Total 2535 1816 240 Output Total 5740 5670 625 Balance -3105 -3854 -385 Weight 175.2 kg 169.7 kg Weight/Height Weight 169.7 kg Height 5 ft 4 in General appearance: PRESENT: mild distress, morbidly obese Head exam: PRESENT: atraumatic, normocephalic Eye exam: PRESENT: conjunctiva pink Ear exam: PRESENT: normal external ear exam Mouth exam: PRESENT: moist Neck exam: PRESENT: full ROM, tracheostomy. ABSENT: tracheal deviation Respiratory exam: ABSENT: accessory muscle use, retraction Cardiovascular exam: PRESENT: RRR, +S1, +S2 Pulses: PRESENT: normal carotid pulses GI/Abdominal exam: PRESENT: soft. ABSENT: guarding, tenderness Rectal exam: PRESENT: deferred Gentrourinary exam: ABSENT: ecchymosis, erythema Extremities exam: ABSENT: joint swelling Musculoskeletal exam: PRESENT: normal inspection Neurological exam: PRESENT: alert Psychiatric exam: PRESENT: depressed Skin exam: PRESENT: mottled, other - Mottled to necrotic appearing toes on both feet. Little change since I came on several days ago Laboratory/Radiographs Laboratory Results: 07/11/20 09:00 07/11/20 09:00 07/11/20 07/11/20 09:00 09:00 WBC 21.2 H RBC 3.45 L Hgb 7.8 L Hct 24.8 L MCV 72 L MCH 22.5 L MCHC 31.3 L RDW 20.5 H Plt Count 154 Seg Neutrophils % Not Reportable Sodium 145.2 H Potassium 3.8 Chloride 107 Carbon Dioxide 25 Anion Gap 13 BUN 80 H Creatinine 3.65 H Est GFR ( Amer) 18 L Glucose 112 H Calcium 8.7 06/30/20 06/30/20 07/04/20 03:58 03:58 04:30 Creatine Kinase 188 H NT-Pro-B Natriuret Pep 17562 H 37819 H Impressions: Lower Extremity Ultrasound 06/30/20 00:00 IMPRESSION: 1. Multiphasic waveforms with three-vessel runoff bilaterally. 2. The right dorsalis pedis is not visualized and may be occluded. Diminished, but patent left dorsalis pedis. Chest X-Ray 07/08/20 21:30 IMPRESSION: STABLE APPEARANCE OF THE CHEST. SUPPORT DEVICES UNCHANGED. KUB X-Ray 07/09/20 00:00 IMPRESSION: Dobbhof tube as described. Venous Doppler Study 07/11/20 00:00 IMPRESSION: Acute hypoechoic clot occludes the cephalic vein in the antecubital fossa Assessment and Plan - Diagnosis (1) ARF (acute renal failure) Qualifiers: Acute renal failure type: unspecified Qualified Code(s): N17.9 - Acute kidney failure, unspecified Is this a current diagnosis for this admission?: Yes Plan: the patient is still making good urine despite the bump inher creatinine. Her kidneys may be getting a little better in the next few days. Her output has been better. She does have a dialysis catheter inplace presently She is quite a bit volume overloaded oin thepast 4 days. She is ahead about 12 liters in the past 4 days. 07/07 the patient has been diuresing well and creatinine ahs come down a bit It was 4.87 yesterday and 4.29 today. The patient as diuresed well over the past two days. Discussed with the renal service. Potassium and bicarb fairly normal. 07/08 As noted the patient has been given dose of a Zaroxolyn and placed on a lasix drip. If this is unsuccesful she may rerquire dialysis. Has diuresed close 5.5 liters in the past 2 days. Creatinine as noted is a little lower than it's peak. 07/09 Diuresed nicely in the last 24 hours. it appears that she will not likely need dialysis in the immediate future unless her kidney fn. changes. The patient remains on the lasix drip at 10 mg/h 07/10 Patient continues to diurese. Her creatinine is trending down gradually. She remians on a lasix dripat 5 mg/hr. has lost a bunchof weight. 07/11 The patient has continued to have an impressive diuresis. i beljudieeve we may have reached thepoint of diminishng returns so I am going to stop the lasix drip. her weight is down at least 10 kg. 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 Needs six weeks IV antibiotics. Patient had a conformed MV moderate size vegetation on ANGELAI. Will need 6 weeks of abx. The organism is MSSA. The patient is on Ancef. I have asked ID to review her latest findings. 07/07 Discussed the latest findings with ID and asked them to review her care.Last two blood cultures negative Will repeat culture. will repeat ECHO in the next few days to assess the efficacy of treatment. Her last 4 blood cultures are negative. (3) Atypical pneumonia Is this a current diagnosis for this admission?: No Plan: May have a Staph or atypical pneumonia. Her FI02 is fairly lkow and unchanged thepast few days ( 30%). ]07/07 don't see clear evidence of pneummonitis presently. (4) Respiratory failure Qualifiers: Chronicity: acute Respiratory failure complication: hypoxia Qualified Code(s): J96.01 - Acute respiratory failure with hypoxia Is this a current diagnosis for this admission?: Yes Plan: The patient remains on the ventialtor in acute resp. failure. I am sure she has Obesity-hypoventilation and likely severe ALBA. She may be difficult to wean from the ventilator given her body habitus. Will try her tomorrow on a lower level of support with hwer more awake. Her ABG today showed a bt a of a residual metabolic acidosis with a pAC02 of 40. 07/07 as noted the patient has been on the ventilator more than 1 week without immediate prospect of getting off. I think it would be best to preceeed at this point with trach and PEG. Will discuss with her family. 07/08 The patient is on mechanical ventilation and has been since being admitted 10 days ago.There is no immediate prospect for weaning.We are trying to arrange a trach for the patient. 07/09 Trach is scheduled for tomorrow 07/11 The patient has had her trach.We have awoken her and she is presently on a low IMV rate on the ventilator. Critical Time Critical Time (minutes): 25 Level of Care: ICU -: 1. The care of a critical patient is a dynamic process. This note is a truck sales representative synopsis but static in nature. The timeframe for treatments given in order is not necessarily the actual time these treatments may have been done. 2. This patient requires critical care secondary to ongoing requirements for therapy not offered or safe outside the critical care environment. Transfer to a lower level of care will result in altered life or limb morbidity and mortality. 3. Multidisciplinary rounds completed. 4. ABCDE bundle addressed.
[2020-07-11] MEDS ORDERED: DEXMEDETOMIDINE IN 0.9 % NACL 400 MCG/100 ML RTUPB IV ONE (14:56)
[2020-07-11] MEDS: DEXMEDETOMIDINE IN NS 400 MCG/100 ML RTUPB IV PRN ×3 (15:00→21:51)
[2020-07-12] MEDS: DEXMEDETOMIDINE IN NS 400 MCG/100 ML RTUPB IV PRN ×9 (00:42→21:51)
[2020-07-12] MEDS: HYDROCORTISONE SOD SUCCINATE INJ/PF 100 MG/2 ML SDV IV SCH ×2 (01:45→13:55)
[2020-07-12] MEDS: HEPARIN SOD (PORCINE) 5,000 UNIT/ML 1 ML VIAL SUBCUT SCH ×3 (05:13→21:47)
[2020-07-12] MEDS: LEVOTHYROXINE SODIUM 0.025 MG TABLET NG SCH (05:13)
[2020-07-12] MEDS: LEVOTHYROXINE SODIUM 0.1 MG TABLET NG SCH (05:13)
[2020-07-12] MEDS ORDERED: HYDRALAZINE HCL INJ/PF 20 MG/1 ML SDV ONE ×2 (05:17→22:38)
[2020-07-12] MEDS ORDERED: HYDRALAZINE HCL INJ/PF 20 MG/1 ML SDV IV ONE ×2 (05:18→22:37)
[2020-07-12] MEDS: NORMAL SALINE 1000 ML 1,000 ML IV PRN (05:31)
[2020-07-12 06:29] LABS: HEMATOCRIT 25.2 % (36.0-47.0); MEAN CORPUSCULAR HEMOGLOBIN 22.5 pg (27.0-33.4); MEAN CORPUSCULAR HGB CONC 30.8 g/dL (32.0-36.0); MEAN CORPUSCULAR VOLUME 73 fl (80-97); PLATELET COUNT 150 10^3/uL (150-450); RED BLOOD COUNT 3.45 10^6/uL (3.72-5.28); RED CELL DISTRIBUTION WIDTH 20.4 % (11.5-14.0); WHITE BLOOD COUNT 18.8 10^3/uL (4.0-10.5)
[2020-07-12 06:42] LABS: ALBUMIN 3.2 g/dL (3.5-5.0); ALKALINE PHOSPHATASE 68 U/L (38-126); ANION GAP 14 (5-19); ASPARTATE AMINO TRANSFERASE 19 U/L (14-36); BILIRUBIN,DIRECT 0.5 mg/dL (0.0-0.4); BILIRUBIN,TOTAL 0.7 mg/dL (0.2-1.3); BLOOD UREA NITROGEN 81 mg/dL (7-20); CALCIUM 8.9 mg/dL (8.4-10.2); CARBON DIOXIDE 28 mmol/L (22-30); CHLORIDE 105 mmol/L (98-107); GLUCOSE 131 mg/dL (75-110); POTASSIUM 3.6 mmol/L (3.6-5.0); TOTAL PROTEIN 6.7 g/dL (6.3-8.2)
[2020-07-12 07:41] LABS: HEMOGLOBIN 7.8 g/dL (12.0-15.5)
[2020-07-12 07:42] LABS: ABSOLUTE LYMPHOCYTES# (MANUAL) 0.8 10^3/uL (0.5-4.7); ABSOLUTE MONOCYTES # (MANUAL) 1.1 10^3/uL (0.1-1.4); ANISOCYTOSIS 2+; BASOPHILS % (MANUAL) 0 % (0-2); EOSINOPHILS % (MANUAL) 1 % (0-6); HYPOCHROMASIA SLIGHT; LYMPHOCYTES % (MANUAL) 4 % (13-45); MONOCYTES % (MANUAL) 6 % (3-13); OVALOCYTES 1+; PLATELET COMMENT ADEQUATE; SEGMENTED NEUTROPHILS % (MAN) 89 % (42-78); TOTAL CELLS COUNTED 100
[2020-07-12 07:58] LABS: ARTERIAL BLOOD BASE EXCESS 1.9 mmol/L; ARTERIAL BLOOD FIO2 35%; ARTERIAL BLOOD H2CO3 1.31 mmol/L (1.05-1.35); ARTERIAL BLOOD HCO3 26.8 mmol/L (20-24); ARTERIAL BLOOD O2 SATURATION 98.3 % (94-98); ARTERIAL BLOOD PCO2 43.5 mmHg (35-45); ARTERIAL BLOOD PH 7.41 (7.35-7.45); ARTERIAL BLOOD PO2 117.1 mmHg (80-100); ARTERIAL BLOOD TOTAL CO2 28.1 mmol/L (21-25)
[2020-07-12] MEDS: FAMOTIDINE INJ/PF 20 MG/2 ML SDV IV SCH ×2 (09:12→21:49)
[2020-07-12] MEDS: POTASSIUM CHLORIDE 20 MEQ PACKET NG SCH (09:15)
[2020-07-12] MEDS: CEFAZOLIN SODIUM 2 GM in DEXTROSE 5%-WATER 100 ML IV SCH ×2 (10:12→21:48)
--- NOTE | 2020-07-12 12:22 | RADIOLOGY REPORT (SQ) ---
EXAM DESCRIPTION: CHEST SINGLE VIEW IMAGES COMPLETED DATE/TIME: 07/12/2020 10:08 am REASON FOR STUDY: respiratory Failure COMPARISON: Chest films 07/03/2020, 07/05/2020, 07/07/2020, 07/08/2020 EXAM PARAMETERS: NUMBER OF VIEWS: One view. TECHNIQUE: Single frontal radiographic view of the chest acquired. RADIATION DOSE: NA LIMITATIONS: Obese patient, lordotic portable technique FINDINGS: LUNGS AND PLEURA: Minimal persistent perihilar pulmonary infiltrates. No dense lobar consolidation. No pleural effusion or pneumothorax. MEDIASTINUM AND HILAR STRUCTURES: No masses. Contour normal. HEART AND VASCULAR STRUCTURES: Stable marked cardiomegaly BONES: Next HARDWARE: Unchanged tracheostomy tube, right jugular central line, nasoenteric feeding tube. OTHER: No other significant finding. IMPRESSION: Minimal persistent perihilar pulmonary edema TECHNICAL DOCUMENTATION: JOB ID: [id number] 2010 [employer]- All Rights Reserved Reading location - IP/workstation name: [email or web address]
--- NOTE | 2020-07-12 12:49 | PDOC CRITICAL CARE PROG REPORT ---
General Date:: 07/12/20 ICU Day:: 14 Ventilator Day:: 14 Hospital Day:: 14 Resuscitation Status: Full Code Events in the past 12 to 24 Hours:: This patient presented in acute respiratory failure.Has been onSBT for at least 24 hours. The patient is sedated with propofol Is not running a fever. Nevertheless, her WBC uis up the past few days. Not having diarrhea. CXR shows a small to moderate right effusion Her tidal volumes are running about 400cc on PS of 20. Her creatinine has stabilized in the high 4 range. However, her urine output has steadilty increased in the past 3 days. Her potassium has actually been on the low side and her bicarb is close to normal. 07/07 The patient remains on mechanical ventilation. Her nurse performed a sedation vacation earlier today but the patient desaturated and got hypoxemic within a few minutes. It is my impression at this ppoint that we should try to get her a PEG and trach at this point. her WBC is down a tad today.the cuse of the elevation may be attributable to hydrocortisone. I have a call into Dr Yang to discuss the case. i will reach out to her family as well. 07/08 The patient remains on mechanical ventilation.She did very poorly yesterday when she was taken off sedation. Prospects for weaning at this time appear dismal. I have asked the ENT service to see her in regards to a tracheostomy. I will speak to her parents this afternoon in regards to this. I have placed the patient on a lasix drip to stimulate diuresis. I gave her a dose of Zaroxolyn as well today. Her creatinine was a little lower at 4 this AM. The patient has gained about 10kg of water weight since coming to the ICU. Case discussed with of nephrology. 07/09 The patient remains sedated on the ventilator. i discussed the trach with ENT and her mother. It is to be scheduled for tomorrow. Little change in overall status. Surgery is reluctant to attempt a PEG for suspected intraoperative logistical issues related to her size or post-op issues. Will place a Dobroff tube for now The patient did have a net diuresis of 3 liters in the past 24 hours and her weight went down. Creatinine is hovering about 4. It is unclear how long prior to admission the patient had kidney dysfn. as of 06/29 her creatinine was 2.26. clearly not normal. 07/10 The patient remains on mechanical ventilation. She is to go for tracheostomy today. She continues to diurese nicely on the lasix drip now at 5 mg/hour. Her weight is down quite nicely. Her last 4 blood cultures have been negative. 07/12 The patient is doing ok. Has been on PS of 12 all morning without difficulties. her TVs are >500-600cc. We have stopped the lasix drip. her soidium is up to 147 and her bicarb has risen a little so I beleieve we have dried her out sufficiently. She has a Dobroff tube in and is getting fed through it. The patient did have alow grade temp this Am of about 100. Reason for ICU Addmission:: Acute Respiratory Failure , ARF, intubated, endocarditis MV Physical Exam Vital Signs: Temp Pulse Resp BP Pulse Ox 100.6 F H 73 27 H 142/85 H 98 07/12/20 10:00 07/12/20 12:00 07/12/20 12:00 07/12/20 12:00 07/12/20 12:00 Intake & Output 07/11/20 07/12/20 07/13/20 06:59 06:59 06:59 Intake Total 1816 2683 189 Output Total 5670 3225 675 Balance -3854 -542 -486 Weight 169.7 kg 167.4 kg Weight/Height Weight 167.4 kg Height 5 ft 4 in General appearance: PRESENT: no acute distress, morbidly obese Head exam: PRESENT: atraumatic, normocephalic Eye exam: PRESENT: PERRLA. ABSENT: EOMI, scleral icterus Ear exam: PRESENT: normal external ear exam Mouth exam: PRESENT: moist Neck exam: PRESENT: full ROM, tracheostomy. ABSENT: lymphadenopathy, tenderness, thyromegaly Respiratory exam: PRESENT: accessory muscle use Cardiovascular exam: PRESENT: RRR, +S1, +S2 Pulses: PRESENT: normal carotid pulses GI/Abdominal exam: PRESENT: normal bowel sounds, soft. ABSENT: tenderness Gentrourinary exam: PRESENT: indwelling catheter Extremities exam: PRESENT: other - The mottling on the toes have become better demarcated. ABSENT: calf tenderness, clubbing Neurological exam: PRESENT: awake - patient lies withher eyes closed but is arousable. Laboratory/Radiographs Laboratory Results: 07/12/20 05:45 07/12/20 05:45 07/12/20 07/12/20 07/12/20 05:45 05:45 05:45 WBC 18.8 H RBC 3.45 L Hgb 7.8 L Hct 25.2 L MCV 73 L MCH 22.5 L MCHC 30.8 L RDW 20.4 H Plt Count 150 Seg Neutrophils % Not Reportable Carbonic Acid Cancelled HCO3/H2CO3 Ratio Cancelled ABG pH Cancelled ABG pCO2 Cancelled ABG pO2 Cancelled ABG HCO3 Cancelled ABG O2 Saturation Cancelled ABG Base Excess Cancelled FiO2 Cancelled Sodium 146.9 H Potassium 3.6 Chloride 105 Carbon Dioxide 28 Anion Gap 14 BUN 81 H Creatinine 3.59 H Est GFR ( Amer) 18 L Glucose 131 H Calcium 8.9 Total Bilirubin 0.7 AST 19 Alkaline Phosphatase 68 Total Protein 6.7 Albumin 3.2 L 07/12/20 06:58 WBC RBC Hgb Hct MCV MCH MCHC RDW Plt Count Seg Neutrophils % Carbonic Acid 1.31 HCO3/H2CO3 Ratio 20:1 ABG pH 7.41 ABG pCO2 43.5 ABG pO2 117.1 H ABG HCO3 26.8 H ABG O2 Saturation 98.3 H ABG Base Excess 1.9 FiO2 35% Sodium Potassium Chloride Carbon Dioxide Anion Gap BUN Creatinine Est GFR ( Amer) Glucose Calcium Total Bilirubin AST Alkaline Phosphatase Total Protein Albumin 06/30/20 06/30/20 07/04/20 03:58 03:58 04:30 Creatine Kinase 188 H NT-Pro-B Natriuret Pep 61264 H 81558 H Impressions: Lower Extremity Ultrasound 06/30/20 00:00 IMPRESSION: 1. Multiphasic waveforms with three-vessel runoff bilaterally. 2. The right dorsalis pedis is not visualized and may be occluded. Diminished, but patent left dorsalis pedis. KUB X-Ray 07/09/20 00:00 IMPRESSION: Dobbhof tube as described. Venous Doppler Study 07/11/20 00:00 IMPRESSION: Acute hypoechoic clot occludes the cephalic vein in the antecubital fossa Chest X-Ray 07/12/20 00:00 IMPRESSION: Minimal persistent perihilar pulmonary edema Assessment and Plan - Diagnosis (1) ARF (acute renal failure) Qualifiers: Acute renal failure type: unspecified Qualified Code(s): N17.9 - Acute kidney failure, unspecified Is this a current diagnosis for this admission?: Yes Plan: the patient is still making good urine despite the bump inher creatinine. Her kidneys may be getting a little better in the next few days. Her output has been better. She does have a dialysis catheter inplace presently She is quite a bit volume overloaded oin thepast 4 days. She is ahead about 12 liters in the past 4 days. 07/07 the patient has been diuresing well and creatinine has come down a bit It was 4.87 yesterday and 4.29 today. The patient as diuresed well over the past two days. Discussed with the renal service. Potassium and bicarb fairly normal. 07/08 As noted the patient has been given dose of a Zaroxolyn and placed on a lasix drip. If this is unsuccesful she may rerquire dialysis. Has diuresed close 5.5 liters in the past 2 days. Creatinine as noted is a little lower than it's peak. 07/09 Diuresed nicely in the last 24 hours. it appears that she will not likely need dialysis in the immediate future unless her kidney fn. changes. The patient remains on the lasix drip at 10 mg/h 07/10 Patient continues to diurese. Her creatinine is trending down gradually. She remains on a lasix dripat 5 mg/hr. has lost a bunchof weight. 07/11 The patient has continued to have an impressive diuresis. I believe we may have reached the point of diminishng returns so I am going to stop the lasix drip. her weight is down at least 10 kg. 07/12 lasix infusion stopped. 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 Needs six weeks IV antibiotics. Patient had a conformed MV moderate size vegetation on ANGELIA. Will need 6 weeks of abx. The organism is MSSA. The patient is on Ancef. I have asked ID to review her latest findings. 07/07 Discussed the latest findings with ID and asked them to review her care.Last two blood cultures negative Will repeat culture. will repeat ECHO in the next few days to assess the efficacy of treatment. Her last 4 blood cultures are negative. 07/12. Last several cultures are negative . Will likely need repeat ANGELIA. (3) Respiratory failure Qualifiers: Chronicity: acute Respiratory failure complication: hypoxia Qualified Code(s): J96.01 - Acute respiratory failure with hypoxia Is this a current diagnosis for this admission?: Yes Plan: The patient remains on the ventialtor in acute resp. failure. I am sure she has Obesity-hypoventilation and likely severe ALBA. She may be difficult to wean from the ventilator given her body habitus. Will try her tomorrow on a lower level of support with hwer more awake. Her ABG today showed a bt a of a residual metabolic acidosis with a pAC02 of 40. 07/07 as noted the patient has been on the ventilator more than 1 week without immediate prospect of getting off. I think it would be best to preceeed at this point with trach and PEG. Will discuss with her family. 07/08 The patient is on mechanical ventilation and has been since being admitted 10 days ago.There is no immediate prospect for weaning.We are trying to arrange a trach for the patient. 07/09 Trach is scheduled for tomorrow 07/11 The patient has had her trach.We have awoken her and she is presently on a low IMV rate on the ventilator. 07/12 The patient has been on SBT all morning. Liliane ch ventialtory assistance at night. Critical Time Critical Time (minutes): 25 Level of Care: ICU -: 1. The care of a critical patient is a dynamic process. This note is a representative personal service synopsis but static in nature. The timeframe for treatments given in order is not necessarily the actual time these treatments may have been done. 2. This patient requires critical care secondary to ongoing requirements for therapy not offered or safe outside the critical care environment. Transfer to a lower level of care will result in altered life or limb morbidity and mortality. 3. Multidisciplinary rounds completed. 4. ABCDE bundle addressed.
[2020-07-12] MEDS: LABETALOL HCL INJ 20 MG/4 ML DISP.SYRIN IV PRN (22:12)
[2020-07-12] MEDS ORDERED: FENTANYL CITRATE INJ/PF 100 MCG/2 ML AMPUL ONE (23:01)
[2020-07-12] MEDS ORDERED: FENTANYL CITRATE INJ/PF 100 MCG/2 ML AMPUL IV ONE (23:01)
[2020-07-13] MEDS: DEXMEDETOMIDINE IN NS 400 MCG/100 ML RTUPB IV PRN ×6 (00:15→11:06)
[2020-07-13] MEDS: HYDROCORTISONE SOD SUCCINATE INJ/PF 100 MG/2 ML SDV IV SCH ×2 (02:36→13:47)
[2020-07-13 04:19] LABS: ABSOLUTE BASOPHILS # (AUTO) 0.1 10^3/uL (0.0-0.2); ABSOLUTE EOSINOPHILS # (AUTO) 0.1 10^3/uL (0.0-0.6); ABSOLUTE LYMPHOCYTES (AUTO) 1.1 10^3/uL (0.5-4.7); ABSOLUTE MONOCYTES (AUTO) 1.9 10^3/uL (0.1-1.4); ABSOLUTE NEUT (AUTO) 12.1 10^3/uL (1.7-8.2); BASOPHILS % (AUTO) 0.8 % (0-2); EOSINOPHILS % (AUTO) 0.9 % (0-6); HEMATOCRIT 24.3 % (36.0-47.0); LYMPHOCYTES % (AUTO) 7.4 % (13-45); MEAN CORPUSCULAR HEMOGLOBIN 22.6 pg (27.0-33.4); MEAN CORPUSCULAR HGB CONC 30.7 g/dL (32.0-36.0); MEAN CORPUSCULAR VOLUME 74 fl (80-97); MONOCYTES % (AUTO) 12.3 % (3-13); PLATELET COUNT 142 10^3/uL (150-450); RED BLOOD COUNT 3.31 10^6/uL (3.72-5.28); RED CELL DISTRIBUTION WIDTH 20.1 % (11.5-14.0); SEGMENTED NEUTROPHILS % (AUTO) 78.6 % (42-78); TOTAL CELLS COUNTED % (AUTO) 100 %; WHITE BLOOD COUNT 15.4 10^3/uL (4.0-10.5)
[2020-07-13 04:23] LABS: HEMOGLOBIN 7.5 g/dL (12.0-15.5)
[2020-07-13 04:32] LABS: ALKALINE PHOSPHATASE 63 U/L (38-126); ANION GAP 9 (5-19); ASPARTATE AMINO TRANSFERASE 22 U/L (14-36); BILIRUBIN,DIRECT 0.5 mg/dL (0.0-0.4); BILIRUBIN,TOTAL 0.6 mg/dL (0.2-1.3); BLOOD UREA NITROGEN 82 mg/dL (7-20); CALCIUM 9.2 mg/dL (8.4-10.2); CARBON DIOXIDE 28 mmol/L (22-30); CHLORIDE 111 mmol/L (98-107); GLUCOSE 138 mg/dL (75-110); POTASSIUM 3.8 mmol/L (3.6-5.0); TOTAL PROTEIN 6.4 g/dL (6.3-8.2)
[2020-07-13] MEDS: HEPARIN SOD (PORCINE) 5,000 UNIT/ML 1 ML VIAL SUBCUT SCH ×3 (05:25→22:21)
[2020-07-13] MEDS: LEVOTHYROXINE SODIUM 0.025 MG TABLET NG SCH (05:26)
[2020-07-13] MEDS: LEVOTHYROXINE SODIUM 0.1 MG TABLET NG SCH (05:26)
[2020-07-13] MEDS: CEFAZOLIN SODIUM 2 GM in DEXTROSE 5%-WATER 100 ML IV SCH ×2 (09:55→22:20)
[2020-07-13] MEDS: FAMOTIDINE INJ/PF 20 MG/2 ML SDV IV SCH ×2 (09:57→22:21)
[2020-07-13] MEDS: POTASSIUM CHLORIDE 20 MEQ PACKET NG SCH (10:00)
[2020-07-13] MEDS: ALBUTEROL SULFATE 0.083% NEB 2.5 MG/3 ML AMPUL NEB PRN ×2 (13:40→19:48)
--- NOTE | 2020-07-13 14:22 | PDOC CRITICAL CARE PROG REPORT ---
General Date:: 07/13/20 ICU Day:: 14 Ventilator Day:: 14 Hospital Day:: 14 Resuscitation Status: Full Code Events in the past 12 to 24 Hours:: Patient's precedex is being weaned down. Review of systems relevant to events:: Neurological, CV pulmonary. Reason for ICU Addmission:: Acute Respiratory Failure , ARF, intubated, endocarditis MV - Medications: Medications reviewed and adjusted accordingly: Yes Vasopressors:: None Sedation:: Low dose Precedex. Physical Exam Vital Signs: Temp Pulse Resp BP Pulse Ox 100.9 F H 66 30 H 122/90 H 96 07/13/20 12:00 07/13/20 13:40 07/13/20 13:40 07/13/20 12:00 07/13/20 13:40 Intake & Output 07/12/20 07/13/20 07/14/20 06:59 06:59 06:59 Intake Total 2683 2472 628 Output Total 3225 2395 445 Balance -542 77 183 Weight 167.4 kg 167.3 kg Weight/Height Weight 167.3 kg Height 5 ft 4 in General appearance: PRESENT: no acute distress, morbidly obese Head exam: PRESENT: atraumatic, normocephalic Eye exam: PRESENT: conjunctiva pink, PERRLA. ABSENT: scleral icterus Ear exam: PRESENT: normal external ear exam Mouth exam: PRESENT: moist, tongue midline Neck exam: PRESENT: tracheostomy Respiratory exam: PRESENT: clear to auscultation beatriz. ABSENT: rales, rhonchi, wheezes Cardiovascular exam: PRESENT: RRR. ABSENT: diastolic murmur, rubs, systolic murmur GI/Abdominal exam: PRESENT: normal bowel sounds, soft. ABSENT: distended, guarding, mass, organolmegaly, rebound, tenderness Rectal exam: PRESENT: deferred Extremities exam: PRESENT: other - R third toe is black in the distal half. Scattered acrocyanosis a bit improved Neurological exam: PRESENT: altered, awake - She does not respond to voice touch even when precedex is off. Skin exam: PRESENT: pallor Tubes/Lines: PRESENT: Nasogastic Tube, Other - Tracheostomy Laboratory/Radiographs Laboratory Results: 07/13/20 03:53 07/13/20 03:53 07/13/20 07/13/20 03:53 03:53 WBC 15.4 H RBC 3.31 L Hgb 7.5 L Hct 24.3 L MCV 74 L MCH 22.6 L MCHC 30.7 L RDW 20.1 H Plt Count 142 L Seg Neutrophils % 78.6 H Sodium 148.3 H Potassium 3.8 Chloride 111 H Carbon Dioxide 28 Anion Gap 9 BUN 82 H Creatinine 3.47 H Est GFR ( Amer) 19 L Glucose 138 H Calcium 9.2 Total Bilirubin 0.6 AST 22 Alkaline Phosphatase 63 Total Protein 6.4 Albumin 3.0 L 07/07/20 16:28 Blood Blood Culture - Final NO GROWTH IN 5 DAYS 07/07/20 16:20 Blood Blood Culture - Final NO GROWTH IN 5 DAYS 06/30/20 06/30/20 07/04/20 03:58 03:58 04:30 Creatine Kinase 188 H NT-Pro-B Natriuret Pep 13775 H 88530 H Impressions: Lower Extremity Ultrasound 06/30/20 00:00 IMPRESSION: 1. Multiphasic waveforms with three-vessel runoff bilaterally. 2. The right dorsalis pedis is not visualized and may be occluded. Diminished, but patent left dorsalis pedis. KUB X-Ray 07/09/20 00:00 IMPRESSION: Dobbhof tube as described. Venous Doppler Study 07/11/20 00:00 IMPRESSION: Acute hypoechoic clot occludes the cephalic vein in the antecubital fossa Chest X-Ray 07/12/20 00:00 IMPRESSION: Minimal persistent perihilar pulmonary edema All labs, radiographs, diagnostic studies and EKGs were personally reviewed: Yes In addition, reports of radiographic and diagnostic studies were read: Yes Assessment and Plan - Diagnosis (1) Endocarditis determined by echocardiography Is this a current diagnosis for this admission?: Yes Plan: She will need 6 weeks of IV antibiotics. Blood cultures negative on 07/02 (2) ARF (acute renal failure) Qualifiers: Acute renal failure type: unspecified Qualified Code(s): N17.9 - Acute kidney failure, unspecified Is this a current diagnosis for this admission?: Yes Plan: Cr 3.4 with GFR 16. She has avoided HD until now. (3) Morbid obesity Is this a current diagnosis for this admission?: Yes Plan: Chronic Plan Summary: Discontinue the precedex to gain a better idea of mental awareness. Critical Time Critical Time (minutes): 35 Level of Care: ICU Anticipated discharge: SNF Anticipated DC Timeframe: Other -: 1. The care of a critical patient is a dynamic process. This note is a technical account representative synopsis but static in nature. The timeframe for treatments given in order is not necessarily the actual time these treatments may have been done. 2. This patient requires critical care secondary to ongoing requirements for therapy not offered or safe outside the critical care environment. Transfer to a lower level of care will result in altered life or limb morbidity and mortality. 3. Multidisciplinary rounds completed. 4. ABCDE bundle addressed.
[2020-07-13] MEDS: LABETALOL HCL INJ 20 MG/4 ML DISP.SYRIN IV PRN (23:36)
--- NOTE | 2020-07-14 00:46 | PDOC PROGRESS REPORT ---
Subjective Progress Note for:: 07/13/20 Subjective:: Patient currently has a tracheostomy on trach collar. She is awake but unresponsive. She continues to make an adequate amount of urine output. Reason For Visit: ARDS, POSSIBLE COVID 19 Physical Exam Vital Signs: Temp Pulse Resp BP Pulse Ox 100.9 F H 66 30 H 122/90 H 96 07/13/20 12:00 07/13/20 13:40 07/13/20 13:40 07/13/20 12:00 07/13/20 13:40 Intake & Output 07/12/20 07/13/20 07/14/20 06:59 06:59 06:59 Intake Total 2683 2472 628 Output Total 3225 2395 445 Balance -542 77 183 Weight 167.4 kg 167.3 kg Exam: General appearance: PRESENT: On trach collar, morbidly obese Head exam: PRESENT: atraumatic, normocephalic Eye exam: PRESENT: conjunctiva pale, PERRLA. ABSENT: scleral icterus Neck exam: ABSENT: JVD Respiratory exam: PRESENT: Diminished breath sounds. Diffuse wheezes ABSENT: crackles, rales, rhonchi, unlabored Cardiovascular exam: PRESENT: Regular rate rhythm -+S1, +S2. ABSENT: diastolic murmur, systolic murmur GI/Abdominal exam: PRESENT: normal bowel sounds, soft. Obese ABSENT: guarding, mass, tenderness Extremities exam: Grade 1 bilateral lower extremity pitting edema, cyanotic toes Neurological exam: PRESENT: Eyes open but no response. Skin exam: PRESENT: dry, warm, pale Cardiovascular exam: PRESENT: +S1, +S2 GI/Abdominal exam: PRESENT: normal bowel sounds, soft. ABSENT: organomegaly, tenderness Results Laboratory Results: 07/13/20 03:53 07/13/20 03:53 07/13/20 07/13/20 03:53 03:53 WBC 15.4 H RBC 3.31 L Hgb 7.5 L Hct 24.3 L MCV 74 L MCH 22.6 L MCHC 30.7 L RDW 20.1 H Plt Count 142 L Seg Neutrophils % 78.6 H Sodium 148.3 H Potassium 3.8 Chloride 111 H Carbon Dioxide 28 Anion Gap 9 BUN 82 H Creatinine 3.47 H Est GFR ( Amer) 19 L Glucose 138 H Calcium 9.2 Total Bilirubin 0.6 AST 22 Alkaline Phosphatase 63 Total Protein 6.4 Albumin 3.0 L 07/07/20 16:28 Blood Blood Culture - Final NO GROWTH IN 5 DAYS 07/07/20 16:20 Blood Blood Culture - Final NO GROWTH IN 5 DAYS 06/30/20 06/30/20 07/04/20 03:58 03:58 04:30 Creatine Kinase 188 H NT-Pro-B Natriuret Pep 44497 H 00141 H Impressions: Lower Extremity Ultrasound 06/30/20 00:00 IMPRESSION: 1. Multiphasic waveforms with three-vessel runoff bilaterally. 2. The right dorsalis pedis is not visualized and may be occluded. Diminished, but patent left dorsalis pedis. KUB X-Ray 07/09/20 00:00 IMPRESSION: Dobbhof tube as described. Venous Doppler Study 07/11/20 00:00 IMPRESSION: Acute hypoechoic clot occludes the cephalic vein in the antecubital fossa Chest X-Ray 07/12/20 00:00 IMPRESSION: Minimal persistent perihilar pulmonary edema Assessment & Plan - Diagnosis (1) Acute kidney injury Is this a current diagnosis for this admission?: Yes Plan: Patient remains to be nonoliguric. The Lasix drip was discontinued due to overdiuresis. At this time there is no indication for any renal replacement therapy. Continue current management. (2) Acute respiratory failure Qualifiers: Respiratory failure complication: hypoxia Qualified Code(s): J96.01 - Acute respiratory failure with hypoxia Is this a current diagnosis for this admission?: Yes Plan: Currently with a trach placed on Monday and is now on trach collar. 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 (4) Hypernatremia Is this a current diagnosis for this admission?: Yes Plan: Secondary to relative dehydration due to overdiuresis. (5) Thrombocytopenia Is this a current diagnosis for this admission?: Yes (6) Morbid obesity Is this a current diagnosis for this admission?: Yes - Time Time with patient: 15-25 minutes
[2020-07-14] MEDS: HYDROCORTISONE SOD SUCCINATE INJ/PF 100 MG/2 ML SDV IV SCH ×2 (03:59→15:28)
[2020-07-14 04:09] LABS: ABSOLUTE BASOPHILS # (AUTO) 0.2 10^3/uL (0.0-0.2); ABSOLUTE EOSINOPHILS # (AUTO) 0.1 10^3/uL (0.0-0.6); ABSOLUTE LYMPHOCYTES (AUTO) 1.4 10^3/uL (0.5-4.7); ABSOLUTE MONOCYTES (AUTO) 2.3 10^3/uL (0.1-1.4); ABSOLUTE NEUT (AUTO) 14.1 10^3/uL (1.7-8.2); BASOPHILS % (AUTO) 1.2 % (0-2); EOSINOPHILS % (AUTO) 0.5 % (0-6); HEMATOCRIT 26.8 % (36.0-47.0); HEMOGLOBIN 8.2 g/dL (12.0-15.5); LYMPHOCYTES % (AUTO) 7.6 % (13-45); MEAN CORPUSCULAR HEMOGLOBIN 22.4 pg (27.0-33.4); MEAN CORPUSCULAR HGB CONC 30.5 g/dL (32.0-36.0); MEAN CORPUSCULAR VOLUME 74 fl (80-97); MONOCYTES % (AUTO) 12.9 % (3-13); PLATELET COUNT 197 10^3/uL (150-450); RED BLOOD COUNT 3.65 10^6/uL (3.72-5.28); RED CELL DISTRIBUTION WIDTH 21.2 % (11.5-14.0); SEGMENTED NEUTROPHILS % (AUTO) 77.8 % (42-78); TOTAL CELLS COUNTED % (AUTO) 100 %; WHITE BLOOD COUNT 18.1 10^3/uL (4.0-10.5)
[2020-07-14 04:26] LABS: ALBUMIN 3.4 g/dL (3.5-5.0); ALKALINE PHOSPHATASE 76 U/L (38-126); ANION GAP 9 (5-19); ASPARTATE AMINO TRANSFERASE 63 U/L (14-36); BILIRUBIN,DIRECT 0.5 mg/dL (0.0-0.4); BILIRUBIN,TOTAL 0.6 mg/dL (0.2-1.3); BLOOD UREA NITROGEN 87 mg/dL (7-20); CALCIUM 9.3 mg/dL (8.4-10.2); CARBON DIOXIDE 30 mmol/L (22-30); CHLORIDE 112 mmol/L (98-107); GLUCOSE 123 mg/dL (75-110); POTASSIUM 4.1 mmol/L (3.6-5.0); TOTAL PROTEIN 7.3 g/dL (6.3-8.2)
[2020-07-14] MEDS: HEPARIN SOD (PORCINE) 5,000 UNIT/ML 1 ML VIAL SUBCUT SCH ×3 (05:34→22:30)
[2020-07-14] MEDS: LEVOTHYROXINE SODIUM 0.1 MG TABLET NG SCH (05:34)
[2020-07-14] MEDS: LEVOTHYROXINE SODIUM 0.025 MG TABLET NG SCH (05:34)
[2020-07-14] MEDS: NORMAL SALINE 1000 ML 1,000 ML IV PRN (08:53)
[2020-07-14] MEDS: LABETALOL HCL INJ 20 MG/4 ML DISP.SYRIN IV PRN ×2 (08:54→22:35)
[2020-07-14] MEDS: CEFAZOLIN SODIUM 2 GM in DEXTROSE 5%-WATER 100 ML IV SCH ×2 (09:02→22:29)
[2020-07-14] MEDS: FAMOTIDINE INJ/PF 20 MG/2 ML SDV IV SCH ×2 (09:02→22:30)
[2020-07-14] MEDS: POTASSIUM CHLORIDE 20 MEQ PACKET NG SCH (09:02)
--- NOTE | 2020-07-14 11:11 | PDOC CRITICAL CARE PROG REPORT ---
General Date:: 07/14/20 ICU Day:: 15 Hospital Day:: 15 Resuscitation Status: Full Code Events in the past 12 to 24 Hours:: On trach collar since this AM Review of systems relevant to events:: Neurological, pulmonary, renal. Reason for ICU Addmission:: Now has trach, on trach collar but much secretions and not awake. - Medications: Medications reviewed and adjusted accordingly: Yes Vasopressors:: None Sedation:: None Physical Exam Vital Signs: Temp Pulse Resp BP Pulse Ox 100.0 F 96 27 H 151/118 H 94 07/14/20 08:00 07/14/20 10:00 07/14/20 10:00 07/14/20 10:00 07/14/20 10:00 Intake & Output 07/13/20 07/14/20 07/15/20 06:59 06:59 06:59 Intake Total 2472 860 9 Output Total 2395 2850 425 Balance 77 -1990 -416 Weight 167.3 kg 170.5 kg Weight/Height Weight 170.5 kg Height 5 ft 4 in General appearance: PRESENT: no acute distress, morbidly obese Head exam: PRESENT: atraumatic, normocephalic Eye exam: PRESENT: conjunctiva pink, EOMI, PERRLA. ABSENT: scleral icterus Ear exam: PRESENT: normal external ear exam Mouth exam: PRESENT: moist, tongue midline Respiratory exam: PRESENT: clear to auscultation beatriz, decreased breath sounds. ABSENT: rales, rhonchi, wheezes Cardiovascular exam: PRESENT: RRR, tachycardia. ABSENT: diastolic murmur, rubs, systolic murmur GI/Abdominal exam: PRESENT: normal bowel sounds, soft. ABSENT: distended, guarding, mass, organolmegaly, rebound, tenderness Rectal exam: PRESENT: deferred Gentrourinary exam: PRESENT: indwelling catheter Extremities exam: PRESENT: other - Acrocyanosis of toes, black L 3rd toe Neurological exam: PRESENT: other - She opens eyes to tactile stimulation. Does not track and is not purposeful Skin exam: PRESENT: cyanosis - Toes, dry, pallor Tubes/Lines: PRESENT: Dialysis catheter, Other - Tracheostomy Laboratory/Radiographs Laboratory Results: 07/14/20 03:58 07/14/20 03:58 07/14/20 07/14/20 03:58 03:58 WBC 18.1 H RBC 3.65 L Hgb 8.2 L Hct 26.8 L MCV 74 L MCH 22.4 L MCHC 30.5 L RDW 21.2 H Plt Count 197 Seg Neutrophils % 77.8 Sodium 151.4 H Potassium 4.1 Chloride 112 H Carbon Dioxide 30 Anion Gap 9 BUN 87 H Creatinine 3.43 H Est GFR ( Amer) 19 L Glucose 123 H Calcium 9.3 Total Bilirubin 0.6 AST 63 H Alkaline Phosphatase 76 Total Protein 7.3 Albumin 3.4 L 06/30/20 06/30/20 07/04/20 03:58 03:58 04:30 Creatine Kinase 188 H NT-Pro-B Natriuret Pep 40051 H 63906 H Impressions: Lower Extremity Ultrasound 06/30/20 00:00 IMPRESSION: 1. Multiphasic waveforms with three-vessel runoff bilaterally. 2. The right dorsalis pedis is not visualized and may be occluded. Diminished, but patent left dorsalis pedis. KUB X-Ray 07/09/20 00:00 IMPRESSION: Dobbhof tube as described. Venous Doppler Study 07/11/20 00:00 IMPRESSION: Acute hypoechoic clot occludes the cephalic vein in the antecubital fossa Chest X-Ray 07/12/20 00:00 IMPRESSION: Minimal persistent perihilar pulmonary edema All labs, radiographs, diagnostic studies and EKGs were personally reviewed: Yes In addition, reports of radiographic and diagnostic studies were read: Yes Assessment and Plan - Diagnosis (1) Endocarditis determined by echocardiography Is this a current diagnosis for this admission?: Yes Plan: Needs 6 weeks of antibiotics. (2) ARF (acute renal failure) Qualifiers: Acute renal failure type: unspecified Qualified Code(s): N17.9 - Acute kidney failure, unspecified Is this a current diagnosis for this admission?: Yes Plan: She is not in need of HD but her Cr and GFR are 3.4 and 16. (3) Morbid obesity Is this a current diagnosis for this admission?: Yes Plan: Chronic Plan Summary: She is not responsive despite being off sedation. WBC is rising. No new focus of infection. Critical Time Critical Time (minutes): 35 Level of Care: ICU Anticipated discharge: Acute Rehab Anticipated DC Timeframe: Other -: 1. The care of a critical patient is a dynamic process. This note is a advertising representative synopsis but static in nature. The timeframe for treatments given in order is not necessarily the actual time these treatments may have been done. 2. This patient requires critical care secondary to ongoing requirements for therapy not offered or safe outside the critical care environment. Transfer to a lower level of care will result in altered life or limb morbidity and mortality. 3. Multidisciplinary rounds completed. 4. ABCDE bundle addressed.
[2020-07-14] MEDS: DEXTROSE 5%-1/4 NORMAL SALINE 1,000 ML IV PRN ×2 (12:43→23:43)
--- NOTE | 2020-07-14 23:49 | PDOC PROGRESS REPORT ---
Subjective Progress Note for:: 07/14/20 Subjective:: Patient remains to be on a trach collar however she appears to be having more labored breathing this morning. She is still making an adequate amount of urine output, 2250 mL for the past 24 hours. She is however in a negative fluid balance of 1990 mL for the past 24 hours. She is also relatively tachycardic today. Blood pressure is within acceptable limits without any pressors. Reason For Visit: ARDS, POSSIBLE COVID 19 Physical Exam Vital Signs: Temp Pulse Resp BP Pulse Ox 100.2 F 105 H 26 H 156/106 H 92 07/14/20 06:01 07/14/20 07:51 07/14/20 06:01 07/14/20 06:00 07/14/20 06:01 Intake & Output 07/13/20 07/14/20 07/15/20 06:59 06:59 06:59 Intake Total 2472 860 0 Output Total 2395 2850 375 Balance Weight 167.3 kg 170.5 kg Exam: General appearance: PRESENT: On trach collar Head exam: PRESENT: atraumatic, normocephalic Eye exam: PRESENT: conjunctiva pale, PERRLA. ABSENT: scleral icterus Neck exam: ABSENT: JVD Respiratory exam: PRESENT: Coarse breath sounds. ABSENT: crackles, rales, rhonchi, unlabored, wheezes Cardiovascular exam: PRESENT: Regular rate rhythm -+S1, +S2. Tachycardic ABSENT: diastolic murmur, systolic murmur GI/Abdominal exam: PRESENT: normal bowel sounds, soft. ABSENT: guarding, mass, tenderness Extremities exam: Grade 1 bilateral lower extremity pitting edema Neurological exam: PRESENT: Eyes open but no response nor tracking. Skin exam: PRESENT: dry, warm, Cardiovascular exam: PRESENT: +S1, +S2 GI/Abdominal exam: PRESENT: normal bowel sounds, soft. ABSENT: organomegaly, tenderness Results Laboratory Results: 07/14/20 03:58 07/14/20 03:58 07/14/20 07/14/20 03:58 03:58 WBC 18.1 H RBC 3.65 L Hgb 8.2 L Hct 26.8 L MCV 74 L MCH 22.4 L MCHC 30.5 L RDW 21.2 H Plt Count 197 Seg Neutrophils % 77.8 Sodium 151.4 H Potassium 4.1 Chloride 112 H Carbon Dioxide 30 Anion Gap 9 BUN 87 H Creatinine 3.43 H Est GFR ( Amer) 19 L Glucose 123 H Calcium 9.3 Total Bilirubin 0.6 AST 63 H Alkaline Phosphatase 76 Total Protein 7.3 Albumin 3.4 L 06/30/20 06/30/20 07/04/20 03:58 03:58 04:30 Creatine Kinase 188 H NT-Pro-B Natriuret Pep 60875 H 34176 H Impressions: Lower Extremity Ultrasound 06/30/20 00:00 IMPRESSION: 1. Multiphasic waveforms with three-vessel runoff bilaterally. 2. The right dorsalis pedis is not visualized and may be occluded. Diminished, but patent left dorsalis pedis. KUB X-Ray 07/09/20 00:00 IMPRESSION: Dobbhof tube as described. Venous Doppler Study 07/11/20 00:00 IMPRESSION: Acute hypoechoic clot occludes the cephalic vein in the antecubital fossa Chest X-Ray 07/12/20 00:00 IMPRESSION: Minimal persistent perihilar pulmonary edema Assessment & Plan - Diagnosis (1) Acute kidney injury Is this a current diagnosis for this admission?: Yes Plan: Patient remains to be nonoliguric. The Lasix drip was discontinued due to overdiuresis. Her kidney function is staying the same. At this time there is no indication for any renal replacement therapy. Continue current management. (2) Acute respiratory failure Qualifiers: Respiratory failure complication: hypoxia Qualified Code(s): J96.01 - Acute respiratory failure with hypoxia Is this a current diagnosis for this admission?: Yes Plan: Currently with a trach placed on Monday and is now on trach collar. 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 (4) Hypernatremia Is this a current diagnosis for this admission?: Yes Plan: Secondary to relative dehydration due to overdiuresis. Discontinue saline. Start D5 1/4 at 100 mL an hour. (5) Thrombocytopenia Is this a current diagnosis for this admission?: Yes (6) Morbid obesity Is this a current diagnosis for this admission?: Yes - Time Time with patient: 15-25 minutes
[2020-07-15] MEDS ORDERED: LORAZEPAM INJ 2 MG/1 ML VIAL ONE (01:37)
[2020-07-15] MEDS: LORAZEPAM INJ 2 MG/1 ML VIAL IV PRN ×5 (01:40→18:31)
[2020-07-15] MEDS: HYDROCORTISONE SOD SUCCINATE INJ/PF 100 MG/2 ML SDV IV SCH ×2 (02:11→13:31)
[2020-07-15 04:14] LABS: HEMATOCRIT 26.2 % (36.0-47.0); MEAN CORPUSCULAR HEMOGLOBIN 22.4 pg (27.0-33.4); MEAN CORPUSCULAR HGB CONC 30.3 g/dL (32.0-36.0); MEAN CORPUSCULAR VOLUME 74 fl (80-97); PLATELET COUNT 170 10^3/uL (150-450); RED BLOOD COUNT 3.55 10^6/uL (3.72-5.28); RED CELL DISTRIBUTION WIDTH 20.4 % (11.5-14.0); WHITE BLOOD COUNT 16.5 10^3/uL (4.0-10.5)
[2020-07-15 04:16] LABS: HEMOGLOBIN 7.9 g/dL (12.0-15.5)
[2020-07-15 04:31] LABS: ANION GAP 11 (5-19); BLOOD UREA NITROGEN 90 mg/dL (7-20); CALCIUM 9.4 mg/dL (8.4-10.2); CARBON DIOXIDE 28 mmol/L (22-30); CHLORIDE 113 mmol/L (98-107); GLUCOSE 129 mg/dL (75-110); POTASSIUM 4.3 mmol/L (3.6-5.0)
[2020-07-15] MEDS: LEVOTHYROXINE SODIUM 0.025 MG TABLET NG SCH (05:23)
[2020-07-15] MEDS: LEVOTHYROXINE SODIUM 0.1 MG TABLET NG SCH (05:23)
[2020-07-15] MEDS: HEPARIN SOD (PORCINE) 5,000 UNIT/ML 1 ML VIAL SUBCUT SCH ×3 (05:24→21:52)
[2020-07-15] MEDS: LABETALOL HCL INJ 20 MG/4 ML DISP.SYRIN IV PRN ×4 (05:24→21:43)
[2020-07-15] MEDS ORDERED: DEXTROSE 5%-WATER 1000 ML 1,000 ML IV PRN (09:23)
[2020-07-15] MEDS: FAMOTIDINE INJ/PF 20 MG/2 ML SDV IV SCH ×2 (10:23→21:49)
[2020-07-15] MEDS: POTASSIUM CHLORIDE 20 MEQ PACKET NG SCH (10:29)
[2020-07-15] MEDS: DEXTROSE 5%-WATER 1000 ML 1,000 ML IV PRN ×2 (10:36→18:34)
[2020-07-15] MEDS: CEFAZOLIN SODIUM 2 GM in DEXTROSE 5%-WATER 100 ML IV SCH ×2 (10:41→22:01)
--- NOTE | 2020-07-15 11:26 | PDOC CRITICAL CARE PROG REPORT ---
General Date:: 07/15/20 ICU Day:: 15 Hospital Day:: 15 Resuscitation Status: Full Code Events in the past 12 to 24 Hours:: Tolerates trach collar during the day. Gets tired towards night. Review of systems relevant to events:: Neurological, pulmonary, renal. Reason for ICU Addmission:: Now has trach, on trach collar but much secretions and not awake. - Medications: Medications reviewed and adjusted accordingly: Yes Vasopressors:: None Sedation:: None Physical Exam Vital Signs: Temp Pulse Resp BP Pulse Ox 100.8 F H 83 20 138/112 H 98 07/15/20 10:01 07/15/20 10:00 07/15/20 10:01 07/15/20 10:00 07/15/20 10:01 Intake & Output 07/14/20 07/15/20 07/16/20 06:59 06:59 06:59 Intake Total 860 1209 Output Total 2850 3895 250 Balance -1990 -2686 -250 Weight 170.5 kg 170.5 kg Weight/Height Weight 170.5 kg Height 5 ft 4 in General appearance: PRESENT: no acute distress, morbidly obese Head exam: PRESENT: atraumatic, normocephalic Eye exam: PRESENT: conjunctiva pink, EOMI, PERRLA. ABSENT: scleral icterus Ear exam: PRESENT: normal external ear exam Mouth exam: PRESENT: moist, tongue midline Respiratory exam: PRESENT: clear to auscultation beatriz, decreased breath sounds. ABSENT: rales, rhonchi, wheezes Cardiovascular exam: PRESENT: RRR. ABSENT: diastolic murmur, rubs, systolic murmur GI/Abdominal exam: PRESENT: normal bowel sounds, soft. ABSENT: distended, guarding, mass, organolmegaly, rebound, tenderness Rectal exam: PRESENT: deferred Gentrourinary exam: PRESENT: indwelling catheter Extremities exam: PRESENT: other - Unchanged acrocyanosis. Musculoskeletal exam: PRESENT: normal inspection Neurological exam: PRESENT: altered, other - Still does not track, minimally purposeful. Comatose. Skin exam: PRESENT: pallor, other - Toes still in various stages of acrocyanosis. Tubes/Lines: PRESENT: Other - Tracheotomy. Laboratory/Radiographs Laboratory Results: 07/15/20 03:50 07/15/20 03:50 07/15/20 07/15/20 03:50 03:50 WBC 16.5 H RBC 3.55 L Hgb 7.9 L Hct 26.2 L MCV 74 L MCH 22.4 L MCHC 30.3 L RDW 20.4 H Plt Count 170 Sodium 151.5 H Potassium 4.3 Chloride 113 H Carbon Dioxide 28 Anion Gap 11 BUN 90 H Creatinine 3.26 H Est GFR ( Amer) 20 L Glucose 129 H Calcium 9.4 06/30/20 06/30/20 07/04/20 03:58 03:58 04:30 Creatine Kinase 188 H NT-Pro-B Natriuret Pep 26114 H 36314 H Impressions: Lower Extremity Ultrasound 06/30/20 00:00 IMPRESSION: 1. Multiphasic waveforms with three-vessel runoff bilaterally. 2. The right dorsalis pedis is not visualized and may be occluded. Diminished, but patent left dorsalis pedis. KUB X-Ray 07/09/20 00:00 IMPRESSION: Dobbhof tube as described. Venous Doppler Study 07/11/20 00:00 IMPRESSION: Acute hypoechoic clot occludes the cephalic vein in the antecubital fossa Chest X-Ray 07/12/20 00:00 IMPRESSION: Minimal persistent perihilar pulmonary edema All labs, radiographs, diagnostic studies and EKGs were personally reviewed: Yes In addition, reports of radiographic and diagnostic studies were read: Yes Assessment and Plan - Diagnosis (1) Endocarditis determined by echocardiography Is this a current diagnosis for this admission?: Yes Plan: Antibiotic for total of 6 weeks. With no payor source chances are that she will need to remain here. (2) ARF (acute renal failure) Qualifiers: Acute renal failure type: unspecified Qualified Code(s): N17.9 - Acute kidney failure, unspecified Is this a current diagnosis for this admission?: Yes Plan: Slightly improved. No HD. Does she still need catheter? If not remove. (3) Morbid obesity Is this a current diagnosis for this admission?: Yes Plan: This certainly is impeding her respirations . (4) Comatose Qualifiers: Coma depth: Olin coma 3-8 Coma timin hours or more after hospital admission Qualified Code(s): R40.2434 - [place] coma scale score 3-8, 24 hours or more after hospital admission Is this a current diagnosis for this admission?: Yes Plan: This looks as though it will continue. 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 Plan Summary: Continue trach collar trials for as long tolerated. Critical Time Critical Time (minutes): 35 Level of Care: ICU Anticipated discharge: SNF Anticipated DC Timeframe: Other -: 1. The care of a critical patient is a dynamic process. This note is a medical office representative synopsis but static in nature. The timeframe for treatments given in order is not necessarily the actual time these treatments may have been done. 2. This patient requires critical care secondary to ongoing requirements for therapy not offered or safe outside the critical care environment. Transfer to a lower level of care will result in altered life or limb morbidity and mortality. 3. Multidisciplinary rounds completed. 4. ABCDE bundle addressed.
--- NOTE | 2020-07-15 22:11 | PDOC PROGRESS REPORT ---
Subjective Progress Note for:: 07/15/20 Subjective:: Patient is back on ventilator with FiO2 of 35% due to labored breathing yesterday. Her blood pressure remains to be elevated. She continues to have spontaneous diuresis with negative fluid balance of 2686 for the past 24 hours. She continues to have no response. Reason For Visit: ARDS, POSSIBLE COVID 19 Physical Exam Vital Signs: Temp Pulse Resp BP Pulse Ox 100.8 F H 90 24 H 146/114 H 98 07/15/20 08:00 07/15/20 08:00 07/15/20 08:00 07/15/20 08:00 07/15/20 08:56 Intake & Output 07/14/20 07/15/20 07/16/20 06:59 06:59 06:59 Intake Total 860 1209 Output Total 2850 3895 250 Balance -1989 -2685 -250 Weight 170.5 kg 170.5 kg Exam: General appearance: PRESENT: Intubated and unresponsive Head exam: PRESENT: atraumatic, normocephalic Eye exam: PRESENT: conjunctiva pale, PERRLA. ABSENT: scleral icterus Neck exam: ABSENT: JVD Respiratory exam: PRESENT: Coarse breath sounds. ABSENT: crackles, rales, rhonchi, unlabored, wheezes Cardiovascular exam: PRESENT: Regular rate rhythm -+S1, +S2. ABSENT: diastolic murmur, systolic murmur GI/Abdominal exam: PRESENT: normal bowel sounds, soft. ABSENT: guarding, mass, tenderness Extremities exam: Mild upper extremity edema and grade 1 bilateral lower ext remity edema Neurological exam: PRESENT: Eyes open but no tracking no response Skin exam: PRESENT: dry, warm, Cardiovascular exam: PRESENT: +S1, +S2 GI/Abdominal exam: PRESENT: normal bowel sounds, soft. ABSENT: organomegaly, tenderness Results Laboratory Results: 07/15/20 03:50 07/15/20 03:50 07/15/20 07/15/20 03:50 03:50 WBC 16.5 H RBC 3.55 L Hgb 7.9 L Hct 26.2 L MCV 74 L MCH 22.4 L MCHC 30.3 L RDW 20.4 H Plt Count 170 Sodium 151.5 H Potassium 4.3 Chloride 113 H Carbon Dioxide 28 Anion Gap 11 BUN 90 H Creatinine 3.26 H Est GFR ( Amer) 20 L Glucose 129 H Calcium 9.4 06/30/20 06/30/20 07/04/20 03:58 03:58 04:30 Creatine Kinase 188 H NT-Pro-B Natriuret Pep 65209 H 40534 H Impressions: Lower Extremity Ultrasound 06/30/20 00:00 IMPRESSION: 1. Multiphasic waveforms with three-vessel runoff bilaterally. 2. The right dorsalis pedis is not visualized and may be occluded. Diminished, but patent left dorsalis pedis. KUB X-Ray 07/09/20 00:00 IMPRESSION: Dobbhof tube as described. Venous Doppler Study 07/11/20 00:00 IMPRESSION: Acute hypoechoic clot occludes the cephalic vein in the antecubital fossa Chest X-Ray 07/12/20 00:00 IMPRESSION: Minimal persistent perihilar pulmonary edema Assessment & Plan - Diagnosis (1) Acute kidney injury Is this a current diagnosis for this admission?: Yes Plan: Patient remains to be nonoliguric. The Lasix drip was discontinued due to overdiuresis since last weekend. Her kidney function is staying the same. She appears to be on diuretic phase of ATN. At this time there is no indication for any renal replacement therapy. Continue current management. Continue maintenance IV fluids. (2) Acute respiratory failure Qualifiers: Respiratory failure complication: hypoxia Qualified Code(s): J96.01 - Acute respiratory failure with hypoxia Is this a current diagnosis for this admission?: Yes Plan: Currently with a trach placed on Monday initially tolerated trach collar but seems to have respiratory fatigue and is now back on the ventilator. 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 (4) Hypernatremia Is this a current diagnosis for this admission?: Yes Plan: Secondary to relative dehydration due to overdiuresis. Discontinue saline. Change D5 one fourth to D5 water at 125 mL an hour. (5) Thrombocytopenia Is this a current diagnosis for this admission?: Yes (6) Morbid obesity Is this a current diagnosis for this admission?: Yes - Time Time with patient: 15-25 minutes
[2020-07-16] MEDS: HYDROCORTISONE SOD SUCCINATE INJ/PF 100 MG/2 ML SDV IV SCH ×2 (01:57→13:22)
[2020-07-16] MEDS: LORAZEPAM INJ 2 MG/1 ML VIAL IV PRN ×2 (01:58→09:33)
--- NOTE | 2020-07-16 03:05 | RADIOLOGY REPORT (SQ) ---
EXAM DESCRIPTION: XR ABDOMEN 1 VIEW (KUB) COMPLETED DATE/TME: 07/16/2020 00:00 CLINICAL HISTORY: 29 years, Female, OG tube position COMPARISON: 07/09/2020 abdomen NUMBER OF VIEWS: 1 TECHNIQUE: AP abdomen LIMITATIONS: None. FINDINGS: Dobbhoff catheter tip in the left upper quadrant likely in the body of the stomach or proximal small bowel. The gas pattern is nonspecific IMPRESSION: Tip of the Dobbhoff catheter in the left upper quadrant, as above copyright 2010 [employer]- All Rights Reserved
[2020-07-16] MEDS: DEXTROSE 5%-WATER 1000 ML 1,000 ML IV PRN ×3 (03:25→20:41)
[2020-07-16] MEDS: LEVOTHYROXINE SODIUM 0.1 MG TABLET NG SCH (05:14)
[2020-07-16] MEDS: LEVOTHYROXINE SODIUM 0.025 MG TABLET NG SCH (05:14)
[2020-07-16] MEDS: HEPARIN SOD (PORCINE) 5,000 UNIT/ML 1 ML VIAL SUBCUT SCH ×3 (05:15→21:58)
[2020-07-16 05:44] LABS: HEMATOCRIT 26.7 % (36.0-47.0); HEMOGLOBIN 8.1 g/dL (12.0-15.5); MEAN CORPUSCULAR HEMOGLOBIN 22.5 pg (27.0-33.4); MEAN CORPUSCULAR HGB CONC 30.3 g/dL (32.0-36.0); MEAN CORPUSCULAR VOLUME 74 fl (80-97); PLATELET COUNT 157 10^3/uL (150-450); RED BLOOD COUNT 3.59 10^6/uL (3.72-5.28); RED CELL DISTRIBUTION WIDTH 20.3 % (11.5-14.0); WHITE BLOOD COUNT 18.3 10^3/uL (4.0-10.5)
[2020-07-16 05:49] LABS: ANION GAP 9 (5-19); BLOOD UREA NITROGEN 80 mg/dL (7-20); CALCIUM 9.2 mg/dL (8.4-10.2); CARBON DIOXIDE 29 mmol/L (22-30); CHLORIDE 110 mmol/L (98-107); GLUCOSE 130 mg/dL (75-110); POTASSIUM 4.3 mmol/L (3.6-5.0)
--- NOTE | 2020-07-16 08:03 | PDOC CRITICAL CARE PROG REPORT ---
General Date:: 07/16/20 ICU Day:: 17 Ventilator Day:: 17 Hospital Day:: 17 Resuscitation Status: Full Code Events in the past 12 to 24 Hours:: Able to do trach collar during the day but tires toward the night. Review of systems relevant to events:: Neurological, pulmonary. Reason for ICU Addmission:: Now has trach, on trach collar but much secretions and not awake. - Medications: Medications reviewed and adjusted accordingly: Yes Vasopressors:: None Sedation:: None. Physical Exam Vital Signs: Temp Pulse Resp BP Pulse Ox 100.2 F 100 30 H 131/100 H 98 07/16/20 05:39 07/15/20 20:00 07/16/20 02:05 07/16/20 02:05 07/16/20 06:30 Intake & Output 07/15/20 07/16/20 07/17/20 06:59 06:59 06:59 Intake Total 1209 2209 Output Total 3895 2260 Balance -2686 -51 Weight 170.5 kg 170.5 kg Weight/Height Weight 170.5 kg Height 5 ft 4 in General appearance: PRESENT: morbidly obese Head exam: PRESENT: atraumatic, normocephalic Eye exam: PRESENT: conjunctiva pink, EOMI, PERRLA. ABSENT: scleral icterus Ear exam: PRESENT: normal external ear exam Respiratory exam: PRESENT: decreased breath sounds, rhonchi, symmetrical, tachypnea Cardiovascular exam: PRESENT: tachycardia GI/Abdominal exam: PRESENT: normal bowel sounds, soft. ABSENT: distended, guarding, mass, organolmegaly, rebound, tenderness Rectal exam: PRESENT: deferred Gentrourinary exam: PRESENT: indwelling catheter Extremities exam: PRESENT: +1 edema Neurological exam: PRESENT: altered, other - Still does not track. No purposeful movements. Skin exam: PRESENT: dry, intact, warm. ABSENT: cyanosis, rash Tubes/Lines: PRESENT: Nasogastic Tube, Other - Tracheotomy Laboratory/Radiographs Laboratory Results: 07/16/20 05:20 07/16/20 05:20 07/16/20 07/16/20 05:20 05:20 WBC 18.3 H RBC 3.59 L Hgb 8.1 L Hct 26.7 L MCV 74 L MCH 22.5 L MCHC 30.3 L RDW 20.3 H Plt Count 157 Sodium 148.3 H Potassium 4.3 Chloride 110 H Carbon Dioxide 29 Anion Gap 9 BUN 80 H Creatinine 3.15 H Est GFR ( Amer) 21 L Glucose 130 H Calcium 9.2 06/30/20 06/30/20 07/04/20 03:58 03:58 04:30 Creatine Kinase 188 H NT-Pro-B Natriuret Pep 93422 H 70137 H Impressions: Lower Extremity Ultrasound 06/30/20 00:00 IMPRESSION: 1. Multiphasic waveforms with three-vessel runoff bilaterally. 2. The right dorsalis pedis is not visualized and may be occluded. Diminished, but patent left dorsalis pedis. Venous Doppler Study 07/11/20 00:00 IMPRESSION: Acute hypoechoic clot occludes the cephalic vein in the antecubital fossa Chest X-Ray 07/12/20 00:00 IMPRESSION: Minimal persistent perihilar pulmonary edema KUB X-Ray 07/16/20 00:00 IMPRESSION: Tip of the Dobbhoff catheter in the left upper quadrant, as above copyright 2011 [employer]- All Rights Reserved All labs, radiographs, diagnostic studies and EKGs were personally reviewed: Yes In addition, reports of radiographic and diagnostic studies were read: Yes Assessment and Plan - Diagnosis (1) Endocarditis determined by echocardiography Is this a current diagnosis for this admission?: Yes Plan: Continue antibiotics for another 5 weeks. MSSA. (2) ARF (acute renal failure) Qualifiers: Acute renal failure type: unspecified Qualified Code(s): N17.9 - Acute kidney failure, unspecified Is this a current diagnosis for this admission?: Yes Plan: Slightly better. Does not need HD. (3) Morbid obesity Is this a current diagnosis for this admission?: Yes Plan: Chronic (4) Comatose Qualifiers: Coma depth: [place] coma 3-8 Coma timin hours or more after hospital admission Qualified Code(s): R40.2434 - [place] coma scale score 3-8, 24 hours or more after hospital admission Is this a current diagnosis for this admission?: Yes Plan: This will be the limiting factor in her overall recovery. Right now she is headed toward a persistant vegatative state at 30 days. Her age of 29 makes a recovery possible but not likely. Critical Time Critical Time (minutes): 35 Level of Care: ICU Anticipated discharge: SNF Anticipated DC Timeframe: Other -: 1. The care of a critical patient is a dynamic process. This note is a primary care sales representative synopsis but static in nature. The timeframe for treatments given in order is not necessarily the actual time these treatments may have been done. 2. This patient requires critical care secondary to ongoing requirements for therapy not offered or safe outside the critical care environment. Transfer to a lower level of care will result in altered life or limb morbidity and mortality. 3. Multidisciplinary rounds completed. 4. ABCDE bundle addressed.
[2020-07-16] MEDS: CEFAZOLIN SODIUM 2 GM in DEXTROSE 5%-WATER 100 ML IV SCH ×2 (09:34→21:58)
[2020-07-16] MEDS: POTASSIUM CHLORIDE 20 MEQ PACKET NG SCH (09:34)
[2020-07-16] MEDS: FAMOTIDINE INJ/PF 20 MG/2 ML SDV IV SCH ×2 (09:34→21:58)
[2020-07-16] MEDS: AMINO AC/PROTEIN HYDR/WHEY PRO 11 GM/45 ML PKT NG SCH (18:09)
--- NOTE | 2020-07-16 22:58 | PDOC PROGRESS REPORT ---
Subjective Progress Note for:: 07/16/20 Subjective:: Patient is back to the trach collar again today. Her breathing seems to be more labored on trach collar compared to being on the ventilator. He continues to have adequate urine output. According to the nurses she is showing some response but I have not seen that yet. Reason For Visit: ARDS, POSSIBLE COVID 19 Physical Exam Vital Signs: Temp Pulse Resp BP Pulse Ox 100.0 F 107 H 32 H 138/108 H 95 07/16/20 08:01 07/16/20 08:00 07/16/20 08:01 07/16/20 08:00 07/16/20 08:01 Intake & Output 07/15/20 07/16/20 07/17/20 06:59 06:59 06:59 Intake Total 1209 2304 Output Total 3895 2260 225 Balance -2686 44 -225 Weight 170.5 kg 170.5 kg Exam: General appearance: PRESENT: On trach collar Head exam: PRESENT: atraumatic, normocephalic Eye exam: PRESENT: conjunctiva pale, PERRLA. ABSENT: scleral icterus Neck exam: ABSENT: JVD Respiratory exam: PRESENT: Coarse breath sounds. ABSENT: crackles, rales, rhonchi, unlabored, wheezes Cardiovascular exam: PRESENT: Regular rate rhythm -+S1, +S2. ABSENT: diastolic murmur, systolic murmur GI/Abdominal exam: PRESENT: normal bowel sounds, soft. ABSENT: guarding, mass, tenderness Extremities exam: Trace bilateral lower extremity pitting edema Neurological exam: PRESENT: alert, awake, oriented to person, place and time. Skin exam: PRESENT: dry, warm, Cardiovascular exam: PRESENT: +S1, +S2 GI/Abdominal exam: PRESENT: normal bowel sounds, soft. ABSENT: organomegaly, tenderness Results Laboratory Results: 07/16/20 05:20 07/16/20 05:20 07/16/20 07/16/20 05:20 05:20 WBC 18.3 H RBC 3.59 L Hgb 8.1 L Hct 26.7 L MCV 74 L MCH 22.5 L MCHC 30.3 L RDW 20.3 H Plt Count 157 Sodium 148.3 H Potassium 4.3 Chloride 110 H Carbon Dioxide 29 Anion Gap 9 BUN 80 H Creatinine 3.15 H Est GFR ( Amer) 21 L Glucose 130 H Calcium 9.2 06/30/20 06/30/20 07/04/20 03:58 03:58 04:30 Creatine Kinase 188 H NT-Pro-B Natriuret Pep 51819 H 55859 H Impressions: Lower Extremity Ultrasound 06/30/20 00:00 IMPRESSION: 1. Multiphasic waveforms with three-vessel runoff bilaterally. 2. The right dorsalis pedis is not visualized and may be occluded. Diminished, but patent left dorsalis pedis. Venous Doppler Study 07/11/20 00:00 IMPRESSION: Acute hypoechoic clot occludes the cephalic vein in the antecubital fossa Chest X-Ray 07/12/20 00:00 IMPRESSION: Minimal persistent perihilar pulmonary edema KUB X-Ray 07/16/20 00:00 IMPRESSION: Tip of the Dobbhoff catheter in the left upper quadrant, as above copyright 2011 [employer]- All Rights Reserved Assessment & Plan - Diagnosis (1) Acute kidney injury Is this a current diagnosis for this admission?: Yes Plan: Patient remains to be nonoliguric. The Lasix drip was discontinued due to overdiuresis since last weekend. She appears to be on diuretic phase of ATN. At this time there is no indication for any renal replacement therapy. Continue current management. Continue maintenance IV fluids. Patient's baseline creatinine was 1.2. Her creatinine peaked at 5.14 and has been slowly going down current of 3.15. If the patient continues to have slowly improving creatinine, I think we can discontinue her dialysis catheter tomorrow. Discussed with Dr. Sánchez today. (2) Acute respiratory failure Qualifiers: Respiratory failure complication: hypoxia Qualified Code(s): J96.01 - Acute respiratory failure with hypoxia Is this a current diagnosis for this admission?: Yes Plan: Currently with a trach placed on Monday initially tolerated trach collar but seems to have respiratory fatigue. Was back on mechanical ventilator yesterday and now back to trach collar. 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 (4) Hypernatremia Is this a current diagnosis for this admission?: Yes Plan: Slowly improving. Secondary to relative dehydration due to overdiuresis. Discontinue saline. Change D5 one fourth to D5 water at 125 mL an hour. (5) Thrombocytopenia Is this a current diagnosis for this admission?: Yes (6) Morbid obesity Is this a current diagnosis for this admission?: Yes - Time Time with patient: 15-25 minutes
[2020-07-16] MEDS: LABETALOL HCL INJ 20 MG/4 ML DISP.SYRIN IV PRN (23:21)
[2020-07-17] MEDS: HYDROCORTISONE SOD SUCCINATE INJ/PF 100 MG/2 ML SDV IV SCH ×2 (01:28→14:20)
[2020-07-17] MEDS: LORAZEPAM INJ 2 MG/1 ML VIAL IV PRN ×2 (02:56→09:17)
[2020-07-17] MEDS: DEXTROSE 5%-WATER 1000 ML 1,000 ML IV PRN ×2 (05:47→16:56)
[2020-07-17] MEDS: HEPARIN SOD (PORCINE) 5,000 UNIT/ML 1 ML VIAL SUBCUT SCH ×3 (05:50→22:42)
[2020-07-17] MEDS: LEVOTHYROXINE SODIUM 0.1 MG TABLET NG SCH (05:50)
[2020-07-17] MEDS: LEVOTHYROXINE SODIUM 0.025 MG TABLET NG SCH (05:50)
--- NOTE | 2020-07-17 07:48 | PDOC CRITICAL CARE PROG REPORT ---
General Date:: 07/17/20 ICU Day:: 18 Hospital Day:: 18 Resuscitation Status: Full Code Events in the past 12 to 24 Hours:: Still on trach collar during the day, vent at night. Review of systems relevant to events:: Neurological, pulmonary, renal. Reason for ICU Addmission:: Now has trach, on trach collar but much secretions and not awake. - Medications: Medications reviewed and adjusted accordingly: Yes Vasopressors:: None Sedation:: None. Physical Exam Vital Signs: Temp Pulse Resp BP Pulse Ox 99.0 F 88 32 H 124/83 96 07/17/20 07:01 07/17/20 05:28 07/17/20 07:01 07/17/20 07:00 07/17/20 07:01 Intake & Output 07/16/20 07/17/20 07/18/20 06:59 06:59 06:59 Intake Total 2304 3200 Output Total 2260 2105 Balance 44 1095 Weight 170.5 kg 170.1 kg Weight/Height Weight 170.1 kg Height 5 ft 4 in General appearance: PRESENT: no acute distress, morbidly obese Head exam: PRESENT: atraumatic, normocephalic Eye exam: PRESENT: conjunctiva pink, EOMI, PERRLA. ABSENT: scleral icterus Ear exam: PRESENT: normal external ear exam Mouth exam: PRESENT: moist, tongue midline Respiratory exam: PRESENT: clear to auscultation beatriz, decreased breath sounds. ABSENT: rales, rhonchi, wheezes Cardiovascular exam: PRESENT: RRR. ABSENT: diastolic murmur, rubs, systolic murmur GI/Abdominal exam: PRESENT: ascites Rectal exam: PRESENT: deferred Neurological exam: PRESENT: altered, other - She was comfortable until awakened. Then breathing pattern became yajaira, but not while still asleep Skin exam: PRESENT: other - Acrocyanosis of toes. Tubes/Lines: PRESENT: Dialysis catheter, Nasogastic Tube, Other - Tracheotomy. Laboratory/Radiographs Laboratory Results: 07/16/20 05:20 07/16/20 05:20 06/30/20 06/30/20 07/04/20 03:58 03:58 04:30 Creatine Kinase 188 H NT-Pro-B Natriuret Pep 93729 H 34518 H Impressions: Lower Extremity Ultrasound 06/30/20 00:00 IMPRESSION: 1. Multiphasic waveforms with three-vessel runoff bilaterally. 2. The right dorsalis pedis is not visualized and may be occluded. Diminished, but patent left dorsalis pedis. Venous Doppler Study 07/11/20 00:00 IMPRESSION: Acute hypoechoic clot occludes the cephalic vein in the antecubital fossa Chest X-Ray 07/12/20 00:00 IMPRESSION: Minimal persistent perihilar pulmonary edema KUB X-Ray 07/16/20 00:00 IMPRESSION: Tip of the Dobbhoff catheter in the left upper quadrant, as above copyright 2011 [employer]- All Rights Reserved All labs, radiographs, diagnostic studies and EKGs were personally reviewed: Yes In addition, reports of radiographic and diagnostic studies were read: Yes Assessment and Plan - Diagnosis (1) Endocarditis determined by echocardiography Is this a current diagnosis for this admission?: Yes Plan: Continue her cefazoln for total of 6 weeks after negative blood cultures. (2) ARF (acute renal failure) Qualifiers: Acute renal failure type: unspecified Qualified Code(s): N17.9 - Acute kidney failure, unspecified Is this a current diagnosis for this admission?: Yes Plan: Slowly improving. Not in need of HD. If she continues to improve through next week, discontinue HD catheter. (3) Morbid obesity Is this a current diagnosis for this admission?: Yes Plan: Chronic, no change. (4) Comatose Qualifiers: Coma depth: [place] coma 3-8 Coma timin hours or more after hospital admission Qualified Code(s): R40.2434 - [place] coma scale score 3-8, 24 hours or more after hospital admission Is this a current diagnosis for this admission?: Yes Plan: This will be a limiting factor. At 30 days she will be persistantly vegatative. This and her obesity will be factors in lacing her. Plan Summary: She is being tesed for Cdif again. May D/C HD catheter next week. Shee how long she can go on trach collar. Critical Time Critical Time (minutes): 35 Level of Care: ICU Anticipated discharge: SNF Anticipated DC Timeframe: Other -: 1. The care of a critical patient is a dynamic process. This note is a represe ntative synopsis but static in nature. The timeframe for treatments given in order is not necessarily the actual time these treatments may have been done. 2. This patient requires critical care secondary to ongoing requirements for therapy not offered or safe outside the critical care environment. Transfer to a lower level of care will result in altered life or limb morbidity and mortality. 3. Multidisciplinary rounds completed. 4. ABCDE bundle addressed.
[2020-07-17] MEDS: FAMOTIDINE INJ/PF 20 MG/2 ML SDV IV SCH ×2 (09:17→22:24)
[2020-07-17] MEDS: POTASSIUM CHLORIDE 20 MEQ PACKET NG SCH (09:17)
[2020-07-17] MEDS: AMINO AC/PROTEIN HYDR/WHEY PRO 11 GM/45 ML PKT NG SCH ×2 (09:18→17:05)
[2020-07-17 09:43] LABS: ANION GAP 10 (5-19); BLOOD UREA NITROGEN 79 mg/dL (7-20); CALCIUM 9.2 mg/dL (8.4-10.2); CARBON DIOXIDE 27 mmol/L (22-30); CHLORIDE 108 mmol/L (98-107); GLUCOSE 140 mg/dL (75-110); POTASSIUM 4.4 mmol/L (3.6-5.0)
[2020-07-17] MEDS: CEFAZOLIN SODIUM 2 GM in DEXTROSE 5%-WATER 100 ML IV SCH ×2 (10:30→22:23)
--- NOTE | 2020-07-17 18:34 | PDOC PROGRESS REPORT ---
Subjective Progress Note for:: 07/17/20 Subjective:: Patient is again back on the ventilator. No clinical change. Good urine output with volume of 2105 mL for the past 24 hours. Her nurse describes some nonpurposeful movements of the limbs. Reason For Visit: ARDS, POSSIBLE COVID 19 Physical Exam Vital Signs: Temp Pulse Resp BP Pulse Ox 99.0 F 98 27 H 124/83 99 07/17/20 08:00 07/17/20 08:00 07/17/20 08:00 07/17/20 08:00 07/17/20 08:56 Intake & Output 07/16/20 07/17/20 07/18/20 06:59 06:59 06:59 Intake Total 2304 3200 Output Total 2260 2105 175 Balance 44 1095 -175 Weight 170.5 kg 170.1 kg Exam: General appearance: PRESENT: On ventilator via 3 Head exam: PRESENT: atraumatic, normocephalic Eye exam: PRESENT: conjunctiva pale, PERRLA. ABSENT: scleral icterus Neck exam: ABSENT: JVD Respiratory exam: PRESENT: Diminished breath sounds. ABSENT: crackles, rales, rhonchi, unlabored, wheezes Cardiovascular exam: PRESENT: Regular rate rhythm -+S1, +S2. ABSENT: diastolic murmur, systolic murmur GI/Abdominal exam: PRESENT: normal bowel sounds, soft. ABSENT: guarding, mass, tenderness Extremities exam: Grade 1 bilateral lower extremity pitting edema Neurological exam: PRESENT: Would wake up but does not follow commands. Skin exam: PRESENT: dry, warm, Cardiovascular exam: PRESENT: +S1, +S2 GI/Abdominal exam: PRESENT: normal bowel sounds, soft. ABSENT: organomegaly, tenderness Results Laboratory Results: 07/16/20 05:20 07/16/20 05:20 06/30/20 06/30/20 07/04/20 03:58 03:58 04:30 Creatine Kinase 188 H NT-Pro-B Natriuret Pep 32093 H 54283 H Impressions: Lower Extremity Ultrasound 06/30/20 00:00 IMPRESSION: 1. Multiphasic waveforms with three-vessel runoff bilaterally. 2. The right dorsalis pedis is not visualized and may be occluded. Diminished, but patent left dorsalis pedis. Venous Doppler Study 07/11/20 00:00 IMPRESSION: Acute hypoechoic clot occludes the cephalic vein in the antecubital fossa Chest X-Ray 07/12/20 00:00 IMPRESSION: Minimal persistent perihilar pulmonary edema KUB X-Ray 07/16/20 00:00 IMPRESSION: Tip of the Dobbhoff catheter in the left upper quadrant, as above copyright 2011 [employer]- All Rights Reserved Assessment & Plan - Diagnosis (1) Acute kidney injury Is this a current diagnosis for this admission?: Yes Plan: Patient remains to be nonoliguric. The Lasix drip was discontinued due to overdiuresis since last weekend. She appears to be on diuretic phase of ATN. At this time there is no indication for any renal replacement therapy. Continue current management. Continue maintenance IV fluids. Patient's baseline creatinine was 1.2. Her creatinine peaked at 5.14 and has been slowly going down current of 3.14. May remove the dialysis catheter which was placed couple of weeks ago and has not heard due to patient's a slow im provement of kidney function. Spoke to Dr. Sánchez to have catheter removed today. Informed patient's nurse as well. (2) Acute respiratory failure Qualifiers: Respiratory failure complication: hypoxia Qualified Code(s): J96.01 - Acute respiratory failure with hypoxia Is this a current diagnosis for this admission?: Yes Plan: Currently with a trach placed on Monday initially tolerated trach collar but seems to have respiratory fatigue. Was back on mechanical ventilator yesterday and now back to trach collar. 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 (4) Hypernatremia Is this a current diagnosis for this admission?: Yes Plan: Improving now at 145 with D5 water. Decrease the rate to 80 mL/min. (5) Thrombocytopenia Is this a current diagnosis for this admission?: Yes Plan: Resolved. (6) Morbid obesity Is this a current diagnosis for this admission?: Yes - Time Time with patient: 15-25 minutes
[2020-07-17] MEDS: ALBUTEROL SULFATE 0.083% NEB 2.5 MG/3 ML AMPUL NEB PRN (20:15)
[2020-07-18] MEDS: HYDROCORTISONE SOD SUCCINATE INJ/PF 100 MG/2 ML SDV IV SCH ×2 (03:26→17:25)
[2020-07-18] MEDS: LEVOTHYROXINE SODIUM 0.1 MG TABLET NG SCH (05:22)
[2020-07-18] MEDS: LEVOTHYROXINE SODIUM 0.025 MG TABLET NG SCH (05:22)
[2020-07-18] MEDS: HEPARIN SOD (PORCINE) 5,000 UNIT/ML 1 ML VIAL SUBCUT SCH ×3 (05:23→21:06)
[2020-07-18] MEDS: DEXTROSE 5%-WATER 1000 ML 1,000 ML IV PRN ×2 (05:34→17:25)
[2020-07-18 05:51] LABS: HEMATOCRIT 28.6 % (36.0-47.0); HEMOGLOBIN 8.5 g/dL (12.0-15.5); MEAN CORPUSCULAR HEMOGLOBIN 22.6 pg (27.0-33.4); MEAN CORPUSCULAR HGB CONC 29.9 g/dL (32.0-36.0); MEAN CORPUSCULAR VOLUME 76 fl (80-97); PLATELET COUNT 139 10^3/uL (150-450); RED BLOOD COUNT 3.77 10^6/uL (3.72-5.28); RED CELL DISTRIBUTION WIDTH 20.1 % (11.5-14.0); WHITE BLOOD COUNT 17.7 10^3/uL (4.0-10.5)
[2020-07-18] MEDS ORDERED: HYDROCORTISONE SOD SUCCINATE INJ/PF 100 MG/2 ML SDV IV SCH (06:00)
[2020-07-18 06:12] LABS: ANION GAP 8 (5-19); BLOOD UREA NITROGEN 81 mg/dL (7-20); CALCIUM 9.4 mg/dL (8.4-10.2); CARBON DIOXIDE 26 mmol/L (22-30); CHLORIDE 109 mmol/L (98-107); GLUCOSE 122 mg/dL (75-110); POTASSIUM 4.6 mmol/L (3.6-5.0)
[2020-07-18 06:47] LABS: ABSOLUTE LYMPHOCYTES# (MANUAL) 0.9 10^3/uL (0.5-4.7); ABSOLUTE MONOCYTES # (MANUAL) 1.2 10^3/uL (0.1-1.4); ANISOCYTOSIS 2+; BASOPHILS % (MANUAL) 2 % (0-2); EOSINOPHILS % (MANUAL) 0 % (0-6); LYMPHOCYTES % (MANUAL) 5 % (13-45); MONOCYTES % (MANUAL) 7 % (3-13); SEGMENTED NEUTROPHILS % (MAN) 86 % (42-78); TOTAL CELLS COUNTED 100
[2020-07-18 06:48] LABS: HYPOCHROMASIA 1+; PLATELET COMMENT DECREASED
[2020-07-18 06:49] LABS: BURR CELLS SLIGHT; OVALOCYTES 1+; POLYCHROMASIA SLIGHT
--- NOTE | 2020-07-18 08:02 | PDOC CRITICAL CARE PROG REPORT ---
General Date:: 07/18/20 ICU Day:: 19 Ventilator Day:: 19 Hospital Day:: 19 Resuscitation Status: Full Code Events in the past 12 to 24 Hours:: Had episode of tachynea and some labored breathing. O2 saturations dropped. R esolved at this time. Review of systems relevant to events:: Pulmonary, neurological. Reason for ICU Addmission:: Not awake, vegetative. Off and on vent. - Medications: Medications reviewed and adjusted accordingly: Yes Vasopressors:: None Sedation:: None Physical Exam Vital Signs: Temp Pulse Resp BP Pulse Ox 99.1 F 87 23 H 139/91 H 98 07/18/20 06:01 07/17/20 20:16 07/18/20 06:01 07/18/20 06:01 07/18/20 06:01 Intake & Output 07/17/20 07/18/20 07/19/20 06:59 06:59 06:59 Intake Total 3200 1631 Output Total 2105 2070 Balance 1095 -439 Weight 170.1 kg 169.8 kg Weight/Height Weight 169.8 kg Height 5 ft 4 in General appearance: PRESENT: no acute distress, morbidly obese Head exam: PRESENT: atraumatic, normocephalic Eye exam: PRESENT: conjunctiva pink, EOMI, PERRLA. ABSENT: scleral icterus Ear exam: PRESENT: normal external ear exam Mouth exam: PRESENT: moist, tongue midline Respiratory exam: PRESENT: clear to auscultation beatriz, rhonchi. ABSENT: rales, wheezes Cardiovascular exam: PRESENT: RRR. ABSENT: diastolic murmur, rubs, systolic murmur GI/Abdominal exam: PRESENT: normal bowel sounds, soft. ABSENT: distended, guarding, mass, organolmegaly, rebound, tenderness Rectal exam: PRESENT: deferred Gentrourinary exam: PRESENT: indwelling catheter Extremities exam: PRESENT: +1 edema, other - Acrocyanosis unchanged. Neurological exam: PRESENT: altered, other - Preferentially gazes to L. Does not track Skin exam: PRESENT: cyanosis, dry, intact, warm. ABSENT: rash Tubes/Lines: PRESENT: Dialysis catheter, Nasogastic Tube, Other - Tracheotomy Laboratory/Radiographs Laboratory Results: 07/18/20 05:30 07/18/20 05:30 07/17/20 07/18/20 07/18/20 09:00 05:30 05:30 WBC 17.7 H RBC 3.77 Hgb 8.5 L Hct 28.6 L MCV 76 L MCH 22.6 L MCHC 29.9 L RDW 20.1 H Plt Count 139 L Seg Neutrophils % Not Reportable Sodium 145.3 H 143.1 Potassium 4.4 4.6 Chloride 108 H 109 H Carbon Dioxide 27 26 Anion Gap 10 8 BUN 79 H 81 H Creatinine 3.14 H 2.53 H Est GFR ( Amer) 21 L 27 L Glucose 140 H 122 H Calcium 9.2 9.4 06/30/20 06/30/20 07/04/20 03:58 03:58 04:30 Creatine Kinase 188 H NT-Pro-B Natriuret Pep 55184 H 73613 H Impressions: Lower Extremity Ultrasound 06/30/20 00:00 IMPRESSION: 1. Multiphasic waveforms with three-vessel runoff bilaterally. 2. The right dorsalis pedis is not visualized and may be occluded. Diminished, but patent left dorsalis pedis. Venous Doppler Study 07/11/20 00:00 IMPRESSION: Acute hypoechoic clot occludes the cephalic vein in the antecubital fossa Chest X-Ray 07/12/20 00:00 IMPRESSION: Minimal persistent perihilar pulmonary edema KUB X-Ray 07/16/20 00:00 IMPRESSION: Tip of the Dobbhoff catheter in the left upper quadrant, as above copyright 2011 [employer]- All Rights Reserved All labs, radiographs, diagnostic studies and EKGs were personally reviewed: Yes In addition, reports of radiographic and diagnostic studies were read: Yes Assessment and Plan - Diagnosis (1) Endocarditis determined by echocardiography Is this a current diagnosis for this admission?: Yes Plan: No growth in blood cultures since 07/02. Needs antibiotics for 6 weeks from this date. (2) ARF (acute renal failure) Qualifiers: Acute renal failure type: unspecified Qualified Code(s): N17.9 - Acute kidney failure, unspecified Is this a current diagnosis for this admission?: Yes Plan: GFR up to 23. HD catheter can likely be removed. (3) Morbid obesity Is this a current diagnosis for this admission?: Yes Plan: Chronic and unchanged. (4) Comatose Qualifiers: Coma depth: [place] coma 3-8 Coma timin hours or more after hospital admission Qualified Code(s): R40.2434 - [place] coma scale score 3-8, 24 hours or more after hospital admission Is this a current diagnosis for this admission?: Yes Plan: This factor has not changed even at her young age. At 30 days like this she will qualify for persistant and vegatative. Placement will be an issue. Plan Summary: Continue to see if we can effect remaval from vent. Critical Time Critical Time (minutes): 35 Level of Care: ICU Anticipated discharge: SNF Anticipated DC Timeframe: Other -: 1. The care of a critical patient is a dynamic process. This note is a technical services representative synopsis but static in nature. The timeframe for treatments given in order is not necessarily the actual time these treatments may have been done. 2. This patient requires critical care secondary to ongoing requirements for therapy not offered or safe outside the critical care environment. Transfer to a lower level of care will result in altered life or limb morbidity and mortality. 3. Multidisciplinary rounds completed. 4. ABCDE bundle addressed.
[2020-07-18] MEDS: CEFAZOLIN SODIUM 2 GM in DEXTROSE 5%-WATER 100 ML IV SCH ×2 (10:02→21:06)
[2020-07-18] MEDS: AMINO AC/PROTEIN HYDR/WHEY PRO 11 GM/45 ML PKT NG SCH ×2 (10:03→17:25)
[2020-07-18] MEDS: POTASSIUM CHLORIDE 20 MEQ PACKET NG SCH (10:03)
[2020-07-18] MEDS: FAMOTIDINE INJ/PF 20 MG/2 ML SDV IV SCH ×2 (10:03→21:06)
[2020-07-18] MEDS: LORAZEPAM INJ 2 MG/1 ML VIAL IV PRN (10:30)
--- NOTE | 2020-07-18 22:20 | RADIOLOGY REPORT (SQ) ---
EXAM DESCRIPTION: XR CHEST 1 VIEW COMPLETED DATE/TME: 07/18/2020 00:00 CLINICAL HISTORY: 29 years, Female, Pneumonia COMPARISON: X-ray chest 07/12/2020 NUMBER OF VIEWS: TECHNIQUE: LIMITATIONS: None. FINDINGS: There is right perihilar infiltrate, unchanged, as compared with the prior chest x-ray. There is cardiomegaly. There is possible mild pulmonary vascular congestion. The lines and tubes are unchanged, as compared with the prior study. IMPRESSION: Right perihilar infiltrate. Diagnostic possibilities include pulmonary edema and pneumonia. Cardiomegaly, with possible mild pulmonary vascular congestion. copyright 2010 [employer]- All Rights Reserved
[2020-07-19] MEDS: HEPARIN SOD (PORCINE) 5,000 UNIT/ML 1 ML VIAL SUBCUT SCH ×3 (05:03→21:22)
[2020-07-19] MEDS: LEVOTHYROXINE SODIUM 0.025 MG TABLET NG SCH (05:04)
[2020-07-19] MEDS: LEVOTHYROXINE SODIUM 0.1 MG TABLET NG SCH (05:04)
[2020-07-19] MEDS: HYDROCORTISONE SOD SUCCINATE INJ/PF 100 MG/2 ML SDV IV SCH ×2 (05:04→17:09)
[2020-07-19 05:34] LABS: HEMATOCRIT 27.5 % (36.0-47.0); HEMOGLOBIN 8.4 g/dL (12.0-15.5); MEAN CORPUSCULAR HEMOGLOBIN 23.1 pg (27.0-33.4); MEAN CORPUSCULAR HGB CONC 30.6 g/dL (32.0-36.0); MEAN CORPUSCULAR VOLUME 76 fl (80-97); PLATELET COUNT 129 10^3/uL (150-450); RED BLOOD COUNT 3.63 10^6/uL (3.72-5.28); RED CELL DISTRIBUTION WIDTH 20.1 % (11.5-14.0); WHITE BLOOD COUNT 15.9 10^3/uL (4.0-10.5)
[2020-07-19 05:58] LABS: ANION GAP 9 (5-19); BLOOD UREA NITROGEN 83 mg/dL (7-20); CALCIUM 9.5 mg/dL (8.4-10.2); CARBON DIOXIDE 27 mmol/L (22-30); CHLORIDE 107 mmol/L (98-107); GLUCOSE 134 mg/dL (75-110); POTASSIUM 4.5 mmol/L (3.6-5.0)
[2020-07-19 06:40] LABS: ARTERIAL BLOOD BASE EXCESS -3.2 mmol/L; ARTERIAL BLOOD FIO2 50%; ARTERIAL BLOOD H2CO3 1.95 mmol/L (1.05-1.35); ARTERIAL BLOOD HCO3 25.3 mmol/L (20-24); ARTERIAL BLOOD O2 SATURATION 95.2 % (94-98); ARTERIAL BLOOD PCO2 64.8 mmHg (35-45); ARTERIAL BLOOD PH 7.21 (7.35-7.45); ARTERIAL BLOOD TOTAL CO2 27.3 mmol/L (21-25)
[2020-07-19] MEDS: DEXTROSE 5%-WATER 1000 ML 1,000 ML IV PRN ×3 (08:11→20:19)
--- NOTE | 2020-07-19 08:52 | PDOC CRITICAL CARE PROG REPORT ---
General Date:: 07/19/20 ICU Day:: 20 Ventilator Day:: 20 Hospital Day:: 20 Resuscitation Status: Full Code Events in the past 12 to 24 Hours:: Went all night on trach collar but hypercarbic by morning. Review of systems relevant to events:: Pulmonary, neurologic. Reason for ICU Addmission:: Not awake, vegetative. Off and on vent. - Medications: Medications reviewed and adjusted accordingly: Yes Vasopressors:: None Sedation:: None Physical Exam Vital Signs: Temp Pulse Resp BP Pulse Ox 99.5 F 107 H 36 H 145/88 H 97 07/19/20 06:02 07/18/20 19:27 07/19/20 06:02 07/19/20 06:02 07/19/20 08:34 Intake & Output 07/18/20 07/19/20 07/20/20 06:59 06:59 06:59 Intake Total 1631 2148 Output Total 2070 1900 Balance -439 248 Weight 169.8 kg 170.5 kg Weight/Height Weight 170.5 kg Height 5 ft 4 in General appearance: PRESENT: no acute distress, morbidly obese Head exam: PRESENT: atraumatic, normocephalic Eye exam: PRESENT: conjunctiva pink, EOMI, PERRLA. ABSENT: scleral icterus Ear exam: PRESENT: normal external ear exam Mouth exam: PRESENT: moist, tongue midline Respiratory exam: PRESENT: clear to auscultation beatriz. ABSENT: rales, rhonchi, wheezes Cardiovascular exam: PRESENT: RRR. ABSENT: diastolic murmur, rubs, systolic murmur GI/Abdominal exam: PRESENT: normal bowel sounds, soft. ABSENT: distended, guarding, mass, organolmegaly, rebound, tenderness Rectal exam: PRESENT: deferred Gentrourinary exam: PRESENT: indwelling catheter Extremities exam: PRESENT: other - Acrocyanosis. Neurological exam: PRESENT: other - Continues to be vegatative Skin exam: PRESENT: other - Acrocyanosis of toes. Tubes/Lines: PRESENT: Nasogastic Tube, Other - Tracheotomy Laboratory/Radiographs Laboratory Results: 07/19/20 05:00 07/19/20 05:00 07/19/20 07/19/20 07/19/20 05:00 05:00 05:45 WBC 15.9 H RBC 3.63 L Hgb 8.4 L Hct 27.5 L MCV 76 L MCH 23.1 L MCHC 30.6 L RDW 20.1 H Plt Count 129 L Carbonic Acid 1.95 H HCO3/H2CO3 Ratio 12:1 ABG pH 7.21 L ABG pCO2 64.8 H ABG pO2 93.0 ABG HCO3 25.3 H ABG O2 Saturation 95.2 ABG Base Excess -3.2 FiO2 50% Sodium 143.1 Potassium 4.5 Chloride 107 Carbon Dioxide 27 Anion Gap 9 BUN 83 H Creatinine 2.70 H Est GFR ( Amer) 25 L Glucose 134 H Calcium 9.5 06/30/20 06/30/20 07/04/20 03:58 03:58 04:30 Creatine Kinase 188 H NT-Pro-B Natriuret Pep 70444 H 47504 H Impressions: Lower Extremity Ultrasound 06/30/20 00:00 IMPRESSION: 1. Multiphasic waveforms with three-vessel runoff bilaterally. 2. The right dorsalis pedis is not visualized and may be occluded. Diminished, but patent left dorsalis pedis. Venous Doppler Study 07/11/20 00:00 IMPRESSION: Acute hypoechoic clot occludes the cephalic vein in the antecubital fossa KUB X-Ray 07/16/20 00:00 IMPRESSION: Tip of the Dobbhoff catheter in the left upper quadrant, as above copyright 2010 [employer]- All Rights Reserved Chest X-Ray 07/18/20 00:00 IMPRESSION: Right perihilar infiltrate. Diagnostic possibilities include pulmonary edema and pneumonia. Cardiomegaly, with possible mild pulmonary vascular congestion. copyright 2011 [employer]- All Rights Reserved All labs, radiographs, diagnostic studies and EKGs were personally reviewed: Yes In addition, reports of radiographic and diagnostic studies were read: Yes Assessment and Plan - Diagnosis (1) Endocarditis determined by echocardiography Is this a current diagnosis for this admission?: Yes Plan: Needs total of 6 weeks of antibiotics. (2) ARF (acute renal failure) Qualifiers: Acute renal failure type: unspecified Qualified Code(s): N17.9 - Acute kidney failure, unspecified Is this a current diagnosis for this admission?: Yes Plan: Slowly improving. Remove HD catheter. (3) Morbid obesity Is this a current diagnosis for this admission?: Yes Plan: This has most likely been a factor in her becoming hypercarbic by the morning. (4) Comatose Qualifiers: Coma depth: [place] coma 3-8 Coma timin hours or more after hospital admission Qualified Code(s): R40.2434 - [place] coma scale score 3-8, 24 hours or more after hospital admission Is this a current diagnosis for this admission?: Yes Critical Time Critical Time (minutes): 35 Level of Care: ICU Anticipated discharge: SNF Anticipated DC Timeframe: Other -: 1. The care of a critical patient is a dynamic process. This note is a customer engagement representative synopsis but static in nature. The timeframe for treatments given in order is not necessarily the actual time these treatments may have been done. 2. This patient requires critical care secondary to ongoing requirements for therapy not offered or safe outside the critical care environment. Transfer to a lower level of care will result in altered life or limb morbidity and mortality. 3. Multidisciplinary rounds completed. 4. ABCDE bundle addressed.
[2020-07-19] MEDS: CEFAZOLIN SODIUM 2 GM in DEXTROSE 5%-WATER 100 ML IV SCH ×2 (11:26→21:21)
[2020-07-19] MEDS: POTASSIUM CHLORIDE 20 MEQ PACKET NG SCH (11:26)
[2020-07-19] MEDS: AMINO AC/PROTEIN HYDR/WHEY PRO 11 GM/45 ML PKT NG SCH ×2 (11:26→17:00)
[2020-07-19] MEDS: FAMOTIDINE INJ/PF 20 MG/2 ML SDV IV SCH ×2 (11:27→21:22)
[2020-07-19] MEDS: LABETALOL HCL INJ 20 MG/4 ML DISP.SYRIN IV PRN (19:45)
[2020-07-19 23:31] LABS: ARTERIAL BLOOD BASE EXCESS -1.5 mmol/L; ARTERIAL BLOOD H2CO3 1.54 mmol/L (1.05-1.35); ARTERIAL BLOOD O2 SATURATION 94.1 % (94-98); ARTERIAL BLOOD PCO2 51.3 mmHg (35-45); ARTERIAL BLOOD PH 7.31 (7.35-7.45); ARTERIAL BLOOD PO2 77.3 mmHg (80-100); ARTERIAL BLOOD TOTAL CO2 26.5 mmol/L (21-25)
[2020-07-19 23:38] LABS: ARTERIAL BLOOD FIO2 35%
[2020-07-20] MEDS: LORAZEPAM INJ 2 MG/1 ML VIAL IV PRN ×2 (02:04→23:10)
[2020-07-20] MEDS: LEVOTHYROXINE SODIUM 0.1 MG TABLET NG SCH (05:09)
[2020-07-20] MEDS: LEVOTHYROXINE SODIUM 0.025 MG TABLET NG SCH (05:09)
[2020-07-20] MEDS: HEPARIN SOD (PORCINE) 5,000 UNIT/ML 1 ML VIAL SUBCUT SCH ×3 (05:10→23:06)
[2020-07-20] MEDS: HYDROCORTISONE SOD SUCCINATE INJ/PF 100 MG/2 ML SDV IV SCH ×2 (05:22→18:22)
[2020-07-20 05:29] LABS: ANION GAP 10 (5-19); BLOOD UREA NITROGEN 79 mg/dL (7-20); CALCIUM 9.4 mg/dL (8.4-10.2); CARBON DIOXIDE 28 mmol/L (22-30); CHLORIDE 106 mmol/L (98-107); GLUCOSE 102 mg/dL (75-110); POTASSIUM 4.4 mmol/L (3.6-5.0)
[2020-07-20] MEDS: CEFAZOLIN SODIUM 2 GM in DEXTROSE 5%-WATER 100 ML IV SCH ×2 (10:51→23:05)
[2020-07-20] MEDS: DEXTROSE 5%-WATER 1000 ML 1,000 ML IV PRN (10:59)
[2020-07-20] MEDS: POTASSIUM CHLORIDE 20 MEQ PACKET NG SCH (10:59)
[2020-07-20] MEDS: FAMOTIDINE INJ/PF 20 MG/2 ML SDV IV SCH ×2 (10:59→23:06)
[2020-07-20] MEDS: AMINO AC/PROTEIN HYDR/WHEY PRO 11 GM/45 ML PKT NG SCH ×2 (11:00→18:22)
--- NOTE | 2020-07-20 14:32 | PDOC PROGRESS REPORT ---
Subjective Progress Note for:: 07/20/20 Subjective:: This patient was transferred out of the ICU overnight. Very little information as to her extensive ICU stay but appears she is currently being treated for endocarditis as well as acute kidney failure. She is also on trach collar. She spent 21 days in the ICU. It appears she had been intermittently off and on the ventilator due to respiratory failure. She currently appears to be in a vegetative state Reason For Visit: ARDS, POSSIBLE COVID 19 Physical Exam Vital Signs: Temp Pulse Resp BP Pulse Ox 98.9 F 100 16 135/85 H 97 07/20/20 12:26 07/20/20 12:26 07/20/20 12:26 07/20/20 12:26 07/20/20 12:26 Intake & Output 07/19/20 07/20/20 07/21/20 06:59 06:59 06:59 Intake Total 2148 2065 1240 Output Total 1900 2915 Balance 248 -850 1240 Weight 170.5 kg 182.344 kg General appearance: PRESENT: morbidly obese, other - Unresponsive to painful stimuli although eyes open nonpurposeful movements Head exam: PRESENT: atraumatic Neck exam: PRESENT: tracheostomy Respiratory exam: PRESENT: decreased breath sounds, unlabored. ABSENT: rhonchi Cardiovascular exam: PRESENT: RRR, +S1, +S2 GI/Abdominal exam: PRESENT: other - NGT in place Rectal exam: PRESENT: deferred Neurological exam: PRESENT: other - vegetative state Results Laboratory Results: 07/19/20 05:00 07/20/20 04:30 07/19/20 07/20/20 23:10 04:30 Carbonic Acid 1.54 H HCO3/H2CO3 Ratio 16:1 ABG pH 7.31 L ABG pCO2 51.3 H ABG pO2 77.3 L ABG HCO3 25.0 H ABG O2 Saturation 94.1 ABG Base Excess -1.5 FiO2 35% Sodium 143.7 Potassium 4.4 Chloride 106 Carbon Dioxide 28 Anion Gap 10 BUN 79 H Creatinine 2.80 H Est GFR ( Amer) 24 L Glucose 102 Calcium 9.4 06/30/20 06/30/20 07/04/20 03:58 03:58 04:30 Creatine Kinase 188 H NT-Pro-B Natriuret Pep 20284 H 53477 H Impressions: Lower Extremity Ultrasound 06/30/20 00:00 IMPRESSION: 1. Multiphasic waveforms with three-vessel runoff bilaterally. 2. The right dorsalis pedis is not visualized and may be occluded. Diminished, but patent left dorsalis pedis. Venous Doppler Study 07/11/20 00:00 IMPRESSION: Acute hypoechoic clot occludes the cephalic vein in the antecubital fossa KUB X-Ray 07/16/20 00:00 IMPRESSION: Tip of the Dobbhoff catheter in the left upper quadrant, as above copyright 2010 [employer]- All Rights Reserved Chest X-Ray 07/18/20 00:00 IMPRESSION: Right perihilar infiltrate. Diagnostic possibilities include pulmonary edema and pneumonia. Cardiomegaly, with possible mild pulmonary vascular congestion. copyright 2010 [employer]- All Rights Reserved Assessment and Plan - Diagnosis (1) ARF (acute renal failure) Qualifiers: Acute renal failure type: unspecified Qualified Code(s): N17.9 - Acute kidney failure, unspecified Is this a current diagnosis for this admission?: Yes Plan: Slowly improving. Was not dialyzed (2) Acute respiratory failure Qualifiers: Respiratory failure complication: hypoxia Qualified Code(s): J96.01 - Acute respiratory failure with hypoxia Is this a current diagnosis for this admission?: Yes Plan: Mental status pretty tenuous (3) Comatose Qualifiers: Coma depth: [place] coma 3-8 Coma timin hours or more after hospital admission Qualified Code(s): R40.2434 - [place] coma scale score 3-8, 24 hours or more after hospital admission Is this a current diagnosis for this admission?: Yes Plan: This factor has not changed even at her young age. At 30 days like this she will qualify for persistant and vegatative. We will order an EEG to evaluate neurological function (4) Endocarditis determined by echocardiography Is this a current diagnosis for this admission?: Yes Plan: Ancef started on July 02 this was the date of negative blood cultures. She will need antibiotics for 6 weeks from then (5) Morbid obesity Is this a current diagnosis for this admission?: Yes - Plan Summary Summary: BRODIE thought to be secondary to ATN. She received a Lasix drip. 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 Last blood cultures have been negative patient is currently on cefazolin. She is currently on day 18 of a 6-week treatment course from the date of negative blood culture which was on July 02. It appears Ancef 1 g every 12 was started on July 02. Acute respiratory failure status post tracheostomy placement on July 17 and appears her respiratory status is pretty tenuous and will have to continue close monitoring. 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 She was initially admitted on June 28 due to pneumonia and acute respiratory failure and was diagnosed with ARDS, septic shock and was intubated. Patient's overall prognosis is very poor and she is at a very high risk for adverse outcome including - Time Medications reviewed and adjusted accordingly: Yes Anticipated Discharge Disposition: [facility] Anticipated Discharge Timeframe: To be determined - Inpatient Certification Based on my medical assessment, after consideration of the patient's comor bidities, presenting symptoms, or acuity I expect that the services needed warrant INPATIENT care.: Yes Medical Necessity: Significant Comorbidiites Make Outpatient Treatment Too Risky, Risk of Complication if Not Cared For in Hospital
--- NOTE | 2020-07-21 01:44 | CRITICAL CARE ADMISSION REPORT ---
HPI Date:: 06/29/20 Time:: 05:20 Reason for ICU Reason:: Acute Respiratory Failure , ARDS Admission Date/Time & PCP: Admission Date/Time: 06/29/20 03:15 Primary Care Provider: HPI: This is 29 year old female patient with a history of morbid obesity presents to the ED today with complaints of cough, shortness of breath and dyspnea on exertion for the past x2 weeks. Patient was initially brought in by EMS, but le ft AMA. Patient was still in the lobby waiting for a ride when her shortness of breath got worse, so she was brought back to a room for further evaluation. Patient is a current every day smoker and was admitted here x4 months ago for pneumonia. Patient admitted to ICU for evaluation and further management of acute respiratory failure /ARDS secondary to pneumonia and COVID. - Diagnosis/Plan (1) Acute respiratory failure with hypoxia Is this a current diagnosis for this admission?: Yes Plan: Intubated 2/2 hypoxia with initial PO2 < 60 mmhg. Calculated P/F ratio 149 - ARDS protocol SIMV 20, TV 400, PEEP 8 , Fio2 100 Respiratory acidosis - 3 amps NaHCo3 given (2) Atypical pneumonia Is this a current diagnosis for this admission?: Yes Plan: Emperic antibiotic Vancomycin and Zosyn given Sputum culture and gram stain (3) Hypothyroidism Qualifiers: Hypothyroidism type: other Qualified Code(s): E03.8 - Other specified hypothyroidism Is this a current diagnosis for this admission?: Yes (6) Suspected COVID-19 virus infection Is this a current diagnosis for this admission?: Yes Plan: Pending COVID markers positive Isolation Past Medical History Cardiac Medical History: Reports: Congestive Heart Failure, Heart Murmur Pulmonary Medical History: Reports: Intubation, Pneumonia, Respiratory Failure, Sleep Apnea EENT Medical History: Reports: Ears, Nose, Throat Endocrine Medical History: Reports: Hypothyroidism, Obesity Malignancy Medical History: Reports: None Musculoskeltal Medical History: Reports: None Skin Medical History: Reports: None Past Surgical History Past Surgical History: Reports: Orthopedic Surgery - right 5th toe amputation Social/Family History - Social History Lives with: Parents Smoking Status: Current Every Day Smoker Frequency of Alcohol Use: Rare Hx Recreational Drug Use: No Hx Prescription Drug Abuse: No - Medication/Allergies Home Medications: Albuterol Sulfate [Proair HFA Inhalation Aerosol 8.5 gm MDI] 2 puff IH Q4HP PRN 06/29/20 Levothyroxine Sodium [Synthroid] 125 mcg PO Q6AM 06/29/20 Allergies/Adverse Reactions: No Known Allergies Allergy (Verified 06/29/20 08:43) Review of Systems ROS unobtainable: Due to endotracheal tube Physical Exam Vital Signs: Temp Pulse Resp BP Pulse Ox 98.9 F 127 H 22 H 116/74 95 06/29/20 01:33 06/28/20 23:44 06/28/20 23:44 06/28/20 23:44 06/29/20 04:26 Intake & Output 06/28/20 06/29/20 06/30/20 06:59 06:59 06:59 Weight 179.3 kg Weight/Height Weight 179.3 kg Height 5 ft 4 in General appearance: PRESENT: morbidly obese Head exam: PRESENT: atraumatic, normocephalic Eye exam: PRESENT: EOMI, periorbital swelling, PERRLA, other Ear exam: PRESENT: normal external ear exam Mouth exam: PRESENT: neck supple, tongue midline Teeth exam: PRESENT: other Throat exam: PRESENT: other Respiratory exam: PRESENT: decreased breath sounds, rhonchi, symmetrical Cardiovascular exam: PRESENT: RRR, +S1 Pulses: PRESENT: normal carotid pulses, +1 pedal pulses bilateral GI/Abdominal exam: PRESENT: soft, tenderness Rectal exam: PRESENT: deferred Extremities exam: PRESENT: joint swelling, +2 edema Musculoskeletal exam: PRESENT: full ROM Laboratory/Radiographs Laboratory Results: 06/29/20 00:55 06/29/20 00:55 06/28/20 06/29/20 06/29/20 23:07 00:55 00:55 WBC 28.0 H RBC 4.75 Hgb 10.6 L Hct 34.3 L MCV 72 L MCH 22.4 L MCHC 31.1 L RDW 19.2 H Plt Count 73 L Seg Neutrophils % Not Reportable Carbonic Acid 0.95 L HCO3/H2CO3 Ratio 18:1 ABG pH 7.36 ABG pCO2 31.4 L ABG pO2 53.7 L ABG HCO3 17.4 L ABG O2 Saturation 87.2 L ABG Base Excess -6.9 FiO2 ROOM AIR Sodium Potassium Chloride Carbon Dioxide Anion Gap BUN Creatinine Est GFR ( Amer) Glucose Lactic Acid 2.1 Calcium Total Bilirubin AST Alkaline Phosphatase Total Protein Albumin Urine Color Urine Appearance Urine pH Ur Specific [place] Urine Protein Urine Glucose (UA) Urine Ketones Urine Blood Urine Nitrite Ur Leukocyte Esterase Urine WBC (Auto) Urine RBC (Auto) 06/29/20 06/29/20 06/29/20 00:55 01:58 03:11 WBC RBC Hgb Hct MCV MCH MCHC RDW Plt Count Seg Neutrophils % Carbonic Acid Cancelled HCO3/H2CO3 Ratio Cancelled ABG pH Cancelled ABG pCO2 Cancelled ABG pO2 Cancelled ABG HCO3 Cancelled ABG O2 Saturation Cancelled ABG Base Excess Cancelled FiO2 Cancelled Sodium 135.3 L Potassium 3.5 L Chloride 106 Carbon Dioxide 18 L Anion Gap 11 BUN 21 H Creatinine 2.26 H Est GFR ( Amer) 31 L Glucose 97 Lactic Acid Calcium 9.1 Total Bilirubin 1.2 AST 30 Alkaline Phosphatase 78 Total Protein 7.5 Albumin 3.3 L Urine Color DANIELA Urine Appearance SLIGHTLY-CLOUDY Urine pH 5.0 Ur Specific [place] 1.028 Urine Protein >=500 H Urine Glucose (UA) NEGATIVE Urine Ketones NEGATIVE Urine Blood MODERATE H Urine Nitrite NEGATIVE Ur Leukocyte Esterase NEGATIVE Urine WBC (Auto) 9 Urine RBC (Auto) 10 06/29/20 07:05 WBC RBC Hgb Hct MCV MCH MCHC RDW Plt Count Seg Neutrophils % Carbonic Acid 1.87 H HCO3/H2CO3 Ratio 9:1 ABG pH 7.09 L* ABG pCO2 62.1 H ABG pO2 149.1 H ABG HCO3 18.5 L ABG O2 Saturation 98.0 ABG Base Excess -11.6 FiO2 100% Sodium Potassium Chloride Carbon Dioxide Anion Gap BUN Creatinine Est GFR ( Amer) Glucose Lactic Acid Calcium Total Bilirubin AST Alkaline Phosphatase Total Protein Albumin Urine Color Urine Appearance Urine pH Ur Specific [place] Urine Protein Urine Glucose (UA) Urine Ketones Urine Blood Urine Nitrite Ur Leukocyte Esterase Urine WBC (Auto) Urine RBC (Auto) Impressions: Chest X-Ray 06/29/20 02:18 IMPRESSION: Aggressive interstitial and airspace disease bilaterally. Nasogastric/orgastric tube and endotracheal tube are in satisfactory position. All labs, radiographs, diagnostic studies and EKGs were personally reviewed: Yes In addition, reports of radiographic and diagnostic studies were read: Yes Critical Time Critical Time (minutes): 50 -: The care of a critically ill patient is dynamic. This note represents a static moment in the admission process. Orders and treatments may be given simultaneously and urgently, and time is not sales representative aircraft of the treatment process. This patient requires Critical Care secondary to life threatening organ or limb dysfunction. Without Critical Care services, the patient is at risk for increased mortality and morbidity.
--- NOTE | 2020-07-21 01:58 | RADIOLOGY REPORT (SQ) ---
EXAM DESCRIPTION: X-RAY CHEST- One View CLINICAL HISTORY: Tracheostomy COMPARISON: July 18, 2020 TECHNIQUE: Single view of the chest. FINDINGS: There are overlying EKG leads. Tracheostomy noted with tip in the expected location of the trachea. A presumed enteric tube seen coursing across the midline chest, poorly visualized. Right internal jugular central line appears in grossly stable position. There is redemonstration of multifocal pulmonary opacities with blunting of the bilateral costophrenic angles. There is decreased aeration of the right side when compared with prior study. The pulmonary vascularity remains prominent. The cardiac silhouette remains mildly enlarged. There is extensive subcutaneous emphysema. There is potential pneumomediastinum and pneumopericardium on the current study. Osseous structures are stable. IMPRESSION: 1. Support lines and tubes in position as detailed above. 2. Extensive subcutaneous emphysema with potential pneumomediastinum or pneumopericardium on the current study. Close attention on follow-up is recommended. 3. Redemonstration of multifocal pulmonary opacities, worse in the right hemithorax when compared to prior exam. Suggestion of small pleural effusions.
[2020-07-21] MEDS: DEXTROSE 5%-WATER 1000 ML 1,000 ML IV PRN (02:04)
[2020-07-21] MEDS: HEPARIN SOD (PORCINE) 5,000 UNIT/ML 1 ML VIAL SUBCUT SCH ×3 (06:58→21:57)
[2020-07-21] MEDS: LEVOTHYROXINE SODIUM 0.025 MG TABLET NG SCH (06:59)
[2020-07-21] MEDS: HYDROCORTISONE SOD SUCCINATE INJ/PF 100 MG/2 ML SDV IV SCH ×2 (06:59→17:21)
[2020-07-21] MEDS: LEVOTHYROXINE SODIUM 0.1 MG TABLET NG SCH (07:00)
[2020-07-21 07:07] LABS: ANION GAP 8 (5-19); BLOOD UREA NITROGEN 78 mg/dL (7-20); CALCIUM 9.2 mg/dL (8.4-10.2); CARBON DIOXIDE 27 mmol/L (22-30); CHLORIDE 107 mmol/L (98-107); GLUCOSE 117 mg/dL (75-110); POTASSIUM 4.2 mmol/L (3.6-5.0)
[2020-07-21 07:11] LABS: ABSOLUTE BASOPHILS # (AUTO) 0.1 10^3/uL (0.0-0.2); ABSOLUTE EOSINOPHILS # (AUTO) 0.3 10^3/uL (0.0-0.6); ABSOLUTE LYMPHOCYTES (AUTO) 1.1 10^3/uL (0.5-4.7); ABSOLUTE MONOCYTES (AUTO) 1.5 10^3/uL (0.1-1.4); ABSOLUTE NEUT (AUTO) 10.5 10^3/uL (1.7-8.2); BASOPHILS % (AUTO) 0.9 % (0-2); EOSINOPHILS % (AUTO) 2.3 % (0-6); HEMATOCRIT 24.6 % (36.0-47.0); LYMPHOCYTES % (AUTO) 8.2 % (13-45); MEAN CORPUSCULAR HEMOGLOBIN 23.3 pg (27.0-33.4); MEAN CORPUSCULAR HGB CONC 30.5 g/dL (32.0-36.0); MEAN CORPUSCULAR VOLUME 76 fl (80-97); MONOCYTES % (AUTO) 10.8 % (3-13); PLATELET COUNT 120 10^3/uL (150-450); RED BLOOD COUNT 3.22 10^6/uL (3.72-5.28); RED CELL DISTRIBUTION WIDTH 19.9 % (11.5-14.0); SEGMENTED NEUTROPHILS % (AUTO) 77.8 % (42-78); TOTAL CELLS COUNTED % (AUTO) 100 %; WHITE BLOOD COUNT 13.5 10^3/uL (4.0-10.5)
[2020-07-21 07:18] LABS: HEMOGLOBIN 7.5 g/dL (12.0-15.5)
[2020-07-21] MEDS: POTASSIUM CHLORIDE 20 MEQ PACKET NG SCH (09:27)
[2020-07-21] MEDS: AMINO AC/PROTEIN HYDR/WHEY PRO 11 GM/45 ML PKT NG SCH ×2 (09:27→17:21)
[2020-07-21] MEDS: CEFAZOLIN SODIUM 2 GM in DEXTROSE 5%-WATER 100 ML IV SCH ×2 (09:27→21:58)
[2020-07-21] MEDS: FAMOTIDINE INJ/PF 20 MG/2 ML SDV IV SCH ×2 (09:27→21:58)
--- NOTE | 2020-07-21 11:13 | PDOC PROGRESS REPORT ---
Subjective Progress Note for:: 07/21/20 Subjective:: This patient was transferred out of the ICU overnight. Very little information as to her extensive ICU stay but appears she is currently being treated for endocarditis as well as acute kidney failure. She is also on trach collar. She spent 21 days in the ICU. It appears she had been intermittently off and on the ventilator due to respiratory failure. She currently appears to be in a vegetative state 07/21 patient apparently had an eventful evening. She started bleeding from the tracheostomy. It appears surgery was consulted. This morning we have also mel nsulted ENT as they appear to be a potential issues with the tracheostomy. She is currently stable. It is noted that hemoglobin did drop overnight and this may have been from her bleeding. I will repeat hemoglobin this afternoon and decide on transfusion if needed. She actually seems to be somewhat more responsive although still unable to appropriately respond but she is awake and alert. Chest x-ray reveals multifocal pulmonary opacities with extensive subcutaneous emphysema with questionable pneumomediastinum and pneumopericardium Reason For Visit: ARDS, POSSIBLE COVID 19 Physical Exam Vital Signs: Temp Pulse Resp BP Pulse Ox 98.3 F 92 10 L 140/80 H 98 07/21/20 10:00 07/21/20 07:00 07/21/20 04:20 07/21/20 04:20 07/21/20 09:50 Intake & Output 07/20/20 07/21/20 07/22/20 06:59 06:59 06:59 Intake Total 2065 3788 200 Output Total 2915 1650 Balance -850 2138 200 Weight 182.344 kg 183.251 kg General appearance: PRESENT: no acute distress, morbidly obese, well-nourished Head exam: PRESENT: atraumatic, normocephalic Eye exam: PRESENT: conjunctiva pink, EOMI, PERRLA. ABSENT: scleral icterus Ear exam: PRESENT: normal external ear exam Mouth exam: PRESENT: moist, tongue midline Neck exam: PRESENT: tracheostomy - Blood around tracheostomy though no evidence of active bleeding. ABSENT: carotid bruit, JVD, lymphadenopathy, thyromegaly Respiratory exam: PRESENT: decreased breath sounds, unlabored, other - Somewhat uneven. ABSENT: rales, rhonchi, wheezes Cardiovascular exam: PRESENT: RRR, +S1, +S2. ABSENT: diastolic murmur, rubs, systolic murmur Pulses: PRESENT: normal dorsalis pedis pul Vascular exam: PRESENT: normal capillary refill GI/Abdominal exam: PRESENT: normal bowel sounds, soft, other - NG tube in place. ABSENT: distended, guarding, mass, organolmegaly, rebound, tenderness Rectal exam: PRESENT: deferred Extremities exam: PRESENT: full ROM. ABSENT: calf tenderness, clubbing, pedal edema Neurological exam: PRESENT: alert, awake, aphasic, other - No purposeful response. ABSENT: motor sensory deficit Psychiatric exam: PRESENT: appropriate affect, normal mood. ABSENT: homicidal ideation, suicidal ideation Skin exam: PRESENT: dry, intact, warm. ABSENT: cyanosis, rash Results Laboratory Results: 07/21/20 06:30 07/21/20 06:30 07/21/20 07/21/20 06:30 06:30 WBC 13.5 H RBC 3.22 L Hgb 7.5 L Hct 24.6 L MCV 76 L MCH 23.3 L MCHC 30.5 L RDW 19.9 H Plt Count 120 L Seg Neutrophils % 77.8 Sodium 142.2 Potassium 4.2 Chloride 107 Carbon Dioxide 27 Anion Gap 8 BUN 78 H Creatinine 2.51 H Est GFR ( Amer) 28 L Glucose 117 H Calcium 9.2 06/30/20 06/30/20 07/04/20 03:58 03:58 04:30 Creatine Kinase 188 H NT-Pro-B Natriuret Pep 38422 H 56664 H Impressions: Lower Extremity Ultrasound 06/30/20 00:00 IMPRESSION: 1. Multiphasic waveforms with three-vessel runoff bilaterally. 2. The right dorsalis pedis is not visualized and may be occluded. Diminished, but patent left dorsalis pedis. Venous Doppler Study 07/11/20 00:00 IMPRESSION: Acute hypoechoic clot occludes the cephalic vein in the antecubital fossa KUB X-Ray 07/16/20 00:00 IMPRESSION: Tip of the Dobbhoff catheter in the left upper quadrant, as above copyright 2011 [email or web address]- All Rights Reserved Chest X-Ray 07/21/20 00:58 IMPRESSION: 1. Support lines and tubes in position as detailed above. 2. Extensive subcutaneous emphysema with potential pneumomediastinum or pneumopericardium on the current study. Close attention on follow-up is recommended. 3. Redemonstration of multifocal pulmonary opacities, worse in the right hemithorax when compared to prior exam. Suggestion of small pleural effusions. Assessment and Plan - Diagnosis (1) ARF (acute renal failure) Qualifiers: Acute renal failure type: unspecified Qualified Code(s): N17.9 - Acute kidney failure, unspecified Is this a current diagnosis for this admission?: Yes Plan: Kidney function continues to improve somewhat (2) Acute respiratory failure Qualifiers: Respiratory failure complication: hypoxia Qualified Code(s): J96.01 - Acute respiratory failure with hypoxia Is this a current diagnosis for this admission?: Yes Plan: M respiratory status remains pretty tenuous. Will consult ergonomics consultant when 1 available. We will continue on BiPAP currently at a setting of FiO2 of 20%, tidal volume of 450 (3) Comatose Qualifiers: Coma depth: [place] coma 3-8 Coma timin hours or more after hospital admission Qualified Code(s): R40.2434 - [place] coma scale score 3-8, 24 hours or more after hospital admission Is this a current diagnosis for this admission?: Yes Plan: Patient is in a vegetative state. EEG is not available till next week. Will obtain once available (4) Endocarditis determined by echocardiography Is this a current diagnosis for this admission?: Yes Plan: Ancef started on July 02 this was the date of negative blood cultures. She will need antibiotics for 6 weeks through August 13 (5) Morbid obesity Is this a current diagnosis for this admission?: Yes (6) Anemia Qualifiers: Anemia type: other cause Other causes of anemia: other cause, not classified Qualified Code(s): D64.89 - Other specified anemias Is this a current diagnosis for this admission?: Yes Plan: Patient is anemic from her acutely prolonged illness however her hemoglobin also did drop overnight likely from acute blood loss. We will recheck H&H and transfuse as needed. ENT has been consulted for follow-up due to the bleeding from the tracheostomy site - Plan Summary Summary: BRODIE thought to be secondary to ATN. She received a Lasix drip. 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 Last blood cultures have been negative patient is currently on cefazolin. She is currently on day 18 of a 6-week treatment course from the date of negative blood culture which was on July 02. It appears Ancef 1 g every 12 was started on July 02. Acute respiratory failure status post tracheostomy placement on July 17 and appears her respiratory status is pretty tenuous and will have to continue close monitoring. 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 She was initially admitted on June 28 due to pneumonia and acute respiratory failure and was diagnosed with ARDS, septic shock and was intubated. Patient's overall prognosis is very poor and she is at a very high risk for adverse outcome including - Time Time Spent with patient: 25-34 minutes Anticipated Discharge Disposition: [facility] Anticipated Discharge Timeframe: TBD
[2020-07-21] MEDS: MORPHINE SULFATE 10 MG/ML INJ IV PRN ×2 (13:34→21:35)
[2020-07-21 13:58] LABS: ABSOLUTE BASOPHILS # (AUTO) 0.1 10^3/uL (0.0-0.2); ABSOLUTE EOSINOPHILS # (AUTO) 0.2 10^3/uL (0.0-0.6); ABSOLUTE LYMPHOCYTES (AUTO) 0.7 10^3/uL (0.5-4.7); ABSOLUTE MONOCYTES (AUTO) 1.1 10^3/uL (0.1-1.4); ABSOLUTE NEUT (AUTO) 10.5 10^3/uL (1.7-8.2); BASOPHILS % (AUTO) 0.9 % (0-2); EOSINOPHILS % (AUTO) 1.5 % (0-6); HEMATOCRIT 24.1 % (36.0-47.0); LYMPHOCYTES % (AUTO) 5.3 % (13-45); MEAN CORPUSCULAR HEMOGLOBIN 23.5 pg (27.0-33.4); MEAN CORPUSCULAR HGB CONC 30.9 g/dL (32.0-36.0); MEAN CORPUSCULAR VOLUME 76 fl (80-97); MONOCYTES % (AUTO) 8.5 % (3-13); PLATELET COUNT 115 10^3/uL (150-450); RED BLOOD COUNT 3.16 10^6/uL (3.72-5.28); RED CELL DISTRIBUTION WIDTH 19.7 % (11.5-14.0); SEGMENTED NEUTROPHILS % (AUTO) 83.8 % (42-78); TOTAL CELLS COUNTED % (AUTO) 100 %; WHITE BLOOD COUNT 12.6 10^3/uL (4.0-10.5)
[2020-07-21 14:02] LABS: HEMOGLOBIN 7.4 g/dL (12.0-15.5)
[2020-07-21] MEDS: LORAZEPAM INJ 2 MG/1 ML VIAL IV PRN ×2 (15:21→21:58)
--- NOTE | 2020-07-21 15:23 | PDOC PROGRESS REPORT ---
Subjective Progress Note for:: 07/21/20 Reason For Visit: Pt s/p tracheostomy. Nurse states trach was decanulated during night and re- inserted by surgicalist. Pt in no distress Physical Exam Vital Signs: Temp Pulse Resp BP Pulse Ox 98.1 F 82 15 136/79 H 99 07/21/20 11:30 07/21/20 14:00 07/21/20 11:30 07/21/20 11:30 07/21/20 15:00 Intake & Output 07/20/20 07/21/20 07/22/20 06:59 06:59 06:59 Intake Total 2065 3788 200 Output Total 2915 1650 Balance -850 2138 200 Weight 182.344 kg 183.251 kg Exam: Neck: trach in proper place. Trach is secured properly Results Laboratory Results: 07/21/20 13:45 07/21/20 06:30 07/21/20 07/21/20 07/21/20 06:30 06:30 13:45 WBC 13.5 H 12.6 H RBC 3.22 L 3.16 L Hgb 7.5 L 7.4 L Hct 24.6 L 24.1 L MCV 76 L 76 L MCH 23.3 L 23.5 L MCHC 30.5 L 30.9 L RDW 19.9 H 19.7 H Plt Count 120 L 115 L Seg Neutrophils % 77.8 83.8 H Sodium 142.2 Potassium 4.2 Chloride 107 Carbon Dioxide 27 Anion Gap 8 BUN 78 H Creatinine 2.51 H Est GFR ( Amer) 28 L Glucose 117 H Calcium 9.2 06/30/20 06/30/20 07/04/20 03:58 03:58 04:30 Creatine Kinase 188 H NT-Pro-B Natriuret Pep 76650 H 73318 H Impressions: Lower Extremity Ultrasound 06/30/20 00:00 IMPRESSION: 1. Multiphasic waveforms with three-vessel runoff bilaterally. 2. The right dorsalis pedis is not visualized and may be occluded. Diminished, but patent left dorsalis pedis. Venous Doppler Study 07/11/20 00:00 IMPRESSION: Acute hypoechoic clot occludes the cephalic vein in the antecubital fossa KUB X-Ray 07/16/20 00:00 IMPRESSION: Tip of the Dobbhoff catheter in the left upper quadrant, as above copyright 2011 [employer]- All Rights Reserved Chest X-Ray 07/21/20 00:58 IMPRESSION: 1. Support lines and tubes in position as detailed above. 2. Extensive subcutaneous emphysema with potential pneumomediastinum or pneumopericardium on the current study. Close attention on follow-up is recommended. 3. Redemonstration of multifocal pulmonary opacities, worse in the right hemithorax when compared to prior exam. Suggestion of small pleural effusions. Assessment & Plan - Diagnosis (1) Acute respiratory failure Qualifiers: Respiratory failure complication: hypoxia Qualified Code(s): J96.01 - Acute respiratory failure with hypoxia Is this a current diagnosis for this admission?: Yes Plan: Continue with Trach care. Trach in place and is properly secured. No need for any further intervention at this time - Time Time Spent with patient: 15-24 minutes Level of Care: ICU
[2020-07-22] MEDS: MORPHINE SULFATE 10 MG/ML INJ IV PRN ×4 (04:21→23:21)
[2020-07-22] MEDS: HEPARIN SOD (PORCINE) 5,000 UNIT/ML 1 ML VIAL SUBCUT SCH ×3 (05:47→23:25)
[2020-07-22] MEDS: HYDROCORTISONE SOD SUCCINATE INJ/PF 100 MG/2 ML SDV IV SCH ×2 (05:47→18:21)
[2020-07-22] MEDS: LEVOTHYROXINE SODIUM 0.1 MG TABLET NG SCH (05:48)
[2020-07-22] MEDS: LEVOTHYROXINE SODIUM 0.025 MG TABLET NG SCH (05:48)
[2020-07-22] MEDS: DEXTROSE 5%-WATER 1000 ML 1,000 ML IV PRN (06:21)
[2020-07-22 06:25] LABS: ANION GAP 10 (5-19); BLOOD UREA NITROGEN 76 mg/dL (7-20); CALCIUM 9.4 mg/dL (8.4-10.2); CARBON DIOXIDE 25 mmol/L (22-30); CHLORIDE 107 mmol/L (98-107); GLUCOSE 118 mg/dL (75-110); POTASSIUM 4.4 mmol/L (3.6-5.0)
[2020-07-22] MEDS: CEFAZOLIN SODIUM 2 GM in DEXTROSE 5%-WATER 100 ML IV SCH ×2 (10:26→23:24)
[2020-07-22] MEDS: POTASSIUM CHLORIDE 20 MEQ PACKET NG SCH (10:26)
[2020-07-22] MEDS: FAMOTIDINE INJ/PF 20 MG/2 ML SDV IV SCH ×2 (10:26→23:23)
[2020-07-22] MEDS: AMINO AC/PROTEIN HYDR/WHEY PRO 11 GM/45 ML PKT NG SCH ×2 (10:26→18:21)
--- NOTE | 2020-07-22 17:50 | PDOC PROGRESS REPORT ---
Subjective Progress Note for:: 07/22/20 Subjective:: This patient was transferred out of the ICU overnight. Very little information as to her extensive ICU stay but appears she is currently being treated for endocarditis as well as acute kidney failure. She is also on trach collar. She spent 21 days in the ICU. It appears she had been intermittently off and on the ventilator due to respiratory failure. She currently appears to be in a vegetative state 07/21 patient apparently had an eventful evening. She started bleeding from the tracheostomy. It appears surgery was consulted. This morning we have also mel nsulted ENT as they appear to be a potential issues with the tracheostomy. She is currently stable. It is noted that hemoglobin did drop overnight and this may have been from her bleeding. I will repeat hemoglobin this afternoon and decide on transfusion if needed. She actually seems to be somewhat more responsive although still unable to appropriately respond but she is awake and alert. Chest x-ray reveals multifocal pulmonary opacities with extensive subcutaneous emphysema with questionable pneumomediastinum and pneumopericardium 07/23 Uneventful day today Prognosis remains poor Need a snf plan but will need to get EEG first, unavailable till next week Reason For Visit: ARDS, POSSIBLE COVID 19 Physical Exam Vital Signs: Temp Pulse Resp BP Pulse Ox 99.0 F 108 H 10 L 133/76 H 97 07/22/20 11:33 07/22/20 14:00 07/22/20 11:33 07/22/20 11:33 07/22/20 11:49 Intake & Output 07/21/20 07/22/20 07/23/20 06:59 06:59 06:59 Intake Total 3788 1300 100 Output Total 1650 1025 Balance 2138 275 100 Weight 183.251 kg 183.1 kg 183.1 kg General appearance: PRESENT: no acute distress, morbidly obese, other Head exam: PRESENT: atraumatic Eye exam: PRESENT: PERRLA Neck exam: PRESENT: tracheostomy Respiratory exam: PRESENT: accessory muscle use, decreased breath sounds, tachypnea Neurological exam: PRESENT: other - comatose, reflex movement only Results Laboratory Results: 07/21/20 13:45 07/22/20 05:39 07/22/20 05:39 Sodium 142.2 Potassium 4.4 Chloride 107 Carbon Dioxide 25 Anion Gap 10 BUN 76 H Creatinine 2.33 H Est GFR ( Amer) 30 L Glucose 118 H Calcium 9.4 06/30/20 06/30/20 07/04/20 03:58 03:58 04:30 Creatine Kinase 188 H NT-Pro-B Natriuret Pep 15850 H 90431 H Impressions: Lower Extremity Ultrasound 06/30/20 00:00 IMPRESSION: 1. Multiphasic waveforms with three-vessel runoff bilaterally. 2. The right dorsalis pedis is not visualized and may be occluded. Diminished, but patent left dorsalis pedis. Venous Doppler Study 07/11/20 00:00 IMPRESSION: Acute hypoechoic clot occludes the cephalic vein in the antecubital fossa KUB X-Ray 07/16/20 00:00 IMPRESSION: Tip of the Dobbhoff catheter in the left upper quadrant, as above copyright 2011 [employer]- All Rights Reserved Chest X-Ray 07/21/20 00:58 IMPRESSION: 1. Support lines and tubes in position as detailed above. 2. Extensive subcutaneous emphysema with potential pneumomediastinum or pneumopericardium on the current study. Close attention on follow-up is recommended. 3. Redemonstration of multifocal pulmonary opacities, worse in the right hemithorax when compared to prior exam. Suggestion of small pleural effusions. Assessment and Plan - Diagnosis (1) ARF (acute renal failure) Qualifiers: Acute renal failure type: unspecified Qualified Code(s): N17.9 - Acute kidney failure, unspecified Is this a current diagnosis for this admission?: Yes Plan: Kidney function continues to improve (2) Acute respiratory failure Qualifiers: Respiratory failure complication: hypoxia Qualified Code(s): J96.01 - Acute respiratory failure with hypoxia Is this a current diagnosis for this admission?: Yes Plan: Respiratory status remains pretty tenuous. Will consult hand washer when available. We will continue on BiPAP currently at a setting of FiO2 of 35%, tidal volume of 450 (3) Comatose Qualifiers: Coma depth: [place] coma 3-8 Coma timin hours or more after hospital admission Qualified Code(s): R40.2434 - [place] coma scale score 3-8, 24 hours or more after hospital admission Is this a current diagnosis for this admission?: Yes Plan: Patient is in a vegetative state. EEG is not available till next week. Will obtain once available to confirm neurological/cerebral status (4) Endocarditis determined by echocardiography Is this a current diagnosis for this admission?: Yes Plan: Ancef started on July 02 this was the date of negative blood cultures. She will need antibiotics for 6 weeks through August 13 Continue to monitor (5) Morbid obesity Is this a current diagnosis for this admission?: Yes Plan: This has most likely been a factor in her becoming hypercarbic by the morning. (6) Anemia Qualifiers: Anemia type: other cause Other causes of anemia: other cause, not classif ied Qualified Code(s): D64.89 - Other specified anemias Is this a current diagnosis for this admission?: Yes Plan: Patient is anemic from her acutely prolonged illness however her hemoglobin also did drop likely from acute blood loss. We will recheck H&H and transfuse as needed. Appreciate ENT input - Plan Summary Summary: BRODIE thought to be secondary to ATN. She received a Lasix drip. 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 Last blood cultures have been negative patient is currently on cefazolin. She is currently on day 18 of a 6-week treatment course from the date of negative blood culture which was on July 02. It appears Ancef 1 g every 12 was started on July 02. Acute respiratory failure status post tracheostomy placement on July 17 and appears her respiratory status is pretty tenuous and will have to continue close monitoring. 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 She was initially admitted on June 28 due to pneumonia and acute respiratory failure and was diagnosed with ARDS, septic shock and was intubated. Patient's overall prognosis is very poor and she is at a very high risk for adverse outcome including - Time Time Spent with patient: 15-24 minutes Anticipated [facility]charge [facility]position[facility] Anticipated Discharge Timeframe: TBD
[2020-07-23] MEDS: MORPHINE SULFATE 10 MG/ML INJ IV PRN ×4 (04:00→22:01)
[2020-07-23] MEDS: DEXTROSE 5%-WATER 1000 ML 1,000 ML IV PRN ×2 (04:05→16:17)
[2020-07-23] MEDS: HEPARIN SOD (PORCINE) 5,000 UNIT/ML 1 ML VIAL SUBCUT SCH ×3 (05:53→21:03)
[2020-07-23] MEDS: HYDROCORTISONE SOD SUCCINATE INJ/PF 100 MG/2 ML SDV IV SCH ×2 (05:53→17:14)
[2020-07-23] MEDS: LEVOTHYROXINE SODIUM 0.025 MG TABLET NG SCH (05:54)
[2020-07-23] MEDS: LEVOTHYROXINE SODIUM 0.1 MG TABLET NG SCH (05:54)
[2020-07-23 06:45] LABS: ANION GAP 10 (5-19); BLOOD UREA NITROGEN 72 mg/dL (7-20); CALCIUM 9.7 mg/dL (8.4-10.2); CARBON DIOXIDE 27 mmol/L (22-30); CHLORIDE 107 mmol/L (98-107); GLUCOSE 113 mg/dL (75-110); POTASSIUM 4.7 mmol/L (3.6-5.0)
[2020-07-23 07:22] LABS: ABSOLUTE BASOPHILS # (AUTO) 0.1 10^3/uL (0.0-0.2); ABSOLUTE EOSINOPHILS # (AUTO) 0.1 10^3/uL (0.0-0.6); ABSOLUTE LYMPHOCYTES (AUTO) 0.7 10^3/uL (0.5-4.7); ABSOLUTE MONOCYTES (AUTO) 1.2 10^3/uL (0.1-1.4); EOSINOPHILS % (AUTO) 0.5 % (0-6); HEMATOCRIT 24.4 % (36.0-47.0); LYMPHOCYTES % (AUTO) 5.3 % (13-45); MEAN CORPUSCULAR HEMOGLOBIN 23.5 pg (27.0-33.4); MEAN CORPUSCULAR HGB CONC 30.7 g/dL (32.0-36.0); MEAN CORPUSCULAR VOLUME 76 fl (80-97); MONOCYTES % (AUTO) 8.9 % (3-13); PLATELET COUNT 117 10^3/uL (150-450); RED BLOOD COUNT 3.19 10^6/uL (3.72-5.28); RED CELL DISTRIBUTION WIDTH 20.7 % (11.5-14.0); SEGMENTED NEUTROPHILS % (AUTO) 84.3 % (42-78); TOTAL CELLS COUNTED % (AUTO) 100 %; WHITE BLOOD COUNT 13.1 10^3/uL (4.0-10.5)
[2020-07-23 07:24] LABS: HEMOGLOBIN 7.5 g/dL (12.0-15.5)
[2020-07-23] MEDS: AMINO AC/PROTEIN HYDR/WHEY PRO 11 GM/45 ML PKT NG SCH ×2 (09:07→17:14)
[2020-07-23] MEDS: POTASSIUM CHLORIDE 20 MEQ PACKET NG SCH (09:07)
[2020-07-23] MEDS: FAMOTIDINE INJ/PF 20 MG/2 ML SDV IV SCH ×2 (09:26→21:03)
[2020-07-23] MEDS: CEFAZOLIN SODIUM 2 GM in DEXTROSE 5%-WATER 100 ML IV SCH ×2 (09:26→21:03)
[2020-07-23] MEDS: LABETALOL HCL INJ 20 MG/4 ML DISP.SYRIN IV PRN (17:14)
--- NOTE | 2020-07-23 18:20 | PDOC PROGRESS REPORT ---
Subjective Progress Note for:: 07/23/20 Subjective:: This patient was transferred out of the ICU overnight. Very little information as to her extensive ICU stay but appears she is currently being treated for endocarditis as well as acute kidney failure. She is also on trach collar. She spent 21 days in the ICU. It appears she had been intermittently off and on the ventilator due to respiratory failure. She currently appears to be in a vegetative state 07/21 patient apparently had an eventful evening. She started bleeding from the tracheostomy. It appears surgery was consulted. This morning we have also mel nsulted ENT as they appear to be a potential issues with the tracheostomy. She is currently stable. It is noted that hemoglobin did drop overnight and this may have been from her bleeding. I will repeat hemoglobin this afternoon and decide on transfusion if needed. She actually seems to be somewhat more responsive although still unable to appropriately respond but she is awake and alert. Chest x-ray reveals multifocal pulmonary opacities with extensive subcutaneous emphysema with questionable pneumomediastinum and pneumopericardium 07/23- Uneventful day today Prognosis remains poor Need a dedicated intermodal truck driver plan but will need to get EEG first, unavailable till next week Plan for a family meeting once EEG result available and at least 30 days have elapsed to have a better clarity Will insert NGT today. Reason For Visit: ARDS, POSSIBLE COVID 19 Physical Exam Vital Signs: Temp Pulse Resp BP Pulse Ox 98.5 F 102 H 19 162/80 H 97 07/23/20 09:49 07/23/20 09:49 07/23/20 09:49 07/23/20 09:49 07/23/20 12:00 Intake & Output 07/22/20 07/23/20 07/24/20 06:59 06:59 06:59 Intake Total 1300 1200 200 Output Total 1025 1600 Balance 275 -400 200 Weight 183.1 kg 180.53 kg General appearance: PRESENT: no acute distress, morbidly obese, well-developed Head exam: PRESENT: atraumatic, normocephalic Eye exam: PRESENT: conjunctiva pink, PERRLA. ABSENT: scleral icterus Mouth exam: PRESENT: moist Neck exam: PRESENT: tracheostomy. ABSENT: carotid bruit, JVD, lymphadenopathy, thyromegaly Respiratory exam: PRESENT: decreased breath sounds. ABSENT: rales, rhonchi, wheezes Cardiovascular exam: PRESENT: RRR. ABSENT: diastolic murmur, rubs, systolic murmur Pulses: PRESENT: normal dorsalis pedis pul Vascular exam: PRESENT: normal capillary refill GI/Abdominal exam: PRESENT: normal bowel sounds, soft, other - NGT. ABSENT: distended, guarding, mass, organolmegaly, rebound, tenderness Rectal exam: PRESENT: deferred Extremities exam: PRESENT: +2 edema. ABSENT: calf tenderness, clubbing, pedal edema Neurological exam: PRESENT: other - decerebrate posturing noted Unresponsive and comatose. ABSENT: motor sensory deficit Psychiatric exam: PRESENT: homicidal ideation. ABSENT: suicidal ideation Skin exam: PRESENT: erythema, warm. ABSENT: cyanosis, rash Results Laboratory Results: 07/23/20 06:15 07/23/20 06:15 07/23/20 07/23/20 06:15 06:15 WBC 13.1 H RBC 3.19 L Hgb 7.5 L Hct 24.4 L MCV 76 L MCH 23.5 L MCHC 30.7 L RDW 20.7 H Plt Count 117 L Seg Neutrophils % 84.3 H Sodium 144.0 Potassium 4.7 Chloride 107 Carbon Dioxide 27 Anion Gap 10 BUN 72 H Creatinine 2.37 H Est GFR ( Amer) 30 L Glucose 113 H Calcium 9.7 06/30/20 06/30/20 07/04/20 03:58 03:58 04:30 Creatine Kinase 188 H NT-Pro-B Natriuret Pep 04984 H 45354 H Impressions: Lower Extremity Ultrasound 06/30/20 00:00 IMPRESSION: 1. Multiphasic waveforms with three-vessel runoff bilaterally. 2. The right dorsalis pedis is not visualized and may be occluded. Diminished, but patent left dorsalis pedis. Venous Doppler Study 07/11/20 00:00 IMPRESSION: Acute hypoechoic clot occludes the cephalic vein in the antecubital fossa KUB X-Ray 07/16/20 00:00 IMPRESSION: Tip of the Dobbhoff catheter in the left upper quadrant, as above copyright 2011 [employer]- All Rights Reserved Chest X-Ray 07/21/20 00:58 IMPRESSION: 1. Support lines and tubes in position as detailed above. 2. Extensive subcutaneous emphysema with potential pneumomediastinum or pneumopericardium on the current study. Close attention on follow-up is recommended. 3. Redemonstration of multifocal pulmonary opacities, worse in the right hemithorax when compared to prior exam. Suggestion of small pleural effusions. Assessment and Plan - Diagnosis (1) ARF (acute renal failure) Qualifiers: Acute renal failure type: unspecified Qualified Code(s): N17.9 - Acute kidney failure, unspecified Is this a current diagnosis for this admission?: Yes Plan: Kidney function continues to improve (2) Acute respiratory failure Qualifiers: Respiratory failure complication: hypoxia Qualified Code(s): J96.01 - Acute respiratory failure with hypoxia Is this a current diagnosis for this admission?: Yes Plan: Respiratory status remains pretty tenuous. Will consult yarn man when available. We will continue on BiPAP currently at a setting of FiO2 of 35%, tidal volume of 450 and respiratory rate of 10. Patient condition continues to be poor (3) Comatose Qualifiers: Coma depth: [place] coma 3-8 Coma timin hours or more after hospital admission Qualified Code(s): R40.2434 - [place] coma scale score 3-8, 24 hours or more after hospital admission Is this a current diagnosis for this admission?: Yes Plan: Patient is in a vegetative state. EEG is not available till next week. Will obtain once available to confirm neurological/cerebral status Change in her current condition she is noted to have some decerebrate posturing today (4) Endocarditis determined by echocardiography Is this a current diagnosis for this admission?: Yes Plan: Ancef started on July 02 this was the date of negative blood cultures. She will need antibiotics for 6 weeks through August 13 Continue to monitor follow-up on labs (5) Morbid obesity Is this a current diagnosis for this admission?: Yes (6) Anemia Qualifiers: Anemia type: other cause Other causes of anemia: other cause, not classified Qualified Code(s): D64.89 - Other specified anemias Is this a current diagnosis for this admission?: Yes Plan: Patient is anemic from her acutely prolonged illness however her hemoglobin also did drop likely from acute blood loss. We will recheck H&H and transfuse as needed. 07/23 hemoglobin remained stable at about 7.5 no further overt bleeding noted - Plan Summary Summary: BRODIE thought to be secondary to ATN. She received a Lasix drip. 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 Last blood cultures have been negative patient is currently on cefazolin. She is currently on day 18 of a 6-week treatment course from the date of negative blood culture which was on July 02. It appears Ancef 1 g every 12 was started on July 02. Acute respiratory failure status post tracheostomy placement on July 17 and appears her respiratory status is pretty tenuous and will have to continue close monitoring. 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 She was initially admitted on June 28 due to pneumonia and acute respiratory failure and was diagnosed with ARDS, septic shock and was intubated. Patient's overall prognosis is very poor and she is at a very high risk for a dverse outcome including - Time Time Spent with patient: 15-24 minutes Medications reviewed and adjusted accordingly: Yes Anticipated Discharge Disposition: [facility] Anticipated Discharge Timeframe: TBD
[2020-07-24] MEDS: MORPHINE SULFATE 10 MG/ML INJ IV PRN ×4 (02:01→19:57)
[2020-07-24] MEDS: DEXTROSE 5%-WATER 1000 ML 1,000 ML IV PRN ×2 (04:08→17:39)
[2020-07-24 05:10] LABS: ANION GAP 8 (5-19); BLOOD UREA NITROGEN 72 mg/dL (7-20); CALCIUM 9.3 mg/dL (8.4-10.2); CARBON DIOXIDE 28 mmol/L (22-30); CHLORIDE 106 mmol/L (98-107); GLUCOSE 97 mg/dL (75-110); POTASSIUM 4.6 mmol/L (3.6-5.0)
[2020-07-24] MEDS: HYDROCORTISONE SOD SUCCINATE INJ/PF 100 MG/2 ML SDV IV SCH ×2 (05:41→17:31)
[2020-07-24] MEDS: LEVOTHYROXINE SODIUM 0.025 MG TABLET NG SCH (05:41)
[2020-07-24] MEDS: LEVOTHYROXINE SODIUM 0.1 MG TABLET NG SCH (05:41)
[2020-07-24] MEDS: HEPARIN SOD (PORCINE) 5,000 UNIT/ML 1 ML VIAL SUBCUT SCH ×3 (05:41→23:00)
[2020-07-24] MEDS: AMINO AC/PROTEIN HYDR/WHEY PRO 11 GM/45 ML PKT NG SCH ×2 (10:17→17:29)
[2020-07-24] MEDS: POTASSIUM CHLORIDE 20 MEQ PACKET NG SCH (10:17)
[2020-07-24] MEDS: FAMOTIDINE INJ/PF 20 MG/2 ML SDV IV SCH ×2 (10:22→23:00)
[2020-07-24] MEDS: CEFAZOLIN SODIUM 2 GM in DEXTROSE 5%-WATER 100 ML IV SCH ×2 (10:22→22:54)
--- NOTE | 2020-07-24 15:27 | PDOC PROGRESS REPORT ---
Subjective Progress Note for:: 07/24/20 Subjective:: This patient was transferred out of the ICU overnight. Very little information as to her extensive ICU stay but appears she is currently being treated for endocarditis as well as acute kidney failure. She is also on trach collar. She spent 21 days in the ICU. It appears she had been intermittently off and on the ventilator due to respiratory failure. She currently appears to be in a vegetative state 07/21 patient apparently had an eventful evening. She started bleeding from the tracheostomy. It appears surgery was consulted. This morning we have also mel nsulted ENT as they appear to be a potential issues with the tracheostomy. She is currently stable. It is noted that hemoglobin did drop overnight and this may have been from her bleeding. I will repeat hemoglobin this afternoon and decide on transfusion if needed. She actually seems to be somewhat more responsive although still unable to appropriately respond but she is awake and alert. Chest x-ray reveals multifocal pulmonary opacities with extensive subcutaneous emphysema with questionable pneumomediastinum and pneumopericardium 07/23- Uneventful day today Prognosis remains poor Need a intermodal truck driver plan but will need to get EEG first, unavailable till next week Plan for a family meeting once EEG result available and at least 30 days have elapsed to have a better clarity Will insert NGT today. 07/24 Unable to insert NGT per nursing staff. Will send down to [facility] for Dobhoff tube Reason For Visit: ARDS, POSSIBLE COVID 19 Physical Exam Vital Signs: Temp Pulse Resp BP Pulse Ox 98.4 F 75 10 L 119/93 H 96 07/24/20 10:00 07/24/20 08:12 07/24/20 08:12 07/24/20 08:12 07/24/20 12:03 Intake & Output 07/23/20 07/24/20 07/25/20 06:59 06:59 06:59 Intake Total 1200 2224 100 Output Total 1600 750 Balance -400 1474 100 Weight 180.53 kg 181 kg General appearance: PRESENT: no acute distress, morbidly obese Head exam: PRESENT: atraumatic, normocephalic Eye exam: PRESENT: conjunctiva pink, PERRLA. ABSENT: scleral icterus Mouth exam: PRESENT: tongue midline Neck exam: PRESENT: tracheostomy. ABSENT: carotid bruit, JVD, lymphadenopathy, thyromegaly Respiratory exam: PRESENT: decreased breath sounds, rhonchi, unlabored. ABSENT: rales, wheezes Cardiovascular exam: PRESENT: RRR, +S1, +S2. ABSENT: diastolic murmur, rubs, systolic murmur Pulses: PRESENT: normal dorsalis pedis pul, other - weak pulses Vascular exam: PRESENT: normal capillary refill GI/Abdominal exam: PRESENT: normal bowel sounds, soft. ABSENT: distended, guarding, mass, organolmegaly, rebound, tenderness Rectal exam: PRESENT: deferred Extremities exam: PRESENT: clubbing, pedal edema, +2 edema, other - R 4th toe gangrenous and L toe. ABSENT: calf tenderness Musculoskeletal exam: PRESENT: deformity Neurological exam: PRESENT: alert, awake, other - non reflexive movement, unable to follow commands, comatose Psychiatric exam: PRESENT: appropriate affect, normal mood. ABSENT: homicidal ideation, suicidal ideation Skin exam: PRESENT: dry, rash. ABSENT: cyanosis Results Laboratory Results: 07/23/20 06:15 07/24/20 04:30 07/24/20 04:30 Sodium 141.5 Potassium 4.6 Chloride 106 Carbon Dioxide 28 Anion Gap 8 BUN 72 H Creatinine 2.43 H Est GFR ( Amer) 29 L Glucose 97 Calcium 9.3 06/30/20 06/30/20 07/04/20 03:58 03:58 04:30 Creatine Kinase 188 H NT-Pro-B Natriuret Pep 67703 H 16048 H Impressions: Lower Extremity Ultrasound 06/30/20 00:00 IMPRESSION: 1. Multiphasic waveforms with three-vessel runoff bilaterally. 2. The right dorsalis pedis is not visualized and may be occluded. Diminished, but patent left dorsalis pedis. Venous Doppler Study 07/11/20 00:00 IMPRESSION: Acute hypoechoic clot occludes the cephalic vein in the antecubital fossa KUB X-Ray 07/16/20 00:00 IMPRESSION: Tip of the Dobbhoff catheter in the left upper quadrant, as above copyright 2011 [employer] [employer]- All Rights Reserved Chest X-Ray 07/21/20 00:58 IMPRESSION: 1. Support lines and tubes in position as detailed above. 2. Extensive subcutaneous emphysema with potential pneumomediastinum or pneumopericardium on the current study. Close attention on follow-up is recommended. 3. Redemonstration of multifocal pulmonary opacities, worse in the right hemithorax when compared to prior exam. Suggestion of small pleural effusions. Assessment and Plan - Diagnosis (1) ARF (acute renal failure) Qualifiers: Acute renal failure type: unspecified Qualified Code(s): N17.9 - Acute kidney failure, unspecified Is this a current diagnosis for this admission?: Yes (2) Acute respiratory failure Qualifiers: Respiratory failure complication: hypoxia Qualified Code(s): J96.01 - Acute respiratory failure with hypoxia Is this a current diagnosis for this admission?: Yes (3) Comatose Qualifiers: Coma depth: [place] coma 3-8 Coma timin hours or more after hospital admission Qualified Code(s): R40.2434 - [place] coma scale score 3-8, 24 hours or more after hospital admission Is this a current diagnosis for this admission?: Yes (4) Endocarditis determined by echocardiography Is this a current diagnosis for this admission?: Yes (5) Morbid obesity Is this a current diagnosis for this admission?: Yes (6) Anemia Qualifiers: Anemia type: other cause Other causes of anemia: other cause, not classifie d Qualified Code(s): D64.89 - Other specified anemias Is this a current diagnosis for this admission?: Yes - Plan Summary Summary: BRODIE thought to be secondary to ATN. She received a Lasix drip. 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 Last blood cultures have been negative patient is currently on cefazolin. She is currently on day 18 of a 6-week treatment course from the date of negative blood culture which was on July 02. It appears Ancef 1 g every 12 was started on July 02. Acute respiratory failure status post tracheostomy placement on July 17 and appears her respiratory status is pretty tenuous and will have to continue close monitoring. 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 She was initially admitted on June 28 due to pneumonia and acute respiratory failure and was diagnosed with ARDS, septic shock and was intubated. Patient's overall prognosis is very poor and she is at a very high risk for adverse outcome including - Time Time Spent with patient: 15-24 minutes Anticipated Discharge Disposition: [facility] Anticipated Discharge Timeframe: TBD
[2020-07-24] MEDS: LABETALOL HCL INJ 20 MG/4 ML DISP.SYRIN IV PRN (20:32)
[2020-07-25] MEDS: MORPHINE SULFATE 10 MG/ML INJ IV PRN ×3 (04:12→23:50)
[2020-07-25] MEDS: LEVOTHYROXINE SODIUM 0.025 MG TABLET NG SCH (05:23)
[2020-07-25] MEDS: LEVOTHYROXINE SODIUM 0.1 MG TABLET NG SCH (05:24)
[2020-07-25] MEDS ORDERED: LORAZEPAM INJ 2 MG/1 ML VIAL IV ONE (05:30)
[2020-07-25] MEDS: DEXTROSE 5%-WATER 1000 ML 1,000 ML IV PRN ×2 (06:09→18:50)
[2020-07-25] MEDS: HYDROCORTISONE SOD SUCCINATE INJ/PF 100 MG/2 ML SDV IV SCH ×2 (06:11→18:43)
[2020-07-25] MEDS: HEPARIN SOD (PORCINE) 5,000 UNIT/ML 1 ML VIAL SUBCUT SCH ×3 (06:12→21:02)
[2020-07-25 06:50] LABS: ABSOLUTE BASOPHILS # (AUTO) 0.1 10^3/uL (0.0-0.2); ABSOLUTE EOSINOPHILS # (AUTO) 0.4 10^3/uL (0.0-0.6); ABSOLUTE LYMPHOCYTES (AUTO) 1.1 10^3/uL (0.5-4.7); ABSOLUTE MONOCYTES (AUTO) 1.3 10^3/uL (0.1-1.4); ABSOLUTE NEUT (AUTO) 7.4 10^3/uL (1.7-8.2); BASOPHILS % (AUTO) 0.7 % (0-2); EOSINOPHILS % (AUTO) 3.9 % (0-6); HEMATOCRIT 24.2 % (36.0-47.0); LYMPHOCYTES % (AUTO) 10.7 % (13-45); MEAN CORPUSCULAR HEMOGLOBIN 23.7 pg (27.0-33.4); MEAN CORPUSCULAR HGB CONC 30.4 g/dL (32.0-36.0); MEAN CORPUSCULAR VOLUME 78 fl (80-97); MONOCYTES % (AUTO) 12.4 % (3-13); PLATELET COUNT 112 10^3/uL (150-450); RED BLOOD COUNT 3.09 10^6/uL (3.72-5.28); RED CELL DISTRIBUTION WIDTH 21.7 % (11.5-14.0); SEGMENTED NEUTROPHILS % (AUTO) 72.3 % (42-78); TOTAL CELLS COUNTED % (AUTO) 100 %; WHITE BLOOD COUNT 10.3 10^3/uL (4.0-10.5)
[2020-07-25 06:58] LABS: HEMOGLOBIN 7.3 g/dL (12.0-15.5)
[2020-07-25 07:15] LABS: ANION GAP 8 (5-19); BLOOD UREA NITROGEN 70 mg/dL (7-20); CALCIUM 9.3 mg/dL (8.4-10.2); CARBON DIOXIDE 27 mmol/L (22-30); CHLORIDE 105 mmol/L (98-107); GLUCOSE 95 mg/dL (75-110); POTASSIUM 4.5 mmol/L (3.6-5.0)
[2020-07-25] MEDS: POTASSIUM CHLORIDE 20 MEQ PACKET NG SCH (09:37)
[2020-07-25] MEDS: AMINO AC/PROTEIN HYDR/WHEY PRO 11 GM/45 ML PKT NG SCH ×2 (09:37→18:27)
[2020-07-25] MEDS: FAMOTIDINE INJ/PF 20 MG/2 ML SDV IV SCH ×2 (09:50→21:02)
[2020-07-25] MEDS: CEFAZOLIN SODIUM 2 GM in DEXTROSE 5%-WATER 100 ML IV SCH ×2 (09:50→21:01)
--- NOTE | 2020-07-25 14:51 | PDOC PROGRESS REPORT ---
Subjective Progress Note for:: 07/25/20 Subjective:: This patient was transferred out of the ICU overnight. Very little information as to her extensive ICU stay but appears she is currently being treated for endocarditis as well as acute kidney failure. She is also on trach collar. She spent 21 days in the ICU. It appears she had been intermittently off and on the ventilator due to respiratory failure. She currently appears to be in a vegetative state 07/21 patient apparently had an eventful evening. She started bleeding from the tracheostomy. It appears surgery was consulted. This morning we have also mel nsulted ENT as they appear to be a potential issues with the tracheostomy. She is currently stable. It is noted that hemoglobin did drop overnight and this may have been from her bleeding. I will repeat hemoglobin this afternoon and decide on transfusion if needed. She actually seems to be somewhat more responsive although still unable to appropriately respond but she is awake and alert. Chest x-ray reveals multifocal pulmonary opacities with extensive subcutaneous emphysema with questionable pneumomediastinum and pneumopericardium 07/23- Uneventful day today Prognosis remains poor Need a termite treater helper plan but will need to get EEG first, unavailable till next week Plan for a family meeting once EEG result available and at least 30 days have elapsed to have a better clarity Will insert NGT today. 07/24 Unable to insert NGT per nursing staff. Will send down to [facility] for Dobhoff tube Reason For Visit: ARDS, POSSIBLE COVID 19 Physical Exam Vital Signs: Temp Pulse Resp BP Pulse Ox 98.5 F 70 13 165/89 H 91 L 07/25/20 08:41 07/25/20 08:28 07/25/20 08:28 07/25/20 08:28 07/25/20 11:19 Intake & Output 07/24/20 07/25/20 07/26/20 06:59 06:59 06:59 Intake Total 2224 2200 100 Output Total 750 1225 Balance 1474 975 100 Weight 181 kg 180 kg Results Laboratory Results: 07/25/20 06:10 07/25/20 06:10 07/25/20 07/25/20 06:10 06:10 WBC 10.3 RBC 3.09 L Hgb 7.3 L Hct 24.2 L MCV 78 L MCH 23.7 L MCHC 30.4 L RDW 21.7 H Plt Count 112 L Seg Neutrophils % 72.3 Sodium 140.4 Potassium 4.5 Chloride 105 Carbon Dioxide 27 Anion Gap 8 BUN 70 H Creatinine 2.47 H Est GFR ( Amer) 28 L Glucose 95 Calcium 9.3 06/30/20 06/30/20 07/04/20 03:58 03:58 04:30 Creatine Kinase 188 H NT-Pro-B Natriuret Pep 92689 H 71232 H Impressions: Lower Extremity Ultrasound 06/30/20 00:00 IMPRESSION: 1. Multiphasic waveforms with three-vessel runoff bilaterally. 2. The right dorsalis pedis is not visualized and may be occluded. Diminished, but patent left dorsalis pedis. Venous Doppler Study 07/11/20 00:00 IMPRESSION: Acute hypoechoic clot occludes the cephalic vein in the antecubital fossa KUB X-Ray 07/16/20 00:00 IMPRESSION: Tip of the Dobbhoff catheter in the left upper quadrant, as above copyright 2011 [employer] All Rights Reserved Chest X-Ray 07/21/20 00:58 IMPRESSION: 1. Support lines and tubes in position as detailed above. 2. Extensive subcutaneous emphysema with potential pneumomediastinum or pneumopericardium on the current study. Close attention on follow-up is recommended. 3. Redemonstration of multifocal pulmonary opacities, worse in the right hemithorax when compared to prior exam. Suggestion of small pleural effusions. Assessment and Plan - Diagnosis (1) ARF (acute renal failure) Qualifiers: Acute renal failure type: unspecified Qualified Code(s): N17.9 - Acute kidney failure, unspecified Is this a current diagnosis for this admission?: Yes Plan: Kidney function continues to improve to stabilize. Her creatinine was 1.23 in February 2020 before she got ill (2) Acute respiratory failure Qualifiers: Respiratory failure complication: hypoxia Qualified Code(s): J96.01 - Acute respiratory failure with hypoxia Is this a current diagnosis for this admission?: Yes Plan: Respiratory status remains pretty tenuous. Will consult cytology supervisor when available. We will continue on BiPAP currently at a setting of FiO2 of 35%, tid al volume of 450 and respiratory rate of 10. Patient condition continues to be poor Will suggest follow-up with ENT next week to reevaluate tracheostomy placement I have requested the patient be weaned down as tolerated (3) Comatose Qualifiers: Coma depth: [place] coma 3-8 Coma timin hours or more after hospital admission Qualified Code(s): R40.2434 - [place] coma scale score 3-8, 24 hours or more after hospital admission Is this a current diagnosis for this admission?: Yes Plan: Patient is in a vegetative state. EEG is not available till next week. Will obtain once available to confirm neurological/cerebral status Patient's prognosis remains poor (4) Endocarditis determined by echocardiography Is this a current diagnosis for this admission?: Yes Plan: Ancef started on July 02 this was the date of negative blood cultures. She will need antibiotics for 6 weeks through August 13 Continue to monitor follow-up on labs (5) Morbid obesity Is this a current diagnosis for this admission?: Yes (6) Anemia Qualifiers: Anemia type: other cause Other causes of anemia: other cause, not classified Qualified Code(s): D64.89 - Other specified anemias Is this a current diagnosis for this admission?: Yes Plan: Patient is anemic from her acutely prolonged illness however her hemoglobin also did drop likely from acute blood loss. We will continue to monitor H&H and transfuse as needed. - Plan Summary Summary: BRODIE thought to be secondary to ATN. She received a Lasix drip. 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 Last blood cultures have been negative patient is currently on cefazolin. She is currently on day 18 of a 6-week treatment course from the date of negative blood culture which was on July 02. It appears Ancef 1 g every 12 was started on July 02. Acute respiratory failure status post tracheostomy placement on July 17 and appears her respiratory status is pretty tenuous and will have to continue close monitoring. 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 She was initially admitted on June 28 due to pneumonia and acute respiratory failure and was diagnosed with ARDS, septic shock and was intubated. 07/25/2020 Patient's overall prognosis is very poor and she is at a very high risk for adverse outcome including At this point we are still waiting for patient's family for review conferencing. Unfortunately it appears there is no smart phone available and they have not been able to see the patient even via teleconferencing. I believe this should be arranged by vp digital marketing social media and crm. My understanding the mother is disabled and the father also has a medical condition preventing them from coming into the hospital patient is scheduled for an EEG next week as there was none available this week. Also had problems with her NG tube. She had a double which unfortunately was this large and we have been unable to reinsert an NG tube. 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 Be addressed this coming week. It may be worth contacting surgery again for possible PEG placement or j-tube but a lot of it is going to depend on patient's ultimate status. Family conference may also be needed but I believe all this is down the line as patient status needs to be addressed first
[2020-07-26] MEDS: LEVOTHYROXINE SODIUM 0.1 MG TABLET NG SCH (06:12)
[2020-07-26] MEDS: LEVOTHYROXINE SODIUM 0.025 MG TABLET NG SCH (06:12)
[2020-07-26] MEDS: HYDROCORTISONE SOD SUCCINATE INJ/PF 100 MG/2 ML SDV IV SCH ×2 (06:16→17:25)
[2020-07-26] MEDS: DEXTROSE 5%-WATER 1000 ML 1,000 ML IV PRN ×2 (06:16→20:09)
[2020-07-26] MEDS: HEPARIN SOD (PORCINE) 5,000 UNIT/ML 1 ML VIAL SUBCUT SCH ×3 (06:17→21:53)
[2020-07-26] MEDS: MORPHINE SULFATE 10 MG/ML INJ IV PRN ×4 (06:25→22:16)
[2020-07-26 09:07] LABS: HEMATOCRIT 25.6 % (36.0-47.0); MEAN CORPUSCULAR HEMOGLOBIN 24.2 pg (27.0-33.4); MEAN CORPUSCULAR HGB CONC 30.9 g/dL (32.0-36.0); MEAN CORPUSCULAR VOLUME 79 fl (80-97); PLATELET COUNT 100 10^3/uL (150-450); RED BLOOD COUNT 3.26 10^6/uL (3.72-5.28); RED CELL DISTRIBUTION WIDTH 21.7 % (11.5-14.0); WHITE BLOOD COUNT 10.1 10^3/uL (4.0-10.5)
[2020-07-26 09:09] LABS: HEMOGLOBIN 7.9 g/dL (12.0-15.5)
[2020-07-26 09:17] LABS: ANION GAP 8 (5-19); BLOOD UREA NITROGEN 69 mg/dL (7-20); CALCIUM 9.3 mg/dL (8.4-10.2); CARBON DIOXIDE 28 mmol/L (22-30); CHLORIDE 104 mmol/L (98-107); GLUCOSE 93 mg/dL (75-110); POTASSIUM 4.7 mmol/L (3.6-5.0)
--- NOTE | 2020-07-26 10:20 | PDOC PROGRESS REPORT ---
Subjective Progress Note for:: 07/26/20 Subjective:: 07/21 patient apparently had an eventful evening. She started bleeding from the tracheostomy. It appears surgery was consulted. This morning we have also reconsulted ENT as they appear to be a potential issues with the tracheostomy. She is currently stable. It is noted that hemoglobin did drop overnight and this may have been from her bleeding. I will repeat hemoglobin this afternoon and decide on transfusion if needed. She actually seems to be somewhat more responsive although still unable to appropriately respond but she is awake and alert. Chest x-ray reveals multifocal pulmonary opacities with extensive subcutaneous emphysema with questionable pneumomediastinum and pneumopericardium 07/23- Uneventful day today Prognosis remains poor Need a watermelon inspector plan but will need to get EEG first, unavailable till next week Plan for a family meeting once EEG result available and at least 30 days have elapsed to have a better clarity Will insert NGT today. 07/24 Unable to insert NGT per nursing staff. Will send down to [facility] for Dobhoff tube 07/26/2020-no change in mental status. Has a trach connected to the vent. In my opinion she able to respond to the verbal commands by closing the eyes and try to smile. nurses is noticed mottling and discoloration of the toes in both feet. Platelet count is 100,000 it may be a contraindication for Lovenox treatment dose. Overall prognosis poor condition is critical. Nurses unable to place Dobbhoff. Patient is getting dextrose by IV. Reason For Visit: ARDS, POSSIBLE COVID 19 Physical Exam Vital Signs: Temp Pulse Resp BP Pulse Ox 98.5 F 78 13 138/81 H 98 07/26/20 08:42 07/26/20 08:06 07/26/20 08:06 07/26/20 08:06 07/26/20 09:31 Intake & Output 07/25/20 07/26/20 07/27/20 06:59 06:59 06:59 Intake Total 2200 2115 Output Total 1225 1450 Balance 975 665 Weight 180 kg 180 kg General appearance: PRESENT: no acute distress, morbidly obese Head exam: PRESENT: atraumatic, normocephalic Eye exam: PRESENT: conjunctiva pink, other - Pupils are barely reactive. Mouth exam: PRESENT: moist, tongue midline Neck exam: PRESENT: other - Patient has a trach. Respiratory exam: PRESENT: decreased breath sounds, unlabored Cardiovascular exam: PRESENT: RRR. ABSENT: diastolic murmur, rubs, systolic murmur GI/Abdominal exam: PRESENT: normal bowel sounds, soft. ABSENT: distended, guarding, mass, organolmegaly, rebound, tenderness Rectal exam: PRESENT: deferred Gentrourinary exam: PRESENT: indwelling catheter Extremities exam: PRESENT: clubbing, other - Mottled appearance of the toes in both feet. Neurological exam: PRESENT: other - Patient is barely following the commands. On verbal command able to close the eyes and tried to smile. No reflexive movements. Results Laboratory Results: 07/26/20 06:45 07/26/20 06:45 07/26/20 07/26/20 06:45 06:45 WBC 10.1 RBC 3.26 L Hgb 7.9 L Hct 25.6 L MCV 79 L MCH 24.2 L MCHC 30.9 L RDW 21.7 H Plt Count 100 L Sodium 139.9 Potassium 4.7 Chloride 104 Carbon Dioxide 28 Anion Gap 8 BUN 69 H Creatinine 2.35 H Est GFR ( Amer) 30 L Glucose 93 Calcium 9.3 06/30/20 06/30/20 07/04/20 03:58 03:58 04:30 Creatine Kinase 188 H NT-Pro-B Natriuret Pep 02132 H 97862 H Impressions: Lower Extremity Ultrasound 06/30/20 00:00 IMPRESSION: 1. Multiphasic waveforms with three-vessel runoff bilaterally. 2. The right dorsalis pedis is not visualized and may be occluded. Diminished, but patent left dorsalis pedis. Venous Doppler Study 07/11/20 00:00 IMPRESSION: Acute hypoechoic clot occludes the cephalic vein in the antecubital fossa KUB X-Ray 07/16/20 00:00 IMPRESSION: Tip of the Dobbhoff catheter in the left upper quadrant, as above copyright 2011 [employer]- All Rights Reserved Chest X-Ray 07/21/20 00:58 IMPRESSION: 1. Support lines and tubes in position as detailed above. 2. Extensive subcutaneous emphysema with potential pneumomediastinum or pneumopericardium on the current study. Close attention on follow-up is recommended. 3. Redemonstration of multifocal pulmonary opacities, worse in the right hemithorax when compared to prior exam. Suggestion of small pleural effusions. Assessment and Plan - Diagnosis (1) ARF (acute renal failure) Qualifiers: Acute renal failure type: unspecified Qualified Code(s): N17.9 - Acute kidney failure, unspecified Is this a current diagnosis for this admission?: Yes Plan: Kidney function continues to improve to stabilize. Her creatinine was 1.23 in February 2020 before she got ill 07/26/2020-serum creatinine today is 2.35. BRODIE slightly improved. BRODIE most likely secondary to ATN. Not on dialysis at this time. (2) Acute respiratory failure Qualifiers: Respiratory failure complication: hypoxia Qualified Code(s): J96.01 - Acute respiratory failure with hypoxia Is this a current diagnosis for this admission?: Yes Plan: Respiratory status remains pretty tenuous. Will consult physician coder when available. We will continue on BiPAP currently at a setting of FiO2 of 35%, tidal volume of 450 and respiratory rate of 10. Patient condition continues to be poor Will suggest follow-up with ENT next week to reevaluate tracheostomy placement I have requested the patient be weaned down as tolerated 07/26/2020-patient came in with ARDS. Presently on trach connected to the vent. On cefazolin at this time. Plan is to continue the present management pulmonary consult will be requested. (3) Endocarditis determined by echocardiography Is this a current diagnosis for this admission?: Yes Plan: Ancef started on July 02 this was the date of negative blood cultures. She will need antibiotics for 6 weeks through August 13 Continue to monitor follow-up on labs 07/26/20-on cefazolin to continue antibiotics for total period of 6 weeks (4) Anemia Qualifiers: Anemia type: other cause Other causes of anemia: other cause, not classified Qualified Code(s): D64.89 - Other specified anemias Is this a current diagnosis for this admission?: No Plan: Patient is anemic from her acutely prolonged illness however her hemoglobin also did drop likely from acute blood loss. We will continue to monitor H&H and transfuse as needed. 07/26/20- latest hemoglobin 7.9 stable.. Anemia may be secondary to acute kidney injury. (5) Comatose Qualifiers: Coma depth: [place] coma 3-8 Coma timin hours or more after hospital admission Qualified Code(s): B51.2242 - [place] coma scale score 3-8, 24 hours or more after hospital admission Is this a current diagnosis for this admission?: Yes Plan: Patient is in a vegetative state. EEG is not available till next week. Will obtain once available to confirm neurological/cerebral status Patient's prognosis remains poor 07/26/2020-EEG is requested for tomorrow. Once the EEG report available plan is to discuss the plan of care with the family members. - Plan Summary Summary: BRODIE thought to be secondary to ATN. She received a Lasix drip. 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 Last blood cultures have been negative patient is currently on cefazolin. She is currently on day 18 of a 6-week treatment course from the date of negative blood culture which was on July 02. It appears Ancef 1 g every 12 was started on July 02. Acute respiratory failure status post tracheostomy placement on July 17 and appears her respiratory status is pretty tenuous and will have to continue close monitoring. 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 She was initially admitted on June 28 due to pneumonia and acute respiratory failure and was diagnosed with ARDS, septic shock and was intubated. 07/25/2020 Patient's overall prognosis is very poor and she is at a very high risk for adverse outcome including At this point we are still waiting for patient's family for review conferencing. Unfortunately it appears there is no smart phone available and they have not be en able to see the patient even via teleconferencing. I believe this should be arranged by social science professor. My understanding the mother is disabled and the father also has a medical condition preventing them from coming into the hospital patient is scheduled for an EEG next week as there was none available this week. Also had problems with her NG tube. She had a double which unfortunately was this large and we have been unable to reinsert an NG tube. 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 Be addressed this coming week. It may be worth contacting surgery again for possible PEG placement or j-tube but a lot of it is going to depend on patient's ultimate status. Family conference may also be needed but I believe all this is down the line as patient status needs to be addressed first - Time Anticipated Discharge Disposition: Home with Hospice Anticipated Discharge Timeframe: within 72 hours
[2020-07-26] MEDS: FAMOTIDINE INJ/PF 20 MG/2 ML SDV IV SCH ×2 (10:53→22:00)
[2020-07-26] MEDS: CEFAZOLIN SODIUM 2 GM in DEXTROSE 5%-WATER 100 ML IV SCH ×2 (10:53→21:59)
[2020-07-26] MEDS: AMINO AC/PROTEIN HYDR/WHEY PRO 11 GM/45 ML PKT NG SCH ×2 (10:57→17:21)
[2020-07-26] MEDS: POTASSIUM CHLORIDE 20 MEQ PACKET NG SCH (10:57)
[2020-07-26 16:04] LABS: ABSOLUTE BASOPHILS # (AUTO) 0.1 10^3/uL (0.0-0.2); ABSOLUTE EOSINOPHILS # (AUTO) 0.4 10^3/uL (0.0-0.6); ABSOLUTE LYMPHOCYTES (AUTO) 0.8 10^3/uL (0.5-4.7); ABSOLUTE MONOCYTES (AUTO) 1.4 10^3/uL (0.1-1.4); BASOPHILS % (AUTO) 0.5 % (0-2); EOSINOPHILS % (AUTO) 3.5 % (0-6); HEMOGLOBIN 8.2 g/dL (12.0-15.5); LYMPHOCYTES % (AUTO) 7.1 % (13-45); MEAN CORPUSCULAR HEMOGLOBIN 23.7 pg (27.0-33.4); MEAN CORPUSCULAR HGB CONC 30.5 g/dL (32.0-36.0); MEAN CORPUSCULAR VOLUME 78 fl (80-97); MONOCYTES % (AUTO) 11.8 % (3-13); PLATELET COUNT 106 10^3/uL (150-450); RED BLOOD COUNT 3.47 10^6/uL (3.72-5.28); RED CELL DISTRIBUTION WIDTH 22.2 % (11.5-14.0); SEGMENTED NEUTROPHILS % (AUTO) 77.1 % (42-78); TOTAL CELLS COUNTED % (AUTO) 100 %; WHITE BLOOD COUNT 11.7 10^3/uL (4.0-10.5)
[2020-07-26 16:20] LABS: ALBUMIN 3.2 g/dL (3.5-5.0); ALKALINE PHOSPHATASE 67 U/L (38-126); ANION GAP 8 (5-19); ASPARTATE AMINO TRANSFERASE 25 U/L (14-36); BILIRUBIN,DIRECT 0.4 mg/dL (0.0-0.4); BILIRUBIN,TOTAL 0.4 mg/dL (0.2-1.3); BLOOD UREA NITROGEN 67 mg/dL (7-20); CALCIUM 9.3 mg/dL (8.4-10.2); CARBON DIOXIDE 28 mmol/L (22-30); CHLORIDE 104 mmol/L (98-107); GLUCOSE 117 mg/dL (75-110); POTASSIUM 4.4 mmol/L (3.6-5.0); TOTAL PROTEIN 6.8 g/dL (6.3-8.2)
[2020-07-27] MEDS ORDERED: LORAZEPAM INJ 2 MG/1 ML VIAL ONE (01:31)
[2020-07-27] MEDS: LORAZEPAM INJ 2 MG/1 ML VIAL IV PRN ×3 (01:35→11:30)
[2020-07-27] MEDS: MORPHINE SULFATE 10 MG/ML INJ IV PRN ×3 (03:36→18:50)
[2020-07-27] MEDS: LEVOTHYROXINE SODIUM 0.025 MG TABLET NG SCH (05:05)
[2020-07-27] MEDS: HEPARIN SOD (PORCINE) 5,000 UNIT/ML 1 ML VIAL SUBCUT SCH ×3 (05:05→21:26)
[2020-07-27] MEDS: HYDROCORTISONE SOD SUCCINATE INJ/PF 100 MG/2 ML SDV IV SCH ×2 (05:06→18:49)
[2020-07-27] MEDS: LEVOTHYROXINE SODIUM 0.1 MG TABLET NG SCH (05:06)
[2020-07-27 05:37] LABS: HEMATOCRIT 26.3 % (36.0-47.0); HEMOGLOBIN 8.1 g/dL (12.0-15.5); MEAN CORPUSCULAR HEMOGLOBIN 23.9 pg (27.0-33.4); MEAN CORPUSCULAR HGB CONC 30.8 g/dL (32.0-36.0); MEAN CORPUSCULAR VOLUME 78 fl (80-97); RED BLOOD COUNT 3.39 10^6/uL (3.72-5.28); RED CELL DISTRIBUTION WIDTH 22.3 % (11.5-14.0); WHITE BLOOD COUNT 11.5 10^3/uL (4.0-10.5)
[2020-07-27 05:48] LABS: ALBUMIN 3.3 g/dL (3.5-5.0); ALKALINE PHOSPHATASE 69 U/L (38-126); ANION GAP 11 (5-19); ASPARTATE AMINO TRANSFERASE 26 U/L (14-36); BILIRUBIN,DIRECT 0.4 mg/dL (0.0-0.4); BILIRUBIN,TOTAL 0.5 mg/dL (0.2-1.3); BLOOD UREA NITROGEN 65 mg/dL (7-20); CALCIUM 9.6 mg/dL (8.4-10.2); CARBON DIOXIDE 27 mmol/L (22-30); CHLORIDE 103 mmol/L (98-107); GLUCOSE 112 mg/dL (75-110); POTASSIUM 4.8 mmol/L (3.6-5.0); TOTAL PROTEIN 6.6 g/dL (6.3-8.2)
[2020-07-27 06:15] LABS: PLATELET COUNT 98 10^3/uL (150-450)
[2020-07-27 06:17] LABS: ABSOLUTE LYMPHOCYTES# (MANUAL) 0.9 10^3/uL (0.5-4.7); ABSOLUTE MONOCYTES # (MANUAL) 0.9 10^3/uL (0.1-1.4); BASOPHILS % (MANUAL) 0 % (0-2); EOSINOPHILS % (MANUAL) 1 % (0-6); LYMPHOCYTES % (MANUAL) 8 % (13-45); MONOCYTES % (MANUAL) 8 % (3-13); NUCLEATED RED BLOOD CELLS 1 /100 WBC (0); SEGMENTED NEUTROPHILS % (MAN) 83 % (42-78); TOTAL CELLS COUNTED 100
[2020-07-27 06:18] LABS: ANISOCYTOSIS 3+; OVALOCYTES SLIGHT; POIKILOCYTOSIS SLIGHT
[2020-07-27 06:19] LABS: PLATELET COMMENT DECREASED
--- NOTE | 2020-07-27 08:48 | PDOC PROGRESS REPORT ---
Subjective Progress Note for:: 07/27/20 Subjective:: 07/21 patient apparently had an eventful evening. She started bleeding from the tracheostomy. It appears surgery was consulted. This morning we have also reconsulted ENT as they appear to be a potential issues with the tracheostomy. She is currently stable. It is noted that hemoglobin did drop overnight and this may have been from her bleeding. I will repeat hemoglobin this afternoon and decide on transfusion if needed. She actually seems to be somewhat more responsive although still unable to appropriately respond but she is awake and alert. Chest x-ray reveals multifocal pulmonary opacities with extensive subcutaneous emphysema with questionable pneumomediastinum and pneumopericardium 07/23- Uneventful day today Prognosis remains poor Need a senior client advisor plan but will need to get EEG first, unavailable till next week Plan for a family meeting once EEG result available and at least 30 days have elapsed to have a better clarity Will insert NGT today. 07/24 Unable to insert NGT per nursing staff. Will send down to [facility] for Dobhoff tube 07/26/2020-no change in mental status. Has a trach connected to the vent. In my opinion she able to respond to the verbal commands by closing the eyes and try to smile. nurses is noticed mottling and discoloration of the toes in both feet. Platelet count is 100,000 it may be a contraindication for Lovenox treatment dose. Overall prognosis poor condition is critical. Nurses unable to place Dobbhoff. Patient is getting dextrose by IV. 07/27/2020-patient is going to have EEG today. Hopefully will get the results by the evening. No changes in physical condition or mental condition. Overall prognosis poor condition is critical. Reason For Visit: ARDS, POSSIBLE COVID 19 Physical Exam Vital Signs: Temp Pulse Resp BP Pulse Ox 98.4 F 95 14 139/87 H 99 07/27/20 03:10 07/27/20 03:10 07/27/20 03:10 07/27/20 03:10 07/27/20 04:50 Intake & Output 07/26/20 07/27/20 07/28/20 06:59 06:59 06:59 Intake Total 2115 1200 Output Total 1450 1415 Balance 665 -215 Weight 180 kg 180 kg General appearance: PRESENT: no acute distress, morbidly obese Head exam: PRESENT: atraumatic, normocephalic Eye exam: PRESENT: conjunctiva pink, EOMI, PERRLA. ABSENT: scleral icterus Mouth exam: PRESENT: other - Trach in place. Neck exam: PRESENT: other - Trach in place.. ABSENT: carotid bruit, JVD, lymphadenopathy, thyromegaly Respiratory exam: PRESENT: decreased breath sounds Cardiovascular exam: PRESENT: RRR. ABSENT: diastolic murmur, rubs, systolic murmur GI/Abdominal exam: PRESENT: normal bowel sounds, soft. ABSENT: distended, guarding, mass, organolmegaly, rebound, tenderness Rectal exam: PRESENT: deferred Gentrourinary exam: PRESENT: indwelling catheter Extremities exam: PRESENT: other - Bilateral discoloration mottling of the toes is seen in both feet. Neurological exam: PRESENT: other - Patient in vegetative state. Unable to do the neurological examination. Results Laboratory Results: 07/27/20 05:08 07/27/20 05:08 07/26/20 07/26/20 07/26/20 06:45 06:45 06:45 WBC 10.1 RBC 3.26 L Hgb 7.9 L Hct 25.6 L MCV 79 L MCH 24.2 L MCHC 30.9 L RDW 21.7 H Plt Count 100 L Seg Neutrophils % Sodium 139.9 Potassium 4.7 Chloride 104 Carbon Dioxide 28 Anion Gap 8 BUN 69 H Creatinine 2.35 H Est GFR ( Amer) 30 L Glucose 93 Calcium 9.3 Magnesium 1.9 Total Bilirubin AST Alkaline Phosphatase Total Protein Albumin 07/26/20 07/26/20 07/27/20 15:30 15:30 05:08 WBC 11.7 H 11.5 H RBC 3.47 L 3.39 L Hgb 8.2 L 8.1 L Hct 27.0 L 26.3 L MCV 78 L 78 L MCH 23.7 L 23.9 L MCHC 30.5 L 30.8 L RDW 22.2 H 22.3 H Plt Count 106 L 98 L Seg Neutrophils % 77.1 Not Reportable Sodium 139.9 Potassium 4.4 Chloride 104 Carbon Dioxide 28 Anion Gap 8 BUN 67 H Creatinine 2.28 H Est GFR ( Amer) 31 L Glucose 117 H Calcium 9.3 Magnesium Total Bilirubin 0.4 AST 25 Alkaline Phosphatase 67 Total Protein 6.8 Albumin 3.2 L 07/27/20 05:08 WBC RBC Hgb Hct MCV MCH MCHC RDW Plt Count Seg Neutrophils % Sodium 141.1 Potassium 4.8 Chloride 103 Carbon Dioxide 27 Anion Gap 11 BUN 65 H Creatinine 2.22 H Est GFR ( Amer) 32 L Glucose 112 H Calcium 9.6 Magnesium 1.8 Total Bilirubin 0.5 AST 26 Alkaline Phosphatase 69 Total Protein 6.6 Albumin 3.3 L 06/30/20 06/30/20 07/04/20 03:58 03:58 04:30 Creatine Kinase 188 H NT-Pro-B Natriuret Pep 77931 H 13987 H Impressions: Lower Extremity Ultrasound 06/30/20 00:00 IMPRESSION: 1. Multiphasic waveforms with three-vessel runoff bilaterally. 2. The right dorsalis pedis is not visualized and may be occluded. Diminished, but patent left dorsalis pedis. Venous Doppler Study 07/11/20 00:00 IMPRESSION: Acute hypoechoic clot occludes the cephalic vein in the antecubital fossa KUB X-Ray 07/16/20 00:00 IMPRESSION: Tip of the Dobbhoff catheter in the left upper quadrant, as above copyright 2011 [employer]- All Rights Reserved Chest X-Ray 07/21/20 00:58 IMPRESSION: 1. Support lines and tubes in position as detailed above. 2. Extensive subcutaneous emphysema with potential pneumomediastinum or pneumopericardium on the current study. Close attention on follow-up is recommended. 3. Redemonstration of multifocal pulmonary opacities, worse in the right hemithorax when compared to prior exam. Suggestion of small pleural effusions. Assessment and Plan - Diagnosis (1) ARF (acute renal failure) Qualifiers: Acute renal failure type: unspecified Qualified Code(s): N17.9 - Acute kidney failure, unspecified Is this a current diagnosis for this admission?: Yes Plan: Kidney function continues to improve to stabilize. Her creatinine was 1.23 in February 2020 before she got ill 07/26/2020-serum creatinine today is 2.35. BRODIE slightly improved. BRODIE most likely secondary to ATN. Not on dialysis at this time. 1420-latest serum creatinine is 2.22. Stable. (2) Acute respiratory failure Qualifiers: Respiratory failure complication: hypoxia Qualified Code(s): J96.01 - Acute respiratory failure with hypoxia Is this a current diagnosis for this admission?: Yes Plan: Respiratory status remains pretty tenuous. Will consult servicer travel trailers when available. We will continue on BiPAP currently at a setting of FiO2 of 35%, tidal volume of 450 and respiratory rate of 10. Patient condition continues to be poor Will suggest follow-up with ENT next week to reevaluate tracheostomy placement I have requested the patient be weaned down as tolerated 07/26/2020-patient came in with ARDS. Presently on trach connected to the vent. On cefazolin at this time. Plan is to continue the present management pulmonary consult will be requested. 07/27/20-patient has a trach connected to the vent. Consultation with Dr. Wood was requested yesterday. Patient is on cefazolin at this time for endocarditis. (3) Endocarditis determined by echocardiography Is this a current diagnosis for this admission?: Yes Plan: Ancef started on July 02 this was the date of negative blood cultures. She w ill need antibiotics for 6 weeks through August 13 Continue to monitor follow-up on labs 07/26/20-on cefazolin to continue antibiotics for total period of 6 weeks 07/27/2020-patient is on cefazolin to continue the antibiotic therapy for total. 6 weeks. (4) Anemia Qualifiers: Anemia type: other cause Other causes of anemia: other cause, not classified Qualified Code(s): D64.89 - Other specified anemias Is this a current diagnosis for this admission?: No Plan: Patient is anemic from her acutely prolonged illness however her hemoglobin also did drop likely from acute blood loss. We will continue to monitor H&H and transfuse as needed. 07/26/20- latest hemoglobin 7.9 stable.. Anemia may be secondary to acute kidney injury. (5) Comatose Qualifiers: Coma depth: [place] coma 3-8 Coma timin hours or more after hospital admission Qualified Code(s): R40.2434 - [place] coma scale score 3-8, 24 hours or more after hospital admission Is this a current diagnosis for this admission?: Yes Plan: Patient is in a vegetative state. EEG is not available till next week. Will obtain once available to confirm neurological/cerebral status Patient's prognosis remains poor 07/26/2020-EEG is requested for tomorrow. Once the EEG report available plan is to discuss the plan of care with the family members. - Plan Summary Summary: BRODIE thought to be secondary to ATN. She received a Lasix drip. 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 Last blood cultures have been negative patient is currently on cefazolin. She is currently on day 18 of a 6-week treatment course from the date of negative blood culture which was on July 02. It appears Ancef 1 g every 12 was started on July 02. Acute respiratory failure status post tracheostomy placement on July 17 and appears her respiratory status is pretty tenuous and will have to continue close monitoring. 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 She was initially admitted on June 28 due to pneumonia and acute respiratory failure and was diagnosed with ARDS, septic shock and was intubated. 07/25/2020 Patient's overall prognosis is very poor and she is at a very high risk for adverse outcome including At this point we are still waiting for patient's family for review conferencing. Unfortunately it appears there is no smart phone available and they have not been able to see the patient even via teleconferencing. I believe this should be arranged by social worker assistant. My understanding the mother is disabled and the father also has a medical condition preventing them from coming into the hospital patient is scheduled for an EEG next week as there was none available this week. Also had problems with her NG tube. She had a double which unfortunately was this large and we have been unable to reinsert an NG tube. 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 Be addressed this coming week. It may be worth contacting surgery again for possible PEG placement or j-tube but a lot of it is going to depend on patient's ultimate status. Family conference may also be needed but I believe all this is down the line as patient status needs to be addressed first - Time Anticipated Discharge Disposition: [facility]osp[facility] Center Anticipated Discharge Timeframe: within 48 hours
[2020-07-27] MEDS: CEFAZOLIN SODIUM 2 GM in DEXTROSE 5%-WATER 100 ML IV SCH ×2 (11:38→21:34)
[2020-07-27] MEDS: POTASSIUM CHLORIDE 20 MEQ PACKET NG SCH (11:39)
[2020-07-27] MEDS: AMINO AC/PROTEIN HYDR/WHEY PRO 11 GM/45 ML PKT NG SCH ×2 (11:39→18:30)
[2020-07-27] MEDS: FAMOTIDINE INJ/PF 20 MG/2 ML SDV IV SCH ×2 (11:41→21:33)
--- NOTE | 2020-07-27 12:58 | PDOC CONSULTATION ---
Consultation Consult Date: 07/27/20 Attending physician:: MAUREEN LE Provider Consulted: VERO PITTS Consult reason:: ventilator dependent History of Present Illness Admission Date/PCP: 06/29/20 03:15 History of Present Illness: CHEMO CRUZ is a 29 year old female;Most unfortunate scenario for this 29-year-old female who came to the emergency room for shortness of breath and was subsequently intubated as stated in ICU during which time she became hypotensive and had acute renal failure as well as prolonged intubation this subsequently required her to have a tracheostomy.She is currently on the third floor Mechanical ventilation mode PVR C however she has a large leak and has very small tidal volumes. Leak appears to be coming from her tracheostomy.. I suspect patient had a episode of DIC along with her respiratory and renal failure. She is currently not moving her left side very little movement on the right. She also has a large mass on the Heart valve and gram-positive bacteremia. Past Medical History Cardiac Medical History: Reports: Congestive Heart Failure, Heart Murmur Pulmonary Medical History: Reports: Intubation, Pneumonia, Respiratory Failure, Sleep Apnea EENT Medical History: Reports: Ears, Nose, Throat Neurological Medical History: Denies: Seizures Endocrine Medical History: Reports: Hypothyroidism, Obesity Malignancy Medical History: Reports: None Musculoskeltal Medical History: Reports: None Skin Medical History: Reports: None Psychiatric Medical History: Denies: Depression Traumatic Medical History: Denies: Gunshot Wound Hematology: Denies: Sickle Cell Disease Past Surgical History Past Surgical History: Reports: Orthopedic Surgery - right 5th toe amputation Social History Lives with: Parents Smoking Status: Current Every Day Smoker Frequency of Alcohol Use: Rare Hx Recreational Drug Use: No Hx Prescription Drug Abuse: No - Advance Directive Resuscitation Status: Full Code Family History Family History: Reviewed & Not Pertinent, Arthritis, CAD, COPD, DM, Hypertension, Thyroid Disfunction Parental Family History Reviewed: No Children Family History Reviewed: No Sibling(s) Family History Reviewed.: No Medication/Allergy Home Medications: Albuterol Sulfate [Proair HFA Inhalation Aerosol 8.5 gm MDI] 2 puff IH Q4HP PRN 06/29/20 Levothyroxine Sodium [Synthroid] 125 mcg PO Q6AM 06/29/20 Allergies/Adverse Reactions: No Known Allergies Allergy (Verified 06/29/20 08:43) Review of Systems ROS unobtainable: Due to endotracheal tube, Due to mental status Physical Exam Vital Signs: Temp Pulse Resp BP Pulse Ox 98.4 F 95 14 139/87 H 99 07/27/20 03:10 07/27/20 03:10 07/27/20 03:10 07/27/20 03:10 07/27/20 04:50 Intake & Output 07/26/20 07/27/20 07/28/20 06:59 06:59 06:59 Intake Total 2115 1200 Output Total 1450 1415 Balance 665 -215 Weight 180 kg 180 kg General appearance: PRESENT: no acute distress, cooperative, disheveled, morbidly obese, well-developed, well-nourished Head exam: PRESENT: atraumatic, normocephalic Eye exam: PRESENT: conjunctiva pale Mouth exam: PRESENT: dry mucosa, tongue midline Neck exam: PRESENT: tracheostomy, other - diffuse bilateral subcutaneous eccymosis. ABSENT: carotid bruit, full ROM, JVD, meningismus, tenderness, thyromegaly, tracheal deviation Respiratory exam: PRESENT: rales, symmetrical, unlabored. ABSENT: retraction, stridor, tachypnea Cardiovascular exam: PRESENT: RRR, +S1, +S2 Pulses: PRESENT: normal radial pulses GI/Abdominal exam: PRESENT: mass, soft. ABSENT: distended, guarding, rebound, tenderness Extremities exam: PRESENT: pedal edema. ABSENT: calf tenderness, joint swelling, tenderness Musculoskeletal exam: ABSENT: ambulatory, deformity, dislocation, full ROM Neurological exam: PRESENT: altered Psychiatric exam: PRESENT: flat affect Skin exam: PRESENT: dry, warm, other - Eschar over the chest both groins right upper extremity right lower extremity both feet Results Laboratory Results: 07/27/20 05:08 07/27/20 05:08 07/26/20 07/26/20 07/26/20 06:45 15:30 15:30 WBC 11.7 H RBC 3.47 L Hgb 8.2 L Hct 27.0 L MCV 78 L MCH 23.7 L MCHC 30.5 L RDW 22.2 H Plt Count 106 L Seg Neutrophils % 77.1 Sodium 139.9 Potassium 4.4 Chloride 104 Carbon Dioxide 28 Anion Gap 8 BUN 67 H Creatinine 2.28 H Est GFR ( Amer) 31 L Glucose 117 H Calcium 9.3 Magnesium 1.9 Total Bilirubin 0.4 AST 25 Alkaline Phosphatase 67 Total Protein 6.8 Albumin 3.2 L 07/27/20 07/27/20 05:08 05:08 WBC 11.5 H RBC 3.39 L Hgb 8.1 L Hct 26.3 L MCV 78 L MCH 23.9 L MCHC 30.8 L RDW 22.3 H Plt Count 98 L Seg Neutrophils % Not Reportable Sodium 141.1 Potassium 4.8 Chloride 103 Carbon Dioxide 27 Anion Gap 11 BUN 65 H Creatinine 2.22 H Est GFR ( Amer) 32 L Glucose 112 H Calcium 9.6 Magnesium 1.8 Total Bilirubin 0.5 AST 26 Alkaline Phosphatase 69 Total Protein 6.6 Albumin 3.3 L 06/30/20 06/30/20 07/04/20 03:58 03:58 04:30 Creatine Kinase 188 H NT-Pro-B Natriuret Pep 87233 H 70549 H Impressions: Lower Extremity Ultrasound 06/30/20 00:00 IMPRESSION: 1. Multiphasic waveforms with three-vessel runoff bilaterally. 2. The right dorsalis pedis is not visualized and may be occluded. Diminished, but patent left dorsalis pedis. Venous Doppler Study 07/11/20 00:00 IMPRESSION: Acute hypoechoic clot occludes the cephalic vein in the antecubital fossa KUB X-Ray 07/16/20 00:00 IMPRESSION: Tip of the Dobbhoff catheter in the left upper quadrant, as above copyright 2011 [employer]- All Rights Reserved Chest X-Ray 07/21/20 00:58 IMPRESSION: 1. Support lines and tubes in position as detailed above. 2. Extensive subcutaneous emphysema with potential pneumomediastinum or pneumopericardium on the current study. Close attention on follow-up is recommended. 3. Redemonstration of multifocal pulmonary opacities, worse in the right hemithorax when compared to prior exam. Suggestion of small pleural effusions. Assessment & Plan - Diagnosis (1) Acute kidney injury Is this a current diagnosis for this admission?: Yes Plan: improving nephrology following (2) Endocarditis determined by echocardiography Is this a current diagnosis for this admission?: Yes Plan: Affecting 2 leaflets of the mitral valve. Transesophageal echo (3) Morbid obesity Is this a current diagnosis for this admission?: Yes (4) Thrombocytopenia Is this a current diagnosis for this admission?: Yes Plan: Etiology uncertain, there are not no platelet antibodies per testing (5) Respiratory failure Qualifiers: Chronicity: acute Respiratory failure complication: hypoxia Qualified Code(s): J96.01 - Acute respiratory failure with hypoxia Is this a current diagnosis for this admission?: Yes Plan: Currently a full code may need to be reevaluated after her EEG has been read. Either she will need LTAC or comfort care. Obviously long-term antibiotics if not designated comfort care. Currently large leak and trach cuff 50 to 60% no increase in tidal volume or PEEP will not improved ventilation. May be best if patient is made comfort care as her probability of significant recovery is limited. If care is to be extended tracheostomy leak must be resolved so patient can be adequately ventilated - Time Time Spent with patient: 55 min Time Spent: 50 to 70 Minutes
[2020-07-27 14:04] LABS: HEMATOCRIT 25.7 % (36.0-47.0); MEAN CORPUSCULAR HEMOGLOBIN 23.8 pg (27.0-33.4); MEAN CORPUSCULAR HGB CONC 31.1 g/dL (32.0-36.0); MEAN CORPUSCULAR VOLUME 77 fl (80-97); PLATELET COUNT 105 10^3/uL (150-450); RED BLOOD COUNT 3.35 10^6/uL (3.72-5.28); RED CELL DISTRIBUTION WIDTH 21.9 % (11.5-14.0); WHITE BLOOD COUNT 11.2 10^3/uL (4.0-10.5)
[2020-07-27 14:30] LABS: ANION GAP 9 (5-19); BLOOD UREA NITROGEN 66 mg/dL (7-20); CALCIUM 9.5 mg/dL (8.4-10.2); CARBON DIOXIDE 27 mmol/L (22-30); CHLORIDE 103 mmol/L (98-107); GLUCOSE 113 mg/dL (75-110); POTASSIUM 4.3 mmol/L (3.6-5.0)
[2020-07-27] MEDS: DEXTROSE 5%-WATER 1000 ML 1,000 ML IV PRN (14:38)
--- NOTE | 2020-07-27 17:29 | NEURO WORKBENCH EEG REPORT ---
EEG Report Patient: Sandrine Moran ID: [id number] Referring Doctor: Corby George DOS: 07/27/2020 Medications: Prosource TF, cefazolin, famotidine, porcine, hydrocortison, synthroid, KCl History This is a 29 year old female with a history of [place] Thyroiditis, heart murmur, CHF, respiratory failure, pneumonia, sleep apnea, hypothyroidism, bronchitis, hernia repair, toe amputation with a tracheostomy on life support. Body temperature 98.6 degrees. Given 1mg Ativan at 05:04h. EEG started 09:25h. This EEG was requested for vegetative state. EEG Interpretation This EEG was recorded without clear states. The background was disorganized and suppressed with primarily delta with intermixed alpha and theta activity. There was low amplitude beta activity. There was no noted posterior dominant rhythm with passive and active eye opening/closing. There was reactivity of the background and spontaneous patient movement with associated myogenic activity. There was frontal intermittent rhythmic delta activity (FIRDA). Photic stimulation resulted in no significant change. There were no epileptiform abnormalities. The EKG showed a rhythm at ~100bpm with rare waveform that resembled PVC. EEG Classification * Disorganized * Suppressed * Generalized background slowing * FIRDA * EKG irregular rhythm EEG Impression This EEG is abnormal. It is consistent with diffuse cerebral dysfunction. There were no epileptiform abnormalities noted. The EKG may need further investigation. INTERPRETING NEUROLOGIST: Layla Wolf MD, FRCPC Board Certified in Neurology, with special qualification in Child Neurology, and in Clinical Neurophysiology [facility]
[2020-07-28] MEDS: MORPHINE SULFATE 10 MG/ML INJ IV PRN ×5 (01:07→22:14)
[2020-07-28] MEDS: HEPARIN SOD (PORCINE) 5,000 UNIT/ML 1 ML VIAL SUBCUT SCH ×3 (05:54→22:13)
[2020-07-28] MEDS: DEXTROSE 5%-WATER 1000 ML 1,000 ML IV PRN ×2 (06:01→19:20)
[2020-07-28 06:36] LABS: HEMATOCRIT 26.6 % (36.0-47.0); HEMOGLOBIN 8.2 g/dL (12.0-15.5); MEAN CORPUSCULAR HEMOGLOBIN 23.6 pg (27.0-33.4); MEAN CORPUSCULAR HGB CONC 30.7 g/dL (32.0-36.0); MEAN CORPUSCULAR VOLUME 77 fl (80-97); PLATELET COUNT 113 10^3/uL (150-450); RED BLOOD COUNT 3.45 10^6/uL (3.72-5.28); RED CELL DISTRIBUTION WIDTH 23.1 % (11.5-14.0); WHITE BLOOD COUNT 12.8 10^3/uL (4.0-10.5)
[2020-07-28] MEDS: LEVOTHYROXINE SODIUM 0.025 MG TABLET NG SCH (06:44)
[2020-07-28] MEDS: LEVOTHYROXINE SODIUM 0.1 MG TABLET NG SCH (06:44)
[2020-07-28] MEDS: HYDROCORTISONE SOD SUCCINATE INJ/PF 100 MG/2 ML SDV IV SCH ×2 (06:51→17:46)
[2020-07-28 07:10] LABS: ANION GAP 11 (5-19); BLOOD UREA NITROGEN 65 mg/dL (7-20); CALCIUM 9.8 mg/dL (8.4-10.2); CARBON DIOXIDE 27 mmol/L (22-30); CHLORIDE 103 mmol/L (98-107); GLUCOSE 99 mg/dL (75-110); POTASSIUM 4.2 mmol/L (3.6-5.0)
[2020-07-28] MEDS: POTASSIUM CHLORIDE 20 MEQ PACKET NG SCH (09:24)
[2020-07-28] MEDS: AMINO AC/PROTEIN HYDR/WHEY PRO 11 GM/45 ML PKT NG SCH ×2 (09:24→17:54)
[2020-07-28] MEDS: FAMOTIDINE INJ/PF 20 MG/2 ML SDV IV SCH ×2 (10:40→22:14)
[2020-07-28] MEDS: CEFAZOLIN SODIUM 2 GM in DEXTROSE 5%-WATER 100 ML IV SCH ×2 (10:40→22:12)
--- NOTE | 2020-07-28 15:45 | Progress Note ---
Provider Note Provider Note: ID Note- Please see Dr. Corona's ID note from July 01. Patient has mitral valve endocarditis with MSSA. She has cleared blood cultures, but she remains critically ill with evidence of septic emboli to brain. Recommendations: 1. Continue cefazolin 2 gm IV q 8 hours. She will need 6 weeks of therapy from the first negative blood cultures. 2. CT surgery consult/transfer to CT surgery service to consider valve replacement. Call me if there are questions. Cal Turner MD Pager: [phone]
[2020-07-28] MEDS: LORAZEPAM INJ 2 MG/1 ML VIAL IV PRN ×2 (17:46→22:14)
--- NOTE | 2020-07-28 18:14 | PDOC PROGRESS REPORT ---
Subjective Progress Note for:: 07/28/20 Subjective:: Per previous physician: "07/21 patient apparently had an eventful evening. She started bleeding from the tracheostomy. It appears surgery was consulted. This morning we have also reconsulted ENT as they appear to be a potential issues with the tracheostomy. She is currently stable. It is noted that hemoglobin did drop overnight and this may have been from her bleeding. I will repeat hemoglobin this afternoon and decide on transfusion if needed. She actually seems to be somewhat more responsive although still unable to appropriately respond but she is awake and alert. Chest x-ray reveals multifocal pulmonary opacities with extensive subcutaneous emphysema with questionable pneumomediastinum and pneumopericardium 07/23- Uneventful day today Prognosis remains poor Need a halfway plan but will need to get EEG first, unavailable till next week Plan for a family meeting once EEG result available and at least 30 days have elapsed to have a better clarity Will insert NGT today. 07/24 Unable to insert NGT per nursing staff. Will send down to [facility] for Dobhoff tube 07/26/2020-no change in mental status. Has a trach connected to the vent. In my opinion she able to respond to the verbal commands by closing the eyes and try to smile. nurses is noticed mottling and discoloration of the toes in both feet. Platelet count is 100,000 it may be a contraindication for Lovenox treatment dose. Overall prognosis poor condition is critical. Nurses unable to place Dobbhoff. Patient is getting dextrose by IV. 07/27/2020-patient is going to have EEG today. Hopefully will get the results by the evening. No changes in physical condition or mental condition. Overall prognosis poor condition is critical." 07/28/2020 Many aspects of care will need to be changed per my review of the chart today. 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 I discussed the case with ID today who agreed that the patient should be transferred to have this valve surgically addressed while she is continuing antibiotics. Also noted she has an upper extremity DVT as well as a dorsalis pedis arterial occlusion noted on PVL. She is on prophylactic heparin which is almost certainly not helping this. Her platelets have been challenging the ability to give her full dose anticoagulation but as they have been rising for the past few days this should be readdressed. That said, I do not believe these occlusions are necessarily all due to DVT from acute illness or hypercoagulability, I think it is more likely they are due to septic emboli from her endocarditis which is clearly seen on ANGELIA. The EEG that was done was confounded by the fact the patient was being given sedatives and the EEG was repeated today. I question the utility of an EEG as the purpose that was given to me is to assess for brain however she clearly does not have brain by simple physical exam. 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 Reportedly per my discussions with nursing, the parents of the patient have a very poor understanding of the patient's serious illness and are expecting her to make a full recovery. They are coming in tomorrow to have a meeting with the staff and to see the patient for the first time since her admission. It is unclear if any physicians have reached out to the family other than yesterday when Dr. George spoke to them about hospice. I do not believe the patient should remain at this facility and we need to explore transferring her out if the family wishes to continue with aggressive care. I cannot make a definitive statement at this time about how much recovery of any she will be able to achieve going forward. She has an overall rather poor long-term prognosis but she does have youth on her side and this may afford her some small buffer for acute critical illness like she has experienced here. Her super morbid obesity greatly complicates every aspect of her care and recovery. Reason For Visit: ARDS, POSSIBLE COVID 19 Physical Exam Vital Signs: Temp Pulse Resp BP Pulse Ox 98.9 F 112 H 15 152/93 H 97 07/28/20 10:00 07/28/20 14:00 07/28/20 03:13 07/28/20 03:13 07/28/20 16:50 Intake & Output 07/27/20 07/28/20 07/29/20 06:59 06:59 06:59 Intake Total 1200 2200 516 Output Total 1415 1325 700 Balance -215 875 -184 Weight 180 kg 180 kg General appearance: PRESENT: mild distress, morbidly obese Head exam: PRESENT: atraumatic, normocephalic Eye exam: PRESENT: conjunctiva pink Respiratory exam: PRESENT: rales - Upper airway rales, possibly due to mucus and trach. ABSENT: rhonchi, wheezes Pulses: PRESENT: +1 pedal pulses bilateral - Weak dorsalis pedis pulses bilaterally GI/Abdominal exam: PRESENT: normal bowel sounds, soft. ABSENT: distended, guarding, mass, organolmegaly, rebound, tenderness Extremities exam: PRESENT: other - Toes on right foot are becoming necrotic Neurological exam: ABSENT: alert, awake Psychiatric exam: PRESENT: agitated. ABSENT: appropriate affect, normal mood Skin exam: PRESENT: dry, intact, warm Results Laboratory Results: 07/28/20 06:00 07/28/20 06:00 07/28/20 07/28/20 06:00 06:00 WBC 12.8 H RBC 3.45 L Hgb 8.2 L Hct 26.6 L MCV 77 L MCH 23.6 L MCHC 30.7 L RDW 23.1 H Plt Count 113 L Sodium 141.0 Potassium 4.2 Chloride 103 Carbon Dioxide 27 Anion Gap 11 BUN 65 H Creatinine 1.72 H Est GFR ( Amer) 43 L Glucose 99 Calcium 9.8 06/30/20 06/30/20 07/04/20 03:58 03:58 04:30 Creatine Kinase 188 H NT-Pro-B Natriuret Pep 54389 H 09779 H Impressions: Lower Extremity Ultrasound 06/30/20 00:00 IMPRESSION: 1. Multiphasic waveforms with three-vessel runoff bilaterally. 2. The right dorsalis pedis is not visualized and may be occluded. Diminished, but patent left dorsalis pedis. Venous Doppler Study 07/11/20 00:00 IMPRESSION: Acute hypoechoic clot occludes the cephalic vein in the antecubital fossa KUB X-Ray 07/16/20 00:00 IMPRESSION: Tip of the Dobbhoff catheter in the left upper quadrant, as above copyright 2011 [employer]- All Rights Reserved Chest X-Ray 07/21/20 00:58 IMPRESSION: 1. Support lines and tubes in position as detailed above. 2. Extensive subcutaneous emphysema with potential pneumomediastinum or pneumopericardium on the current study. Close attention on follow-up is recommended. 3. Redemonstration of multifocal pulmonary opacities, worse in the right hemithorax when compared to prior exam. Suggestion of small pleural effusions. Assessment and Plan - Diagnosis (1) Infectious endocarditis Qualifiers: Infective endocarditis organism: bacterial Chronicity: acute Qualified Code(s): I33.0 - Acute and subacute infective endocarditis Is this a current diagnosis for this admission?: Yes Plan: MSSA bacteremia on blood cultures, follow-up blood cultures are negative Remove all central venous lines including dialysis lines, discussed with nephrology who states she does not need this anymore and it was instructed to be removed 2 weeks prior to 07/28/2020 though this was not done; must be removed, discussed with nursing Cefazolin for 6 weeks from negative blood cultures Needs transfer to outside hospital for definitive management of mitral valve vegetation Unclear source of MSSA bacteremia ID consulted and reconsulted (2) MSSA bacteremia Is this a current diagnosis for this admission?: Yes Plan: As above (3) Mitral valve vegetation Is this a current diagnosis for this admission?: Yes (4) Acute hypoxemic respiratory failure Is this a current diagnosis for this admission?: Yes Plan: Multifactorial: ALBA, OHS, endocarditis and acute illness Treat underlying cause with positive pressure/ventilator support and supplemental oxygen, antibiotics, definitive management of mitral valve endocarditis (5) Tracheostomy dependence Is this a current diagnosis for this admission?: Yes Plan: Pulmonology consulted: Tracheostomy in place is too small and patient needs revision with a larger tracheostomy placed in the OR (6) Ventilator dependent Is this a current diagnosis for this admission?: Yes (7) Necrotic toes Is this a current diagnosis for this admission?: Yes Plan: Likely due to septic emboli to peripheral vasculature Needs evaluation by vascular surgery at outside hospital (8) ARF (acute renal failure) Qualifiers: Acute renal failure type: unspecified Qualified Code(s): N17.9 - Acute kidney failure, unspecified Is this a current diagnosis for this admission?: Yes Plan: Her previous physician: "Kidney function continues to improve to stabilize. Her creatinine was 1.23 in February 2020 before she got ill 07/26/2020-serum creatinine today is 2.35. BRODIE slightly improved. BRODIE most likely secondary to ATN. Not on dialysis at this time. 1420-latest serum creatinine is 2.22. Stable." 07/28/2020 Nephrology following: Case discussed with them again, they would like the dialy sis catheter removed as they had instructed to be done 2 weeks prior Trend BMP Creatinine going down Monitor urine output (9) Acute kidney injury Is this a current diagnosis for this admission?: Yes (10) Acute respiratory failure Qualifiers: Respiratory failure complication: hypoxia Qualified Code(s): J96.01 - Acute respiratory failure with hypoxia Is this a current diagnosis for this admission?: Yes (11) Endocarditis determined by echocardiography Is this a current diagnosis for this admission?: Yes Plan: Per previous physician: "Ancef started on July 02 this was the date of negative blood cultures. She will need antibiotics for 6 weeks through August 13 Continue to monitor follow-up on labs 07/26/20-on cefazolin to continue antibiotics for total period of 6 weeks 07/27/2020-patient is on cefazolin to continue the antibiotic therapy for total. 6 weeks." (12) Super-super obese Is this a current diagnosis for this admission?: Yes (13) Thrombocytopenia Is this a current diagnosis for this admission?: Yes Plan: Heparin products held initially, then restarted as prophylactic dose Platelets rising gradually HIT panel negative (14) Hypothyroidism Qualifiers: Hypothyroidism type: unspecified Qualified Code(s): E03.9 - Hypothyroidism, unspecified Is this a current diagnosis for this admission?: Yes - Plan Summary Summary: BRODIE thought to be secondary to ATN. She received a Lasix drip. 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 Last blood cultures have been negative patient is currently on cefazolin. She is currently on day 18 of a 6-week treatment course from the date of negative blood culture which was on July 02. It appears Ancef 1 g every 12 was started on July 02. Acute respiratory failure status post tracheostomy placement on July 17 and appears her respiratory status is pretty tenuous and will have to continue close monitoring. 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 She was initially admitted on June 28 due to pneumonia and acute respiratory failure and was diagnosed with ARDS, septic shock and was intubated. 07/25/2020 Patient's overall prognosis is very poor and she is at a very high risk for adverse outcome including At this point we are still waiting for patient's family for review conferencing. Unfortunately it appears there is no smart phone available and they have not been able to see the patient even via teleconferencing. I believe this should be arranged by social media intern. My understanding the mother is disabled and the father also has a medical condition preventing them from coming into the hospital patient is scheduled for an EEG next week as there was none available this week. Also had problems with her NG tube. She had a double which unfortunately was this large and we have been unable to reinsert an NG tube. 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 Be addressed this coming week. It may be worth contacting surgery again for possible PEG placement or j-tube but a lot of it is going to depend on patient's ultimate status. Family conference may also be needed but I believe all this is down the line as patient status needs to be addressed first - Time Time Spent with patient: 35 or more minutes Medications reviewed and adjusted accordingly: Yes Anticipated Discharge Disposition: Tertiary Anticipated Discharge Timeframe: within 72 hours - Inpatient Certification Based on my medical assessment, after consideration of the patient's comorbidities, presenting symptoms, or acuity I expect that the services needed warrant INPATIENT care.: Yes I certify that my determination is in accordance with my understanding of Medicare's requirements for reasonable and necessary INPATIENT services [42 CFR 412.3e].: Yes Medical Necessity: Significant Comorbidiites Make Outpatient Treatment Too Risky, Need Close Monitoring Due to Risk of Patient Decompensation, Need for IV Antibiotics, Risk of Complication if Not Cared For in Hospital, Risk of Diagnosis Which Will Require Inpatient Eval/Care/Monitoring
--- NOTE | 2020-07-28 18:46 | NEURO WORKBENCH EEG REPORT ---
EEG Report Patient: Sandrine Moran ID: [id number] Referring Doctor: Corby George Date: 07/28/2020 Reason for study: Evaluate Brain Medications: Taken off all medications yesterday History: This is a 29 year old male with a history of [place] thyroiditis, heart murmur, CHF, respiratory failure, pneumonia, sleep apnea, bronchitis, hernia repair, toe amputation with tracheostomy on mechanical ventilation. The body temperature was 98.5 F. This EEG was requested for evaluation of brain . A prior EEG was done on 07/27/2020. EEG Interpretation This EEG was recorded without clear states. The EEG shows predominantly diffuse polymorphic delta activity with intermixed fragmentary theta and rare fragmentary alpha activity. The background was disorganized and had frequent periods of global amplitude attenuation. There was no posterior dominant rhythm with active and passive eye opening and closure. Spontaneous body movements were noted on video. Photic stimulation was done and photic driving was not noted. There was no epileptiform activity (meaning no sharp waves or spikes), and there were no seizures noted. The EKG showed a regular rhythm with rates typically in the 90-115 range with rare ectopic beats which are likely PVCs. EEG Impression This is a markedly abnormal EEG and consistent with diffuse cerebral dysfunction which is non-specific for etiology. Likely considerations would include diffuse hypoxic injury or toxic-metabolic derangements. There were no EEG findings consistent with epilepsy. This EEG is not significantly changed from the one done yesterday, and this EEG is not consistent with brain . INTERPRETING NEUROLOGIST: Rupert Huff MD Board certified by the [place] [employer] in Neurology, Clinical Neurophysiology, and Sleep Medicine [facility]
[2020-07-29] MEDS: LORAZEPAM INJ 2 MG/1 ML VIAL IV PRN ×3 (03:02→20:56)
[2020-07-29] MEDS: MORPHINE SULFATE 10 MG/ML INJ IV PRN ×2 (03:02→20:55)
[2020-07-29] MEDS: LABETALOL HCL INJ 20 MG/4 ML DISP.SYRIN IV PRN (04:58)
[2020-07-29] MEDS: HYDROCORTISONE SOD SUCCINATE INJ/PF 100 MG/2 ML SDV IV SCH ×2 (06:05→20:55)
[2020-07-29] MEDS: HEPARIN SOD (PORCINE) 5,000 UNIT/ML 1 ML VIAL SUBCUT SCH ×3 (06:05→23:29)
[2020-07-29] MEDS: LEVOTHYROXINE SODIUM 0.1 MG TABLET NG SCH (06:06)
[2020-07-29] MEDS: LEVOTHYROXINE SODIUM 0.025 MG TABLET NG SCH (06:06)
[2020-07-29 06:47] LABS: HEMATOCRIT 24.3 % (36.0-47.0); MEAN CORPUSCULAR HEMOGLOBIN 24.1 pg (27.0-33.4); MEAN CORPUSCULAR HGB CONC 31.3 g/dL (32.0-36.0); MEAN CORPUSCULAR VOLUME 77 fl (80-97); RED BLOOD COUNT 3.15 10^6/uL (3.72-5.28); RED CELL DISTRIBUTION WIDTH 22.6 % (11.5-14.0); WHITE BLOOD COUNT 10.8 10^3/uL (4.0-10.5)
[2020-07-29 07:18] LABS: HEMOGLOBIN 7.6 g/dL (12.0-15.5); PLATELET COUNT 92 10^3/uL (150-450)
[2020-07-29 07:32] LABS: ANION GAP 11 (5-19); BLOOD UREA NITROGEN 60 mg/dL (7-20); CALCIUM 9.4 mg/dL (8.4-10.2); CARBON DIOXIDE 26 mmol/L (22-30); CHLORIDE 103 mmol/L (98-107); GLUCOSE 109 mg/dL (75-110); POTASSIUM 4.1 mmol/L (3.6-5.0)
--- NOTE | 2020-07-29 14:58 | PDOC PROGRESS REPORT ---
Subjective Subjective:: Per previous physician: "07/21 patient apparently had an eventful evening. She started bleeding from the tracheostomy. It appears surgery was consulted. This morning we have also reconsulted ENT as they appear to be a potential issues with the tracheostomy. She is currently stable. It is noted that hemoglobin did drop overnight and this may have been from her bleeding. I will repeat hemoglobin this afternoon and decide on transfusion if needed. She actually seems to be somewhat more responsive although still unable to appropriately respond but she is awake and alert. Chest x-ray reveals multifocal pulmonary opacities with extensive subcutaneous emphysema with questionable pneumomediastinum and pneumopericardium 07/23- Uneventful day today Prognosis remains poor Need a retirement plan but will need to get EEG first, unavailable till next week Plan for a family meeting once EEG result available and at least 30 days have elapsed to have a better clarity Will insert NGT today. 07/24 Unable to insert NGT per nursing staff. Will send down to [facility] for Dobhoff tube 07/26/2020-no change in mental status. Has a trach connected to the vent. In my opinion she able to respond to the verbal commands by closing the eyes and try to smile. nurses is noticed mottling and discoloration of the toes in both feet. Platelet count is 100,000 it may be a contraindication for Lovenox treatment dose. Overall prognosis poor condition is critical. Nurses unable to place Dobbhoff. Patient is getting dextrose by IV. 07/27/2020-patient is going to have EEG today. Hopefully will get the results by the evening. No changes in physical condition or mental condition. Overall prognosis poor condition is critical." 07/28/2020 Many aspects of care will need to be changed per my review of the chart today. 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 I discussed the case with ID today who agreed that the patient should be transferred to have this valve surgically addressed while she is continuing antibiotics. Also noted she has an upper extremity DVT as well as a dorsalis pedis arterial occlusion noted on PVL. She is on prophylactic heparin which is almost certainly not helping this. Her platelets have been challenging the ability to give her full dose anticoagulation but as they have been rising for the past few days this should be readdressed. That said, I do not believe these occlusions are necessarily all due to DVT from acute illness or hypercoagulability, I think it is more likely they are due to septic emboli from her endocarditis which is clearly seen on ANGELIA. The EEG that was done was confounded by the fact the patient was being given sedatives and the EEG was repeated today. I question the utility of an EEG as the purpose that was given to me is to assess for brain however she clearly does not have brain by simple physical exam. 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 Reportedly per my discussions with nursing, the parents of the patient have a very poor understanding of the patient's serious illness and are expecting her to make a full recovery. They are coming in tomorrow to have a meeting with the staff and to see the patient for the first time since her admission. It is unclear if any physicians have reached out to the family other than yesterday when Dr. George spoke to them about hospice. I do not believe the patient should remain at this facility and we need to explore transferring her out if the family wishes to continue with aggressive care. I cannot make a definitive statement at this time about how much recovery of any she will be able to achieve going forward. She has an overall rather poor long-term prognosis but she does have youth on her side and this may afford her some small buffer for acute critical illness like she has experienced here. Her super morbid obesity greatly complicates every aspect of her care and recovery. 07/29/2020 Extensive conversation with the patient's to parents and multiple staff members today. I discussed the patient's course thus far and the plan going forward to the best my ability having taken care of the patient for the past approximate 24 hours. ICU notes are extremely sparse for information and the patient's family members state that they had not spoken to a physician until Dr. George office spoke with them 2 days ago about hospice. I explained the patient is extremely ill and if she survives her current illness she will likely be permanently disabled for the rest of her life. Also explained that there is a very good chance that she will not survive her illness or may pass away during 1 of her needed surgical procedures. I also explained to them that we are extremely limited in the imaging modalities we can utilize for the patient due to her extremely high BMI/weight and the fact that our scanners cannot accommodate this degree of obesity. They stated they would like all aggressive measures pursued including surgeries and other procedures that may prolong her life even at the expense of personal pain and suffering to the patient and even with the knowledge that she may not survive these procedures. For now, they would like patient to remain full code but they may consider limiting care in the future if patient declines further. This advanced care planning discussion took place over the course of approximately 1 hour in addition to the clinical visit I had with the patient earlier today. Today, I noted in her labs that her blood counts are all down likely dilutional and her creatinine is elevated. I will reach out to outside facilities and attempt to transfer the patient for definitive treatment of her endocarditis most likely mitral valve replacement. Parents also want the patient to have tracheostomy replacement as recommended by Dr. Wood and also have a permanent abdominal feeding tube placed by general surgery. They stated they would also consent to any debridement or amputation that may be required to treat the necrosis of the likely septic emboli induced digit ischemia in her feet. Patient remains on the ventilator through tracheostomy and does not respond to commands. Reason For Visit: ARDS, POSSIBLE COVID 19 Physical Exam Vital Signs: Temp Pulse Resp BP Pulse Ox 98.2 F 75 17 145/97 H 97 07/29/20 07:40 07/29/20 07:40 07/29/20 07:40 07/29/20 04:54 07/29/20 08:11 Intake & Output 07/28/20 07/29/20 07/30/20 06:59 06:59 06:59 Intake Total 2200 1200 Output Total 1325 1750 Balance 875 -550 Weight 180 kg 179.6 kg Exam: General appearance: PRESENT: mild distress, morbidly obese, does not respond to commands Head exam: PRESENT: atraumatic, normocephalic Eye exam: PRESENT: conjunctiva pink Respiratory exam: PRESENT: rales - Upper airway rales, possibly due to mucus and trach. ABSENT: rhonchi, wheezes Pulses: PRESENT: +1 pedal pulses bilateral - Weak dorsalis pedis pulses bilaterally GI/Abdominal exam: PRESENT: normal bowel sounds, soft. ABSENT: distended, guarding, mass, organolmegaly, rebound, tenderness Extremities exam: PRESENT: other - Toes on right foot are becoming necrotic Neurological exam: ABSENT: alert, Present: Awake Psychiatric exam: PRESENT: agitated. ABSENT: appropriate affect, normal mood Skin exam: PRESENT: dry, intact, warm Results Laboratory Results: 07/29/20 06:04 07/29/20 06:04 07/29/20 07/29/20 06:04 06:04 WBC 10.8 H RBC 3.15 L Hgb 7.6 L Hct 24.3 L MCV 77 L MCH 24.1 L MCHC 31.3 L RDW 22.6 H Plt Count 92 L Sodium 139.6 Potassium 4.1 Chloride 103 Carbon Dioxide 26 Anion Gap 11 BUN 60 H Creatinine 2.00 H Est GFR ( Amer) 36 L Glucose 109 Calcium 9.4 06/30/20 06/30/20 07/04/20 03:58 03:58 04:30 Creatine Kinase 188 H NT-Pro-B Natriuret Pep 82345 H 12580 H Impressions: Lower Extremity Ultrasound 06/30/20 00:00 IMPRESSION: 1. Multiphasic waveforms with three-vessel runoff bilaterally. 2. The right dorsalis pedis is not visualized and may be occluded. Diminished, but patent left dorsalis pedis. Venous Doppler Study 07/11/20 00:00 IMPRESSION: Acute hypoechoic clot occludes the cephalic vein in the antecubital fossa KUB X-Ray 07/16/20 00:00 IMPRESSION: Tip of the Dobbhoff catheter in the left upper quadrant, as above copyright 2011 [employer]- All Rights Reserved Chest X-Ray 07/21/20 00:58 IMPRESSION: 1. Support lines and tubes in position as detailed above. 2. Extensive subcutaneous emphysema with potential pneumomediastinum or pneumopericardium on the current study. Close attention on follow-up is recommended. 3. Redemonstration of multifocal pulmonary opacities, worse in the right hemithorax when compared to prior exam. Suggestion of small pleural effusions. Assessment and Plan - Diagnosis (1) Infectious endocarditis Qualifiers: Infective endocarditis organism: bacterial Chronicity: acute Qualified Code(s): I33.0 - Acute and subacute infective endocarditis Is this a current diagnosis for this admission?: Yes Plan: MSSA bacteremia on blood cultures, follow-up blood cultures are negative Remove all central venous lines including dialysis lines, discussed with nephrology who states she does not need this anymore and it was instructed to be removed 2 weeks prior to 07/28/2020 though this was not done; must be removed, discussed with nursing Cefazolin for 6 weeks from negative blood cultures Needs transfer to outside hospital for definitive management of mitral valve vegetation, parents in agreement with the plan Unclear source of MSSA bacteremia ID consulted and reconsulted: Continue cefazolin 07/29/2020 Extensive discussion with the family, they want all aggressive measures and procedures and want the patient to be full code Suspect source is probable lung abscess from previous pneumonia that occurred initially in 03/2020 and likely became pulmonary abscess which then seeded her blood and caused endocarditis. Parents state this timeline is consistent with her health which was quite poor even after discharge from previous pneumonia treatment (2) MSSA bacteremia Is this a current diagnosis for this admission?: Yes Plan: As above (3) Mitral valve vegetation Is this a current diagnosis for this admission?: Yes (4) Acute hypoxemic respiratory failure Is this a current diagnosis for this admission?: Yes (5) Tracheostomy dependence Is this a current diagnosis for this admission?: Yes Plan: Pulmonology consulted: Tracheostomy in place is too small and patient needs revision with a larger tracheostomy placed in the OR (6) Ventilator dependent Is this a current diagnosis for this admission?: Yes (7) Necrotic toes Is this a current diagnosis for this admission?: Yes (8) ARF (acute renal failure) Qualifiers: Acute renal failure type: unspecified Qualified Code(s): N17.9 - Acute kidney failure, unspecified Is this a current diagnosis for this admission?: Yes (9) Acute kidney injury Is this a current diagnosis for this admission?: Yes (10) Acute respiratory failure Qualifiers: Respiratory failure complication: hypoxia Qualified Code(s): J96.01 - Acute respiratory failure with hypoxia Is this a current diagnosis for this admission?: Yes (11) Endocarditis determined by echocardiography Is this a current diagnosis for this admission?: Yes (12) Super-super obese Is this a current diagnosis for this admission?: Yes Plan: Due to severe morbid obesity, unable to fit into any CT scanner or MRI at this facility (13) Thrombocytopenia Is this a current diagnosis for this admission?: Yes (14) Hypothyroidism Qualifiers: Hypothyroidism type: unspecified Qualified Code(s): E03.9 - Hypothyroidism, unspecified Is this a current diagnosis for this admission?: Yes - Plan Summary Summary: BRODIE thought to be secondary to ATN. She received a Lasix drip. She did not re ceive any dialysis although she did have a dialysis catheter but this was not initiated Endocarditis secondary to MSSA. Secondary to mitral valve endocarditis. Last blood cultures have been negative patient is currently on cefazolin. She is currently on day 18 of a 6-week treatment course from the date of negative blood culture which was on July 02. It appears Ancef 1 g every 12 was started on July 02. Acute respiratory failure status post tracheostomy placement on July 17 and appears her respiratory status is pretty tenuous and will have to continue close monitoring. 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 She was initially admitted on June 28 due to pneumonia and acute respiratory failure and was diagnosed with ARDS, septic shock and was intubated. 07/25/2020 Patient's overall prognosis is very poor and she is at a very high risk for adverse outcome including At this point we are still waiting for patient's family for review conferencing. Unfortunately it appears there is no smart phone available and they have not been able to see the patient even via teleconferencing. I believe this should be arranged by older adult social work specialist. My understanding the mother is disabled and the father also has a medical condition preventing them from coming into the hospital patient is scheduled for an EEG next week as there was none available this week. Also had problems with her NG tube. She had a double which unfortunately was this large and we have been unable to reinsert an NG tube. 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 Be addressed this coming week. It may be worth contacting surgery again for possible PEG placement or j-tube but a lot of it is going to depend on patient's ultimate status. Family conference may also be needed but I believe all this is down the line as patient status needs to be addressed first - Time Time Spent with patient: 35 or more minutes Medications reviewed and adjusted accordingly: Yes Anticipated Discharge Disposition: Tertiary Anticipated Discharge Timeframe: within 72 hours - Inpatient Certification Based on my medical assessment, after consideration of the patient's comorbidities, presenting symptoms, or acuity I expect that the services needed warrant INPATIENT care.: Yes I certify that my determination is in accordance with my understanding of Medicare's requirements for reasonable and necessary INPATIENT services [42 CFR 412.3e].: Yes Medical Necessity: Significant Comorbidiites Make Outpatient Treatment Too Risky, Need Close Monitoring Due to Risk of Patient Decompensation, Need for IV Antibiotics, Need for Surgery, Risk of Complication if Not Cared For in Hospital, Risk of Diagnosis Which Will Require Inpatient Eval/Care/Monitoring
--- NOTE | 2020-07-29 14:59 | ADVANCED CARE ---
- Diagnosis (1) Infectious endocarditis Diagnosis Current: Yes (2) MSSA bacteremia Diagnosis Current: Yes (3) Mitral valve vegetation Diagnosis Current: Yes (4) Acute hypoxemic respiratory failure Diagnosis Current: Yes (5) Tracheostomy dependence Diagnosis Current: Yes (6) Ventilator dependent Diagnosis Current: Yes (7) Necrotic toes Diagnosis Current: Yes (8) ARF (acute renal failure) Diagnosis Current: Yes (9) Acute kidney injury Diagnosis Current: Yes (10) Acute respiratory failure Diagnosis Current: Yes (11) Endocarditis determined by echocardiography Diagnosis Current: Yes (12) Super-super obese Diagnosis Current: Yes (13) Thrombocytopenia Diagnosis Current: Yes (14) Hypothyroidism Diagnosis Current: Yes Attendance: Patient, parents, multiple staff members, physician Resuscitation Status: Full Code Discussion: All aspects of code status discussed with patient/POA including cardioversion, chest compressions, and intubation and the patient/POA indicated they wish to be full code MPOA is designated as: Mother and father Time Spent: 1 hour
--- NOTE | 2020-07-29 15:45 | RADIOLOGY REPORT (SQ) ---
EXAM DESCRIPTION: CHEST SINGLE VIEW IMAGES COMPLETED DATE/TIME: 07/29/2020 3:35 pm REASON FOR STUDY: pneumonia, possible PE's w/ infarcts COMPARISON: 07/21/2020 EXAM PARAMETERS: NUMBER OF VIEWS: One view. TECHNIQUE: Single frontal radiographic view of the chest acquired. RADIATION DOSE: NA LIMITATIONS: None. FINDINGS: LUNGS AND PLEURA: Right-sided central line remains in place. Tracheostomy tube appears un changed. Persistent bilateral alveolar airspace disease all significantly improved from prior study. Subcutaneous emphysema has resolved. MEDIASTINUM AND HILAR STRUCTURES: No masses. Contour normal. HEART AND VASCULAR STRUCTURES: Heart remains enlarged with central vascular prominence. BONES: No acute findings. HARDWARE: None in the chest. OTHER: No other significant finding. IMPRESSION: Cardiomegaly mild vascular congestion. Central line remains in satisfactory position. No pneumothorax. Overall findings are significantly improved from prior study. TECHNICAL DOCUMENTATION: JOB ID: [id number] 2010 [employer]- All Rights Reserved Reading location - IP/workstation name: [email or web address]
[2020-07-29] MEDS: CEFAZOLIN SODIUM 2 GM in DEXTROSE 5%-WATER 100 ML IV SCH ×2 (19:20→23:28)
[2020-07-29] MEDS: FAMOTIDINE INJ/PF 20 MG/2 ML SDV IV SCH (19:21)
[2020-07-29] MEDS: POTASSIUM CHLORIDE 20 MEQ PACKET NG SCH (19:22)
[2020-07-29] MEDS: AMINO AC/PROTEIN HYDR/WHEY PRO 11 GM/45 ML PKT NG SCH (19:22)
[2020-07-30] MEDS: DEXTROSE 5%-WATER 1000 ML 1,000 ML IV PRN (01:46)
[2020-07-30] MEDS: MORPHINE SULFATE 10 MG/ML INJ IV PRN ×3 (01:51→22:31)
[2020-07-30] MEDS: LORAZEPAM INJ 2 MG/1 ML VIAL IV PRN ×2 (02:48→22:32)
[2020-07-30] MEDS: HEPARIN SOD (PORCINE) 5,000 UNIT/ML 1 ML VIAL SUBCUT SCH ×2 (06:11→14:14)
[2020-07-30] MEDS: HYDROCORTISONE SOD SUCCINATE INJ/PF 100 MG/2 ML SDV IV SCH ×2 (06:11→18:18)
[2020-07-30 07:03] LABS: HEMATOCRIT 27.4 % (36.0-47.0); HEMOGLOBIN 8.5 g/dL (12.0-15.5); MEAN CORPUSCULAR HEMOGLOBIN 23.9 pg (27.0-33.4); MEAN CORPUSCULAR HGB CONC 31.2 g/dL (32.0-36.0); MEAN CORPUSCULAR VOLUME 77 fl (80-97); RED BLOOD COUNT 3.57 10^6/uL (3.72-5.28); RED CELL DISTRIBUTION WIDTH 23.1 % (11.5-14.0); WHITE BLOOD COUNT 11.2 10^3/uL (4.0-10.5)
[2020-07-30 07:15] LABS: ANION GAP 9 (5-19); BLOOD UREA NITROGEN 57 mg/dL (7-20); CALCIUM 9.6 mg/dL (8.4-10.2); CARBON DIOXIDE 30 mmol/L (22-30); CHLORIDE 104 mmol/L (98-107); GLUCOSE 105 mg/dL (75-110); POTASSIUM 3.8 mmol/L (3.6-5.0)
[2020-07-30 08:18] LABS: PLATELET COUNT 91 10^3/uL (150-450)
[2020-07-30] MEDS: POTASSIUM CHLORIDE 20 MEQ PACKET NG SCH (11:22)
[2020-07-30] MEDS: AMINO AC/PROTEIN HYDR/WHEY PRO 11 GM/45 ML PKT NG SCH ×2 (11:22→19:25)
[2020-07-30] MEDS: CEFAZOLIN SODIUM 2 GM in DEXTROSE 5%-WATER 100 ML IV SCH ×2 (11:26→22:23)
--- NOTE | 2020-07-30 14:12 | PDOC CONSULTATION ---
Consultation Consult Date: 07/30/20 Attending physician:: JOCELYN ANGEL Provider Consulted: SHAYY MARIE Consult reason:: Feeding tube History of Present Illness Admission Date/PCP: 06/29/20 03:15 History of Present Illness: CHEMO CRUZ is a 29 year old female I was consulted this morning by the hospitalist to consider placing an operative feeding tube in this patient. Please see her medical record to date. Patient has had nasogastric tube feedings and is awaiting a Dobbhoff placement today in radiology. Past Medical History Cardiac Medical History: Reports: Congestive Heart Failure, Heart Murmur Pulmonary Medical History: Reports: Intubation, Pneumonia, Respiratory Failure, Sleep Apnea EENT Medical History: Reports: Ears, Nose, Throat Neurological Medical History: Denies: Seizures Endocrine Medical History: Reports: Hypothyroidism, Obesity Malignancy Medical History: Reports: None Musculoskeltal Medical History: Reports: None Skin Medical History: Reports: None Psychiatric Medical History: Denies: Depression Traumatic Medical History: Denies: Gunshot Wound Hematology: Denies: Sickle Cell Disease Past Surgical History Past Surgical History: Reports: Orthopedic Surgery - right 5th toe amputation Social History Lives with: Parents Smoking Status: Current Every Day Smoker Frequency of Alcohol Use: Rare Hx Recreational Drug Use: No Hx Prescription Drug Abuse: No - Advance Directive Resuscitation Status: Full Code Family History Family History: None, Reviewed & Not Pertinent, Arthritis, CAD, COPD, DM, Hypertension, Thyroid Disfunction Parental Family History Reviewed: No Children Family History Reviewed: No Sibling(s) Family History Reviewed.: No Medication/Allergy Home Medications: Albuterol Sulfate [Proair HFA Inhalation Aerosol 8.5 gm MDI] 2 puff IH Q4HP PRN 06/29/20 Levothyroxine Sodium [Synthroid] 125 mcg PO Q6AM 06/29/20 Allergies/Adverse Reactions: No Known Allergies Allergy (Verified 06/29/20 08:43) Review of Systems ROS unobtainable: Due to mental status - Patient trached, unable to communicate Physical Exam Vital Signs: Temp Pulse Resp BP Pulse Ox 102.0 F H 122 H 14 154/113 H 95 07/30/20 12:22 07/30/20 12:22 07/30/20 12:22 07/30/20 12:22 07/30/20 12:22 Intake & Output 07/29/20 07/30/20 07/31/20 06:59 06:59 06:59 Intake Total 1200 1100 100 Output Total 1750 2175 Balance -550 -1075 100 Weight 179.6 kg 180.3 kg General appearance: PRESENT: other - [place] obese, tracheostomy tube in place, on the ventilator, periodic gasping Neck exam: PRESENT: tracheostomy - Present, no active drainage: Possible intermittent airleak Respiratory exam: PRESENT: other - Rhonchi bilaterally GI/Abdominal exam: PRESENT: other - Morbidly obese; scar above the umbilicus. Results Laboratory Results: 07/30/20 06:20 07/30/20 06:20 07/30/20 07/30/20 06:20 06:20 WBC 11.2 H RBC 3.57 L Hgb 8.5 L Hct 27.4 L MCV 77 L MCH 23.9 L MCHC 31.2 L RDW 23.1 H Plt Count 91 L Sodium 143.1 Potassium 3.8 Chloride 104 Carbon Dioxide 30 Anion Gap 9 BUN 57 H Creatinine 1.93 H Est GFR ( Amer) 37 L Glucose 105 Calcium 9.6 06/30/20 06/30/20 07/04/20 03:58 03:58 04:30 Creatine Kinase 188 H NT-Pro-B Natriuret Pep 93409 H 93747 H Impressions: Lower Extremity Ultrasound 06/30/20 00:00 IMPRESSION: 1. Multiphasic waveforms with three-vessel runoff bilaterally. 2. The right dorsalis pedis is not visualized and may be occluded. Diminished, but patent left dorsalis pedis. Venous Doppler Study 07/11/20 00:00 IMPRESSION: Acute hypoechoic clot occludes the cephalic vein in the antecubital fossa KUB X-Ray 07/16/20 00:00 IMPRESSION: Tip of the Dobbhoff catheter in the left upper quadrant, as above copyright 2011 [employer]- All Rights Reserved Chest X-Ray 07/29/20 00:00 IMPRESSION: Cardiomegaly mild vascular congestion. Central line remains in satisfactory position. No pneumothorax. Overall findings are significantly improved from prior study. Assessment & Plan - Diagnosis (1) Acute hypoxemic respiratory failure Is this a current diagnosis for this admission?: Yes Plan: Impression: Unfortunate white female now in comatose state, ventilator and tracheostomy dependent who is super obese. Patient's family wishes for full code status, and continuation of aggressive care. I do not believe the patient is an appropriate candidate for feeding tube at this moment Recommendations: 1. Patient has a tagged white blood cell study scan today, CT scan of the head today. 2. Patient is also going for a Dobbhoff feeding tube to be installed by interventional radiology. 3. Given patient's multiple comorbidities, including superobesity, and poor prognosis from a neurologic recovery standpoint, believe the risks of inserting an operative feeding tube may very well outweigh the potential benefits. This was discussed with nursing staff, as well as the patient's mother, Ilan, earlier this morning. 4. Surgery will sign off at this time; reconsult if clinically indicated (2) Comatose Qualifiers: Coma depth: [place] coma 3-8 Coma timin hours or more after hospital admission Qualified Code(s): R40.2434 - [place] coma scale score 3-8, 24 hours or more after hospital admission Is this a current diagnosis for this admission?: Yes (3) Endocarditis determined by echocardiography Is this a current diagnosis for this admission?: Yes (4) Super-super obese Is this a current diagnosis for this admission?: Yes (5) Tracheostomy dependence Is this a current diagnosis for this admission?: Yes (6) Ventilator dependent Is this a current diagnosis for this admission?: Yes - Time Time Spent: 30 to 50 Minutes Smoking Cessation Education: over 10 minutes Medications reviewed and adjusted accordingly: Yes Anticipated discharge: Hospice
--- NOTE | 2020-07-30 14:18 | RADIOLOGY REPORT (SQ) ---
EXAM DESCRIPTION: CT HEAD WITHOUT IMAGES COMPLETED DATE/TIME: 07/30/2020 2:08 pm REASON FOR STUDY: Suspected CVA from septic emboli COMPARISON: None. TECHNIQUE: Axial images acquired through the brain without intravenous contrast. Images reviewed wi th bone, brain and subdural windows. Additional sagittal and coronal reconstructions were generated. Images stored on PACS. All CT scanners at this facility use dose modulation, iterative reconstruction, and/or weight based d osing when appropriate to reduce radiation dose to as low as reasonably achievable (ALARA). [facility]: Dose Right [facility]: CareDose [facility]: Dose Right [facility]: Teradose 4D [facility]: [place] RADIATION DOSE: CT Rad equipment meets quality standard of care and radiation dose reduction techniq ues were employed. CTDIvol: 48.7 mGy. DLP: 979 mGy-cm. mGy. LIMITATIONS: None. FINDINGS: VENTRICLES: Normal size and contour. CEREBRUM: No masses. No hemorrhage. No midline shift. No evidence for acute infarction. Normal gra y/white matter differentiation. No areas of low density in the white matter. CEREBELLUM: No masses. No hemorrhage. No alteration of density. No evidence for acute infarction. EXTRAAXIAL SPACES: No fluid collections. No masses. ORBITS AND GLOBE: No intra- or extraconal masses. Normal contour of globe without masses. CALVARIUM: No fracture. PARANASAL SINUSES: No fluid or mucosal thickening. SOFT TISSUES: No mass or hematoma. OTHER: No other significant finding. IMPRESSION: NORMAL BRAIN CT WITHOUT CONTRAST. EVIDENCE OF ACUTE STROKE: NO. COMMENT: Quality ID # 436: Final reports with documentation of one or more dose reduction techniques (e.g., Automated exposure control, adjustment of the mA and/or kV according to patient size, use of iterative reconstruction technique) TECHNICAL DOCUMENTATION: JOB ID: [id number] 2010 [employer]- All Rights Reserved Reading location - IP/workstation name: [email or web address]
--- NOTE | 2020-07-30 14:50 | RADIOLOGY REPORT (SQ) ---
EXAM DESCRIPTION: INTRO/GI TUBE W/FLUORO; INTRO LONG GI TUBE (MILLAB) IMAGES COMPLETED DATE/TIME: 07/30/2020 2:30 pm REASON FOR STUDY: NG access; FEEDING TUBE COMPARISON: None. TECHNIQUE: Live fluoroscopic guidance. RADIATION DOSE: 5.5 minutes of fluoroscopy was used. 2 images saved to PACS. LIMITATIONS: None. FINDINGS: The patient was brought to the fluoroscopy room and placed supine on the fluoroscopy table . A Dobhoff -tube was advanced through the right nostril through the stomach and ending in the 3rd po rtion of the duodenum. Approximately 60 mL mL of non ionic contrast was injected through the cathete r to confirm placement. A fluoroscopic spot film was saved to PACs demonstrating catheter tip within the 3rd to 4th portion of the duodenum. IMPRESSION: Successful fluoroscopic guided placement of a Dobhoff tube. Tube is ready for use. COMMENT: Quality ID 145: Final reports for procedures using fluoroscopy that document radiation exp osure indices, or exposure time and number of fluorographic images (if radiation exposure indices are not available) TECHNICAL DOCUMENTATION: JOBD ID: [id number] 2010 [employer]- All Rights Reserved Reading location - IP/workstation name: [email or web address]
--- NOTE | 2020-07-30 14:50 | RADIOLOGY REPORT (SQ) ---
EXAM DESCRIPTION: INTRO/GI TUBE W/FLUORO; INTRO LONG GI TUBE (MILLAB) IMAGES COMPLETED DATE/TIME: 07/30/2020 2:30 pm REASON FOR STUDY: NG access; FEEDING TUBE COMPARISON: None. TECHNIQUE: Live fluoroscopic guidance. RADIATION DOSE: 5.5 minutes of fluoroscopy was used. 2 images saved to PACS. LIMITATIONS: None. FINDINGS: The patient was brought to the fluoroscopy room and placed supine on the fluoroscopy table . A Dobhoff -tube was advanced through the right nostril through the stomach and ending in the 3rd po rtion of the duodenum. Approximately 60 mL mL of non ionic contrast was injected through the cathete r to confirm placement. A fluoroscopic spot film was saved to PACs demonstrating catheter tip within the 3rd to 4th portion of the duodenum. IMPRESSION: Successful fluoroscopic guided placement of a Dobhoff tube. Tube is ready for use. COMMENT: Quality ID 145: Final reports for procedures using fluoroscopy that document radiation exp osure indices, or exposure time and number of fluorographic images (if radiation exposure indices are not available) TECHNICAL DOCUMENTATION: JOBD ID: [id number] 2010 [employer]- All Rights Reserved Reading location - IP/workstation name: [email or web address]
--- NOTE | 2020-07-30 14:53 | RADIOLOGY REPORT (SQ) ---
EXAM DESCRIPTION: CT CHEST WITHOUT IMAGES COMPLETED DATE/TIME: 07/30/2020 2:10 pm REASON FOR STUDY: bacteremia unknown source COMPARISON: None. TECHNIQUE: CT scan performed of the chest without intravenous contrast. Images reviewed with lung, soft tissue and bone windows. Reconstructed coronal and sagittal MPR images reviewed. All images st ored on PACS. All CT scanners at this facility use dose modulation, iterative reconstruction, and/or weight based d osing when appropriate to reduce radiation dose to as low as reasonably achievable (ALARA). [facility]: Dose Right [facility]: CareDose [facility]: Dose Right [facility]: Teradose 4D [facility]: [employer] RADIATION DOSE: mGy. LIMITATIONS: Motion artifact. FINDINGS: LUNGS AND PLEURA: Bilateral subsegmental infiltrates with relative sparing of the left upp er lobe. There is a background of diffuse ground-glass attenuation. Trace right pleural effusion. No pneumothorax. HILAR AND MEDIASTINAL STRUCTURES: No identified masses or abnormal nodes. No obvious aneurysm. HEART AND VASCULAR STRUCTURES: Cardiomegaly. No pericardial effusion. UPPER ABDOMEN: See separate report of the CT of the abdomen. THYROID AND OTHER SOFT TISSUES: No masses. No adenopathy. BONES: No significant finding. HARDWARE: None in the chest. OTHER: Appropriate position of endotracheal tube. IMPRESSION: Diffuse bilateral airspace disease consistent with pneumonia/sepsis. No empyema. No pn eumothorax. TECHNICAL DOCUMENTATION: JOB ID: [id number] Quality ID # 436: Final reports with documentation of one or more dose reduction techniques (e.g., Au tomated exposure control, adjustment of the mA and/or kV according to patient size, use of iterative reconstruction technique) 2010 [employer]- All Rights Reserved Reading location - IP/workstation name: [email or web address]
--- NOTE | 2020-07-30 14:57 | RADIOLOGY REPORT (SQ) ---
EXAM DESCRIPTION: CT ABD/PELVIS NO ORAL OR IV IMAGES COMPLETED DATE/TIME: 07/30/2020 2:08 pm REASON FOR STUDY: bacteremia unknown source COMPARISON: None. TECHNIQUE: CT scan of the abdomen and pelvis performed without intravenous contrast. Oral contrast. Images reviewed with lung, soft tissue, and bone windows. Reconstructed coronal and sagittal MPR josé luis ges reviewed. All images stored on PACS. All CT scanners at this facility use dose modulation, iterative reconstruction, and/or weight based d osing when appropriate to reduce radiation dose to as low as reasonably achievable (ALARA). [facility]: Dose Right [facility]: CareDose [facility]: Dose Right [facility]: Teradose 4D [facility]: [employer] RADIATION DOSE: CT Rad equipment meets quality standard of care and radiation dose reduction techniq ues were employed. CTDIvol: 39.4 mGy. DLP: 3030 mGy-cm.mGy. LIMITATIONS: Artifact from body habitus. FINDINGS: LOWER CHEST: See separate report of the CT of the chest. NON-CONTRASTED LIVER, SPLEEN, ADRENALS: Evaluation limited by lack of IV contrast. No identified sign ificant masses. PANCREAS: No masses. No peripancreatic inflammatory changes. GALLBLADDER: Gallstones. No inflammatory changes to suggest cholecystitis. RIGHT KIDNEY AND URETER: No suspicious masses. Assessment limited by lack of IV contrast. No signif icant calcifications. No hydronephrosis or hydroureter. LEFT KIDNEY AND URETER: No suspicious masses. Assessment limited by lack of IV contrast. No signifi cant calcifications. No hydronephrosis or hydroureter. AORTA AND RETROPERITONEUM: No aneurysm. No retroperitoneal masses or adenopathy. BOWEL AND PERITONEAL CAVITY: Feeding tube tip in the 3rd portion of the duodenum. No obvious masses or inflammatory changes. No free fluid. APPENDIX: Not visualized. PELVIS, BLADDER, AND ABDOMINAL WALL:Villaseñor catheter in urinary bladder. BONES: No significant findings. OTHER: No other significant finding. IMPRESSION: 1. No evidence of abscess or other acute abnormality. 2. Cholelithiasis. COMMENT: Quality ID # 436: Final reports with documentation of one or more dose reduction techniques (e.g., Automated exposure control, adjustment of the mA and/or kV according to patient size, use of iterative reconstruction technique) TECHNICAL DOCUMENTATION: JOB ID: [id number] [employer]- All Rights Reserved Reading location - IP/workstation name: [email or web address]
--- NOTE | 2020-07-30 16:09 | RADIOLOGY REPORT (SQ) ---
EXAM DESCRIPTION: [facility] WBC SCAN WHOLE BODY IMAGES COMPLETED DATE/TIME: 07/30/2020 3:30 pm REASON FOR STUDY: bacteremia unknown source COMPARISON: None. RADIONUCLIDE AND DOSE: 21.1 mCi technetium 99 tagged white blood cells intravenous. ADDITIONAL DRUGS AND DOSES: None. TECHNIQUE: Anterior planar images after administration of tagged white cells. LIMITATIONS: Body habitus. Artifact associated with body habitus. FINDINGS: There is uptake in the lungs which is abnormal and corresponds to inflammatory changes see n on chest CT of the same date. Symmetric uptake in several joints consistent with degenerative regalado ge. Normal activity in the liver and spleen. IMPRESSION: Inflammation/ infection in the lungs. No other significant uptake. TECHNICAL DOCUMENTATION: JOB ID: [id number] 2010 [employer]- All Rights Reserved Reading location - IP/workstation name: [email or web address]
--- NOTE | 2020-07-30 18:44 | PDOC PROGRESS REPORT ---
Subjective Subjective:: Per previous physician: "07/21 patient apparently had an eventful evening. She started bleeding from the tracheostomy. It appears surgery was consulted. This morning we have also reconsulted ENT as they appear to be a potential issues with the tracheostomy. She is currently stable. It is noted that hemoglobin did drop overnight and this may have been from her bleeding. I will repeat hemoglobin this afternoon and decide on transfusion if needed. She actually seems to be somewhat more responsive although still unable to appropriately respond but she is awake and alert. Chest x-ray reveals multifocal pulmonary opacities with extensive subcutaneous emphysema with questionable pneumomediastinum and pneumopericardium 07/23- Uneventful day today Prognosis remains poor Need a shelter plan but will need to get EEG first, unavailable till next week Plan for a family meeting once EEG result available and at least 30 days have elapsed to have a better clarity Will insert NGT today. 07/24 Unable to insert NGT per nursing staff. Will send down to [facility] for Dobhoff tube 07/26/2020-no change in mental status. Has a trach connected to the vent. In my opinion she able to respond to the verbal commands by closing the eyes and try to smile. nurses is noticed mottling and discoloration of the toes in both feet. Platelet count is 100,000 it may be a contraindication for Lovenox treatment dose. Overall prognosis poor condition is critical. Nurses unable to place Dobbhoff. Patient is getting dextrose by IV. 07/27/2020-patient is going to have EEG today. Hopefully will get the results by the evening. No changes in physical condition or mental condition. Overall prognosis poor condition is critical." 07/28/2020 Many aspects of care will need to be changed per my review of the chart today. 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 I discussed the case with ID today who agreed that the patient should be transferred to have this valve surgically addressed while she is continuing antibiotics. Also noted she has an upper extremity DVT as well as a dorsalis pedis arterial occlusion noted on PVL. She is on prophylactic heparin which is almost certainly not helping this. Her platelets have been challenging the ability to give her full dose anticoagulation but as they have been rising for the past few days this should be readdressed. That said, I do not believe these occlusions are necessarily all due to DVT from acute illness or hypercoagulability, I think it is more likely they are due to septic emboli from her endocarditis which is clearly seen on ANGELIA. The EEG that was done was confounded by the fact the patient was being given sedatives and the EEG was repeated today. I question the utility of an EEG as the purpose that was given to me is to assess for brain however she clearly does not have brain by simple physical exam. 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 Reportedly per my discussions with nursing, the parents of the patient have a very poor understanding of the patient's serious illness and are expecting her to make a full recovery. They are coming in tomorrow to have a meeting with the staff and to see the patient for the first time since her admission. It is unclear if any physicians have reached out to the family other than yesterday when Dr. George spoke to them about hospice. I do not believe the patient should remain at this facility and we need to explore transferring her out if the family wishes to continue with aggressive care. I cannot make a definitive statement at this time about how much recovery of any she will be able to achieve going forward. She has an overall rather poor long-term prognosis but she does have youth on her side and this may afford her some small buffer for acute critical illness like she has experienced here. Her super morbid obesity greatly complicates every aspect of her care and recovery. 07/29/2020 Extensive conversation with the patient's to parents and multiple staff members today. I discussed the patient's course thus far and the plan going forward to the best my ability having taken care of the patient for the past approximate 24 hours. ICU notes are extremely sparse for information and the patient's family members state that they had not spoken to a physician until Dr. George office spoke with them 2 days ago about hospice. I explained the patient is extremely ill and if she survives her current illness she will likely be permanently disabled for the rest of her life. Also explained that there is a very good chance that she will not survive her illness or may pass away during 1 of her needed surgical procedures. I also explained to them that we are extremely limited in the imaging modalities we can utilize for the patient due to her extremely high BMI/weight and the fact that our scanners cannot accommodate this degree of obesity. They stated they would like all aggressive measures pursued including surgeries and other procedures that may prolong her life even at the expense of personal pain and suffering to the patient and even with the knowledge that she may not survive these procedures. For now, they would like patient to remain full code but they may consider limiting care in the future if patient declines further. This advanced care planning discussion took place over the course of approximately 1 hour in addition to the clinical visit I had with the patient earlier today. Today, I noted in her labs that her blood counts are all down likely dilutional and her creatinine is elevated. I will reach out to outside facilities and attempt to transfer the patient for definitive treatment of her endocarditis most likely mitral valve replacement. Parents also want the patient to have tracheostomy replacement as recommended by Dr. Wood and also have a permanent abdominal feeding tube placed by general surgery. They stated they would also consent to any debridement or amputation that may be required to treat the necrosis of the likely septic emboli induced digit ischemia in her feet. Patient remains on the ventilator through tracheostomy and does not respond to commands. 07/30/2020 I made multiple phone calls today and had multiple conversations with various facilities and physicians. [facility] and [facility] have immediately denied transfer to their facility for treatment of endocarditis. I reached out to [facility] and they are currently reviewing the patient's chart for transfer. They stated she will need an ICU bed there. I contacted ENT and they stated they will come to bedside tomorrow and swap out the patient's tracheostomy for a larger Shiley 8 cuffed nonfenestrated trach. I discussed this with nursing to make sure it is at bedside tomorrow when they come by. I reconsulted general surgery and discussed the case with them. They stated they did not believe the patient would benefit from a G-tube/PEG and did not wish to pursue surgical intervention for this. They recommended a Dobbhoff instead. I discussed patient's chest CT that was done today with general surgery as well and they stated they do not believe the patient needs a chest tube and they do not believe that she has a loculated pleural effusion that would be the source of her current infection. I reviewed the CT myself and it looks like she has about a 3 cm depth pleural effusion with some heterogeneous qualities to it along with bilateral pneumonia. I discussed the scan with the radiologist and he stated if we felt it would be beneficial, he would do a thoracentesis. I have ordered this and they will transition from a thoracentesis to a chest tube if they get pus returned with her thoracentesis. I have ordered all appropriate labs and cultures for the pleural fluid that will come out. Head CT did not show any significant abnormality specifically no strokes. Abdominal CT was generally unremarkable however I did see some strange appearing enhancement in the patient's liver although this was not mentioned in the radiology report. Patient's creatinine is lower today and her platelets are approximately the same. WBC is higher and she is now having a fever again up to 102. We will repeat blood cultures today. Reason For Visit: ARDS, POSSIBLE COVID 19 Physical Exam Vital Signs: Temp Pulse Resp BP Pulse Ox 102.0 F H 113 H 14 154/113 H 99 07/30/20 12:22 07/30/20 14:00 07/30/20 12:22 07/30/20 12:22 07/30/20 15:31 Intake & Output 07/29/20 07/30/20 07/31/20 06:59 06:59 06:59 Intake Total 1200 1100 100 Output Total 1750 2175 280 Balance -550 -1075 -180 Weight 179.6 kg 180.3 kg Exam: General appearance: PRESENT: mild distress, morbidly obese, does not respond to commands, only opens eyes and attempts to yell although it is silent due to tracheostomy Head exam: PRESENT: atraumatic, normocephalic Eye exam: PRESENT: conjunctiva pink Respiratory exam: PRESENT: rales - Upper airway rales, possibly due to mucus and trach. ABSENT: rhonchi, wheezes Pulses: PRESENT: +1 pedal pulses bilateral - Weak dorsalis pedis pulses bilaterally GI/Abdominal exam: PRESENT: normal bowel sounds, soft. ABSENT: distended, guarding, mass, organolmegaly, rebound, tenderness Extremities exam: PRESENT: other - Toes on right foot are becoming necrotic Neurological exam: ABSENT: alert, Present: Awake Psychiatric exam: PRESENT: agitated. ABSENT: appropriate affect, normal mood Skin exam: PRESENT: dry, intact, warm Results Laboratory Results: 07/30/20 06:20 07/30/20 06:20 07/30/20 07/30/20 06:20 06:20 WBC 11.2 H RBC 3.57 L Hgb 8.5 L Hct 27.4 L MCV 77 L MCH 23.9 L MCHC 31.2 L RDW 23.1 H Plt Count 91 L Sodium 143.1 Potassium 3.8 Chloride 104 Carbon Dioxide 30 Anion Gap 9 BUN 57 H Creatinine 1.93 H Est GFR ( Amer) 37 L Glucose 105 Calcium 9.6 06/30/20 06/30/20 07/04/20 03:58 03:58 04:30 Creatine Kinase 188 H NT-Pro-B Natriuret Pep 07070 H 12972 H Impressions: Lower Extremity Ultrasound 06/30/20 00:00 IMPRESSION: 1. Multiphasic waveforms with three-vessel runoff bilaterally. 2. The right dorsalis pedis is not visualized and may be occluded. Diminished, but patent left dorsalis pedis. Venous Doppler Study 07/11/20 00:00 IMPRESSION: Acute hypoechoic clot occludes the cephalic vein in the antecubital fossa KUB X-Ray 07/16/20 00:00 IMPRESSION: Tip of the Dobbhoff catheter in the left upper quadrant, as above copyright 2011 [employer]- All Rights Reserved Chest X-Ray 07/29/20 00:00 IMPRESSION: Cardiomegaly mild vascular congestion. Central line remains in satisfactory position. No pneumothorax. Overall findings are significantly improved from prior study. Gastrostomy Tube Placement 07/30/20 00:00 IMPRESSION: Successful fluoroscopic guided placement of a Dobhoff tube. Tube is ready for use. Guidance Fluoroscopy 07/30/20 00:00 IMPRESSION: Successful fluoroscopic guided placement of a Dobhoff tube. Tube i s ready for use. WBC Scan Nuclear Medicine 07/30/20 00:00 IMPRESSION: Inflammation/ infection in the lungs. No other significant uptake. Abdomen/Pelvis CT 07/30/20 08:00 IMPRESSION: 1. No evidence of abscess or other acute abnormality. 2. Cholelithiasis. Chest CT 07/30/20 08:00 IMPRESSION: Diffuse bilateral airspace disease consistent with pneumonia/sepsis. No empyema. No pneumothorax. Head CT 07/30/20 08:00 IMPRESSION: NORMAL BRAIN CT WITHOUT CONTRAST. EVIDENCE OF ACUTE STROKE: NO. Assessment and Plan - Diagnosis (1) Infectious endocarditis Qualifiers: Infective endocarditis organism: bacterial Chronicity: acute Qualified Code(s): I33.0 - Acute and subacute infective endocarditis Is this a current diagnosis for this admission?: Yes Plan: MSSA bacteremia on blood cultures, follow-up blood cultures are negative Remove all central venous lines including dialysis lines, discussed with nephrology who states she does not need this anymore and it was instructed to be removed 2 weeks prior to 07/28/2020 though this was not done; must be removed, discussed with nursing Cefazolin for 6 weeks from negative blood cultures Needs transfer to outside hospital for definitive management of mitral valve vegetation, parents in agreement with the plan Unclear source of MSSA bacteremia ID consulted and reconsulted: Continue cefazolin 07/29/2020 Extensive discussion with the family, they want all aggressive measures and procedures and want the patient to be full code Suspect source is probable lung abscess from previous pneumonia that occurred initially in 03/2020 and likely became pulmonary abscess which then seeded her blood and caused endocarditis. Parents state this timeline is consistent with her health which was quite poor even after discharge from previous pneumonia treatment 07/30/[address] showed bilateral pneumonia with right-sided pleural effusion, thoracentesis ordered and discussed with radiology Abdominal CT with no acute findings although some strange enhancement in the liver in [address] did not show stroke or other acute abnormalities, no evidence of anoxic brain injury although an MRI would be much more sensitive for this Needs transfer to outside hospital for mitral valve replacement, we have been denied by [facility] and [facility]; [facility] is currently reviewing the case for transfer (2) MSSA bacteremia Is this a current diagnosis for this admission?: Yes Plan: As above (3) Mitral valve vegetation Is this a current diagnosis for this admission?: Yes (4) Acute hypoxemic respiratory failure Is this a current diagnosis for this admission?: Yes (5) Tracheostomy dependence Is this a current diagnosis for this admission?: Yes (6) Ventilator dependent Is this a current diagnosis for this admission?: Yes (7) Necrotic toes Is this a current diagnosis for this admission?: Yes (8) ARF (acute renal failure) Qualifiers: Acute renal failure type: unspecified Qualified Code(s): N17.9 - Acute kidney failure, unspecified Is this a current diagnosis for this admission?: Yes (9) Acute kidney injury Is this a current diagnosis for this admission?: Yes (10) Acute respiratory failure Qualifiers: Respiratory failure complication: hypoxia Qualified Code(s): J96.01 - Acute respiratory failure with hypoxia Is this a current diagnosis for this admission?: Yes (11) Endocarditis determined by echocardiography Is this a current diagnosis for this admission?: Yes (12) Super-super obese Is this a current diagnosis for this admission?: Yes (13) Thrombocytopenia Is this a current diagnosis for this admission?: Yes (14) Hypothyroidism Qualifiers: Hypothyroidism type: unspecified Qualified Code(s): E03.9 - Hypothyroidism, unspecified Is this a current diagnosis for this admission?: Yes (15) Sepsis Qualifiers: Sepsis type: methicillin susceptible Staphylococcus aureus Sepsis acute organ dysfunction status: with acute organ dysfunction Severe sepsis acute organ dysfunction type: acute respiratory failure Acute respiratory failure type: with hypoxia Severe sepsis shock status: without septic shock Qualified Code(s): A41.01 - Sepsis due to Methicillin susceptible Staphylococcus aureus; R65.20 - Severe sepsis without septic shock; J96.01 - Acute respiratory failure with hypoxia Is this a current diagnosis for this admission?: Yes Plan: Source is most likely persistent unresolved pneumonia which reportedly began 03/2020 on previous admission and persisted despite multiple courses of antibiotics, resulted in mitral valve endocarditis Need source control: Order thoracentesis which may transition to chest tube if pus is returned Pleural fluid analysis chemistries ordered along with pleural fluid cultures IV fluids Close hemodynamic monitoring - Plan Summary Summary: BRODIE thought to be secondary to ATN. She received a Lasix drip. 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 Last blood cultures have been negative patient is currently on cefazolin. She is currently on day 18 of a 6-week treatment course from the date of negative blood culture which was on July 02. It appears Ancef 1 g every 12 was started on July 02. Acute respiratory failure status post tracheostomy placement on July 17 and appears her respiratory status is pretty tenuous and will have to continue close monitoring. 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 She was initially admitted on June 28 due to pneumonia and acute respiratory failure and was diagnosed with ARDS, septic shock and was intubated. 07/25/2020 Patient's overall prognosis is very poor and she is at a very high risk for adverse outcome including At this point we are still waiting for patient's family for review conferencing. Unfortunately it appears there is no smart phone available and they have not been able to see the patient even via teleconferencing. I believe this should be arranged by social media senior associate. My understanding the mother is disabled and the father also has a medical condition preventing them from coming into the hospital patient is scheduled for an EEG next week as there was none available this week. Also had problems with her NG tube. She had a double which unfortunately was this large and we have been unable to reinsert an NG tube. 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 Be addressed this coming week. It may be worth contacting surgery again for possible PEG placement or j-tube but a lot of it is going to depend on patient's ultimate status. Family conference may also be needed but I believe all this is down the line as patient status needs to be addressed first - Time Time Spent with patient: 25-34 minutes Medications reviewed and adjusted accordingly: Yes Anticipated Discharge Disposition: Tertiary Anticipated Discharge Timeframe: within 72 hours - Inpatient Certification Based on my medical assessment, after consideration of the patient's comorbidities, presenting symptoms, or acuity I expect that the services needed warrant INPATIENT care.: Yes I certify that my determination is in accordance with my understanding of Medicare's requirements for reasonable and necessary INPATIENT services [42 CFR 412.3e].: Yes Medical Necessity: Significant Comorbidiites Make Outpatient Treatment Too Risky, Need Close Monitoring Due to Risk of Patient Decompensation, Need For IV Fluids, Need for IV Antibiotics, Risk of Complication if Not Cared For in Hospital, Risk of Diagnosis Which Will Require Inpatient Eval/Care/Monitoring
[2020-07-31 00:35] LABS: PARTIAL THROMBOPLASTIN TIME 59.8 SEC (23.5-35.8)
[2020-07-31 00:43] LABS: INTERNATIONAL RATION (INR) 12.92; PROTHROMBIN TIME 94.5 SEC (11.4-15.4)
[2020-07-31] MEDS: MORPHINE SULFATE 10 MG/ML INJ IV PRN ×3 (03:26→23:26)
[2020-07-31] MEDS: LORAZEPAM INJ 2 MG/1 ML VIAL IV PRN (03:27)
[2020-07-31] MEDS: HYDROCORTISONE SOD SUCCINATE INJ/PF 100 MG/2 ML SDV IV SCH ×2 (07:00→17:18)
[2020-07-31 07:42] LABS: PARTIAL THROMBOPLASTIN TIME 42.9 SEC (23.5-35.8)
[2020-07-31 07:57] LABS: INTERNATIONAL RATION (INR) 12.91; PROTHROMBIN TIME 94.4 SEC (11.4-15.4)
[2020-07-31] MEDS ORDERED: PHYTONADIONE INJ 10 MG/1 ML AMPULE IV ONE ×3 (08:07→12:45)
[2020-07-31 09:05] LABS: ANION GAP 9 (5-19); BLOOD UREA NITROGEN 59 mg/dL (7-20); CALCIUM 9.3 mg/dL (8.4-10.2); CARBON DIOXIDE 28 mmol/L (22-30); CHLORIDE 106 mmol/L (98-107); GLUCOSE 123 mg/dL (75-110); POTASSIUM 3.9 mmol/L (3.6-5.0)
[2020-07-31 09:13] LABS: HEMATOCRIT 24.6 % (36.0-47.0); MEAN CORPUSCULAR VOLUME 78 fl (80-97); RED BLOOD COUNT 3.17 10^6/uL (3.72-5.28); RED CELL DISTRIBUTION WIDTH 23.2 % (11.5-14.0)
[2020-07-31 09:58] LABS: PLATELET COUNT 63 10^3/uL (150-450)
[2020-07-31 10:02] LABS: HEMOGLOBIN 7.6 g/dL (12.0-15.5)
[2020-07-31] MEDS: AMINO AC/PROTEIN HYDR/WHEY PRO 11 GM/45 ML PKT NG SCH ×2 (10:30→17:17)
[2020-07-31] MEDS: CEFAZOLIN SODIUM 2 GM in DEXTROSE 5%-WATER 100 ML IV SCH (10:30)
[2020-07-31] MEDS: POTASSIUM CHLORIDE 20 MEQ PACKET NG SCH (10:31)
[2020-07-31 10:56] LABS: INTERNATIONAL RATION (INR) 9.07; PROTHROMBIN TIME 72.2 SEC (11.4-15.4)
[2020-07-31 11:31] LABS: ALBUMIN 3.4 g/dL (3.5-5.0); ALKALINE PHOSPHATASE 69 U/L (38-126); ASPARTATE AMINO TRANSFERASE 34 U/L (14-36); BILIRUBIN,DIRECT 0.5 mg/dL (0.0-0.4); TOTAL PROTEIN 7.1 g/dL (6.3-8.2)
--- NOTE | 2020-07-31 12:06 | RADIOLOGY REPORT (SQ) ---
EXAM DESCRIPTION: U/S ABDOMEN LIMITED W/O DOP IMAGES COMPLETED DATE/TIME: 07/31/2020 11:38 am REASON FOR STUDY: suspected liver abscess, coagulopathy COMPARISON: CT of the abdomen and pelvis without contrast from 07/30/2020. TECHNIQUE: Dynamic and static grayscale images acquired of the abdomen and recorded on PACS. Additio nal selected color Doppler and spectral images recorded. LIMITATIONS: Evaluation is limited due to the patient's body habitus. FINDINGS: PANCREAS: The visualized portions of the pancreas appear normal. LIVER: Normal contour and echotexture of the liver. LIVER VASCULATURE: Hepatopetal directional flow in the portal veins. GALLBLADDER: The gallbladder wall measures 3 mm in thickness, which is considered the upper limit of normal. There are shadowing echogenic calculi within the gallbladder lumen. There is no pericholecy stic fluid. ULTRASOUND-DETECTED JOHNSON'S SIGN: Negative. INTRAHEPATIC DUCTS AND COMMON DUCT: The common bile duct measures 3.2 mm in diameter. There is no di latation of the intrahepatic ducts. INFERIOR VENA CAVA: Not assessed. AORTA: No aneurysm. RIGHT KIDNEY: The right kidney measures 11.4 cm in length. There is no hydronephrosis. PERITONEAL AND RIGHT PLEURAL SPACE: No ascites or effusions. OTHER: No other findings. IMPRESSION: Cholelithiasis without other associated ancillary findings to indicate an acute cholecys titis. TECHNICAL DOCUMENTATION: JOB ID: [id number] [employer]- All Rights Reserved Reading location - IP/workstation name: [email or web address]
[2020-07-31] MEDS: DEXTROSE 5%-WATER 1000 ML 1,000 ML IV PRN (12:09)
--- NOTE | 2020-07-31 12:10 | RADIOLOGY REPORT (SQ) ---
EXAM DESCRIPTION: U/S CHEST IMAGES COMPLETED DATE/TIME: 07/31/2020 11:42 am REASON FOR STUDY: pleural effusion, suspect pus/loc effusion COMPARISON: None. TECHNIQUE: Selected dynamic and static grayscale images of the posterior right chest were obtained. LIMITATIONS: None. FINDINGS: There is a small amount of fluid in the right pleural space. IMPRESSION: Small right-sided pleural effusion. TECHNICAL DOCUMENTATION: JOB ID: [id number] 2010 [employer]- All Rights Reserved Reading location - IP/workstation name: [email or web address]
[2020-07-31] MEDS ORDERED: CEFEPIME 2 GM/D5W RTU 2 GM/50 ML RTUPB IV SCH (15:00)
[2020-07-31] MEDS ORDERED: VANCOMYCIN HCL INJ 500 MG VIAL IV SCH (15:00)
--- NOTE | 2020-07-31 15:36 | PDOC PROGRESS REPORT ---
Subjective Subjective:: Per previous physician: "07/21 patient apparently had an eventful evening. She started bleeding from the tracheostomy. It appears surgery was consulted. This morning we have also reconsulted ENT as they appear to be a potential issues with the tracheostomy. She is currently stable. It is noted that hemoglobin did drop overnight and this may have been from her bleeding. I will repeat hemoglobin this afternoon and decide on transfusion if needed. She actually seems to be somewhat more responsive although still unable to appropriately respond but she is awake and alert. Chest x-ray reveals multifocal pulmonary opacities with extensive subcutaneous emphysema with questionable pneumomediastinum and pneumopericardium 07/23- Uneventful day today Prognosis remains poor Need a mcfp plan but will need to get EEG first, unavailable till next week Plan for a family meeting once EEG result available and at least 30 days have elapsed to have a better clarity Will insert NGT today. 07/24 Unable to insert NGT per nursing staff. Will send down to [facility] for Dobhoff tube 07/26/2020-no change in mental status. Has a trach connected to the vent. In my opinion she able to respond to the verbal commands by closing the eyes and try to smile. nurses is noticed mottling and discoloration of the toes in both feet. Platelet count is 100,000 it may be a contraindication for Lovenox treatment dose. Overall prognosis poor condition is critical. Nurses unable to place Dobbhoff. Patient is getting dextrose by IV. 07/27/2020-patient is going to have EEG today. Hopefully will get the results by the evening. No changes in physical condition or mental condition. Overall prognosis poor condition is critical." 07/28/2020 Many aspects of care will need to be changed per my review of the chart today. 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 I discussed the case with ID today who agreed that the patient should be transferred to have this valve surgically addressed while she is continuing antibiotics. Also noted she has an upper extremity DVT as well as a dorsalis pedis arterial occlusion noted on PVL. She is on prophylactic heparin which is almost certainly not helping this. Her platelets have been challenging the ability to give her full dose anticoagulation but as they have been rising for the past few days this should be readdressed. That said, I do not believe these occlusions are necessarily all due to DVT from acute illness or hypercoagulability, I think it is more likely they are due to septic emboli from her endocarditis which is clearly seen on ANGELIA. The EEG that was done was confounded by the fact the patient was being given sedatives and the EEG was repeated today. I question the utility of an EEG as the purpose that was given to me is to assess for brain however she clearly does not have brain by simple physical exam. 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 Reportedly per my discussions with nursing, the parents of the patient have a very poor understanding of the patient's serious illness and are expecting her to make a full recovery. They are coming in tomorrow to have a meeting with the staff and to see the patient for the first time since her admission. It is unclear if any physicians have reached out to the family other than yesterday when Dr. George spoke to them about hospice. I do not believe the patient should remain at this facility and we need to explore transferring her out if the family wishes to continue with aggressive care. I cannot make a definitive statement at this time about how much recovery of any she will be able to achieve going forward. She has an overall rather poor long-term prognosis but she does have youth on her side and this may afford her some small buffer for acute critical illness like she has experienced here. Her super morbid obesity greatly complicates every aspect of her care and recovery. 07/29/2020 Extensive conversation with the patient's to parents and multiple staff members today. I discussed the patient's course thus far and the plan going forward to the best my ability having taken care of the patient for the past approximate 24 hours. ICU notes are extremely sparse for information and the patient's family members state that they had not spoken to a physician until Dr. George office spoke with them 2 days ago about hospice. I explained the patient is extremely ill and if she survives her current illness she will likely be permanently disabled for the rest of her life. Also explained that there is a very good chance that she will not survive her illness or may pass away during 1 of her needed surgical procedures. I also explained to them that we are extremely limited in the imaging modalities we can utilize for the patient due to her extremely high BMI/weight and the fact that our scanners cannot accommodate this degree of obesity. They stated they would like all aggressive measures pursued including surgeries and other procedures that may prolong her life even at the expense of personal pain and suffering to the patient and even with the knowledge that she may not survive these procedures. For now, they would like patient to remain full code but they may consider limiting care in the future if patient declines further. This advanced care planning discussion took place over the course of approximately 1 hour in addition to the clinical visit I had with the patient earlier today. Today, I noted in her labs that her blood counts are all down likely dilutional and her creatinine is elevated. I will reach out to outside facilities and attempt to transfer the patient for definitive treatment of her endocarditis most likely mitral valve replacement. Parents also want the patient to have tracheostomy replacement as recommended by Dr. Wood and also have a permanent abdominal feeding tube placed by general surgery. They stated they would also consent to any debridement or amputation that may be required to treat the necrosis of the likely septic emboli induced digit ischemia in her feet. Patient remains on the ventilator through tracheostomy and does not respond to commands. 07/30/2020 I made multiple phone calls today and had multiple conversations with various facilities and physicians. Count Includes [facility] and [facility] have immediately denied transfer to their facility for treatment of endocarditis. I reached out to [facility] and they are currently reviewing the patient's chart for transfer. They stated she will need an ICU bed there. I contacted ENT and they stated they will come to bedside tomorrow and swap out the patient's tracheostomy for a larger Shiley 8 cuffed nonfenestrated trach. I discussed this with nursing to make sure it is at bedside tomorrow when they come by. I reconsulted general surgery and discussed the case with them. They stated they did not believe the patient would benefit from a G-tube/PEG and did not wish to pursue surgical intervention for this. They recommended a Dobbhoff instead. I discussed patient's chest CT that was done today with general surgery as well and they stated they do not believe the patient needs a chest tube and they do not believe that she has a loculated pleural effusion that would be the source of her current infection. I reviewed the CT myself and it looks like she has about a 3 cm depth pleural effusion with some heterogeneous qualities to it along with bilateral pneumonia. I discussed the scan with the radiologist and he stated if we felt it would be beneficial, he would do a thoracentesis. I have ordered this and they will transition from a thoracentesis to a chest tube if they get pus returned with her thoracentesis. I have ordered all appropriate labs and cultures for the pleural fluid that will come out. Head CT did not show any significant abnormality specifically no strokes. Abdominal CT was generally unremarkable however I did see some strange appearing enhancement in the patient's liver although this was not mentioned in the radiology report. Patient's creatinine is lower today and her platelets are approximately the same. WBC is higher and she is now having a fever again up to 102. We will repeat blood cultures today. 07/31/2020 I spoke with the CT surgeon at [facility] and he stated that patients they have seen their with a BMI of 62 or above have had an approximately 100% mortality rate due to sternal wound dehiscence after valve replacement. He strongly recommended against any kind of cardiothoracic surgery and instead recommended medical management for now. He stated the patient developed significant mitral regurg, she may be a candidate for percutaneous mitral clip but at this time she is also not a candidate for that either. They did not accept the patient for transfer needless to say. I checked coag studies in ant icipation of thoracentesis for pleural effusion seen on chest CT and patient had a markedly elevated INR up to approximately 13. This was drawn of the patient's central line and when it was repeated peripherally INR was still approximately 9. I have ordered the patient to get 5 mg IV vitamin K. Given she is spiking fevers, tachycardic, having worsening anemia/thrombocytopenia and her LDH is martha vated concerned she is potentially in DIC or at high risk to go into DIC. She is having some bleeding at her tracheostomy site. Radiology will not be able to do a thoracentesis today due to markedly elevated INR and we will attempt this again tomorrow once we get her INR down using vitamin K. I have changed the patient's antibiotics to broad-spectrum due to new fevers. I am concerned that she may have developed catheter associated UTI given she has had a Villaseñor catheter for over 1 month now. Nursing will get UA with reflex culture today. I will discuss with the patient's parents the many problems facing the patient at this time. I am concerned that if the patient continues on her current course she will not survive this admission. My primary goal at this time is to establish good source control over any and all infections that she may currently have. Reason For Visit: ARDS, POSSIBLE COVID 19 Physical Exam Vital Signs: Temp Pulse Resp BP Pulse Ox 101.9 F H 120 H 29 H 135/73 H 98 07/31/20 14:39 07/31/20 08:47 07/31/20 03:23 07/31/20 03:23 07/31/20 08:24 Intake & Output 07/30/20 07/31/20 08/01/20 06:59 06:59 06:59 Intake Total 1100 1200 Output Total 2175 1500 Balance -1075 -300 Weight 180.3 kg 176.6 kg Exam: General appearance: PRESENT: mild distress, morbidly obese, does not respond to commands, opens eyes and attempts to yell although it is silent due to tracheostomy, unchanged from yesterday Head exam: PRESENT: atraumatic, normocephalic Eye exam: PRESENT: conjunctiva pink Respiratory exam: PRESENT: rales - Upper airway rales, possibly due to mucus and trach. ABSENT: rhonchi, wheezes Pulses: PRESENT: +1 pedal pulses bilateral - Weak dorsalis pedis pulses bilaterally GI/Abdominal exam: PRESENT: normal bowel sounds, soft. ABSENT: distended, guarding, mass, organolmegaly, rebound, tenderness Extremities exam: PRESENT: other - Toes on right foot are becoming necrotic Neurological exam: ABSENT: alert, Present: Awake Psychiatric exam: PRESENT: agitated. ABSENT: appropriate affect, normal mood Skin exam: PRESENT: dry, intact, warm Results Laboratory Results: 07/31/20 07:15 07/31/20 07:15 07/31/20 07/31/20 07/31/20 07:15 07:15 10:10 WBC 11.0 H RBC 3.17 L Hgb 7.6 L Hct 24.6 L MCV 78 L MCH 24.0 L MCHC 31.0 L RDW 23.2 H Plt Count 63 L Sodium 142.9 Potassium 3.9 Chloride 106 Carbon Dioxide 28 Anion Gap 9 BUN 59 H Creatinine 1.80 H Est GFR ( Amer) 41 L Glucose 123 H Calcium 9.3 Total Bilirubin 1.0 AST 34 Alkaline Phosphatase 69 Total Protein 7.1 Albumin 3.4 L 06/30/20 06/30/20 07/04/20 03:58 03:58 04:30 Creatine Kinase 188 H NT-Pro-B Natriuret Pep 21317 H 25149 H Impressions: Lower Extremity Ultrasound 06/30/20 00:00 IMPRESSION: 1. Multiphasic waveforms with three-vessel runoff bilaterally. 2. The right dorsalis pedis is not visualized and may be occluded. Diminished, but patent left dorsalis pedis. Venous Doppler Study 07/11/20 00:00 IMPRESSION: Acute hypoechoic clot occludes the cephalic vein in the antecubital fossa KUB X-Ray 07/16/20 00:00 IMPRESSION: Tip of the Dobbhoff catheter in the left upper quadrant, as above copyright 2011 [employer]- All Rights Reserved Chest X-Ray 07/29/20 00:00 IMPRESSION: Cardiomegaly mild vascular congestion. Central line remains in satisfactory position. No pneumothorax. Overall findings are significantly improved from prior study. Gastrostomy Tube Placement 07/30/20 00:00 IMPRESSION: Successful fluoroscopic guided placement of a Dobhoff tube. Tube is ready for use. Guidance Fluoroscopy 07/30/20 00:00 IMPRESSION: Successful fluoroscopic guided placement of a Dobhoff tube. Tube is ready for use. WBC Scan Nuclear Medicine 07/30/20 00:00 IMPRESSION: Inflammation/ infection in the lungs. No other significant uptake. Abdomen/Pelvis CT 07/30/20 08:00 IMPRESSION: 1. No evidence of abscess or other acute abnormality. 2. Cholelithiasis. Chest CT 07/30/20 08:00 IMPRESSION: Diffuse bilateral airspace disease consistent with pneumonia/sepsis. No empyema. No pneumothorax. Head CT 07/30/20 08:00 IMPRESSION: NORMAL BRAIN CT WITHOUT CONTRAST. EVIDENCE OF ACUTE STROKE: NO. Abdomen Ultrasound 07/31/20 00:00 IMPRESSION: Cholelithiasis without other associated ancillary findings to indicate an acute cholecystitis. Chest Ultrasound 07/31/20 00:00 IMPRESSION: Small right-sided pleural effusion. Assessment and Plan - Diagnosis (1) Infectious endocarditis Qualifiers: Infective endocarditis organism: bacterial Chronicity: acute Qualified Code(s): I33.0 - Acute and subacute infective endocarditis Is this a current diagnosis for this admission?: Yes Plan: MSSA bacteremia on blood cultures, follow-up blood cultures are negative Remove all central venous lines including dialysis lines, discussed with nephrology who states she does not need this anymore and it was instructed to be removed 2 weeks prior to 07/28/2020 though this was not done; must be removed, discussed with nursing Cefazolin for 6 weeks from negative blood cultures Needs transfer to outside hospital for definitive management of mitral valve vegetation, parents in agreement with the plan Unclear source of MSSA bacteremia ID consulted and reconsulted: Continue cefazolin 07/29/2020 Extensive discussion with the family, they want all aggressive measures and procedures and want the patient to be full code Suspect source is probable lung abscess from previous pneumonia that occurred initially in 03/2020 and likely became pulmonary abscess which then seeded her blood and caused endocarditis. Parents state this timeline is consistent with her health which was quite poor even after discharge from previous pneumonia treatment 07/30/[address] showed bilateral pneumonia with right-sided pleural effusion, thoracentesis ordered and discussed with radiology Abdominal CT with no acute findings although some strange enhancement in the liver in [address] did not show stroke or other acute abnormalities, no evidence of anoxic brain injury although an MRI would be much more sensitive for this Needs transfer to outside hospital for mitral valve replacement, we have been denied by [facility] and [facility]; [facility] is currently reviewing the case for transfer 07/31/2020 CT surgeon at [facility] stated that patients they have seen with a BMI of 62 or above have had an approximately 100% mortality rate due to sternal wound dehiscence after valve replacement. He strongly recommended against any kind of cardiothoracic surgery and instead recommended medical management for now. He stated the patient developed significant mitral regurg, she may be a candidate for percutaneous mitral clip but at this time she is also not a candidate for that either Continue antibiotics (2) MSSA bacteremia Is this a current diagnosis for this admission?: Yes (3) Mitral valve vegetation Is this a current diagnosis for this admission?: Yes (4) Acute hypoxemic respiratory failure Is this a current diagnosis for this admission?: Yes (5) Tracheostomy dependence Is this a current diagnosis for this admission?: Yes (6) Ventilator dependent Is this a current diagnosis for this admission?: Yes (7) Necrotic toes Is this a current diagnosis for this admission?: Yes (8) ARF (acute renal failure) Qualifiers: Acute renal failure type: unspecified Qualified Code(s): N17.9 - Acute kidney failure, unspecified Is this a current diagnosis for this admission?: Yes (9) Acute kidney injury Is this a current diagnosis for this admission?: Yes (10) Acute respiratory failure Qualifiers: Respiratory failure complication: hypoxia Qualified Code(s): J96.01 - Acute respiratory failure with hypoxia Is this a current diagnosis for this admission?: Yes (11) Endocarditis determined by echocardiography Is this a current diagnosis for this admission?: Yes (12) Super-super obese Is this a current diagnosis for this admission?: Yes (13) Thrombocytopenia Is this a current diagnosis for this admission?: Yes (14) Hypothyroidism Qualifiers: Hypothyroidism type: unspecified Qualified Code(s): E03.9 - Hypothyroidism, unspecified Is this a current diagnosis for this admission?: Yes (15) Sepsis Qualifiers: Sepsis type: methicillin susceptible Staphylococcus aureus Sepsis acute organ dysfunction status: with acute organ dysfunction Severe sepsis acute or mary dysfunction type: acute respiratory failure Acute respiratory failure type: with hypoxia Severe sepsis shock status: without septic shock Qualified Code(s): A41.01 - Sepsis due to Methicillin susceptible Staphylococcus aureus; R65.20 - Severe sepsis without septic shock; J96.01 - Acute respiratory failure with hypoxia Is this a current diagnosis for this admission?: Yes Plan: Source is most likely persistent unresolved pneumonia which reportedly began 03/2020 on previous admission and persisted despite multiple courses of antibiotics, resulted in mitral valve endocarditis Need source control: Order thoracentesis which may transition to chest tube if pus is returned Pleural fluid analysis chemistries ordered along with pleural fluid cultures IV fluids Close hemodynamic monitoring Thoracentesis delayed due to markedly elevated INR, supplemented with vitamin K IV Repeat blood cultures on 07/30 pending - Plan Summary Summary: BRODIE thought to be secondary to ATN. She received a Lasix drip. 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 Last blood cultures have been negative patient is currently on cefazolin. She is currently on day 18 of a 6-week treatment course from the date of negative blood culture which was on July 02. It appears Ancef 1 g every 12 was started on July 02. Acute respiratory failure status post tracheostomy placement on July 17 and appears her respiratory status is pretty tenuous and will have to continue close monitoring. 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 She was initially admitted on June 28 due to pneumonia and acute respiratory failure and was diagnosed with ARDS, septic shock and was intubated. 07/25/2020 Patient's overall prognosis is very poor and she is at a very high risk for adverse outcome including At this point we are still waiting for patient's family for review conferencing. Unfortunately it appears there is no smart phone available and they have not been able to see the patient even via teleconferencing. I believe this should be arranged by social contact worker. My understanding the mother is disabled and the father also has a medical condition preventing them from coming into the hospital patient is scheduled for an EEG next week as there was none available this week. Also had problems with her NG tube. She had a double which unfortunately was this large and we have been unable to reinsert an NG tube. 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 Be addressed this coming week. It may be worth contacting surgery again for possible PEG placement or j-tube but a lot of it is going to depend on patient's ultimate status. Family conference may also be needed but I believe all this is down the line as patient status needs to be addressed first - Time Time Spent with patient: 35 or more minutes Medications reviewed and adjusted accordingly: Yes Anticipated Discharge Disposition: Intermediate Care Facility Anticipated Discharge Timeframe: within 72 hours - Inpatient Certification Based on my medical assessment, after consideration of the patient's comorbidities, presenting symptoms, or acuity I expect that the services needed warrant INPATIENT care.: Yes I certify that my determination is in accordance with my understanding of Medicare's requirements for reasonable and necessary INPATIENT services [42 CFR 412.3e].: Yes Medical Necessity: Significant Comorbidiites Make Outpatient Treatment Too Risky, Need Close Monitoring Due to Risk of Patient Decompensation, Need For IV Fluids, Need for IV Antibiotics, Need for Surgery, Risk of Complication if Not Cared For in Hospital, Risk of Diagnosis Which Will Require Inpatient Eval/Care/Monitoring
[2020-07-31] MEDS: PIPERACILLIN SODIUM/TAZOBACTAM 4.5 GM in NORMAL SALINE 100 ML IV SCH (17:25)
[2020-07-31] MEDS: VANCOMYCIN HCL 1,500 MG in DEXTROSE 5%-WATER 250 ML IV SCH (17:26)
[2020-07-31] MEDS ORDERED: PIPERACILLIN/TAZOBACTAM 4.5 GM VIAL IV SCH (18:00)
[2020-07-31 18:21] LABS: APPEARANCE,URINE TURBID; BILIRUBIN,URINE NEGATIVE (NEGATIVE); COLOR,URINE AMBER; GLUCOSE, URINE NEGATIVE (NEGATIVE); KETONES,URINE NEGATIVE (NEGATIVE); PROTEIN,URINE 100 mg/dL (NEGATIVE); URINE SPECIFIC GRAVITY 1.018; UROBILINOGEN,URINE NEGATIVE mg/dL (<2.0)
[2020-07-31 18:23] LABS: INTERNATIONAL RATION (INR) 1.84
[2020-07-31 18:35] LABS: PROTHROMBIN TIME 21.3 SEC (11.4-15.4)
[2020-07-31 20:49] LABS: D-DIMER 1.6 ug/mL (0.00-0.50)
[2020-07-31] MEDS ORDERED: CEFEPIME HCL 2 GM in DEXTROSE 5%-WATER 50 ML IV SCH (22:00)
[2020-08-01] MEDS: LORAZEPAM INJ 2 MG/1 ML VIAL IV PRN (00:46)
[2020-08-01] MEDS: DEXTROSE 5%-WATER 1000 ML 1,000 ML IV PRN (01:46)
[2020-08-01] MEDS: PIPERACILLIN SODIUM/TAZOBACTAM 4.5 GM in NORMAL SALINE 100 ML IV SCH ×2 (01:53→10:21)
[2020-08-01] MEDS: HYDROCORTISONE SOD SUCCINATE INJ/PF 100 MG/2 ML SDV IV SCH ×2 (05:58→10:20)
[2020-08-01 06:51] LABS: HEMATOCRIT 24.3 % (36.0-47.0); MEAN CORPUSCULAR HEMOGLOBIN 23.6 pg (27.0-33.4); MEAN CORPUSCULAR HGB CONC 30.4 g/dL (32.0-36.0); MEAN CORPUSCULAR VOLUME 77 fl (80-97); RED BLOOD COUNT 3.14 10^6/uL (3.72-5.28); RED CELL DISTRIBUTION WIDTH 23.3 % (11.5-14.0)
[2020-08-01 07:04] LABS: ANION GAP 8 (5-19); BLOOD UREA NITROGEN 67 mg/dL (7-20); CALCIUM 8.8 mg/dL (8.4-10.2); CARBON DIOXIDE 29 mmol/L (22-30); CHLORIDE 106 mmol/L (98-107); GLUCOSE 129 mg/dL (75-110); POTASSIUM 3.8 mmol/L (3.6-5.0)
[2020-08-01 07:59] LABS: PLATELET COUNT 53 10^3/uL (150-450)
[2020-08-01 08:01] LABS: HEMOGLOBIN 7.4 g/dL (12.0-15.5); WHITE BLOOD COUNT 15.7 10^3/uL (4.0-10.5)
[2020-08-01] MEDS ORDERED: PHYTONADIONE 5 MG TABLET PO ONE (08:31)
[2020-08-01 08:37] LABS: HEPATITS B SURFACE ANTIGEN Negative (Negative)
[2020-08-01 09:01] LABS: IRON(TIBC) 11.3 ug/dL (37-170)
[2020-08-01 09:03] LABS: ABSOLUTE RETICS # 0.161 10^6/uL (0.028-0.122); RETICULOCYTE COUNT (AUTO) 5.16 % (0.66-2.85)
[2020-08-01] MEDS ORDERED: PHYTONADIONE 5 MG TABLET PO SCH (10:00)
[2020-08-01 10:07] LABS: FOLATE 4.62 ng/mL (>2.76)
[2020-08-01] MEDS: THIAMINE HCL 100 MG in NORMAL SALINE 50 ML IV SCH (10:21)
[2020-08-01] MEDS: LACTOBACILLUS ACIDOPHILUS 250 MG TAB PO SCH ×4 (10:21→22:30)
[2020-08-01] MEDS: POTASSIUM CHLORIDE 20 MEQ PACKET NG SCH (10:21)
[2020-08-01] MEDS: AMINO AC/PROTEIN HYDR/WHEY PRO 11 GM/45 ML PKT NG SCH ×2 (10:21→17:29)
[2020-08-01] MEDS: CHOLECALCIFEROL (D3) 400 UNIT/ML DROPS 50 ML PO SCH (10:22)
--- NOTE | 2020-08-01 13:06 | PDOC CONSULTATION ---
Consultation Consult Date: 08/01/20 Attending physician:: JOCELYN ANGEL Provider Consulted: TAYLOR VILLA Consult reason:: Pancytopenia, coagulopathy History of Present Illness Admission Date/PCP: 06/29/20 03:15 Patient complains of: Multiple issues, weakness History of Present Illness: CHEMO CRUZ is a 29 year old female with complicated medical history recently, came in with what appears to be an acute pneumonia that transitioned into sepsis that was severe, and she was treated aggressively and was vent dependent had tracheostomy placed, has had pancytopenia recently, she had pancytopenia upon admission which got better and then worsened. She has new blood culture findings as well. In addition she had high elevation of INR and PT, she was given vitamin K with good effect with improvement in that. Past Medical History Cardiac Medical History: Reports: Congestive Heart Failure, Heart Murmur Pulmonary Medical History: Reports: Intubation, Pneumonia, Respiratory Failure, Sleep Apnea EENT Medical History: Reports: Ears, Nose, Throat Neurological Medical History: Denies: Seizures Endocrine Medical History: Reports: Hypothyroidism, Obesity Malignancy Medical History: Reports: None Musculoskeltal Medical History: Reports: None Skin Medical History: Reports: None Psychiatric Medical History: Denies: Depression Traumatic Medical History: Denies: Gunshot Wound Hematology: Denies: Sickle Cell Disease Past Surgical History Past Surgical History: Reports: Orthopedic Surgery - right 5th toe amputation Social History Lives with: Parents Smoking Status: Current Every Day Smoker Frequency of Alcohol Use: Rare Hx Recreational Drug Use: No Hx Prescription Drug Abuse: No - Advance Directive Resuscitation Status: Full Code Family History Family History: None, Reviewed & Not Pertinent, Arthritis, CAD, COPD, DM, Hypertension, Thyroid Disfunction Parental Family History Reviewed: Yes Children Family History Reviewed: Yes Sibling(s) Family History Reviewed.: Yes Medication/Allergy Home Medications: Albuterol Sulfate [Proair HFA Inhalation Aerosol 8.5 gm MDI] 2 puff IH Q4HP PRN 06/29/20 Levothyroxine Sodium [Synthroid] 125 mcg PO Q6AM 06/29/20 Allergies/Adverse Reactions: No Known Allergies Allergy (Verified 06/29/20 08:43) Review of Systems ROS unobtainable: Due to mental status Physical Exam Vital Signs: Temp Pulse Resp BP Pulse Ox 103.0 F H 122 H 33 H 137/77 H 99 08/01/20 10:00 08/01/20 08:34 08/01/20 08:34 08/01/20 08:34 08/01/20 12:45 Intake & Output 07/31/20 08/01/20 08/02/20 06:59 06:59 06:59 Intake Total 1200 2696 Output Total 1500 850 Balance -300 1846 Weight 176.6 kg 174.406 kg General appearance: PRESENT: no acute distress, well-developed, well-nourished Head exam: PRESENT: atraumatic, normocephalic Eye exam: PRESENT: conjunctiva pink, EOMI, PERRLA. ABSENT: scleral icterus Ear exam: PRESENT: normal external ear exam Mouth exam: PRESENT: moist, tongue midline Neck exam: ABSENT: carotid bruit, JVD, lymphadenopathy, thyromegaly Respiratory exam: PRESENT: clear to auscultation beatriz. ABSENT: rales, rhonchi, wheezes Cardiovascular exam: PRESENT: RRR. ABSENT: diastolic murmur, rubs, systolic murmur Pulses: PRESENT: normal dorsalis pedis pul Vascular exam: PRESENT: normal capillary refill GI/Abdominal exam: PRESENT: normal bowel sounds, soft. ABSENT: distended, guarding, mass, organolmegaly, rebound, tenderness Rectal exam: PRESENT: deferred Extremities exam: PRESENT: full ROM. ABSENT: calf tenderness, clubbing, pedal edema Neurological exam: PRESENT: alert, awake, oriented to person, oriented to place, oriented to time, oriented to situation, CN II-XII grossly intact. ABSENT: motor sensory deficit Psychiatric exam: PRESENT: appropriate affect, normal mood. ABSENT: homicidal ideation, suicidal ideation Skin exam: PRESENT: dry, intact, warm. ABSENT: cyanosis, rash Results Laboratory Results: 08/01/20 06:02 08/01/20 06:02 07/31/20 08/01/20 08/01/20 12:30 06:02 06:02 WBC 15.7 H RBC 3.14 L Hgb 7.4 L Hct 24.3 L MCV 77 L MCH 23.6 L MCHC 30.4 L RDW 23.3 H Plt Count 53 L Retic Count (auto) Sodium 142.6 Potassium 3.8 Chloride 106 Carbon Dioxide 29 Anion Gap 8 BUN 67 H Creatinine 1.91 H Est GFR ( Amer) 38 L Glucose 129 H Calcium 8.8 Iron TIBC % Saturation Ferritin Folate Urine Color DANIELA Urine Appearance TURBID Urine pH 5.0 Ur Specific [place] 1.018 Urine Protein 100 H Urine Glucose (UA) NEGATIVE Urine Ketones NEGATIVE Urine Blood LARGE H Urine RBC (Auto) >182 08/01/20 08/01/20 06:02 06:02 WBC RBC Hgb Hct MCV MCH MCHC RDW Plt Count Retic Count (auto) 5.16 H Sodium Potassium Chloride Carbon Dioxide Anion Gap BUN Creatinine Est GFR ( Amer) Glucose Calcium Iron 11.3 L TIBC 278 % Saturation 4 Ferritin 161.00 H Folate 4.62 Urine Color Urine Appearance Urine pH Ur Specific [place] Urine Protein Urine Glucose (UA) Urine Ketones Urine Blood Urine RBC (Auto) 07/30/20 23:45 Blood Blood Culture (PCR) - Final Pseudomonas Aeruginosa 06/30/20 06/30/20 07/04/20 03:58 03:58 04:30 Creatine Kinase 188 H NT-Pro-B Natriuret Pep 92154 H 32704 H Impressions: Lower Extremity Ultrasound 06/30/20 00:00 IMPRESSION: 1. Multiphasic waveforms with three-vessel runoff bilaterally. 2. The right dorsalis pedis is not visualized and may be occluded. Diminished, but patent left dorsalis pedis. Venous Doppler Study 07/11/20 00:00 IMPRESSION: Acute hypoechoic clot occludes the cephalic vein in the antecubital fossa KUB X-Ray 07/16/20 00:00 IMPRESSION: Tip of the Dobbhoff catheter in the left upper quadrant, as above copyright 2011 [employer]- All Rights Reserved Chest X-Ray 07/29/20 00:00 IMPRESSION: Cardiomegaly mild vascular congestion. Central line remains in satisfactory position. No pneumothorax. Overall findings are significantly improved from prior study. Gastrostomy Tube Placement 07/30/20 00:00 IMPRESSION: Successful fluoroscopic guided placement of a Dobhoff tube. Tube is ready for use. Guidance Fluoroscopy 07/30/20 00:00 IMPRESSION: Successful fluoroscopic guided placement of a Dobhoff tube. Tube is ready for use. WBC Scan Nuclear Medicine 07/30/20 00:00 IMPRESSION: Inflammation/ infection in the lungs. No other significant uptake. Abdomen/Pelvis CT 07/30/20 08:00 IMPRESSION: 1. No evidence of abscess or other acute abnormality. 2. Cholelithiasis. Chest CT 07/30/20 08:00 IMPRESSION: Diffuse bilateral airspace disease consistent with pneum onia/sepsis. No empyema. No pneumothorax. Head CT 07/30/20 08:00 IMPRESSION: NORMAL BRAIN CT WITHOUT CONTRAST. EVIDENCE OF ACUTE STROKE: NO. Abdomen Ultrasound 07/31/20 00:00 IMPRESSION: Cholelithiasis without other associated ancillary findings to indicate an acute cholecystitis. Chest Ultrasound 07/31/20 00:00 IMPRESSION: Small right-sided pleural effusion. Assessment & Plan - Diagnosis (1) Pancytopenia Is this a current diagnosis for this admission?: Yes Plan: Pancytopenia likely from myelosuppression from multiple issues including her current medical state, possible infection as well as also possibly medication related. I discussed this with Dr. An and recommended that Zosyn be changed to either cefepime or carboplatinum which will have less myelosuppressive effect then Zosyn. Otherwise, will follow, would give 1 unit of packed red blood cell if the hemoglobin follows to the 6 range, platelets if patient is actively bleeding and under 50, or if platelet count drops below 10. Should resolve as the condition improves. - Time Time Spent: 50 to 70 Minutes
[2020-08-01 13:30] LABS: HEPATITIS C VIRUS ANTIBODY <0.1 s/co ratio (0.0-0.9)
[2020-08-01] MEDS ORDERED: ACETAMINOPHEN 650 MG SUPP.RECT PR PRN (16:01)
[2020-08-01] MEDS: VANCOMYCIN HCL 1,500 MG in DEXTROSE 5%-WATER 250 ML IV SCH (17:28)
[2020-08-01] MEDS ORDERED: MEROPENEM 1 GM in NORMAL SALINE 50 ML IV SCH (18:00)
[2020-08-01] MEDS ORDERED: MEROPENEM 1 GM VIAL IV PRN (18:00)
--- NOTE | 2020-08-01 18:18 | PDOC PROGRESS REPORT ---
Subjective Subjective:: Per previous physician: "07/21 patient apparently had an eventful evening. She started bleeding from the tracheostomy. It appears surgery was consulted. This morning we have also reconsulted ENT as they appear to be a potential issues with the tracheostomy. She is currently stable. It is noted that hemoglobin did drop overnight and this may have been from her bleeding. I will repeat hemoglobin this afternoon and decide on transfusion if needed. She actually seems to be somewhat more responsive although still unable to appropriately respond but she is awake and alert. Chest x-ray reveals multifocal pulmonary opacities with extensive subcutaneous emphysema with questionable pneumomediastinum and pneumopericardium 07/23- Uneventful day today Prognosis remains poor Need a fdc plan but will need to get EEG first, unavailable till next week Plan for a family meeting once EEG result available and at least 30 days have elapsed to have a better clarity Will insert NGT today. 07/24 Unable to insert NGT per nursing staff. Will send down to [facility] for Dobhoff tube 07/26/2020-no change in mental status. Has a trach connected to the vent. In my opinion she able to respond to the verbal commands by closing the eyes and try to smile. nurses is noticed mottling and discoloration of the toes in both feet. Platelet count is 100,000 it may be a contraindication for Lovenox treatment dose. Overall prognosis poor condition is critical. Nurses unable to place Dobbhoff. Patient is getting dextrose by IV. 07/27/2020-patient is going to have EEG today. Hopefully will get the results by the evening. No changes in physical condition or mental condition. Overall prognosis poor condition is critical." 07/28/2020 Many aspects of care will need to be changed per my review of the chart today. 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 I discussed the case with ID today who agreed that the patient should be transferred to have this valve surgically addressed while she is continuing antibiotics. Also noted she has an upper extremity DVT as well as a dorsalis pedis arterial occlusion noted on PVL. She is on prophylactic heparin which is almost certainly not helping this. Her platelets have been challenging the ability to give her full dose anticoagulation but as they have been rising for the past few days this should be readdressed. That said, I do not believe these occlusions are necessarily all due to DVT from acute illness or hypercoagulability, I think it is more likely they are due to septic emboli from her endocarditis which is clearly seen on ANGELIA. The EEG that was done was confounded by the fact the patient was being given sedatives and the EEG was repeated today. I question the utility of an EEG as the purpose that was given to me is to assess for brain however she clearly does not have brain by simple physical exam. 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 Reportedly per my discussions with nursing, the parents of the patient have a very poor understanding of the patient's serious illness and are expecting her to make a full recovery. They are coming in tomorrow to have a meeting with the staff and to see the patient for the first time since her admission. It is unclear if any physicians have reached out to the family other than yesterday when Dr. George spoke to them about hospice. I do not believe the patient should remain at this facility and we need to explore transferring her out if the family wishes to continue with aggressive care. I cannot make a definitive statement at this time about how much recovery of any she will be able to achieve going forward. She has an overall rather poor long-term prognosis but she does have youth on her side and this may afford her some small buffer for acute critical illness like she has experienced here. Her super morbid obesity greatly complicates every aspect of her care and recovery. 07/29/2020 Extensive conversation with the patient's to parents and multiple staff members today. I discussed the patient's course thus far and the plan going forward to the best my ability having taken care of the patient for the past approximate 24 hours. ICU notes are extremely sparse for information and the patient's family members state that they had not spoken to a physician until Dr. George office spoke with them 2 days ago about hospice. I explained the patient is extremely ill and if she survives her current illness she will likely be permanently disabled for the rest of her life. Also explained that there is a very good chance that she will not survive her illness or may pass away during 1 of her needed surgical procedures. I also explained to them that we are extremely limited in the imaging modalities we can utilize for the patient due to her extremely high BMI/weight and the fact that our scanners cannot accommodate this degree of obesity. They stated they would like all aggressive measures pursued including surgeries and other procedures that may prolong her life even at the expense of personal pain and suffering to the patient and even with the knowledge that she may not survive these procedures. For now, they would like patient to remain full code but they may consider limiting care in the future if patient declines further. This advanced care planning discussion took place over the course of approximately 1 hour in addition to the clinical visit I had with the patient earlier today. Today, I noted in her labs that her blood counts are all down likely dilutional and her creatinine is elevated. I will reach out to outside facilities and attempt to transfer the patient for definitive treatment of her endocarditis most likely mitral valve replacement. Parents also want the patient to have tracheostomy replacement as recommended by Dr. Wood and also have a permanent abdominal feeding tube placed by general surgery. They stated they would also consent to any debridement or amputation that may be required to treat the necrosis of the likely septic emboli induced digit ischemia in her feet. Patient remains on the ventilator through tracheostomy and does not respond to commands. 07/30/2020 I made multiple phone calls today and had multiple conversations with various facilities and physicians. [facility] and [facility] have immediately denied transfer to their facility for treatment of endocarditis. I reached out to [facility] and they are currently reviewing the patient's chart for transfer. They stated she will need an ICU bed there. I contacted ENT and they stated they will come to bedside tomorrow and swap out the patient's tracheostomy for a larger Shiley 8 cuffed nonfenestrated trach. I discussed this with nursing to make sure it is at bedside tomorrow when they come by. I reconsulted general surgery and discussed the case with them. They stated they did not believe the patient would benefit from a G-tube/PEG and did not wish to pursue surgical intervention for this. They recommended a Dobbhoff instead. I discussed patient's chest CT that was done today with general surgery as well and they stated they do not believe the patient needs a chest tube and they do not believe that she has a loculated pleural effusion that would be the source of her current infection. I reviewed the CT myself and it looks like she has about a 3 cm depth pleural effusion with some heterogeneous qualities to it along with bilateral pneumonia. I discussed the scan with the radiologist and he stated if we felt it would be beneficial, he would do a thoracentesis. I have ordered this and they will transition from a thoracentesis to a chest tube if they get pus returned with her thoracentesis. I have ordered all appropriate labs and cultures for the pleural fluid that will come out. Head CT did not show any significant abnormality specifically no strokes. Abdominal CT was generally unremarkable however I did see some strange appearing enhancement in the patient's liver although this was not mentioned in the radiology report. Patient's creatinine is lower today and her platelets are approximately the same. WBC is higher and she is now having a fever again up to 102. We will repeat blood cultures today. 07/31/2020 I spoke with the CT surgeon at [facility] and he stated that patients they have seen their with a BMI of 62 or above have had an approximately 100% mortality rate due to sternal wound dehiscence after valve replacement. He strongly recommended against any kind of cardiothoracic surgery and instead recommended medical management for now. He stated the patient developed significant mitral regurg, she may be a candidate for percutaneous mitral clip but at this time she is also not a candidate for that either. They did not accept the patient for transfer needless to say. I checked coag studies in ant icipation of thoracentesis for pleural effusion seen on chest CT and patient had a markedly elevated INR up to approximately 13. This was drawn of the patient's central line and when it was repeated peripherally INR was still approximately 9. I have ordered the patient to get 5 mg IV vitamin K. Given she is spiking fevers, tachycardic, having worsening anemia/thrombocytopenia and her LDH is martha vated concerned she is potentially in DIC or at high risk to go into DIC. She is having some bleeding at her tracheostomy site. Radiology will not be able to do a thoracentesis today due to markedly elevated INR and we will attempt this again tomorrow once we get her INR down using vitamin K. I have changed the patient's antibiotics to broad-spectrum due to new fevers. I am concerned that she may have developed catheter associated UTI given she has had a Villaseñor catheter for over 1 month now. Nursing will get UA with reflex culture today. I will discuss with the patient's parents the many problems facing the patient at this time. I am concerned that if the patient continues on her current course she will not survive this admission. My primary goal at this time is to establish good source control over any and all infections that she may currently have. 08/01/2020 Consulted hematology and discussed case with Dr. Bosch today in detail. He believes we should stop Zosyn and start the patient on alternative Pseudomonas antibiotic such as Merrem given Zosyn can cause worsening thrombocytopenia. I have made this change in the orders. I have ordered a recheck CBC for this afternoon as patient looks rather pale this morning I feel that she may soon require transfusion. Her INR has made a significant improvement and is now down to 1.8 today. Will need radiology to reassess the patient for thoracentesis as this is the only way to establish good source control and I feel that the patient may be getting less clinically stable the longer the infection source remains in place. Patient is having fevers up to 105 and is more tachycardic and tachypneic today on 50% FiO2. White blood cells are higher and hemoglobin and platelets are lower. I have added thiamine and ordered an anemia work-up panel. Patient has been on hydrocortisone since she was in the ICU and despite looking through many of the notes over the last month I cannot find anywhere in the physician notes stating why she is on steroids and what the plan is for this medication. I have started tapering her off of these and this will need to be continued over the next week or so. Overall, patient seems to be doing much worse today clinically overall. She is high risk to require ICU level care yet again. Reason For Visit: ARDS, POSSIBLE COVID 19 Physical Exam Vital Signs: Temp Pulse Resp BP Pulse Ox 105.8 F H 121 H 33 H 137/77 H 99 08/01/20 17:24 08/01/20 14:00 08/01/20 08:34 08/01/20 08:34 08/01/20 12:45 Intake & Output 07/31/20 08/01/20 08/02/20 06:59 06:59 06:59 Intake Total 1200 2696 Output Total 1500 850 Balance -300 1846 Weight 176.6 kg 174.406 kg Exam: General appearance: PRESENT: mild distress, morbidly obese, does not respond to commands, opens eyes and attempts to yell although it is silent due to tracheostomy, appears quite pale today Head exam: PRESENT: atraumatic, normocephalic Eye exam: PRESENT: conjunctiva pale Respiratory exam: PRESENT: rales - Upper airway rales, possibly due to mucus and trach. ABSENT: rhonchi, wheezes Pulses: PRESENT: +1 pedal pulses bilateral - Weak dorsalis pedis pulses bilaterally GI/Abdominal exam: PRESENT: normal bowel sounds, soft. ABSENT: distended, guarding, mass, organolmegaly, rebound, tenderness Extremities exam: PRESENT: other - Toes on right foot are becoming necrotic Neurological exam: ABSENT: alert, Present: Awake Psychiatric exam: PRESENT: agitated. ABSENT: appropriate affect, normal mood Skin exam: PRESENT: dry, intact, warm Results Laboratory Results: 08/01/20 06:02 08/01/20 06:02 07/31/20 08/01/20 08/01/20 12:30 06:02 06:02 WBC 15.7 H RBC 3.14 L Hgb 7.4 L Hct 24.3 L MCV 77 L MCH 23.6 L MCHC 30.4 L RDW 23.3 H Plt Count 53 L Retic Count (auto) Sodium 142.6 Potassium 3.8 Chloride 106 Carbon Dioxide 29 Anion Gap 8 BUN 67 H Creatinine 1.91 H Est GFR ( Amer) 38 L Glucose 129 H Calcium 8.8 Iron TIBC % Saturation Ferritin Folate Urine Color DANIELA Urine Appearance TURBID Urine pH 5.0 Ur Specific [place] 1.018 Urine Protein 100 H Urine Glucose (UA) NEGATIVE Urine Ketones NEGATIVE Urine Blood LARGE H Urine RBC (Auto) >182 08/01/20 08/01/20 06:02 06:02 WBC RBC Hgb Hct MCV MCH MCHC RDW Plt Count Retic Count (auto) 5.16 H Sodium Potassium Chloride Carbon Dioxide Anion Gap BUN Creatinine Est GFR ( Amer) Glucose Calcium Iron 11.3 L TIBC 278 % Saturation 4 Ferritin 161.00 H Folate 4.62 Urine Color Urine Appearance Urine pH Ur Specific [place] Urine Protein Urine Glucose (UA) Urine Ketones Urine Blood Urine RBC (Auto) 07/30/20 23:45 Blood Blood Culture (PCR) - Final Pseudomonas Aeruginosa 06/30/20 06/30/20 07/04/20 03:58 03:58 04:30 Creatine Kinase 188 H NT-Pro-B Natriuret Pep 51733 H 45319 H Impressions: Lower Extremity Ultrasound 06/30/20 00:00 IMPRESSION: 1. Multiphasic waveforms with three-vessel runoff bilaterally. 2. The right dorsalis pedis is not visualized and may be occluded. Diminished, but patent left dorsalis pedis. Venous Doppler Study 07/11/20 00:00 IMPRESSION: Acute hypoechoic clot occludes the cephalic vein in the antecubital fossa KUB X-Ray 07/16/20 00:00 IMPRESSION: Tip of the Dobbhoff catheter in the left upper quadrant, as above copyright 2011 [employer]- All Rights Reserved Chest X-Ray 07/29/20 00:00 IMPRESSION: Cardiomegaly mild vascular congestion. Central line remains in satisfactory position. No pneumothorax. Overall findings are significantly improved from prior study. Gastrostomy Tube Placement 07/30/20 00:00 IMPRESSION: Successful fluoroscopic guided placement of a Dobhoff tube. Tube is ready for use. Guidance Fluoroscopy 07/30/20 00:00 IMPRESSION: Successful fluoroscopic guided placement of a Dobhoff tube. Tube is ready for use. WBC Scan Nuclear Medicine 07/30/20 00:00 IMPRESSION: Inflammation/ infection in the lungs. No other significant uptake. Abdomen/Pelvis CT 07/30/20 08:00 IMPRESSION: 1. No evidence of abscess or other acute abnormality. 2. Cholelithiasis. Chest CT 07/30/20 08:00 IMPRESSION: Diffuse bilateral airspace disease consistent with pneumonia /sepsis. No empyema. No pneumothorax. Head CT 07/30/20 08:00 IMPRESSION: NORMAL BRAIN CT WITHOUT CONTRAST. EVIDENCE OF ACUTE STROKE: NO. Abdomen Ultrasound 07/31/20 00:00 IMPRESSION: Cholelithiasis without other associated ancillary findings to indicate an acute cholecystitis. Chest Ultrasound 07/31/20 00:00 IMPRESSION: Small right-sided pleural effusion. Assessment and Plan - Diagnosis (1) Recurrent bacterial pneumonia Is this a current diagnosis for this admission?: Yes Plan: Previously had pneumonia and 03/2020 admission which was treated with antibiotics, later worsened and she was given more antibiotics by her PCP, per family this did not resolve her pneumonia and she continued to remain ill Chest CT showed right pleural effusion depth of approximately 3 cm by my read, discussed this with radiology Thoracentesis ordered, procedure delayed due to markedly elevated INR up to 13, given vitamin K and INR is now much improved May need chest tube if pus comes from thoracentesis Thoracentesis chemistries and cultures ordered Vancomycin/Merrem antibiotics broadened due to clinical deterioration and new Pseudomonas in blood cultures on 07/30 (2) Infectious endocarditis Qualifiers: Infective endocarditis organism: bacterial Chronicity: acute Qualified Code(s): I33.0 - Acute and subacute infective endocarditis Is this a current diagnosis for this admission?: Yes Plan: MSSA bacteremia on blood cultures, follow-up blood cultures are negative Remove all central venous lines including dialysis lines, discussed with nephrology who states she does not need this anymore and it was instructed to be removed 2 weeks prior to 07/28/2020 though this was not done; must be removed, discussed with nursing Cefazolin for 6 weeks from negative blood cultures Needs transfer to outside hospital for definitive management of mitral valve vegetation, parents in agreement with the plan Unclear source of MSSA bacteremia ID consulted and reconsulted: Continue cefazolin 07/29/2020 Extensive discussion with the family, they want all aggressive measures and procedures and want the patient to be full code Suspect source is probable lung abscess from previous pneumonia that occurred initially in 03/2020 and likely became pulmonary abscess which then seeded her blood and caused endocarditis. Parents state this timeline is consistent with her health which was quite poor even after discharge from previous pneumonia treatment 07/30/[address] showed bilateral pneumonia with right-sided pleural effusion, thoracentesis ordered and discussed with radiology Abdominal CT with no acute findings although some strange enhancement in the liver in [address] not show stroke or other acute abnormalities, no evidence of anoxic brain injury although an MRI would be much more sensitive for this Needs transfer to outside hospital for mitral valve replacement, we have been denied by [facility] and [facility]; [facility] is currently reviewing the case for transfer 07/31/2020 CT surgeon at [facility] stated that patients they have seen with a BMI of 62 or above have had an approximately 100% mortality rate due to sternal wound dehiscence after valve replacement. He strongly recommended against any kind of cardiothoracic surgery and instead recommended medical management for now. He stated the patient developed significant mitral regurg, she may be a candidate for percutaneous mitral clip but at this time she is also not a candidate for that either Continue antibiotics 08/01/2020 Continued on antibiotics as before and antibiotics changed to vancomycin and Merrem today (3) MSSA bacteremia Is this a current diagnosis for this admission?: Yes (4) Mitral valve vegetation Is this a current diagnosis for this admission?: Yes (5) Acute hypoxemic respiratory failure Is this a current diagnosis for this admission?: Yes (6) Tracheostomy dependence Is this a current diagnosis for this admission?: Yes Plan: Pulmonology consulted: Tracheostomy in place is too small and patient needs revision with a larger tracheostomy placed in the OR ENT consulted: Planning to swap tracheostomy for a larger 1 when INR improves (7) Ventilator dependent Is this a current diagnosis for this admission?: Yes (8) Necrotic toes Is this a current diagnosis for this admission?: Yes (9) ARF (acute renal failure) Qualifiers: Acute renal failure type: unspecified Qualified Code(s): N17.9 - Acute kidney failure, unspecified Is this a current diagnosis for this admission?: Yes (10) Acute kidney injury Is this a current diagnosis for this admission?: Yes (11) Acute respiratory failure Qualifiers: Respiratory failure complication: hypoxia Qualified Code(s): J96.01 - Acute respiratory failure with hypoxia Is this a current diagnosis for this admission?: Yes (12) Endocarditis determined by echocardiography Is this a current diagnosis for this admission?: Yes (13) Super-super obese Is this a current diagnosis for this admission?: Yes (14) Thrombocytopenia Is this a current diagnosis for this admission?: Yes Plan: Heparin products held initially, then restarted as prophylactic dose Platelets rising gradually HIT panel negative Hematology consulted and the case was discussed with them in detail (15) Hypothyroidism Qualifiers: Hypothyroidism type: unspecified Qualified Code(s): E03.9 - Hypothyroidism, unspecified Is this a current diagnosis for this admission?: Yes (16) Sepsis Qualifiers: Sepsis type: methicillin susceptible Staphylococcus aureus Sepsis acute organ dysfunction status: with acute organ dysfunction Severe sepsis acute organ dysfunction type: acute respiratory failure Acute respiratory failure type: with hypoxia Severe sepsis shock status: without septic shock Qualified Code(s): A41.01 - Sepsis due to Methicillin susceptible Staphylococcus aureus; R65.20 - Severe sepsis without septic shock; J96.01 - Acute respiratory failure with hypoxia Is this a current diagnosis for this admission?: Yes - Plan Summary Summary: BRODIE thought to be secondary to ATN. She received a Lasix drip. 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 Last blood cultures have been negative patient is currently on cefazolin. She is currently on day 18 of a 6-week treatment course from the date of negative blood culture which was on July 02. It appears Ancef 1 g every 12 was started on July 02. Acute respiratory failure status post tracheostomy placement on July 17 and appears her respiratory status is pretty tenuous and will have to continue close monitoring. 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 She was initially admitted on June 28 due to pneumonia and acute respiratory failure and was diagnosed with ARDS, septic shock and was intubated. 07/25/2020 Patient's overall prognosis is very poor and she is at a very high risk for adverse outcome including At this point we are still waiting for patient's family for review conferencing. Unfortunately it appears there is no smart phone available and they have not been able to see the patient even via teleconferencing. I believe this should be arranged by social services technician. My understanding the mother is disabled and the father also has a medical condition preventing them from coming into the hospital patient is scheduled for an EEG next week as there was none available this week. Also had problems with her NG tube. She had a double which unfortunately was this large and we have been unable to reinsert an NG tube. 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 Be addressed this coming week. It may be worth contacting surgery again for possible PEG placement or j-tube but a lot of it is going to depend on patient's ultimate status. Family conference may also be needed but I believe all this is down the line as patient status needs to be addressed first - Time Time Spent with patient: 35 or more minutes Medications reviewed and adjusted accordingly: Yes Anticipated Discharge Disposition: [facility] Facility Anticipated Discharge Timeframe: Unknown - Inpatient Certification Based on my medical assessment, after consideration of the patient's comorbidit ies, presenting symptoms, or acuity I expect that the services needed warrant INPATIENT care.: Yes I certify that my determination is in accordance with my understanding of Me stefan's requirements for reasonable and necessary INPATIENT services [42 CFR 412.3e].: Yes Medical Necessity: Significant Comorbidiites Make Outpatient Treatment Too Risky, Need Close Monitoring Due to Risk of Patient Decompensation, Need For IV Fluids, Need for IV Antibiotics, Need for Surgery, Risk of Complication if Not Cared For in Hospital, Risk of Diagnosis Which Will Require Inpatient Eval/Care/Monitoring
[2020-08-01 18:28] LABS: MEAN CORPUSCULAR HGB CONC 31.8 g/dL (32.0-36.0); MEAN CORPUSCULAR VOLUME 75 fl (80-97); RED BLOOD COUNT 3.05 10^6/uL (3.72-5.28); RED CELL DISTRIBUTION WIDTH 22.7 % (11.5-14.0); WHITE BLOOD COUNT 17.5 10^3/uL (4.0-10.5)
[2020-08-01 18:43] LABS: PLATELET COUNT 45 10^3/uL (150-450)
[2020-08-01 18:46] LABS: ABSOLUTE LYMPHOCYTES# (MANUAL) 2.1 10^3/uL (0.5-4.7); ABSOLUTE MONOCYTES # (MANUAL) 2.6 10^3/uL (0.1-1.4); BASOPHILS % (MANUAL) 0 % (0-2); EOSINOPHILS % (MANUAL) 0 % (0-6); LYMPHOCYTES % (MANUAL) 12 % (13-45); MONOCYTES % (MANUAL) 15 % (3-13); SEGMENTED NEUTROPHILS % (MAN) 73 % (42-78); TOTAL CELLS COUNTED 100
[2020-08-01 18:52] LABS: ANISOCYTOSIS 3+; HYPOCHROMASIA 1+; OVALOCYTES 1+; PLATELET COMMENT DECREASED; PLATELET LARGE PRESENT; POLYCHROMASIA 1+; TOXIC VACUOLATION PRESENT
[2020-08-01 18:54] LABS: HEMOGLOBIN 7.3 g/dL (12.0-15.5)
[2020-08-01] MEDS ORDERED: MEROPENEM 1 GM VIAL ONE (21:54)
[2020-08-01] MEDS: HEPARIN SOD (PORCINE) 5,000 UNIT/ML 1 ML VIAL SUBCUT SCH (22:20)
[2020-08-02] MEDS: MORPHINE SULFATE 10 MG/ML INJ IV PRN ×2 (03:30→18:29)
[2020-08-02] MEDS: HEPARIN SOD (PORCINE) 5,000 UNIT/ML 1 ML VIAL SUBCUT SCH ×3 (06:33→22:00)
[2020-08-02] MEDS: MEROPENEM 1 GM in NORMAL SALINE 50 ML IV SCH ×3 (06:45→21:59)
[2020-08-02] MEDS: DEXTROSE 5%-WATER 1000 ML 1,000 ML IV PRN (06:45)
[2020-08-02 07:42] LABS: ANION GAP 9 (5-19); BLOOD UREA NITROGEN 77 mg/dL (7-20); CALCIUM 8.1 mg/dL (8.4-10.2); CARBON DIOXIDE 29 mmol/L (22-30); CHLORIDE 104 mmol/L (98-107); GLUCOSE 124 mg/dL (75-110); POTASSIUM 3.5 mmol/L (3.6-5.0)
[2020-08-02] MEDS: LACTOBACILLUS ACIDOPHILUS 250 MG TAB PO SCH ×4 (10:28→21:59)
[2020-08-02] MEDS: FERROUS SULFATE LIQUID 300 MG/5 ML UDC PO SCH ×2 (10:28→17:53)
[2020-08-02] MEDS: POTASSIUM CHLORIDE 20 MEQ PACKET NG SCH (10:29)
[2020-08-02] MEDS: AMINO AC/PROTEIN HYDR/WHEY PRO 11 GM/45 ML PKT NG SCH ×2 (10:29→17:53)
[2020-08-02] MEDS: HYDROCORTISONE SOD SUCCINATE INJ/PF 100 MG/2 ML SDV IV SCH (10:30)
[2020-08-02] MEDS: CHOLECALCIFEROL (D3) 400 UNIT/ML DROPS 50 ML PO SCH (10:30)
[2020-08-02] MEDS: THIAMINE HCL 100 MG in NORMAL SALINE 50 ML IV SCH (10:42)
[2020-08-02 11:18] LABS: INTERNATIONAL RATION (INR) 1.17; PROTHROMBIN TIME 15.1 SEC (11.4-15.4)
[2020-08-02 11:22] LABS: ABSOLUTE BASOPHILS # (AUTO) 0.1 10^3/uL (0.0-0.2); ABSOLUTE EOSINOPHILS # (AUTO) 0.1 10^3/uL (0.0-0.6); ABSOLUTE LYMPHOCYTES (AUTO) 1.3 10^3/uL (0.5-4.7); ABSOLUTE MONOCYTES (AUTO) 2.2 10^3/uL (0.1-1.4); ABSOLUTE NEUT (AUTO) 15.2 10^3/uL (1.7-8.2); BASOPHILS % (AUTO) 0.4 % (0-2); EOSINOPHILS % (AUTO) 0.4 % (0-6); HEMATOCRIT 22.6 % (36.0-47.0); LYMPHOCYTES % (AUTO) 6.9 % (13-45); MEAN CORPUSCULAR HEMOGLOBIN 23.7 pg (27.0-33.4); MEAN CORPUSCULAR HGB CONC 30.6 g/dL (32.0-36.0); MEAN CORPUSCULAR VOLUME 78 fl (80-97); MONOCYTES % (AUTO) 11.7 % (3-13); RED BLOOD COUNT 2.91 10^6/uL (3.72-5.28); RED CELL DISTRIBUTION WIDTH 22.8 % (11.5-14.0); SEGMENTED NEUTROPHILS % (AUTO) 80.6 % (42-78); TOTAL CELLS COUNTED % (AUTO) 100 %; WHITE BLOOD COUNT 18.8 10^3/uL (4.0-10.5)
[2020-08-02 11:41] LABS: ANION GAP 6 (5-19); BLOOD UREA NITROGEN 80 mg/dL (7-20); CALCIUM 8.1 mg/dL (8.4-10.2); CARBON DIOXIDE 31 mmol/L (22-30); CHLORIDE 104 mmol/L (98-107); GLUCOSE 115 mg/dL (75-110); POTASSIUM 3.6 mmol/L (3.6-5.0)
[2020-08-02 11:50] LABS: HEMOGLOBIN 6.9 g/dL (12.0-15.5)
[2020-08-02 11:51] LABS: PLATELET COUNT 38 10^3/uL (150-450)
[2020-08-02] MEDS ORDERED: NORMAL SALINE 250 ML IV PRN ×2 (16:49)
--- NOTE | 2020-08-02 17:11 | PDOC PROGRESS REPORT ---
Subjective Subjective:: Per previous physician: "07/21 patient apparently had an eventful evening. She started bleeding from the tracheostomy. It appears surgery was consulted. This morning we have also reconsulted ENT as they appear to be a potential issues with the tracheostomy. She is currently stable. It is noted that hemoglobin did drop overnight and this may have been from her bleeding. I will repeat hemoglobin this afternoon and decide on transfusion if needed. She actually seems to be somewhat more responsive although still unable to appropriately respond but she is awake and alert. Chest x-ray reveals multifocal pulmonary opacities with extensive subcutaneous emphysema with questionable pneumomediastinum and pneumopericardium 07/23- Uneventful day today Prognosis remains poor Need a penitentiary plan but will need to get EEG first, unavailable till next week Plan for a family meeting once EEG result available and at least 30 days have elapsed to have a better clarity Will insert NGT today. 07/24 Unable to insert NGT per nursing staff. Will send down to [facility] for Dobhoff tube 07/26/2020-no change in mental status. Has a trach connected to the vent. In my opinion she able to respond to the verbal commands by closing the eyes and try to smile. nurses is noticed mottling and discoloration of the toes in both feet. Platelet count is 100,000 it may be a contraindication for Lovenox treatment dose. Overall prognosis poor condition is critical. Nurses unable to place Dobbhoff. Patient is getting dextrose by IV. 07/27/2020-patient is going to have EEG today. Hopefully will get the results by the evening. No changes in physical condition or mental condition. Overall prognosis poor condition is critical." 07/28/2020 Many aspects of care will need to be changed per my review of the chart today. 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 I discussed the case with ID today who agreed that the patient should be transferred to have this valve surgically addressed while she is continuing antibiotics. Also noted she has an upper extremity DVT as well as a dorsalis pedis arterial occlusion noted on PVL. She is on prophylactic heparin which is almost certainly not helping this. Her platelets have been challenging the ability to give her full dose anticoagulation but as they have been rising for the past few days this should be readdressed. That said, I do not believe these occlusions are necessarily all due to DVT from acute illness or hypercoagulability, I think it is more likely they are due to septic emboli from her endocarditis which is clearly seen on ANGELIA. The EEG that was done was confounded by the fact the patient was being given sedatives and the EEG was repeated today. I question the utility of an EEG as the purpose that was given to me is to assess for brain however she clearly does not have brain by simple physical exam. 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 Reportedly per my discussions with nursing, the parents of the patient have a very poor understanding of the patient's serious illness and are expecting her to make a full recovery. They are coming in tomorrow to have a meeting with the staff and to see the patient for the first time since her admission. It is unclear if any physicians have reached out to the family other than yesterday when Dr. George spoke to them about hospice. I do not believe the patient should remain at this facility and we need to explore transferring her out if the family wishes to continue with aggressive care. I cannot make a definitive statement at this time about how much recovery of any she will be able to achieve going forward. She has an overall rather poor long-term prognosis but she does have youth on her side and this may afford her some small buffer for acute critical illness like she has experienced here. Her super morbid obesity greatly complicates every aspect of her care and recovery. 07/29/2020 Extensive conversation with the patient's to parents and multiple staff members today. I discussed the patient's course thus far and the plan going forward to the best my ability having taken care of the patient for the past approximate 24 hours. ICU notes are extremely sparse for information and the patient's family members state that they had not spoken to a physician until Dr. George office spoke with them 2 days ago about hospice. I explained the patient is extremely ill and if she survives her current illness she will likely be permanently disabled for the rest of her life. Also explained that there is a very good chance that she will not survive her illness or may pass away during 1 of her needed surgical procedures. I also explained to them that we are extremely limited in the imaging modalities we can utilize for the patient due to her extremely high BMI/weight and the fact that our scanners cannot accommodate this degree of obesity. They stated they would like all aggressive measures pursued including surgeries and other procedures that may prolong her life even at the expense of personal pain and suffering to the patient and even with the knowledge that she may not survive these procedures. For now, they would like patient to remain full code but they may consider limiting care in the future if patient declines further. This advanced care planning discussion took place over the course of approximately 1 hour in addition to the clinical visit I had with the patient earlier today. Today, I noted in her labs that her blood counts are all down likely dilutional and her creatinine is elevated. I will reach out to outside facilities and attempt to transfer the patient for definitive treatment of her endocarditis most likely mitral valve replacement. Parents also want the patient to have tracheostomy replacement as recommended by Dr. Wood and also have a permanent abdominal feeding tube placed by general surgery. They stated they would also consent to any debridement or amputation that may be required to treat the necrosis of the likely septic emboli induced digit ischemia in her feet. Patient remains on the ventilator through tracheostomy and does not respond to commands. 07/30/2020 I made multiple phone calls today and had multiple conversations with various facilities and physicians. [facility] and [facility] have immediately denied transfer to their facility for treatment of endocarditis. I reached out to [facility] and they are currently reviewing the patient's chart for transfer. They stated she will need an ICU bed there. I contacted ENT and they stated they will come to bedside tomorrow and swap out the patient's tracheostomy for a larger Shiley 8 cuffed nonfenestrated trach. I discussed this with nursing to make sure it is at bedside tomorrow when they come by. I reconsulted general surgery and discussed the case with them. They stated they did not believe the patient would benefit from a G-tube/PEG and did not wish to pursue surgical intervention for this. They recommended a Dobbhoff instead. I discussed patient's chest CT that was done today with general surgery as well and they stated they do not believe the patient needs a chest tube and they do not believe that she has a loculated pleural effusion that would be the source of her current infection. I reviewed the CT myself and it looks like she has about a 3 cm depth pleural effusion with some heterogeneous qualities to it along with bilateral pneumonia. I discussed the scan with the radiologist and he stated if we felt it would be beneficial, he would do a thoracentesis. I have ordered this and they will transition from a thoracentesis to a chest tube if they get pus returned with her thoracentesis. I have ordered all appropriate labs and cultures for the pleural fluid that will come out. Head CT did not show any significant abnormality specifically no strokes. Abdominal CT was generally unremarkable however I did see some strange appearing enhancement in the patient's liver although this was not mentioned in the radiology report. Patient's creatinine is lower today and her platelets are approximately the same. WBC is higher and she is now having a fever again up to 102. We will repeat blood cultures today. 07/31/2020 I spoke with the CT surgeon at [facility] and he stated that patients they have seen their with a BMI of 62 or above have had an approximately 100% mortality rate due to sternal wound dehiscence after valve replacement. He strongly recommended against any kind of cardiothoracic surgery and instead recommended medical management for now. He stated the patient developed significant mitral regurg, she may be a candidate for percutaneous mitral clip but at this time she is also not a candidate for that either. They did not accept the patient for transfer needless to say. I checked coag studies in ant icipation of thoracentesis for pleural effusion seen on chest CT and patient had a markedly elevated INR up to approximately 13. This was drawn of the patient's central line and when it was repeated peripherally INR was still approximately 9. I have ordered the patient to get 5 mg IV vitamin K. Given she is spiking fevers, tachycardic, having worsening anemia/thrombocytopenia and her LDH is martha vated concerned she is potentially in DIC or at high risk to go into DIC. She is having some bleeding at her tracheostomy site. Radiology will not be able to do a thoracentesis today due to markedly elevated INR and we will attempt this again tomorrow once we get her INR down using vitamin K. I have changed the patient's antibiotics to broad-spectrum due to new fevers. I am concerned that she may have developed catheter associated UTI given she has had a Villaseñor catheter for over 1 month now. Nursing will get UA with reflex culture today. I will discuss with the patient's parents the many problems facing the patient at this time. I am concerned that if the patient continues on her current course she will not survive this admission. My primary goal at this time is to establish good source control over any and all infections that she may currently have. 08/01/2020 Consulted hematology and discussed case with Dr. Bosch today in detail. He believes we should stop Zosyn and start the patient on alternative Pseudomonas antibiotic such as Merrem given Zosyn can cause worsening thrombocytopenia. I have made this change in the orders. I have ordered a recheck CBC for this afternoon as patient looks rather pale this morning I feel that she may soon require transfusion. Her INR has made a significant improvement and is now down to 1.8 today. Will need radiology to reassess the patient for thoracentesis as this is the only way to establish good source control and I feel that the patient may be getting less clinically stable the longer the infection source remains in place. Patient is having fevers up to 105 and is more tachycardic and tachypneic today on 50% FiO2. White blood cells are higher and hemoglobin and platelets are lower. I have added thiamine and ordered an anemia work-up panel. Patient has been on hydrocortisone since she was in the ICU and despite looking through many of the notes over the last month I cannot find anywhere in the physician notes stating why she is on steroids and what the plan is for this medication. I have started tapering her off of these and this will need to be continued over the next week or so. Overall, patient seems to be doing much worse today clinically overall. She is high risk to require ICU level care yet again. 08/02/2020 Hemoglobin with acute drop today below 7 we will transfuse 1 unit PRBC. Temperature is a bit more controlled than yesterday with Tylenol and a cooling blanket. Cooling blanket is now been removed. Creatinine is lower again at 1.82. Iron studies are mixed but we will err on the side of caution and give her some oral iron. If she did not have sepsis, we could give IV iron. I discu ssed the case with interventional radiology today and they stated they would perform patient's thoracentesis today. Interestingly, patient seems to be a bit more alert today and her attention seems to be a bit improved although certainly not substantially. She is still favoring her right side which certainly still raises the question of an anoxic brain injury. She is obviously not brain in case this was ever in question. We will continue with aggressive measures as requested by the patient's parents and see how far the patient can recover back towards her baseline. We need good source control via thoracentesis. Her UA was clearly infected and her urine culture has been sent. Villaseñor has been changed out yesterday. Order placed for us to change out the Villaseñor weekly. Reason For Visit: ARDS, POSSIBLE COVID 19 Physical Exam Vital Signs: Temp Pulse Resp BP Pulse Ox 100.8 F H 110 H 15 146/82 H 98 08/02/20 08:46 08/02/20 08:46 08/02/20 08:46 08/02/20 08:46 08/02/20 12:41 Intake & Output 08/01/20 08/02/20 08/03/20 06:59 06:59 06:59 Intake Total 2696 2531 50 Output Total 850 1100 Balance 1846 1431 50 Weight 174.406 kg 178.5 kg Exam: General appearance: PRESENT: mild distress, morbidly obese, does not respond to commands, opens eyes and briefly makes eye contact then immediately returns to looking to the right Head exam: PRESENT: atraumatic, normocephalic Eye exam: PRESENT: conjunctiva pale Respiratory exam: PRESENT: rales - Upper airway rales, possibly due to mucus and trach. ABSENT: rhonchi, wheezes Pulses: PRESENT: +1 pedal pulses bilateral - Weak dorsalis pedis pulses bilaterally GI/Abdominal exam: PRESENT: normal bowel sounds, soft. ABSENT: distended, guarding, mass, organolmegaly, rebound, tenderness Extremities exam: PRESENT: other - Toes on right foot are becoming necrotic Neurological exam: ABSENT: alert, Present: Awake Psychiatric exam: PRESENT: agitated. ABSENT: appropriate affect, normal mood Skin exam: PRESENT: dry, intact, warm Results Laboratory Results: 08/02/20 10:45 08/02/20 10:45 08/01/20 08/02/20 08/02/20 18:11 06:50 10:45 WBC 17.5 H 18.8 H RBC 3.05 L 2.91 L Hgb 7.3 L 6.9 L Hct 23.0 L 22.6 L MCV 75 L 78 L MCH 24.0 L 23.7 L MCHC 31.8 L 30.6 L RDW 22.7 H 22.8 H Plt Count 45 L 38 L Seg Neutrophils % Not Reportable 80.6 H Sodium 141.9 Potassium 3.5 L Chloride 104 Carbon Dioxide 29 Anion Gap 9 BUN 77 H Creatinine 1.82 H Est GFR ( Amer) 40 L Glucose 124 H Calcium 8.1 L Vitamin B12 344.0 08/02/20 10:45 WBC RBC Hgb Hct MCV MCH MCHC RDW Plt Count Seg Neutrophils % Sodium 140.5 Potassium 3.6 Chloride 104 Carbon Dioxide 31 H Anion Gap 6 BUN 80 H Creatinine 1.97 H Est GFR ( Amer) 37 L Glucose 115 H Calcium 8.1 L Vitamin B12 07/30/20 23:45 Blood Blood Culture (PCR) - Final Pseudomonas Aeruginosa 07/30/20 23:45 Blood Blood Culture - Final Pseudomonas Aeruginosa 06/30/20 06/30/20 07/04/20 03:58 03:58 04:30 Creatine Kinase 188 H NT-Pro-B Natriuret Pep 82753 H 43182 H Impressions: Lower Extremity Ultrasound 06/30/20 00:00 IMPRESSION: 1. Multiphasic waveforms with three-vessel runoff bilaterally. 2. The right dorsalis pedis is not visualized and may be occluded. Diminished, but patent left dorsalis pedis. Venous Doppler Study 07/11/20 00:00 IMPRESSION: Acute hypoechoic clot occludes the cephalic vein in the antecubital fossa KUB X-Ray 07/16/20 00:00 IMPRESSION: Tip of the Dobbhoff catheter in the left upper quadrant, as above copyright 2011 [employer]- All Rights Reserved Chest X-Ray 07/29/20 00:00 IMPRESSION: Cardiomegaly mild vascular congestion. Central line remains in satisfactory position. No pneumothorax. Overall findings are significantly improved from prior study. Gastrostomy Tube Placement 07/30/20 00:00 IMPRESSION: Successful fluoroscopic guided placement of a Dobhoff tube. Tube is ready for use. Guidance Fluoroscopy 07/30/20 00:00 IMPRESSION: Successful fluoroscopic guided placement of a Dobhoff tube. Tube is ready for use. WBC Scan Nuclear Medicine 07/30/20 00:00 IMPRESSION: Inflammation/ infection in the lungs. No other significant uptake. Abdomen/Pelvis CT 07/30/20 08:00 IMPRESSION: 1. No evidence of abscess or other acute abnormality. 2. Cholelithiasis. Chest CT 07/30/20 08:00 IMPRESSION: Diffuse bilateral airspace disease consistent with pneumonia/sepsis. No empyema. No pneumothorax. Head CT 07/30/20 08:00 IMPRESSION: NORMAL BRAIN CT WITHOUT CONTRAST. EVIDENCE OF ACUTE STROKE: NO. Abdomen Ultrasound 07/31/20 00:00 IMPRESSION: Cholelithiasis without other associated ancillary findings to indicate an acute cholecystitis. Chest Ultrasound 07/31/20 00:00 IMPRESSION: Small right-sided pleural effusion. Assessment and Plan - Diagnosis (1) Recurrent bacterial pneumonia Is this a current diagnosis for this admission?: Yes Plan: Previously had pneumonia and 03/2020 admission which was treated with antibiotics, later worsened and she was given more antibiotics by her PCP, per family this did not resolve her pneumonia and she continued to remain ill Chest CT showed right pleural effusion depth of approximately 3 cm by my read, discussed this with radiology Thoracentesis ordered, procedure delayed due to markedly elevated INR up to 13, given vitamin K and INR is now much improved May need chest tube if pus comes from thoracentesis Thoracentesis chemistries and cultures ordered Vancomycin/Merrem antibiotics broadened due to clinical deterioration and new Pseudomonas in blood cultures on 07/3008/02/2020 Discussed the case with interventional radiology who stated they would perform thoracentesis today. Follow-up pleural fluid analysis and cultures Continue vancomycin/Merrem (2) Infectious endocarditis Qualifiers: Infective endocarditis organism: bacterial Chronicity: acute Qualified C ode(s): I33.0 - Acute and subacute infective endocarditis Is this a current diagnosis for this admission?: Yes Plan: MSSA bacteremia on blood cultures, follow-up blood cultures are negative Remove all central venous lines including dialysis lines, discussed with nephrology who states she does not need this anymore and it was instructed to be removed 2 weeks prior to 07/28/2020 though this was not done; must be removed, discussed with nursing Cefazolin for 6 weeks from negative blood cultures Needs transfer to outside hospital for definitive management of mitral valve vegetation, parents in agreement with the plan Unclear source of MSSA bacteremia ID consulted and reconsulted: Continue cefazolin 07/29/2020 Extensive discussion with the family, they want all aggressive measures and procedures and want the patient to be full code Suspect source is probable lung abscess from previous pneumonia that occurred initially in 03/2020 and likely became pulmonary abscess which then seeded her blood and caused endocarditis. Parents state this timeline is consistent with her health which was quite poor even after discharge from previous pneumonia treatment 07/30/[address] showed bilateral pneumonia with right-sided pleural effusion, thoracentesis ordered and discussed with radiology Abdominal CT with no acute findings although some strange enhancement in the liver in [address] did not show stroke or other acute abnormalities, no evidence of anoxic brain injury although an MRI would be much more sensitive for this Needs transfer to outside hospital for mitral valve replacement, we have been denied by [facility]; [facility] is currently reviewing the case for transfer 07/31/2020 CT surgeon at [facility] stated that patients they have seen with a BMI of 62 or above have had an approximately 100% mortality rate due to sternal wound dehiscence after valve replacement. He strongly recommended against any kind of cardiothoracic surgery and instead recommended medical management for now. He stated the patient developed significant mitral regurg, she may be a candidate for percutaneous mitral clip but at this time she is also not a candidate for that either Continue antibiotics 08/01/2020 Continued on antibiotics as before and antibiotics changed to vancomycin and Merrem today (3) MSSA bacteremia Is this a current diagnosis for this admission?: Yes Plan: As above (4) Mitral valve vegetation Is this a current diagnosis for this admission?: Yes (5) Acute hypoxemic respiratory failure Is this a current diagnosis for this admission?: Yes Plan: Multifactorial: ALBA, OHS, endocarditis and acute illness Treat underlying cause with positive pressure/ventilator support and s upplemental oxygen, antibiotics, definitive management of mitral valve endocarditis (6) Tracheostomy dependence Is this a current diagnosis for this admission?: Yes (7) Ventilator dependent Is this a current diagnosis for this admission?: Yes (8) Necrotic toes Is this a current diagnosis for this admission?: Yes (9) ARF (acute renal failure) Qualifiers: Acute renal failure type: unspecified Qualified Code(s): N17.9 - Acute kidney failure, unspecified Is this a current diagnosis for this admission?: Yes (10) Acute kidney injury Is this a current diagnosis for this admission?: Yes (11) Acute respiratory failure Qualifiers: Respiratory failure complication: hypoxia Qualified Code(s): J96.01 - Acute respiratory failure with hypoxia Is this a current diagnosis for this admission?: Yes (12) Endocarditis determined by echocardiography Is this a current diagnosis for this admission?: Yes (13) Super-super obese Is this a current diagnosis for this admission?: Yes (14) Thrombocytopenia Is this a current diagnosis for this admission?: Yes (15) Hypothyroidism Qualifiers: Hypothyroidism type: unspecified Qualified Code(s): E03.9 - Hypothyroidism, unspecified Is this a current diagnosis for this admission?: Yes (16) Sepsis Qualifiers: Sepsis type: methicillin susceptible Staphylococcus aureus Sepsis acute organ dysfunction status: with acute organ dysfunction Severe sepsis acute organ dysfunction type: acute respiratory failure Acute respiratory failure type: with hypoxia Severe sepsis shock status: without septic shock Qual ified Code(s): A41.01 - Sepsis due to Methicillin susceptible Staphylococcus aureus; R65.20 - Severe sepsis without septic shock; J96.01 - Acute respiratory failure with hypoxia Is this a current diagnosis for this admission?: Yes Plan: Source is most likely persistent unresolved pneumonia which reportedly began 03/2020 on previous admission and persisted despite multiple courses of antibiotics, resulted in mitral valve endocarditis Other source is UTI seen on UA, Villaseñor changed, order placed for Villaseñor to be changed weekly Need source control: Order thoracentesis which may transition to chest tube if pus is returned Pleural fluid analysis chemistries ordered along with pleural fluid cultures IV fluids Close hemodynamic monitoring Thoracentesis delayed due to markedly elevated INR, supplemented with vitamin K IV Repeat blood cultures on 07/30 growing Pseudomonas multi-sensitive Urine culture pending - Plan Summary Summary: BRODIE thought to be secondary to ATN. She received a Lasix drip. 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 Last blood cultures have been negative patient is currently on cefazolin. She is currently on day 18 of a 6-week treatment course from the date of negative blood culture which was on July 02. It appears Ancef 1 g every 12 was started on July 02. Acute respiratory failure status post tracheostomy placement on July 17 and appears her respiratory status is pretty tenuous and will have to continue close monitoring. 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 She was initially admitted on June 28 due to pneumonia and acute respiratory failure and was diagnosed with ARDS, septic shock and was intubated. 07/25/2020 Patient's overall prognosis is very poor and she is at a very high risk for adverse outcome including At this point we are still waiting for patient's family for review conferencing. Unfortunately it appears there is no smart phone available and they have not been able to see the patient even via teleconferencing. I believe this should be arranged by health and social care teacher. My understanding the mother is disabled and the father also has a medical condition preventing them from coming into the hospital patient is scheduled for an EEG next week as there was none available this week. Also had problems with her NG tube. She had a double which unfortunately was this large and we have been unable to reinsert an NG tube. 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 Be addressed this coming week. It may be worth contacting surgery again for possible PEG placement or j-tube but a lot of it is going to depend on patient's ultimate status. Family conference may also be needed but I believe all this is down the line as patient status needs to be addressed first - Time Time Spent with patient: 35 or more minutes Medications reviewed and adjusted accordingly: Yes Anticipated Discharge Disposition: Longterm Care Facility Anticipated Discharge Timeframe: within 72 hours - Inpatient Certification Based on my medical assessment, after consideration of the patient's comorbidities, presenting symptoms, or acuity I expect that the services needed warrant INPATIENT care.: Yes I certify that my determination is in accordance with my understanding of Medicare's requirements for reasonable and necessary INPATIENT services [42 CFR 412.3e].: Yes Medical Necessity: Significant Comorbidiites Make Outpatient Treatment Too Risky, Need Close Monitoring Due to Risk of Patient Decompensation, Need For IV Fluids, Need for IV Antibiotics, Need for Surgery, Risk of Complication if Not Cared For in Hospital, Risk of Diagnosis Which Will Require Inpatient Eval/Care/Monitoring
[2020-08-02] MEDS: VANCOMYCIN HCL 1,500 MG in DEXTROSE 5%-WATER 250 ML IV SCH (17:54)
[2020-08-02] MEDS: LORAZEPAM INJ 2 MG/1 ML VIAL IV PRN (22:23)
[2020-08-03] MEDS: MORPHINE SULFATE 10 MG/ML INJ IV PRN (01:35)
[2020-08-03] MEDS: DEXTROSE 5%-WATER 1000 ML 1,000 ML IV PRN (02:28)
[2020-08-03] MEDS: HEPARIN SOD (PORCINE) 5,000 UNIT/ML 1 ML VIAL SUBCUT SCH ×2 (05:15→13:41)
[2020-08-03] MEDS: MEROPENEM 1 GM in NORMAL SALINE 50 ML IV SCH ×3 (05:19→22:34)
[2020-08-03 06:17] LABS: ANION GAP 9 (5-19); BLOOD UREA NITROGEN 83 mg/dL (7-20); CALCIUM 8.3 mg/dL (8.4-10.2); CARBON DIOXIDE 27 mmol/L (22-30); CHLORIDE 103 mmol/L (98-107); GLUCOSE 109 mg/dL (75-110); HEMATOCRIT 23.4 % (36.0-47.0); MEAN CORPUSCULAR HEMOGLOBIN 24.2 pg (27.0-33.4); MEAN CORPUSCULAR VOLUME 78 fl (80-97); POTASSIUM 3.5 mmol/L (3.6-5.0); RED BLOOD COUNT 2.99 10^6/uL (3.72-5.28); RED CELL DISTRIBUTION WIDTH 21.1 % (11.5-14.0); WHITE BLOOD COUNT 19.5 10^3/uL (4.0-10.5)
[2020-08-03 06:54] LABS: HEMOGLOBIN 7.2 g/dL (12.0-15.5)
[2020-08-03 07:00] LABS: ABSOLUTE LYMPHOCYTES# (MANUAL) 1.8 10^3/uL (0.5-4.7); ANISOCYTOSIS 3+; BASOPHILS % (MANUAL) 0 % (0-2); EOSINOPHILS % (MANUAL) 2 % (0-6); LYMPHOCYTES % (MANUAL) 9 % (13-45); MONOCYTES % (MANUAL) 10 % (3-13); NUCLEATED RED BLOOD CELLS 1 /100 WBC (0); POLYCHROMASIA SLIGHT; SEGMENTED NEUTROPHILS % (MAN) 79 % (42-78); TOTAL CELLS COUNTED 100
[2020-08-03 07:01] LABS: PLATELET COMMENT DECREASED
[2020-08-03 07:02] LABS: PLATELET COUNT 30 10^3/uL (150-450)
--- NOTE | 2020-08-03 07:55 | PDOC PROGRESS REPORT ---
Subjective Progress Note for:: 08/03/20 Subjective:: No acute events noticed overnight Reason For Visit: ARDS, POSSIBLE COVID 19 Physical Exam Vital Signs: Temp Pulse Resp BP Pulse Ox 98.7 F 94 20 140/80 H 100 08/03/20 04:35 08/03/20 04:35 08/03/20 04:35 08/03/20 04:35 08/03/20 04:35 Intake & Output 08/02/20 08/03/20 08/04/20 06:59 06:59 06:59 Intake Total 2531 2983 Output Total 1100 750 Balance 1431 2233 Weight 178.5 kg 179.7 kg General appearance: PRESENT: no acute distress, well-developed, well-nourished Head exam: PRESENT: atraumatic, normocephalic Eye exam: PRESENT: conjunctiva pink, EOMI, PERRLA. ABSENT: scleral icterus Ear exam: PRESENT: normal external ear exam Mouth exam: PRESENT: moist, tongue midline Neck exam: ABSENT: carotid bruit, JVD, lymphadenopathy, thyromegaly Respiratory exam: PRESENT: clear to auscultation beatriz. ABSENT: rales, rhonchi, wheezes Cardiovascular exam: PRESENT: RRR. ABSENT: diastolic murmur, rubs, systolic murmur Pulses: PRESENT: normal dorsalis pedis pul Vascular exam: PRESENT: normal capillary refill GI/Abdominal exam: PRESENT: normal bowel sounds, soft. ABSENT: distended, guarding, mass, organolmegaly, rebound, tenderness Rectal exam: PRESENT: deferred Extremities exam: PRESENT: full ROM. ABSENT: calf tenderness, clubbing, pedal edema Neurological exam: PRESENT: alert, awake, oriented to person, oriented to place, oriented to time, oriented to situation, CN II-XII grossly intact. ABSENT: motor sensory deficit Psychiatric exam: PRESENT: appropriate affect, normal mood. ABSENT: homicidal ideation, suicidal ideation Skin exam: PRESENT: dry, intact, warm. ABSENT: cyanosis, rash Results Laboratory Results: 08/03/20 04:45 08/03/20 04:45 08/02/20 08/02/20 08/02/20 06:50 10:45 10:45 WBC 18.8 H RBC 2.91 L Hgb 6.9 L Hct 22.6 L MCV 78 L MCH 23.7 L MCHC 30.6 L RDW 22.8 H Plt Count 38 L Seg Neutrophils % 80.6 H Sodium 141.9 140.5 Potassium 3.5 L 3.6 Chloride 104 104 Carbon Dioxide 29 31 H Anion Gap 9 6 BUN 77 H 80 H Creatinine 1.82 H 1.97 H Est GFR ( Amer) 40 L 37 L Glucose 124 H 115 H Calcium 8.1 L 8.1 L Vitamin B12 344.0 Blood Type Antibody Screen 08/02/20 08/03/20 08/03/20 17:00 04:45 04:45 WBC 19.5 H RBC 2.99 L Hgb 7.2 L Hct 23.4 L MCV 78 L MCH 24.2 L MCHC 31.0 L RDW 21.1 H Plt Count 30 L* Seg Neutrophils % Not Reportable Sodium 139.4 Potassium 3.5 L Chloride 103 Carbon Dioxide 27 Anion Gap 9 BUN 83 H Creatinine 2.03 H Est GFR ( Amer) 35 L Glucose 109 Calcium 8.3 L Vitamin B12 Blood Type B POSITIVE Antibody Screen NEGATIVE 07/30/20 23:45 Blood Blood Culture (PCR) - Final Pseudomonas Aeruginosa 07/30/20 23:45 Blood Blood Culture - Final Pseudomonas Aeruginosa 06/30/20 06/30/20 07/04/20 03:58 03:58 04:30 Creatine Kinase 188 H NT-Pro-B Natriuret Pep 01564 H 49870 H Impressions: Lower Extremity Ultrasound 06/30/20 00:00 IMPRESSION: 1. Multiphasic waveforms with three-vessel runoff bilaterally. 2. The right dorsalis pedis is not visualized and may be occluded. Diminished, but patent left dorsalis pedis. Venous Doppler Study 07/11/20 00:00 IMPRESSION: Acute hypoechoic clot occludes the cephalic vein in the antecubital fossa KUB X-Ray 07/16/20 00:00 IMPRESSION: Tip of the Dobbhoff catheter in the left upper quadrant, as above copyright 2011 [employer]- All Rights Reserved Chest X-Ray 07/29/20 00:00 IMPRESSION: Cardiomegaly mild vascular congestion. Central line remains in satisfactory position. No pneumothorax. Overall findings are significantly improved from prior study. Gastrostomy Tube Placement 07/30/20 00:00 IMPRESSION: Successful fluoroscopic guided placement of a Dobhoff tube. Tube is ready for use. Guidance Fluoroscopy 07/30/20 00:00 IMPRESSION: Successful fluoroscopic guided placement of a Dobhoff tube. Tube is ready for use. WBC Scan Nuclear Medicine 07/30/20 00:00 IMPRESSION: Inflammation/ infection in the lungs. No other significant uptake. Abdomen/Pelvis CT 07/30/20 08:00 IMPRESSION: 1. No evidence of abscess or other acute abnormality. 2. Cholelithiasis. Chest CT 07/30/20 08:00 IMPRESSION: Diffuse bilateral airspace disease consistent with pneu monia/sepsis. No empyema. No pneumothorax. Head CT 07/30/20 08:00 IMPRESSION: NORMAL BRAIN CT WITHOUT CONTRAST. EVIDENCE OF ACUTE STROKE: NO. Abdomen Ultrasound 07/31/20 00:00 IMPRESSION: Cholelithiasis without other associated ancillary findings to indicate an acute cholecystitis. Chest Ultrasound 07/31/20 00:00 IMPRESSION: Small right-sided pleural effusion. Assessment & Plan - Diagnosis (1) Pancytopenia Is this a current diagnosis for this admission?: Yes Plan: Stable overall, continue to monitor - Time Time Spent with patient: 15-24 minutes
[2020-08-03] MEDS: POTASSIUM CHLORIDE 20 MEQ PACKET NG SCH (09:46)
[2020-08-03] MEDS: AMINO AC/PROTEIN HYDR/WHEY PRO 11 GM/45 ML PKT NG SCH ×2 (09:46→17:39)
[2020-08-03] MEDS: THIAMINE HCL 100 MG in NORMAL SALINE 50 ML IV SCH (09:46)
[2020-08-03] MEDS: CHOLECALCIFEROL (D3) 400 UNIT/ML DROPS 50 ML PO SCH (09:47)
[2020-08-03] MEDS: LACTOBACILLUS ACIDOPHILUS 250 MG TAB PO SCH ×4 (09:47→22:35)
[2020-08-03] MEDS: FERROUS SULFATE LIQUID 300 MG/5 ML UDC PO SCH ×2 (09:47→17:39)
[2020-08-03] MEDS: HYDROCORTISONE SOD SUCCINATE INJ/PF 100 MG/2 ML SDV IV SCH (09:48)
[2020-08-03] MEDS ORDERED: NORMAL SALINE 250 ML IV PRN ×3 (12:25→20:34)
[2020-08-03 14:20] LABS: PATH REVIEW PATHOLOGIST REVIEWED
--- NOTE | 2020-08-03 16:00 | PDOC PROGRESS REPORT ---
Subjective Subjective:: Per previous physician: "07/21 patient apparently had an eventful evening. She started bleeding from the tracheostomy. It appears surgery was consulted. This morning we have also reconsulted ENT as they appear to be a potential issues with the tracheostomy. She is currently stable. It is noted that hemoglobin did drop overnight and this may have been from her bleeding. I will repeat hemoglobin this afternoon and decide on transfusion if needed. She actually seems to be somewhat more responsive although still unable to appropriately respond but she is awake and alert. Chest x-ray reveals multifocal pulmonary opacities with extensive subcutaneous emphysema with questionable pneumomediastinum and pneumopericardium 07/23- Uneventful day today Prognosis remains poor Need a mcc plan but will need to get EEG first, unavailable till next week Plan for a family meeting once EEG result available and at least 30 days have elapsed to have a better clarity Will insert NGT today. 07/24 Unable to insert NGT per nursing staff. Will send down to [facility] for Dobhoff tube 07/26/2020-no change in mental status. Has a trach connected to the vent. In my opinion she able to respond to the verbal commands by closing the eyes and try to smile. nurses is noticed mottling and discoloration of the toes in both feet. Platelet count is 100,000 it may be a contraindication for Lovenox treatment dose. Overall prognosis poor condition is critical. Nurses unable to place Dobbhoff. Patient is getting dextrose by IV. 07/27/2020-patient is going to have EEG today. Hopefully will get the results by the evening. No changes in physical condition or mental condition. Overall prognosis poor condition is critical." 07/28/2020 Many aspects of care will need to be changed per my review of the chart today. 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 I discussed the case with ID today who agreed that the patient should be transferred to have this valve surgically addressed while she is continuing antibiotics. Also noted she has an upper extremity DVT as well as a dorsalis pedis arterial occlusion noted on PVL. She is on prophylactic heparin which is almost certainly not helping this. Her platelets have been challenging the ability to give her full dose anticoagulation but as they have been rising for the past few days this should be readdressed. That said, I do not believe these occlusions are necessarily all due to DVT from acute illness or hypercoagulability, I think it is more likely they are due to septic emboli from her endocarditis which is clearly seen on ANGELIA. The EEG that was done was confounded by the fact the patient was being given sedatives and the EEG was repeated today. I question the utility of an EEG as the purpose that was given to me is to assess for brain however she clearly does not have brain by simple physical exam. 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 Reportedly per my discussions with nursing, the parents of the patient have a very poor understanding of the patient's serious illness and are expecting her to make a full recovery. They are coming in tomorrow to have a meeting with the staff and to see the patient for the first time since her admission. It is unclear if any physicians have reached out to the family other than yesterday when Dr. George spoke to them about hospice. I do not believe the patient should remain at this facility and we need to explore transferring her out if the family wishes to continue with aggressive care. I cannot make a definitive statement at this time about how much recovery of any she will be able to achieve going forward. She has an overall rather poor long-term prognosis but she does have youth on her side and this may afford her some small buffer for acute critical illness like she has experienced here. Her super morbid obesity greatly complicates every aspect of her care and recovery. 07/29/2020 Extensive conversation with the patient's to parents and multiple staff members today. I discussed the patient's course thus far and the plan going forward to the best my ability having taken care of the patient for the past approximate 24 hours. ICU notes are extremely sparse for information and the patient's family members state that they had not spoken to a physician until Dr. George office spoke with them 2 days ago about hospice. I explained the patient is extremely ill and if she survives her current illness she will likely be permanently disabled for the rest of her life. Also explained that there is a very good chance that she will not survive her illness or may pass away during 1 of her needed surgical procedures. I also explained to them that we are extremely limited in the imaging modalities we can utilize for the patient due to her extremely high BMI/weight and the fact that our scanners cannot accommodate this degree of obesity. They stated they would like all aggressive measures pursued including surgeries and other procedures that may prolong her life even at the expense of personal pain and suffering to the patient and even with the knowledge that she may not survive these procedures. For now, they would like patient to remain full code but they may consider limiting care in the future if patient declines further. This advanced care planning discussion took place over the course of approximately 1 hour in addition to the clinical visit I had with the patient earlier today. Today, I noted in her labs that her blood counts are all down likely dilutional and her creatinine is elevated. I will reach out to outside facilities and attempt to transfer the patient for definitive treatment of her endocarditis most likely mitral valve replacement. Parents also want the patient to have tracheostomy replacement as recommended by Dr. Wood and also have a permanent abdominal feeding tube placed by general surgery. They stated they would also consent to any debridement or amputation that may be required to treat the necrosis of the likely septic emboli induced digit ischemia in her feet. Patient remains on the ventilator through tracheostomy and does not respond to commands. 07/30/2020 I made multiple phone calls today and had multiple conversations with various facilities and physicians. [facility] and [facility] have immediately denied transfer to their facility for treatment of endocarditis. I reached out to [facility] and they are currently reviewing the patient's chart for transfer. They stated she will need an ICU bed there. I contacted ENT and they stated they will come to bedside tomorrow and swap out the patient's tracheostomy for a larger Shiley 8 cuffed nonfenestrated trach. I discussed this with nursing to make sure it is at bedside tomorrow when they come by. I reconsulted general surgery and discussed the case with them. They stated they did not believe the patient would benefit from a G-tube/PEG and did not wish to pursue surgical intervention for this. They recommended a Dobbhoff instead. I discussed patient's chest CT that was done today with general surgery as well and they stated they do not believe the patient needs a chest tube and they do not believe that she has a loculated pleural effusion that would be the source of her current infection. I reviewed the CT myself and it looks like she has about a 3 cm depth pleural effusion with some heterogeneous qualities to it along with bilateral pneumonia. I discussed the scan with the radiologist and he stated if we felt it would be beneficial, he would do a thoracentesis. I have ordered this and they will transition from a thoracentesis to a chest tube if they get pus returned with her thoracentesis. I have ordered all appropriate labs and cultures for the pleural fluid that will come out. Head CT did not show any significant abnormality specifically no strokes. Abdominal CT was generally unremarkable however I did see some strange appearing enhancement in the patient's liver although this was not mentioned in the radiology report. Patient's creatinine is lower today and her platelets are approximately the same. WBC is higher and she is now having a fever again up to 102. We will repeat blood cultures today. 07/31/2020 I spoke with the CT surgeon at [facility] and he stated that patients they have seen their with a BMI of 62 or above have had an approximately 100% mortality rate due to sternal wound dehiscence after valve replacement. He strongly recommended against any kind of cardiothoracic surgery and instead recommended medical management for now. He stated the patient developed significant mitral regurg, she may be a candidate for percutaneous mitral clip but at this time she is also not a candidate for that either. They did not accept the patient for transfer needless to say. I checked coag studies in ant icipation of thoracentesis for pleural effusion seen on chest CT and patient had a markedly elevated INR up to approximately 13. This was drawn of the patient's central line and when it was repeated peripherally INR was still approximately 9. I have ordered the patient to get 5 mg IV vitamin K. Given she is spiking fevers, tachycardic, having worsening anemia/thrombocytopenia and her LDH is martha vated concerned she is potentially in DIC or at high risk to go into DIC. She is having some bleeding at her tracheostomy site. Radiology will not be able to do a thoracentesis today due to markedly elevated INR and we will attempt this again tomorrow once we get her INR down using vitamin K. I have changed the patient's antibiotics to broad-spectrum due to new fevers. I am concerned that she may have developed catheter associated UTI given she has had a Villaseñor catheter for over 1 month now. Nursing will get UA with reflex culture today. I will discuss with the patient's parents the many problems facing the patient at this time. I am concerned that if the patient continues on her current course she will not survive this admission. My primary goal at this time is to establish good source control over any and all infections that she may currently have. 08/01/2020 Consulted hematology and discussed case with Dr. Bosch today in detail. He believes we should stop Zosyn and start the patient on alternative Pseudomonas antibiotic such as Merrem given Zosyn can cause worsening thrombocytopenia. I have made this change in the orders. I have ordered a recheck CBC for this afternoon as patient looks rather pale this morning I feel that she may soon require transfusion. Her INR has made a significant improvement and is now down to 1.8 today. Will need radiology to reassess the patient for thoracentesis as this is the only way to establish good source control and I feel that the patient may be getting less clinically stable the longer the infection source remains in place. Patient is having fevers up to 105 and is more tachycardic and tachypneic today on 50% FiO2. White blood cells are higher and hemoglobin and platelets are lower. I have added thiamine and ordered an anemia work-up panel. Patient has been on hydrocortisone since she was in the ICU and despite looking through many of the notes over the last month I cannot find anywhere in the physician notes stating why she is on steroids and what the plan is for this medication. I have started tapering her off of these and this will need to be continued over the next week or so. Overall, patient seems to be doing much worse today clinically overall. She is high risk to require ICU level care yet again. 08/02/2020 Hemoglobin with acute drop today below 7 we will transfuse 1 unit PRBC. Temperature is a bit more controlled than yesterday with Tylenol and a cooling blanket. Cooling blanket is now been removed. Creatinine is lower again at 1.82. Iron studies are mixed but we will err on the side of caution and give her some oral iron. If she did not have sepsis, we could give IV iron. I discu ssed the case with interventional radiology today and they stated they would perform patient's thoracentesis today. Interestingly, patient seems to be a bit more alert today and her attention seems to be a bit improved although certainly not substantially. She is still favoring her right side which certainly still raises the question of an anoxic brain injury. She is obviously not brain in case this was ever in question. We will continue with aggressive measures as requested by the patient's parents and see how far the patient can recover back towards her baseline. We need good source control via thoracentesis. Her UA was clearly infected and her urine culture has been sent. Villaseñor has been changed out yesterday. Order placed for us to change out the Villaseñor weekly. 08/03/2020 Hemoglobin is higher but certainly has not risen will be expected after 1 unit of PRBC. Transfuse another unit PRBC and also transfuse 1 unit of platelets in order to allow the patient to have thoracentesis today and establish good source control of what I believe is likely loculated pleural effusion on the right. Expect she will end up with a chest tube if pus is aspirated. Patient is much more alert today and is actually making eye contact and looking around the room. Per nursing, patient is following commands by sticking her tongue out when told to do so. I spoke with the interventional radiologist today who is agreed to do the thoracentesis provided the patient's blood products are given prior to this. INR is normal today. We will keep the weekly vitamin K ordered as she developed a severe deficiency during her stay in the ICU over the past month. We need to remove the patient's central line as this is likely seeded with bacteria given she has had this since being in the ICU as well. I have also asked the interventional radiologist to place a PICC line when they are doing the thoracentesis today. D-dimer is lower and creatinine is a bit higher. Temperature curve is significantly improved. Patient is still extremely ill but I think she does have a shot at at least some level of recovery if she continues to improve and we establish good source control of her infections. She may have permanent debility, but per my discussion with her parents previously quantity of her life is extremely important to them at the expense of factors that would affect the quality of her life. Reason For Visit: ARDS, POSSIBLE COVID 19 Physical Exam Vital Signs: Temp Pulse Resp BP Pulse Ox 100.7 F H 90 18 115/61 100 08/03/20 14:42 08/03/20 14:42 08/03/20 14:42 08/03/20 14:42 08/03/20 14:42 Intake & Output 08/02/20 08/03/20 08/04/20 06:59 06:59 06:59 Intake Total 2531 2983 300 Output Total 1100 750 Balance 1431 2233 300 Weight 178.5 kg 179.7 kg Exam: General appearance: PRESENT: mild distress, morbidly obese, following nursing commands today to stick out her tongue, making good eye contact and looking around the room today which is new Head exam: PRESENT: atraumatic, normocephalic Eye exam: PRESENT: conjunctiva pale Respiratory exam: PRESENT: rales - Upper airway rales, possibly due to mucus and trach. ABSENT: rhonchi, wheezes Pulses: PRESENT: +1 pedal pulses bilateral - Weak dorsalis pedis pulses bilaterally GI/Abdominal exam: PRESENT: normal bowel sounds, soft. ABSENT: distended, guarding, mass, organolmegaly, rebound, tenderness Extremities exam: PRESENT: other - Toes on right foot are becoming necrotic Neurological exam: ABSENT: alert, Present: Awake Psychiatric exam: PRESENT: agitated. ABSENT: appropriate affect, normal mood Skin exam: PRESENT: dry, intact, warm Results Laboratory Results: 08/03/20 04:45 08/03/20 04:45 08/02/20 08/03/20 08/03/20 17:00 04:45 04:45 WBC 19.5 H RBC 2.99 L Hgb 7.2 L Hct 23.4 L MCV 78 L MCH 24.2 L MCHC 31.0 L RDW 21.1 H Plt Count 30 L* Seg Neutrophils % Not Reportable Sodium 139.4 Potassium 3.5 L Chloride 103 Carbon Dioxide 27 Anion Gap 9 BUN 83 H Creatinine 2.03 H Est GFR ( Amer) 35 L Glucose 109 Calcium 8.3 L Blood Type B POSITIVE Antibody Screen NEGATIVE 06/30/20 06/30/20 07/04/20 03:58 03:58 04:30 Creatine Kinase 188 H NT-Pro-B Natriuret Pep 22101 H 99391 H Impressions: Lower Extremity Ultrasound 06/30/20 00:00 IMPRESSION: 1. Multiphasic waveforms with three-vessel runoff bilaterally. 2. The right dorsalis pedis is not visualized and may be occluded. Diminished, but patent left dorsalis pedis. Venous Doppler Study 07/11/20 00:00 IMPRESSION: Acute hypoechoic clot occludes the cephalic vein in the antecubital fossa KUB X-Ray 07/16/20 00:00 IMPRESSION: Tip of the Dobbhoff catheter in the left upper quadrant, as above copyright 2010 [email or web address]- All Rights Reserved Chest X-Ray 07/29/20 00:00 IMPRESSION: Cardiomegaly mild vascular congestion. Central line remains in satisfactory position. No pneumothorax. Overall findings are significantly improved from prior study. Gastrostomy Tube Placement 07/30/20 00:00 IMPRESSION: Successful fluoroscopic guided placement of a Dobhoff tube. Tube is ready for use. Guidance Fluoroscopy 07/30/20 00:00 IMPRESSION: Successful fluoroscopic guided placement of a Dobhoff tube. Tube is ready for use. WBC Scan Nuclear Medicine 07/30/20 00:00 IMPRESSION: Inflammation/ infection in the lungs. No other significant uptake. Abdomen/Pelvis CT 07/30/20 08:00 IMPRESSION: 1. No evidence of abscess or other acute abnormality. 2. Cholelithiasis. Chest CT 07/30/20 08:00 IMPRESSION: Diffuse bilateral airspace disease consistent with pneumonia/sepsis. No empyema. No pneumothorax. Head CT 07/30/20 08:00 IMPRESSION: NORMAL BRAIN CT WITHOUT CONTRAST. EVIDENCE OF ACUTE STROKE: NO. Abdomen Ultrasound 07/31/20 00:00 IMPRESSION: Cholelithiasis without other associated ancillary findings to indicate an acute cholecystitis. Chest Ultrasound 07/31/20 00:00 IMPRESSION: Small right-sided pleural effusion. Assessment and Plan - Diagnosis (1) Recurrent bacterial pneumonia Is this a current diagnosis for this admission?: Yes Plan: Previously had pneumonia and 03/2020 admission which was treated with antibiotics, later worsened and she was given more antibiotics by her PCP, per family this did not resolve her pneumonia and she continued to remain ill Chest CT showed right pleural effusion depth of approximately 3 cm by my read, discussed this with radiology Thoracentesis ordered, procedure delayed due to markedly elevated INR up to 13, given vitamin K and INR is now much improved May need chest tube if pus comes from thoracentesis Thoracentesis chemistries and cultures ordered Vancomycin/Merrem antibiotics broadened due to clinical deterioration and new Pseudomonas in blood cultures on 07/3008/02/2020 Discussed the case with interventional radiology who stated they would perform thoracentesis today. Follow-up pleural fluid analysis and cultures Continue vancomycin/Merrem 08/03/2020 Radiology could not perform thoracentesis yesterday because they were too busy at another hospital, discussed the case with IR today and they will have thoracentesis done today after patient gets blood products Follow-up pleural fluid analysis as above Antibiotics continue (2) Sepsis Qualifiers: Sepsis type: Pseudomonas Sepsis acute organ dysfunction status: with acute organ dysfunction Severe sepsis acute organ dysfunction type: acute respiratory failure Acute respiratory failure type: with hypoxia Severe sepsis shock status: without septic shock Qualified Code(s): A41.52 - Sepsis due to Pseudomonas; R65.20 - Severe sepsis without septic shock; J96.01 - Acute respiratory failure with hypoxia Is this a current diagnosis for this admission?: Yes Plan: Source is most likely persistent unresolved pneumonia which reportedly began 03/2020 on previous admission and persisted despite multiple courses of antibiotics, resulted in mitral valve endocarditis Other source is UTI seen on UA, Villaseñor changed, order placed for Villaseñor to be changed weekly Need source control: Order thoracentesis which may transition to chest tube if pus is returned Pleural fluid analysis chemistries ordered along with pleural fluid cultures IV fluids Close hemodynamic monitoring Thoracentesis initially delayed due to markedly elevated INR, supplemented with vitamin K IV Repeat blood cultures on 07/30 growing Pseudomonas multi-sensitive 08/03/2020 Thoracentesis and PICC line placement today, culture pleural fluid Remove old central line when we have alternative access, culture tip order placed Vanco/Merrem IV fluids continue Blood cultures growing MSSA and Pseudomonas (3) Infectious endocarditis Qualifiers: Infective endocarditis organism: bacterial Chronicity: acute Qualified Code(s): I33.0 - Acute and subacute infective endocarditis Is this a current diagnosis for this admission?: Yes (4) MSSA bacteremia Is this a current diagnosis for this admission?: Yes (5) Mitral valve vegetation Is this a current diagnosis for this admission?: Yes (6) Acute hypoxemic respiratory failure Is this a current diagnosis for this admission?: Yes (7) Tracheostomy dependence Is this a current diagnosis for this admission?: Yes Plan: Pulmonology consulted: Tracheostomy in place is too small and patient needs revision with a larger tracheostomy placed in the OR ENT consulted: Planning to swap tracheostomy for a larger 1 when INR improves 08/03/[address] Corrales who agreed to replace tracheostomy with a larger 1 tomorrow (8) Ventilator dependent Is this a current diagnosis for this admission?: Yes (9) Necrotic toes Is this a current diagnosis for this admission?: Yes Plan: Likely due to septic emboli to peripheral vasculature Needs evaluation by vascular surgery at outside hospital when more clinically stable (10) ARF (acute renal failure) Qualifiers: Acute renal failure type: unspecified Qualified Code(s): N17.9 - Acute kidney failure, unspecified Is this a current diagnosis for this admission?: Yes Plan: Her previous physician: "Kidney function continues to improve to stabilize. Her creatinine was 1.23 in February 2020 before she got ill 07/26/2020-serum creatinine today is 2.35. BRODIE slightly improved. BRODIE most likely secondary to ATN. Not on dialysis at this time. 1420-latest serum creatinine is 2.22. Stable." 07/28/2020 Nephrology following: Case discussed with them again, they would like the dialysis catheter removed as they had instructed to be done 2 weeks prior Trend BMP Creatinine going down Monitor urine output 08/03/2020 Villaseñor catheter removed and swapped out for a new one, this should be done weekly as ordered On 07/31 UA was done but there is no culture sent despite the orders I gave nursing. I have ordered a repeat UA with a reflex culture 2-day and I expect this to be sent to the microbiology lab this time Antibiotics continue IV fluids Trend BMP Creatinine very slightly higher versus approximately the same as yesterday Nephrology was following previously and they may need to come back and see the patient again if her creatinine continues to worsen (11) Acute kidney injury Is this a current diagnosis for this admission?: Yes (12) Acute respiratory failure Qualifiers: Respiratory failure complication: hypoxia Qualified Code(s): J96.01 - Acute respiratory failure with hypoxia Is this a current diagnosis for this admission?: Yes (13) Endocarditis determined by echocardiography Is this a current diagnosis for this admission?: Yes (14) Super-super obese Is this a current diagnosis for this admission?: Yes (15) Thrombocytopenia Is this a current diagnosis for this admission?: Yes (16) Hypothyroidism Qualifiers: Hypothyroidism type: unspecified Qualified Code(s): E03.9 - Hypothyroidism, unspecified Is this a current diagnosis for this admission?: Yes (17) UTI (urinary tract infection) Qualifiers: Urinary tract infection type: catheter-associated UTI Indwelling urinary catheter type: indwelling urethral catheter Encounter type: initial encounter Qualified Code(s): T83.511A - Infection and inflammatory reaction due to indwelling urethral catheter, initial encounter; N39.0 - Urinary tract infection, site not specified Is this a current diagnosis for this admission?: Yes Plan: Catheter associated, catheter changed and order placed to have this done weekly UA was done on 07/31 but no culture was sent despite instructions given; UA extremely purulent consistent with infection UA repeat with culture this time ordered on 08/03, send sample to microbiology lab Follow-up urine culture Antibiotics as above - Plan Summary Summary: BRODIE thought to be secondary to ATN. She received a Lasix drip. 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 Last blood cultures have been negative patient is currently on cefazolin. She is currently on day 18 of a 6-week treatment course from the date of negative blood culture which was on July 02. It appears Ancef 1 g every 12 was started on July 02. Acute respiratory failure status post tracheostomy placement on July 17 and appears her respiratory status is pretty tenuous and will have to continue close monitoring. 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 She was initially admitted on June 28 due to pneumonia and acute respiratory failure and was diagnosed with ARDS, septic shock and was intubated. 07/25/2020 Patient's overall prognosis is very poor and she is at a very high risk for adverse outcome including At this point we are still waiting for patient's family for review conferencing. Unfortunately it appears there is no smart phone available and they have not been able to see the patient even via teleconferencing. I believe this should be arranged by psychosocial rehabilitation counselor. My understanding the mother is disabled and the father also has a medical condition preventing them from coming into the hospital patient is scheduled for an EEG next week as there was none available this week. Also had problems with her NG tube. She had a double which unfortunately was this large and we have been unable to reinsert an NG tube. 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 Be addressed this coming week. It may be worth contacting surgery again for possible PEG placement or j-tube but a lot of it is going to depend on patient's ultimate status. Family conference may also be needed but I believe all this is down the line as patient status needs to be addressed first - Time Time Spent with patient: 35 or more minutes Medications reviewed and adjusted accordingly: Yes Anticipated Discharge Disposition: [facility] Facility Anticipated Discharge Timeframe: within 72 hours - Inpatient Certification Based on my medical assessment, after consideration of the patient's comorbidities, presenting symptoms, or acuity I expect that the services needed warrant INPATIENT care.: Yes I certify that my determination is in accordance with my understanding of Medicare's requirements for reasonable and necessary INPATIENT services [42 CFR 412.3e].: Yes Medical Necessity: Significant Comorbidiites Make Outpatient Treatment Too Risky, Need Close Monitoring Due to Risk of Patient Decompensation, Need For IV Fluids, Need for IV Antibiotics, Need for Surgery, Risk of Complication if Not C ared For in Hospital, Risk of Diagnosis Which Will Require Inpatient Eval/Care/Monitoring
[2020-08-03] MEDS: VANCOMYCIN HCL 1,500 MG in DEXTROSE 5%-WATER 250 ML IV SCH (17:55)
[2020-08-03 17:57] LABS: VANCOMYCIN,TROUGH 26.3 ug/mL (5.0-20.0)
[2020-08-03 19:24] LABS: HEMATOCRIT 27.5 % (36.0-47.0); HEMOGLOBIN 8.4 g/dL (12.0-15.5); MEAN CORPUSCULAR HEMOGLOBIN 23.7 pg (27.0-33.4); MEAN CORPUSCULAR HGB CONC 30.7 g/dL (32.0-36.0); MEAN CORPUSCULAR VOLUME 77 fl (80-97); RED BLOOD COUNT 3.56 10^6/uL (3.72-5.28); RED CELL DISTRIBUTION WIDTH 20.2 % (11.5-14.0); WHITE BLOOD COUNT 18.4 10^3/uL (4.0-10.5)
[2020-08-03 19:44] LABS: PLATELET COUNT 23 10^3/uL (150-450)
[2020-08-03 19:47] LABS: ABSOLUTE LYMPHOCYTES# (MANUAL) 0.7 10^3/uL (0.5-4.7); ABSOLUTE MONOCYTES # (MANUAL) 1.3 10^3/uL (0.1-1.4); BASOPHILS % (MANUAL) 0 % (0-2); EOSINOPHILS % (MANUAL) 0 % (0-6); LYMPHOCYTES % (MANUAL) 4 % (13-45); MONOCYTES % (MANUAL) 7 % (3-13); SEGMENTED NEUTROPHILS % (MAN) 89 % (42-78); TOTAL CELLS COUNTED 100
[2020-08-03 19:50] LABS: ANISOCYTOSIS 2+; OVALOCYTES 2+; PLATELET COMMENT DECREASED; POIKILOCYTOSIS 2+; POLYCHROMASIA SLIGHT; SCHISTOCYTES SLIGHT; TOXIC GRANULATION 1+; TOXIC VACUOLATION PRESENT
[2020-08-03 19:51] LABS: PLATELET LARGE PRESENT
[2020-08-04] MEDS: LORAZEPAM INJ 2 MG/1 ML VIAL IV PRN (00:23)
[2020-08-04 00:26] LABS: ABSOLUTE BASOPHILS # (AUTO) 0.1 10^3/uL (0.0-0.2); ABSOLUTE EOSINOPHILS # (AUTO) 0.1 10^3/uL (0.0-0.6); ABSOLUTE LYMPHOCYTES (AUTO) 1.3 10^3/uL (0.5-4.7); ABSOLUTE MONOCYTES (AUTO) 1.9 10^3/uL (0.1-1.4); ABSOLUTE NEUT (AUTO) 16.2 10^3/uL (1.7-8.2); BASOPHILS % (AUTO) 0.6 % (0-2); EOSINOPHILS % (AUTO) 0.5 % (0-6); HEMATOCRIT 26.2 % (36.0-47.0); HEMOGLOBIN 8.4 g/dL (12.0-15.5); LYMPHOCYTES % (AUTO) 6.7 % (13-45); MEAN CORPUSCULAR HEMOGLOBIN 24.7 pg (27.0-33.4); MEAN CORPUSCULAR HGB CONC 31.9 g/dL (32.0-36.0); MEAN CORPUSCULAR VOLUME 77 fl (80-97); MONOCYTES % (AUTO) 9.9 % (3-13); RED BLOOD COUNT 3.39 10^6/uL (3.72-5.28); RED CELL DISTRIBUTION WIDTH 20.6 % (11.5-14.0); SEGMENTED NEUTROPHILS % (AUTO) 82.3 % (42-78); TOTAL CELLS COUNTED % (AUTO) 100 %; WHITE BLOOD COUNT 19.7 10^3/uL (4.0-10.5)
[2020-08-04 00:39] LABS: PLATELET COUNT 63 10^3/uL (150-450)
[2020-08-04] MEDS ORDERED: LORAZEPAM INJ 2 MG/1 ML VIAL IV PRN (03:36)
[2020-08-04] MEDS ORDERED: MORPHINE SULFATE 10 MG/ML INJ IV PRN (03:37)
[2020-08-04] MEDS: MEROPENEM 1 GM in NORMAL SALINE 50 ML IV SCH ×3 (05:31→21:21)
[2020-08-04 07:49] LABS: ANION GAP 9 (5-19); BLOOD UREA NITROGEN 88 mg/dL (7-20); CALCIUM 8.4 mg/dL (8.4-10.2); CARBON DIOXIDE 27 mmol/L (22-30); CHLORIDE 102 mmol/L (98-107); GLUCOSE 97 mg/dL (75-110); POTASSIUM 3.5 mmol/L (3.6-5.0)
[2020-08-04] MEDS: LACTOBACILLUS ACIDOPHILUS 250 MG TAB PO SCH ×4 (13:04→21:21)
[2020-08-04] MEDS: FERROUS SULFATE LIQUID 300 MG/5 ML UDC PO SCH ×2 (13:05→18:12)
[2020-08-04] MEDS: AMINO AC/PROTEIN HYDR/WHEY PRO 11 GM/45 ML PKT NG SCH ×2 (13:05→18:12)
[2020-08-04] MEDS: POTASSIUM CHLORIDE 20 MEQ PACKET NG SCH (13:32)
[2020-08-04] MEDS: HYDROCORTISONE SOD SUCCINATE INJ/PF 100 MG/2 ML SDV IV SCH (13:33)
[2020-08-04] MEDS: CHOLECALCIFEROL (D3) 400 UNIT/ML DROPS 50 ML PO SCH (13:33)
[2020-08-04] MEDS: THIAMINE HCL 100 MG in NORMAL SALINE 50 ML IV SCH (13:36)
--- NOTE | 2020-08-04 14:21 | PDOC PROGRESS REPORT ---
Subjective Progress Note for:: 08/04/20 Reason For Visit: ARDS, POSSIBLE COVID 19 Physical Exam Vital Signs: Temp Pulse Resp BP Pulse Ox 100.5 F H 89 21 H 127/70 H 100 08/04/20 10:00 08/04/20 07:00 08/04/20 03:20 08/04/20 03:20 08/04/20 12:38 Intake & Output 08/03/20 08/04/20 08/05/20 06:59 06:59 06:59 Intake Total 2983 1820 Output Total 750 800 Balance 2233 1020 Weight 179.7 kg 179.1 kg General appearance: PRESENT: no acute distress, morbidly obese. ABSENT: severe distress, thin Neck exam: PRESENT: tracheostomy. ABSENT: JVD Respiratory exam: PRESENT: crackles - mild, symmetrical, unlabored, other - hard lump with necrotic scab over right upper chest wall. ABSENT: tachypnea, wheezes Cardiovascular exam: PRESENT: RRR, +S1, +S2. ABSENT: tachycardia GI/Abdominal exam: PRESENT: soft. ABSENT: rebound, rigid, tenderness Extremities exam: PRESENT: other - necrotic toes of right foot, mottled left toes Neurological exam: PRESENT: alert, awake, motor sensory deficit - does not move left arm and left leg, aphasic, other - mumbles some words occasionally but not following commands for the most part Psychiatric exam: ABSENT: agitated, anxious Skin exam: ABSENT: jaundice Results Laboratory Results: 08/04/20 06:28 08/04/20 06:28 08/02/20 08/03/20 08/03/20 17:00 19:01 23:47 WBC 18.4 H 19.7 H RBC 3.56 L 3.39 L Hgb 8.4 L 8.4 L Hct 27.5 L 26.2 L MCV 77 L 77 L MCH 23.7 L 24.7 L MCHC 30.7 L 31.9 L RDW 20.2 H 20.6 H Plt Count 23 L* 63 L D Seg Neutrophils % Not Reportable 82.3 H Sodium Potassium Chloride Carbon Dioxide Anion Gap BUN Creatinine Est GFR ( Amer) Glucose Calcium Blood Type B POSITIVE Antibody Screen NEGATIVE 08/04/20 08/04/20 06:28 06:28 WBC Cancelled RBC Cancelled Hgb Cancelled Hct Cancelled MCV Cancelled MCH Cancelled MCHC Cancelled RDW Cancelled Plt Count Cancelled Seg Neutrophils % Cancelled Sodium 137.9 Potassium 3.5 L Chloride 102 Carbon Dioxide 27 Anion Gap 9 BUN 88 H Creatinine 1.94 H Est GFR ( Amer) 37 L Glucose 97 Calcium 8.4 Blood Type Antibody Screen 06/30/20 06/30/20 07/04/20 03:58 03:58 04:30 Creatine Kinase 188 H NT-Pro-B Natriuret Pep 61242 H 57064 H Impressions: Lower Extremity Ultrasound 06/30/20 00:00 IMPRESSION: 1. Multiphasic waveforms with three-vessel runoff bilaterally. 2. The right dorsalis pedis is not visualized and may be occluded. Diminished, but patent left dorsalis pedis. Venous Doppler Study 07/11/20 00:00 IMPRESSION: Acute hypoechoic clot occludes the cephalic vein in the antecubital fossa KUB X-Ray 07/16/20 00:00 IMPRESSION: Tip of the Dobbhoff catheter in the left upper quadrant, as above copyright 2011 [email or web address]- All Rights Reserved Chest X-Ray 07/29/20 00:00 IMPRESSION: Cardiomegaly mild vascular congestion. Central line remains in satisfactory position. No pneumothorax. Overall findings are significantly improved from prior study. Gastrostomy Tube Placement 07/30/20 00:00 IMPRESSION: Successful fluoroscopic guided placement of a Dobhoff tube. Tube is ready for use. Guidance Fluoroscopy 07/30/20 00:00 IMPRESSION: Successful fluoroscopic guided placement of a Dobhoff tube. Tube is ready for use. WBC Scan Nuclear Medicine 07/30/20 00:00 IMPRESSION: Inflammation/ infection in the lungs. No other significant uptake. Abdomen/Pelvis CT 07/30/20 08:00 IMPRESSION: 1. No evidence of abscess or other acute abnormality. 2. Cholelithiasis. Chest CT 07/30/20 08:00 IMPRESSION: Diffuse bilateral airspace disease consistent with pneumonia/sepsis. No empyema. No pneumothorax. Head CT 07/30/20 08:00 IMPRESSION: NORMAL BRAIN CT WITHOUT CONTRAST. EVIDENCE OF ACUTE STROKE: NO. Abdomen Ultrasound 07/31/20 00:00 IMPRESSION: Cholelithiasis without other associated ancillary findings to indicate an acute cholecystitis. Chest Ultrasound 07/31/20 00:00 IMPRESSION: Small right-sided pleural effusion. Assessment and Plan - Diagnosis (1) Infectious endocarditis Qualifiers: Infective endocarditis organism: bacterial Chronicity: acute Qualified Code(s): I33.0 - Acute and subacute infective endocarditis Is this a current diagnosis for this admission?: Yes Plan: MSSA endocarditis ANGELIA 07/02/2020 showed large vegetation on mitral valve 2 x 2 cm causing functional mitral stenosis with mild to moderate MR, EF 55% Notably from medical records, previous consultations were done with [facility], [facility] and [place] and transfer was denied. Medical record also indicates that CT surgery at [facility] strongly recommended against any surgical intervention and voiced very high risk for mortality given patient's BMI and comorbidities. Patient's endocarditis has been complicated by septic embolism to the toes now with vascular occlusion of the right DP and necrotic right toes as well as mottling of left toes due to embolic showers and has very likely suffered an embolic stroke at some point given the fact that she does not move her left arm or left leg at all. First negative blood culture was 07/02/2020. I will resume cefazolin. Vancomycin on hold but I will go ahead and discontinue this at this time. Patient has extremely poor prognosis. (2) Pleural effusion, right Is this a current diagnosis for this admission?: Yes Plan: Thoracentesis done today for diagnostic evaluation of patient's right pleural effusions. Diagnostic labs have been ordered. (3) Pseudomonal bacteremia Is this a current diagnosis for this admission?: Yes Plan: Blood cultures were positive for Pseudomonas on 07/30/2020. Being treated with meropenem. Repeat blood culture on 07/31/2020 was negative. Possible source could be a UTI. Will check urine culture though may be negative at this point. (4) Recurrent bacterial pneumonia Is this a current diagnosis for this admission?: Yes Plan: Previously had pneumonia and 03/2020 admission which was treated with antibiotics, later worsened and she was given more antibiotics by her PCP, per family this did not resolve her pneumonia and she continued to remain ill Continue antibiotics IV for now. Awaiting assessment of pleural fluid. (5) Ventilator dependent Is this a current diagnosis for this admission?: Yes Plan: Prolonged respiratory failure currently dependent on continuous mechanical ventilation Volume control: VT 450, fio2 40%, f 10, PEEP 5 Currently pulling adequate volumes. (6) Necrotic toes Is this a current diagnosis for this admission?: Yes Plan: Has necrotic toes in the right foot as well as mottling of left toes This is likely secondary to septic embolism from left-sided vegetation. Arterial Doppler 06/30/2020 showed occlusion of right dorsalis pedis and diminished but patent left dorsalis pedis. Patient requires vascular surgery evaluation. I will work on optimizing her coags. (7) Fever Is this a current diagnosis for this admission?: Yes Plan: Persistently febrile. Possible etiologies include endocarditis, pneumonia, bacteremia. Wonder if infection from her gangrenous toes. Will need surgery to evaluate and will work on optimizing her coags. (8) Coagulopathy Is this a current diagnosis for this admission?: Yes Plan: Had elevated INR and PTT, elevated d-dimer and fibrinogen levels. Received FFPs and vitamin K. Last INR 07/31 was adequate. Will repeat levels in the morning. Receiving vitamin K supplements with suspicion of some vitamin K deficiency. Patient's coagulopathy has been a limiting factor to getting procedures as well. (9) Metabolic encephalopathy Is this a current diagnosis for this admission?: Yes Plan: Patient is awake unable to mumble some words on occasion but not communicative. Also, her left side is limp and most of likely suffered an acute CVA sometime during this hospitalization most likely from septic embolism. We will continue treatment of her endocarditis. Head CT was unremarkable she would likely need an MRI to confirm this. 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 Dr. Corrales has been consulted to place a larger trach tube. (12) Acute kidney injury Is this a current diagnosis for this admission?: Yes Plan: Creatinine at 1.9. Will avoid nephrotoxic medications. - Time Time Spent with patient: 15-24 minutes Anticipated Discharge Disposition: Tertiary Anticipated Discharge Timeframe: undetermined
[2020-08-04] MEDS ORDERED: CEFAZOLIN 2 GM/D5W RTU 2 GM/50 ML RTUPB IV SCH (15:00)
--- NOTE | 2020-08-04 15:28 | RADIOLOGY REPORT (SQ) ---
EXAM DESCRIPTION: PICC INSERTION IMAGES COMPLETED DATE/TIME: 08/04/2020 1:20 pm REASON FOR STUDY: need for iv access COMPARISON: None. FLUOROSCOPY TIME: 0.9 minutes 2 images saved to PACS. TECHNIQUE: Fluoroscopic and ultrasound guided PICC placement. LIMITATIONS: None. PROCEDURE: After written consent and assessment were obtained, the patient was brought into the fluo roscopy room and placed supine on the table. Ultrasound evaluation of potential access sites were per formed. After successfully identifying a patent left upper arm brachiocephalic vein, the left arm was prepped and draped in a sterile fashion along with the ultrasound probe. The entry site was anesthet ized with 1% lidocaine. A 21 gauge 7 cm needle was advanced through the skin and into the brachioceph alic vein under live ultrasound guidance. An ultrasound image was saved to PACS confirming access si te. A .018 guide wire was then inserted through the needle and into the venous system. The needle wa s then removed and an 11 blade scalpel was used to make a 1cm skin incision. A 5 fr peel-away sheath was advanced over the wire and into the venous system. A measurement was then made using the existin g wire and live fluoroscopic guidance. The wire was then removed and trimmed. The PICC was advanced t hrough the peel-away sheath and into the venous system. The peel-away sheath was removed and the cath eter was adhered to the patients arm with a stat lock. The catheter was then aspirated and flushed an d a sterile bandage was placed over the access site. A fluoroscopic spot image was saved to PACS con firming the catheter tip within the SVC. IMPRESSION: SUCCESSFUL PLACEMENT OF A 5 FR DUAL LUMEN 43 CM PICC IN THE LEFT BRACHIOCEPHALIC VEIN. COMMENT: Patient medication list reviewed: Yes- Quality ID# [id number]:Eligible professional attests to doc umenting in the medical record they obtained, updated, or reviewed the patient's current medications. . Quality ID 145: Final reports for procedures using fluoroscopy that document radiation exposure emma moy, or exposure time and number of fluorographic images (if radiation exposure indices are not avail able) Quality ID #76: The patient was prepped and draped using maximum sterile barrier technique including cap, mask, sterile gown, sterile gloves, a large sterile sheet, hand hygiene, and 2% Chlorhexidine fo r cutaneous antisepsis. When ultrasound is used, sterile ultrasound techniques are followed requiring sterile gel and sterile probes. TECHNICAL DOCUMENTATION: JOB ID: [id number] 2010 [employer]- All Rights Reserved rev-03/30 Reading location - IP/workstation name: [email or web address]
[2020-08-04 15:47] LABS: HEMATOCRIT 24.7 % (36.0-47.0); MEAN CORPUSCULAR HEMOGLOBIN 24.3 pg (27.0-33.4); MEAN CORPUSCULAR HGB CONC 31.6 g/dL (32.0-36.0); MEAN CORPUSCULAR VOLUME 77 fl (80-97); RED BLOOD COUNT 3.21 10^6/uL (3.72-5.28); RED CELL DISTRIBUTION WIDTH 20.6 % (11.5-14.0); WHITE BLOOD COUNT 13.8 10^3/uL (4.0-10.5)
[2020-08-04 16:11] LABS: PLATELET COUNT 42 10^3/uL (150-450)
[2020-08-04 16:21] LABS: ABSOLUTE LYMPHOCYTES# (MANUAL) 1.1 10^3/uL (0.5-4.7); ABSOLUTE MONOCYTES # (MANUAL) 0.7 10^3/uL (0.1-1.4); BASOPHILS % (MANUAL) 0 % (0-2); EOSINOPHILS % (MANUAL) 1 % (0-6); LYMPHOCYTES % (MANUAL) 8 % (13-45); MONOCYTES % (MANUAL) 5 % (3-13); SEGMENTED NEUTROPHILS % (MAN) 86 % (42-78); TOTAL CELLS COUNTED 100
[2020-08-04 16:23] LABS: ANISOCYTOSIS 2+; HYPOCHROMASIA SLIGHT; OVALOCYTES SLIGHT; POIKILOCYTOSIS SLIGHT; POLYCHROMASIA 1+
[2020-08-04 16:24] LABS: PLATELET COMMENT DECREASED; TEAR DROP CELLS SLIGHT; TOXIC VACUOLATION PRESENT
[2020-08-04 16:25] LABS: HEMOGLOBIN 7.8 g/dL (12.0-15.5)
--- NOTE | 2020-08-04 16:46 | RADIOLOGY REPORT (SQ) ---
EXAM DESCRIPTION: CT THORACENTESIS WITH IMAGING IMAGES COMPLETED DATE/TIME: 08/04/2020 12:31 pm REASON FOR STUDY: PLEURAL EFFUSION, SUSPECT PUS/LOC EFFUSION COMPARISON: 08/02/2020 CARDIOLOGY COORDINATOR: Boni Brian SUPERVISING PHYSICIAN: Dr Garcia FLUOROSCOPY TIME: CT Fluoroscopy: Less than 1 minute 2CT fluoroscopic series were obtained and saved to PACS. RADIATION DOSE: CT Rad equipment meets quality standard of care and radiation dose reduction techniq ues were employed. CTDIvol: 27.1 mGy. DLP: 1586 mGy-cm. mGy. LIMITATIONS: None. PROCEDURE: Procedure, risks, benefit, and alternative explained to patient who then gave written con sent. The chest wall was scanned and a safe approach/route was not achievable. The procedure was ca nceled, and the patient was returned to the [facility]. Images acquired during the procedure were stored on PACS. All CT scanners at this facility use dose modulation, iterative reconstruction, and/or weight based d osing when appropriate to reduce radiation dose to as low as reasonably achievable (ALARA). [facility]: Dose Right [facility]: CareDose [facility]: Dose Right [facility]: Teradose 4D [facility]: [place] FINDINGS: Procedure not performed. IMPRESSION: Procedure not performed due to inability to achieve a safe approach/route. COMMENT: Patient medication list reviewed: Yes- PQRS [id number]:Eligible professional attests to document ing in the medical record they obtained, updated, or reviewed the patient's current medications. Quality ID 145: Final reports for procedures using fluoroscopy that document radiation exposure emma moy, or exposure time and number of fluorographic images (if radiation exposure indices are not avail able) TECHNICAL DOCUMENTATION: JOB ID: [id number] Quality ID # [id number]: Final reports with documentation of one or more dose reduction techniques (e.g., Au tomated exposure control, adjustment of the mA and/or kV according to patient size, use of iterative reconstruction technique) 2010 [employer]- All Rights Reserved Reading location - IP/workstation name: [email or web address]
--- NOTE | 2020-08-04 17:53 | PDOC PROGRESS REPORT ---
Subjective Progress Note for:: 08/04/20 Reason For Visit: Asked by [facility] to change trach to size 8. Assessed pt on Monday, however, her INR was too high. Pt's INR is WNL. PE: Neck: head extended. #6 shiley removed. Tracheal stoma healing appropriately. #8 cuffed Shiley placed without incidence. Pt tolerated procedure well. A/P: Continue with routing trach care. Recommend changing entire trach tube weekly. discussed with nursing staff. Physical Exam Vital Signs: Temp Pulse Resp BP Pulse Ox 100.5 F H 76 21 H 127/70 H 99 08/04/20 10:00 08/04/20 14:00 08/04/20 03:20 08/04/20 03:20 08/04/20 15:43 Intake & Output 08/03/20 08/04/20 08/05/20 06:59 06:59 06:59 Intake Total 2983 1820 Output Total 750 800 300 Balance 2233 1020 -300 Weight 179.7 kg 179.1 kg Exam: PE: Neck: head extended. #6 shiley removed. Tracheal stoma healing appropriately. #8 cuffed Shiley placed without incidence. Pt tolerated procedure well. Results Laboratory Results: 08/04/20 15:11 08/04/20 06:28 08/02/20 08/03/20 08/03/20 17:00 19:01 23:47 WBC 18.4 H 19.7 H RBC 3.56 L 3.39 L Hgb 8.4 L 8.4 L Hct 27.5 L 26.2 L MCV 77 L 77 L MCH 23.7 L 24.7 L MCHC 30.7 L 31.9 L RDW 20.2 H 20.6 H Plt Count 23 L* 63 L D Seg Neutrophils % Not Reportable 82.3 H Sodium Potassium Chloride Carbon Dioxide Anion Gap BUN Creatinine Est GFR ( Amer) Glucose Calcium Blood Type B POSITIVE Antibody Screen NEGATIVE 08/04/20 08/04/20 08/04/20 06:28 06:28 15:11 WBC Cancelled 13.8 H RBC Cancelled 3.21 L Hgb Cancelled 7.8 L Hct Cancelled 24.7 L MCV Cancelled 77 L MCH Cancelled 24.3 L MCHC Cancelled 31.6 L RDW Cancelled 20.6 H Plt Count Cancelled 42 L Seg Neutrophils % Cancelled Not Reportable Sodium 137.9 Potassium 3.5 L Chloride 102 Carbon Dioxide 27 Anion Gap 9 BUN 88 H Creatinine 1.94 H Est GFR ( Amer) 37 L Glucose 97 Calcium 8.4 Blood Type Antibody Screen 06/30/20 06/30/20 07/04/20 03:58 03:58 04:30 Creatine Kinase 188 H NT-Pro-B Natriuret Pep 12727 H 96990 H Impressions: Lower Extremity Ultrasound 06/30/20 00:00 IMPRESSION: 1. Multiphasic waveforms with three-vessel runoff bilaterally. 2. The right dorsalis pedis is not visualized and may be occluded. Diminished, but patent left dorsalis pedis. Venous Doppler Study 07/11/20 00:00 IMPRESSION: Acute hypoechoic clot occludes the cephalic vein in the antecubital fossa KUB X-Ray 07/16/20 00:00 IMPRESSION: Tip of the Dobbhoff catheter in the left upper quadrant, as above copyright 2011 [employer]- All Rights Reserved Chest X-Ray 07/29/20 00:00 IMPRESSION: Cardiomegaly mild vascular congestion. Central line remains in satisfactory position. No pneumothorax. Overall findings are significantly improved from prior study. Gastrostomy Tube Placement 07/30/20 00:00 IMPRESSION: Successful fluoroscopic guided placement of a Dobhoff tube. Tube is ready for use. Guidance Fluoroscopy 07/30/20 00:00 IMPRESSION: Successful fluoroscopic guided placement of a Dobhoff tube. Tube is ready for use. WBC Scan Nuclear Medicine 07/30/20 00:00 IMPRESSION: Inflammation/ infection in the lungs. No other significant uptake. Abdomen/Pelvis CT 07/30/20 08:00 IMPRESSION: 1. No evidence of abscess or other acute abnormality. 2. Cholelithiasis. Chest CT 07/30/20 08:00 IMPRESSION: Diffuse bilateral airspace disease consistent with pneumonia/sepsis. No empyema. No pneumothorax. Head CT 07/30/20 08:00 IMPRESSION: NORMAL BRAIN CT WITHOUT CONTRAST. EVIDENCE OF ACUTE STROKE: NO. Abdomen Ultrasound 07/31/20 00:00 IMPRESSION: Cholelithiasis without other associated ancillary findings to indicate an acute cholecystitis. Chest Ultrasound 07/31/20 00:00 IMPRESSION: Small right-sided pleural effusion. PICC Line Insertion 08/04/20 00:00 IMPRESSION: SUCCESSFUL PLACEMENT OF A 5 FR DUAL LUMEN 43 CM PICC IN THE LEFT BRACHIOCEPHALIC VEIN. Thoracentesis 08/04/20 00:00 IMPRESSION: Procedure not performed due to inability to achieve a safe approach/route. Assessment & Plan - Diagnosis (1) Acute respiratory failure Qualifiers: Respiratory failure complication: hypoxia Qualified Code(s): J96.01 - Acute respiratory failure with hypoxia Is this a current diagnosis for this admission?: Yes Plan: A/P: Continue with routing trach care. Recommend changing entire trach tube weekly. discussed with nursing staff. - Time Time Spent with patient: 15-24 minutes Level of Care: IMCU
[2020-08-04] MEDS: CEFAZOLIN SODIUM 2 GM in DEXTROSE 5%-WATER 100 ML IV SCH (18:15)
[2020-08-04 19:53] LABS: INTERNATIONAL RATION (INR) 1.02; PROTHROMBIN TIME 13.6 SEC (11.4-15.4)
[2020-08-04 19:54] LABS: PARTIAL THROMBOPLASTIN TIME 37.6 SEC (23.5-35.8)
[2020-08-05] MEDS: DEXTROSE 5%-WATER 1000 ML 1,000 ML IV PRN ×2 (00:54→15:55)
[2020-08-05] MEDS: CEFAZOLIN SODIUM 2 GM in DEXTROSE 5%-WATER 100 ML IV SCH ×2 (03:01→10:37)
[2020-08-05] MEDS: MEROPENEM 1 GM in NORMAL SALINE 50 ML IV SCH ×2 (05:53→14:07)
[2020-08-05 06:42] LABS: ABSOLUTE BASOPHILS # (AUTO) 0.1 10^3/uL (0.0-0.2); ABSOLUTE EOSINOPHILS # (AUTO) 0.2 10^3/uL (0.0-0.6); ABSOLUTE LYMPHOCYTES (AUTO) 1.1 10^3/uL (0.5-4.7); ABSOLUTE MONOCYTES (AUTO) 1.6 10^3/uL (0.1-1.4); ABSOLUTE NEUT (AUTO) 11.2 10^3/uL (1.7-8.2); BASOPHILS % (AUTO) 0.4 % (0-2); EOSINOPHILS % (AUTO) 1.7 % (0-6); LYMPHOCYTES % (AUTO) 7.8 % (13-45); MEAN CORPUSCULAR HEMOGLOBIN 24.3 pg (27.0-33.4); MEAN CORPUSCULAR HGB CONC 31.6 g/dL (32.0-36.0); MEAN CORPUSCULAR VOLUME 77 fl (80-97); MONOCYTES % (AUTO) 11.3 % (3-13); RED BLOOD COUNT 2.99 10^6/uL (3.72-5.28); RED CELL DISTRIBUTION WIDTH 20.6 % (11.5-14.0); SEGMENTED NEUTROPHILS % (AUTO) 78.8 % (42-78); TOTAL CELLS COUNTED % (AUTO) 100 %; WHITE BLOOD COUNT 14.2 10^3/uL (4.0-10.5)
[2020-08-05 06:45] LABS: PARTIAL THROMBOPLASTIN TIME 33.5 SEC (23.5-35.8); PROTHROMBIN TIME 14.4 SEC (11.4-15.4)
[2020-08-05 07:01] LABS: ANION GAP 8 (5-19); BLOOD UREA NITROGEN 88 mg/dL (7-20); CALCIUM 8.6 mg/dL (8.4-10.2); CARBON DIOXIDE 27 mmol/L (22-30); CHLORIDE 104 mmol/L (98-107); GLUCOSE 103 mg/dL (75-110); POTASSIUM 3.8 mmol/L (3.6-5.0)
[2020-08-05 07:22] LABS: HEMOGLOBIN 7.3 g/dL (12.0-15.5); PLATELET COUNT 44 10^3/uL (150-450)
[2020-08-05 08:45] LABS: APPEARANCE,URINE CLOUDY; BILIRUBIN,URINE NEGATIVE (NEGATIVE); COLOR,URINE YELLOW; GLUCOSE, URINE NEGATIVE (NEGATIVE); KETONES,URINE NEGATIVE (NEGATIVE); LEUKOCYTE ESTERASE,URINE LARGE (NEGATIVE); NITRITE,URINE NEGATIVE (NEGATIVE); PROTEIN,URINE 100 mg/dL (NEGATIVE); URINE SPECIFIC GRAVITY 1.015; UROBILINOGEN,URINE NEGATIVE mg/dL (<2.0)
--- NOTE | 2020-08-05 09:28 | RADIOLOGY REPORT (SQ) ---
EXAM DESCRIPTION: CHEST SINGLE VIEW IMAGES COMPLETED DATE/TIME: 08/05/2020 9:02 am REASON FOR STUDY: pneumonia reassessment COMPARISON: 07/29/2020 NUMBER OF VIEWS: One view. TECHNIQUE: Single frontal radiographic image of the chest acquired. LIMITATIONS: None. FINDINGS: LUNGS AND PLEURA: Slight increase in the right upper lobe airspace disease. No other sign ificant interval change. MEDIASTINUM AND HILAR STRUCTURES: Stable heart size and mediastinal structures. HEART AND VASCULAR STRUCTURES: Stable appearance. SUPPORT DEVICES: Enteric tube is been placed since prior study. Tip is not identified due to techniq ue. Tracheostomy tube remains in place. A PICC line has been added. Tip overlies the proximal SVC. Tip is oriented in a horizontal position. BONES: No acute findings. OTHER: No other significant finding. IMPRESSION: Slight increase in right upper lobe airspace disease. Interval placement of PICC line a nd enteric tube since prior chest film as described. TECHNICAL DOCUMENTATION: JOB ID: [id number] 2010 [employer]- All Rights Reserved Reading location - IP/workstation name: [email or web address]
[2020-08-05] MEDS: POTASSIUM CHLORIDE 20 MEQ PACKET NG SCH (10:18)
[2020-08-05] MEDS: HYDROCORTISONE SOD SUCCINATE INJ/PF 100 MG/2 ML SDV IV SCH (10:18)
[2020-08-05] MEDS: LACTOBACILLUS ACIDOPHILUS 250 MG TAB PO SCH ×2 (10:18→14:07)
[2020-08-05] MEDS: FERROUS SULFATE LIQUID 300 MG/5 ML UDC PO SCH (10:18)
[2020-08-05] MEDS: AMINO AC/PROTEIN HYDR/WHEY PRO 11 GM/45 ML PKT NG SCH (10:18)
[2020-08-05] MEDS: CHOLECALCIFEROL (D3) 400 UNIT/ML DROPS 50 ML PO SCH (10:19)
[2020-08-05] MEDS: THIAMINE HCL 100 MG in NORMAL SALINE 50 ML IV SCH (10:38)
[2020-08-05 12:25] VITALS: BP 132/70
--- NOTE | 2020-08-05 15:38 | PDOC TRANSFER SUMMARY ---
General Admission Date/PCP: 06/29/20 03:15 Admission Date: 06/29/20 Transfer Date: 08/05/20 Accepting Facility: [facility] Accepting Physician: Dr. Puri (sports nutritionist) Resuscitation Status: Full Code - Transfer Diagnosis (1) Infectious endocarditis Is this a current diagnosis for this admission?: Yes (2) Pleural effusion, right Is this a current diagnosis for this admission?: Yes (3) Pseudomonal bacteremia Is this a current diagnosis for this admission?: Yes (4) Recurrent bacterial pneumonia Is this a current diagnosis for this admission?: Yes (5) Ventilator dependent Is this a current diagnosis for this admission?: Yes (6) Necrotic toes Is this a current diagnosis for this admission?: Yes (7) Fever Is this a current diagnosis for this admission?: Yes (8) Coagulopathy Is this a current diagnosis for this admission?: Yes (9) Metabolic encephalopathy Is this a current diagnosis for this admission?: Yes (10) Thrombocytopenia Is this a current diagnosis for this admission?: Yes (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 Is this a current diagnosis for this admission?: Yes (12) Acute kidney injury Is this a current diagnosis for this admission?: Yes - Transfer Medications Home Medications: Albuterol Sulfate [Proair HFA Inhalation Aerosol 8.5 gm MDI] 2 puff IH Q4HP PRN 06/29/20 Levothyroxine Sodium [Synthroid] 125 mcg PO Q6AM 06/29/20 Transfer Medications: Current Medications Acetaminophen (Tylenol 650 Mg Supp) 650 mg GA Q4HP PRN PRN Reason: pain or fever Stop: 08/31/20 16:00 Last Admin: 08/01/20 16:39 Dose: 650 mg Documented by: Albuterol (Ventolin 0.083% Neb 2.5 Mg/3 Ml Ampul) 2.5 mg NEB RTQ4HP PRN PRN Reason: SHORTNESS OF BREATH Stop: 08/12/20 12:56 Last Admin: 07/17/20 20:15 Dose: 2.5 mg Documented by: Amino Acid Protein (Prosource Tf 11 Gm Protein/45 Ml Pkt) 45 ml NG BID BIJAL Stop: 08/15/20 17:59 Last Admin: 08/05/20 10:18 Dose: 45 ml Documented by: Cholecalciferol (Vitamin D3 400 Unit/Ml Drops) 800 unit PO DAILY BIJAL Stop: 08/31/20 09:59 Last Admin: 08/05/20 10:19 Dose: 2 drop Documented by: Ferrous Sulfate (Ferrous Sulfate Liquid 300 Mg/5 Ml Udcup) 300 mg PO BID [facility] Stop: 09/01/20 09:59 Last Admin: 08/05/20 10:18 Dose: 300 mg Documented by: Heparin Sodium (Porcine) (Heparin Inj 5,000 Units/Ml 1 Ml Vial) 5,000 unit SUBCUT Q8 BIJAL Stop: 08/07/20 13:59 Last Admin: 08/03/20 13:41 Dose: Not Given Documented by: Hydrocortisone Sodium Succinate (Solu-Cortef Inj/Pf 100 Mg/ 2 Ml Sdv) 25 mg IV DAILY [facility] Stop: 08/31/20 09:59 Last Admin: 08/05/20 10:18 Dose: 25 mg Documented by: Dextrose (D5w 1000 Ml Iv Soln) 1,000 mls @ 80 mls/hr IV CONTINUOUS PRN PRN Reason: THIS MED IS NOT "PRN" Stop: 08/14/20 09:22 Last Admin: 08/05/20 00:54 Dose: 80 mls/hr Documented by: Thiamine HCl 100 mg/ Sodium (Chloride) 51 mls @ 102 mls/hr IV DAILY [facility] Stop: 08/31/20 09:59 Last Admin: 08/05/20 10:38 Dose: 100 mls/hr, 100 mls/hr Documented by: Meropenem 1 gm/ Sodium (Chloride) 50 mls @ 100 mls/hr IV Q8 [facility] Stop: 08/09/20 05:59 Last Admin: 08/05/20 14:07 Dose: 100 mls/hr, 100 mls/hr Documented by: Cefazolin Sodium 2 gm/ (Dextrose) 100 mls @ 200 mls/hr IV Q8A [facility] Stop: 08/11/20 17:59 Last Admin: 08/05/20 10:37 Dose: 200 mls/hr Documented by: Lactobacillus Acidophilus (Bacid 250 Mg Tablet) 250 mg PO QID [facility] Stop: 08/31/20 09:59 Last Admin: 08/05/20 14:07 Dose: 250 mg Documented by: Lorazepam (Ativan Inj 2 Mg/1 Ml Vial) 1 mg IV Q4HP PRN PRN Reason: FOR ANXIETY AND AGITATION Stop: 08/11/20 03:35 Last Admin: 08/04/20 12:03 Dose: 1 mg Documented by: Pharmacy Profile Note (Medication Communication Order) 1 each [facility] ASDIR PRN Stop: 08/13/20 23:59 Phytonadione (Mephyton 5 Mg Tablet) 2.5 mg PO Sa@1000 BIJAL Stop: 08/31/20 09:59 Last Admin: 08/01/20 10:23 Dose: 2.5 mg Documented by: Potassium Chloride (Potassium Chloride 20 Meq Packet) 20 meq NG DAILY BIJAL Stop: 08/31/20 09:59 Last Admin: 08/05/20 10:18 Dose: 20 meq Documented by: - Allergies Allergies/Adverse Reactions: No Known Allergies Allergy (Verified 06/29/20 08:43) Hospital Course Hospital Course: Patient has had a very prolonged and complicated hospital stay. She was initially admitted on 06/29/2020. Notably, patient has a history of morbid obesity [BMI 67], on tobacco abuse, who presented to the hospital with respiratory distress. She was noted to have multifocal pneumonia on chest x-ray. She was directly admitted to the ICU and intubated due to hypoxic respiratory failure. COVID-19 test was done which was negative. She was treated with IV antibiotics for several days. However patient failed multiple attempts to wean patient off the vent and eventually ended up with a tracheostomy placement done on 07/10/2020. During patient's stay in the ICU, she notably had blood culture positive with MSSA on 06/30/2020. Patient was initially started on vancomycin and transitioned to cefazolin. ANGELIA done on 07/02/2020 showed mitral valve vegetation measuring 2 x 2 cm with functional mitral stenosis. Patient also with notable complications including mottled toes bilaterally including necrotic toes of her right foot as well as notable stroke symptoms with left-sided flaccidity all of which occurred very early in admission and are indicative of septic arterial embolism. CT surgery was consulted at [facility] by prior providers that cared for patient who had recommended medical management at the time during high risk of surgery especially given patient's weight. Patient was tried on trach collar but could only tolerate very short hours on trach collar and had to be placed back on the vent. She has been on the vent for the past few weeks now. During this hospitalization, she was also treated for coagulopathy with significantly elevated INR as high as 13 and mildly elevated PTT. She was evaluated for DIC but fibrinogen level was actually high with high d-dimer making DIC unlikely. It was thought that patient's coagulopathy was from severe vitamin K deficiency and was treated with a few doses of IV vitamin K to which she responded very nicely. She also did receive some treatment with FFP due to some bleeding noted from trach site. Her INR and PTT have been normal for the past several days now. Treated for Pseudomonas bacteremia which was noted on blood culture on 07/30/2020 at which time she has started spiking fevers again. She is currently still on meropenem for treatment of this. Subsequent blood culture obtained on 07/31/2020 was negative. Fevers seem to be resolving at this point and has not spiked a fever in the past 24 hours. Multiple conversations have been had between providers and patient's parents regarding patient's very poor prognosis and discussing hospice but family opts for full treatment and full CODE STATUS. As such, I feel that it is prudent for patient to be sent to a facility where patient can be physically [in person] evaluated by multiple subspecialties including vascular surgery, CT surgery, pulmonary as well as infectious disease specialist. Further details as to current plan as below. (1) Infectious endocarditis Qualifiers: Infective endocarditis organism: bacterial Chronicity: acute Qualified Code(s): I33.0 - Acute and subacute infective endocarditis Is this a current diagnosis for this admission?: Yes Plan: MSSA endocarditis No history of IV drug use. Exact cause of endocarditis and bacteremia is uncertain. ANGELIA 07/02/2020 showed large vegetation on mitral valve 2 x 2 cm causing functio nal mitral stenosis with mild to moderate MR, EF 55% Patient's endocarditis has been complicated by septic embolism to the toes now with vascular occlusion of the right DP and necrotic right toes as well as mottling of left toes due to embolic showers and has very likely suffered an embolic stroke at some point during hospital course given the fact that she does not move her left arm or left leg at all. First blood culture that was negative for MSSA was 07/02/2020. Continue Cefazolin Needs physical consultation with CT surgery, vascular surgery, infectious diseases, and transcription specialist. Hence patient being transferred. Patient has extremely poor prognosis. However, family opting for full treatment and full code. (2) Pleural effusion, right Is this a current diagnosis for this admission?: Yes Plan: Thoracentesis attempted yesterday by IR but informed by interventional radiologist that the pleural effusion was small and no safe pocket could be accessed without risk of causing a pneumothorax. As such we will hold off on further attempt at this point. (3) Pseudomonal bacteremia Is this a current diagnosis for this admission?: Yes Plan: Blood cultures were positive for Pseudomonas on 07/30/2020. Being treated with meropenem. Repeat blood culture on 07/31/2020 was negative. Likely source is catheter associated UTI. Fevers seem to be breaking patient has not been febrile in past 24 hours. (4) Recurrent bacterial pneumonia Is this a current diagnosis for this admission?: Yes Plan: Previously had pneumonia in 03/2020 and was treated with antibiotics, later worsened and she was given more antibiotics by her PCP. Presented on this admission with multifocal pneumonia for which she was treated extensively with IV antibiotics. She also received further treatment a week ago for a few days with vancomycin and meropenem for suspected pneumonia recurrence. (5) Ventilator dependent Is this a current diagnosis for this admission?: Yes Plan: Prolonged respiratory failure secondary to multifocal pneumonia with ARDS. Failed multiple attempts to wean and ended up with tracheostomy placement. Currently has been dependent on continuous mechanical ventilation Volume control: VT 450, fio2 40%, f 10, PEEP 5 However, as patient he is no longer obtunded and mental status is improved, we have resumed trach collar trials today. Plan was to continue with trach collar trials during daytime. (6) Necrotic toes Is this a current diagnosis for this admission?: Yes Plan: Has necrotic toes in the right foot as well as mottling of left toes. Present since early in admission. This is likely secondary to septic area embolism from left-sided vegetation. Arterial Doppler 06/30/2020 showed occlusion of right dorsalis pedis and diminished but patent left dorsalis pedis. Patient requires vascular surgery evaluation to see if revascularization is an option here. She will likely require amputation as well. (7) Fever Is this a current diagnosis for this admission?: Yes Plan: Patient had initially been afebrile with treatment of endocarditis and pneumonia but became febrile again on 07/30/2020. Blood cultures were obtained at that time once again and these cultures were positive for Pseudomonas. She was started on treatment with meropenem. I also believe her gangrenous toes could be contributing to her fever and as such will need urgent vascular surgery evaluation for amputation and revascularization if that is an option. Patient has been afebrile for past 24 hours now. (8) Coagulopathy Is this a current diagnosis for this admission?: Yes Plan: Had severely elevated INR as high as 13 on 07/30/2020 with PTT of 59, elevated d- dimer and mildly elevated fibrinogen levels. DIC was thought to be unlikely thing elevated fibrinogen level. Patient was thought to have severe vitamin K deficiency given prolonged critical illness and antibiotic exposure with likely malnourishment. She received 2 units of FFP as she required line placement and notably had some bleeding from her tracheostomy. However she also received a few doses of vitamin K which she responded to very nicely. Her coags have now normalized and her INR and PTT have been normal for the past 4 days now. (9) Metabolic encephalopathy Is this a current diagnosis for this admission?: Yes Plan: Patient is awake and able to mumble some words on occasion but not very communicative. She does occasionally follow commands to stick out her tongue or raise right arm. Her left side is limp and most of likely suffered an acute CVA sometime during this hospitalization most likely from septic arterial embolism. Head CT was unremarkable. We have been unable to do an MRI/MRA to verify this given technical limitations with our MRI machine given patient's weight. Patient's mental status has actually improved significantly in the past 2 weeks as she was initially obtunded and comatose prior to that. (10) Thrombocytopenia Is this a current diagnosis for this admission?: Yes Plan: HIT panel was negative. Patient was evaluated by plastic jig and fixture builder who thought that patient has bone marrow suppression from acute illness and antibiotics. Platelet count is currently holding around 40s. No indication for transfusion at this time in the absence of active bleeding. 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 ENT doctor changed out trach tube yesterday from a #6 to a #8 cuffed shiley. He recommends changing entire trach tube weekly and continuing routine trach care. (12) Acute kidney injury Is this a current diagnosis for this admission?: Yes Plan: Creatinine was as bad as 5.1 thought to be secondary to ATN but has improved and has maintained in the range of 1.7-2.1 for the past couple of weeks. Physical Exam Vital Signs: Temp Pulse Resp BP Pulse Ox 99.1 F 94 21 H 132/70 H 96 08/05/20 11:33 08/05/20 14:00 08/05/20 11:33 08/05/20 11:33 08/05/20 13:56 Intake & Output 08/04/20 08/05/20 08/06/20 06:59 06:59 06:59 Intake Total 2820 1447 Output Total 800 975 Balance 2019 47 Weight 179.1 kg 177.1 kg General appearance: PRESENT: no acute distress, cooperative, morbidly obese Head exam: PRESENT: normocephalic Neck exam: PRESENT: tracheostomy Respiratory exam: PRESENT: rhonchi, symmetrical, unlabored. ABSENT: accessory muscle use, retraction, tachypnea, wheezes Cardiovascular exam: PRESENT: RRR, +S1, +S2. ABSENT: tachycardia GI/Abdominal exam: PRESENT: soft. ABSENT: rebound, rigid, tenderness Extremities exam: PRESENT: other - necrosis and acrocyanosis of toes Neurological exam: PRESENT: alert, awake, motor sensory deficit - left side is limp, aphasic Psychiatric exam: ABSENT: agitated, anxious Focused psych exam: ABSENT: internal stimuli Skin exam: PRESENT: mottled - bilateral toes, other - black scab over right upper chest wall. ABSENT: jaundice Results Laboratory Results: 08/05/20 06:27 08/05/20 06:27 08/04/20 08/04/20 08/05/20 15:11 23:23 06:27 WBC 13.8 H 14.2 H RBC 3.21 L 2.99 L Hgb 7.8 L 7.3 L Hct 24.7 L 23.0 L MCV 77 L 77 L MCH 24.3 L 24.3 L MCHC 31.6 L 31.6 L RDW 20.6 H 20.6 H Plt Count 42 L 44 L Seg Neutrophils % Not Reportable 78.8 H Sodium Potassium Chloride Carbon Dioxide Anion Gap BUN Creatinine Est GFR ( Amer) Glucose Calcium Urine Color YELLOW Urine Appearance CLOUDY Urine pH 6.0 Ur Specific Romeo 1.015 Urine Protein 100 H Urine Glucose (UA) NEGATIVE Urine Ketones NEGATIVE Urine Blood LARGE H Urine Nitrite NEGATIVE Ur Leukocyte Esterase LARGE H Urine WBC (Auto) 37 Urine RBC (Auto) 36 08/05/20 06:27 WBC RBC Hgb Hct MCV MCH MCHC RDW Plt Count Seg Neutrophils % Sodium 138.9 Potassium 3.8 Chloride 104 Carbon Dioxide 27 Anion Gap 8 BUN 88 H Creatinine 1.95 H Est GFR ( Amer) 37 L Glucose 103 Calcium 8.6 Urine Color Urine Appearance Urine pH Ur Specific Romeo Urine Protein Urine Glucose (UA) Urine Ketones Urine Blood Urine Nitrite Ur Leukocyte Esterase Urine WBC (Auto) Urine RBC (Auto) 07/31/20 01:03 Blood Blood Culture - Final NO GROWTH IN 5 DAYS 06/30/20 06/30/20 07/04/20 03:58 03:58 04:30 Creatine Kinase 188 H NT-Pro-B Natriuret Pep 57914 H 98657 H Impressions: Lower Extremity Ultrasound 06/30/20 00:00 IMPRESSION: 1. Multiphasic waveforms with three-vessel runoff bilaterally. 2. The right dorsalis pedis is not visualized and may be occluded. Diminished, but patent left dorsalis pedis. Venous Doppler Study 07/11/20 00:00 IMPRESSION: Acute hypoechoic clot occludes the cephalic vein in the antecubital fossa KUB X-Ray 07/16/20 00:00 IMPRESSION: Tip of the Dobbhoff catheter in the left upper quadrant, as above copyright 2011 [employer]- All Rights Reserved Gastrostomy Tube Placement 07/30/20 00:00 IMPRESSION: Successful fluoroscopic guided placement of a Dobhoff tube. Tube is ready for use. Guidance Fluoroscopy 07/30/20 00:00 IMPRESSION: Successful fluoroscopic guided placement of a Dobhoff tube. Tube is ready for use. WBC Scan Nuclear Medicine 07/30/20 00:00 IMPRESSION: Inflammation/ infection in the lungs. No other significant uptake. Abdomen/Pelvis CT 07/30/20 08:00 IMPRESSION: 1. No evidence of abscess or other acute abnormality. 2. Cholelithiasis. Chest CT 07/30/20 08:00 IMPRESSION: Diffuse bilateral airspace disease consistent with pneumonia/sepsis. No empyema. No pneumothorax. Head CT 07/30/20 08:00 IMPRESSION: NORMAL BRAIN CT WITHOUT CONTRAST. EVIDENCE OF ACUTE STROKE: NO. Abdomen Ultrasound 07/31/20 00:00 IMPRESSION: Cholelithiasis without other associated ancillary findings to indicate an acute cholecystitis. Chest Ultrasound 07/31/20 00:00 IMPRESSION: Small right-sided pleural effusion. PICC Line Insertion 08/04/20 00:00 IMPRESSION: SUCCESSFUL PLACEMENT OF A 5 FR DUAL LUMEN 43 CM PICC IN THE LEFT BRACHIOCEPHALIC VEIN. Thoracentesis 08/04/20 00:00 IMPRESSION: Procedure not performed due to inability to achieve a safe approach/route. Chest X-Ray 08/05/20 00:00 IMPRESSION: Slight increase in right upper lobe airspace disease. Interval placement of PICC line and enteric tube since prior chest film as described. Plan Time Spent: Greater than 30 Minutes
== END 2020-08-05 18:15 | disposition short-term general hospital (02) | DRG 4 ==
LOC: ER 22:34 → EH 06-29 03:15 → ICU 06-29 05:08 → 3S 07-20 04:21
PROVIDERS: ADMIT Internal Medicine Critical Care Medicine; ATTEND Internal Medicine
PROC: 5A1955Z Respiratory Ventilation, Greater than 96 Consecutive Hours (ICD-10-PCS; principal; 2020-06-29)
PROC: 0BH17EZ Insertion of Endotracheal Airway into Trachea, Via Natural or Artificial Opening (ICD-10-PCS; 2020-06-29)
PROC: 30233R1 Transfusion of Nonautologous Platelets into Peripheral Vein, Percutaneous Approach (ICD-10-PCS; 2020-06-30)
PROC: 02HV33Z Insertion of Infusion Device into Superior Vena Cava, Percutaneous Approach (ICD-10-PCS; 2020-07-01)
PROC: 06HY33Z Insertion of Infusion Device into Lower Vein, Percutaneous Approach (ICD-10-PCS; 2020-07-01)
PROC: B246ZZ4 Ultrasonography of Right and Left Heart, Transesophageal (ICD-10-PCS; 2020-07-02)
PROC: 0B113F4 Bypass Trachea to Cutaneous with Tracheostomy Device, Percutaneous Approach (ICD-10-PCS; 2020-07-10)
PROC: 0DH97UZ Insertion of Feeding Device into Duodenum, Via Natural or Artificial Opening (ICD-10-PCS; 2020-07-30)
PROC: 30233N1 Transfusion of Nonautologous Red Blood Cells into Peripheral Vein, Percutaneous Approach (ICD-10-PCS; 2020-08-02)
PROC: 30233N1 Transfusion of Nonautologous Red Blood Cells into Peripheral Vein, Percutaneous Approach (ICD-10-PCS; 2020-08-03)
PROC: 30233R1 Transfusion of Nonautologous Platelets into Peripheral Vein, Percutaneous Approach (ICD-10-PCS; 2020-08-03)
PROC: 02HV33Z Insertion of Infusion Device into Superior Vena Cava, Percutaneous Approach (ICD-10-PCS; 2020-08-04)
PROC: B518ZZA Fluoroscopy of Superior Vena Cava, Guidance (ICD-10-PCS; 2020-08-04)
PROC: B548ZZA Ultrasonography of Superior Vena Cava, Guidance (ICD-10-PCS; 2020-08-04)
DX: A41.01 Sepsis due to Methicillin susceptible Staphylococcus aureus (principal); N17.0 Acute kidney failure with tubular necrosis; J80 Acute respiratory distress syndrome; J18.9 Pneumonia, unspecified organism; R65.21 Severe sepsis with septic shock; I33.0 Acute and subacute infective endocarditis; E87.2 Acidosis; E66.2 Morbid (severe) obesity with alveolar hypoventilation; R64 Cachexia; E87.0 Hyperosmolality and hypernatremia; R40.3 Persistent vegetative state; Z68.44 Body mass index [BMI] 60.0-69.9, adult; I82.629 Acute embolism and thrombosis of deep veins of unspecified upper extremity; M87.079 Idiopathic aseptic necrosis of unspecified toe(s); D61.818 Other pancytopenia; I05.0 Rheumatic mitral stenosis; D64.9 Anemia, unspecified; I27.20 Pulmonary hypertension, unspecified; B95.61 Methicillin susceptible Staphylococcus aureus infection as the cause of diseases classified elsewhere; E04.2 Nontoxic multinodular goiter; R40.2434 Glasgow coma scale score 3-8, 24 hours or more after hospital admission; E03.9 Hypothyroidism, unspecified; F17.210 Nicotine dependence, cigarettes, uncomplicated; Z20.828 Contact with and (suspected) exposure to other viral communicable diseases; D69.6 Thrombocytopenia, unspecified; Z75.1 Person awaiting admission to adequate facility elsewhere; Z53.09 Procedure and treatment not carried out because of other contraindication
CPT/HCPCS: 320; 32555; 36415; 36430; 36556; 36573; 36600; 44500; 51702; 70450; 71045; 71250; 74018; 74176; 74340; 76604; 76705; 78802; 80048; 80053; 80074; 80076; 80202; 80307; 81001; 82550; 82607; 82728; 82746; 82803; 82962; 83540; 83550; 83605; 83615; 83735; 83880; 83930; 84100; 84145; 84439; 84443; 84478; 85025; 85027; 85045; 85220; 85240; 85379; 85384; 85610; 85730; 86022; 86140; 86701; 86850; 86900; 86901; 86920; 87040; 87070; 87077; 87086; 87150; 87186; 87205; 87324; 87449; 87635; 93306; 93312; 93325; 93925; 93971; 94002; 94003; 94640; 95819; 96374; 96375; 96376; 99291; 99292; A9569; C1769; C9803; J0330; J0360; J0690; J0692; J1100; J1170; J1642; J1644; J1720; J1940; J2020; J2060; J2185; J2250; J2270; J2543; J2704; J3010; J3370; J3411; J3430; J3490; J7030; J7040; J7050; J7060; J7613; P9016; P9035; P9047; S0028